=== PATIENT | female | born 1965 | race Caucasian/White ===

== ENCOUNTER 2019-06-22 21:58 | Observation (INO) | payer BC, SELFPAY ==
--- NOTE | ~2019-06-22 | CT_ITS ---
EXAMINATION: CT BRAIN W/O DATE: 06/22/2019 22:56 INDICATION: Syncope. Weakness. TECHNIQUE: Computed tomography (CT) of the head was performed without intravenous contrast. The dose- length product was 605.33 mGy-cm. The mA was adjusted according to patient size. Iterative reconstruc tion technique was employed. COMPARISON: CT dated 09/16/2010 FINDINGS: Normal brain parenchymal volume for age. Normal monroy-white differentiation. No acute intrac ranial hemorrhage, infarction, mass or mass effect. There are scattered mild periventricular and subc ortical white matter changes, most likely related to small vessel ischemic disease (microangiopathy). No ventriculomegaly or midline shift. Midline sagittal images demonstrate a normal corpus callosum, c raniovertebral junction and sella turcica. Basilar cisterns are patent. Paranasal sinuses and mastoids are pneumatized. No depressed skull fractures. IMPRESSION: 1. No acute intracranial abnormality. 2: Mild chronic age-related findings. Reviewed, dictated and finalized at location A.
--- NOTE | ~2019-06-22 | CT_ITS ---
EXAMINATION: CTA chest PE protocol DATE: 06/23/2019 09:42 CDT INDICATION: Right chest pain. Syncope. TECHNIQUE: Computed tomographic angiography (CTA) of the chest was performed with 100 mL Omnipaque-35 0 intravenous contrast. The dose-length product was 462.37 mGy-cm. Maximum intensity projection 3D-re constructions of the aorta and other arteries were constructed by the technologist on a separate work station. Automated exposure control and iterative reconstruction technique were employed. COMPARISON: CT dated 06/02/2005 FINDINGS: Study is technically adequate without evidence for pulmonary embolism. No evidence for aort ic aneurysm or dissection. Heart size is normal. No thoracic lymphadenopathy. No significant pleural or pericardial effusion. There are calcified mediastinal lymph nodes consistent with chronic granulom atous disease. There is atherosclerosis of the aorta and coronary arteries. There is dependent atelec tasis of the lung bases. No focal airspace consolidation. No pulmonary nodules or masses. IMPRESSION: 1. No evidence for pulmonary embolism. No acute cardiopulmonary disease. Reviewed, dictated and finalized at location A.
--- NOTE | ~2019-06-22 | CT_ITS ---
EXAMINATION: CT cervical spine wo con DATE: 06/22/2019 22:56 INDICATION: Neck pain TECHNIQUE: Computed tomography (CT) of the cervical spine was performed without intravenous contrast. The dose-length product was 442 mGy-cm. Automated exposure control and iterative reconstruction tech nique were employed. COMPARISON: None FINDINGS: Straightening of cervical lordosis. No acute fracture or traumatic malalignment. No signifi cant paraspinal soft tissue abnormality. Mild emphysematous changes noted in the lung apices. Straigh tening of cervical lordosis, likely positional or due to muscle spasm. There is multilevel disc narro wing with ossification posterior longitudinal ligament at the C5-6 and C6-7 levels. There is associat ed spinal stenosis and neural foraminal narrowing at these levels. IMPRESSION: 1. No acute abnormality of the cervical spine. Reviewed, dictated and finalized at location A.
--- NOTE | ~2019-06-22 | XR_ITS ---
EXAMINATION: XR chest 2V 06/22/2019 22:57 INDICATION: Right chest pain and syncope PROCEDURE: AP and lateral views of the chest COMPARISON: 09/23/2013 FINDINGS: The lungs are clear. The cardiomediastinal silhouette is within normal limits. There are no pleural effusions. There is no pneumothorax suspected. IMPRESSION: 1: NO ACUTE CARDIOPULMONARY DISEASE. Reviewed, dictated and finalized at location A.
--- NOTE | ~2019-06-22 | US_ITS ---
EXAMINATION:US venous doppler LE RT INDICATION:Right leg tenderness. Elevated d-dimer. TECHNIQUE: Multiple grayscale, color flow and Doppler images of the right lower extremity deep venous systems were obtained and reviewed. COMPARISON:No prior studies for comparison. FINDINGS: The common femoral, superficial femoral and popliteal veins demonstrate normal respiratory variation, augmentation and compressibility. Color flow is also seen within the posterior tibial, pe roneal, greater saphenous and profunda veins. There is a graft in the right mid thigh which appears to be thrombosed. No flow visualized. IMPRESSION: 1: No lower extremity deep venous thrombosis. 2: Graft in the right mid thigh appears to be occluded without visualized flow. Reviewed, dictated and finalized at location A. IMPRESSION: 1: No lower extremity deep venous thrombosis. 2: Graft in the right mid thigh appears to be occluded without visualized flow .
[2019-06-22 21:52] VITALS: BP 162/68; PULSE 84; PULSE 85; RESP 18; TEMP 36.7; O2SAT 100
--- NOTE | 2019-06-22 21:58 | ED.SYNCOPE ---
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 She states that she was sitting around her house when she stood up, became lightheaded, and had a syncopal episode, falling face first onto the floor. She reports that she had LOC for a couple seconds but denies any injuries from the fall. She notes that she had RUE weakness for a short time after the syncopal episode but that it has since resolved. She also notes that she has been having intermittent neck pain, N/V/D in the mornings, and chills at night for the past month. She states that her PCP recently started on her Bactrim for a skin infection to her thigh. She denies any cough, ABD pain, fevers, numbness, tingling, or any other medical complaints at this time. MD complaint: loss of consciousness Onset (ago): minute(s) -: second(s) Prodromal symptoms: lightheaded Witnessed: No Context: standing up Injuries sustained associated with event: none Current symptoms: other (Rt neck pressure that radiates into her rt shoulder and rt chest) Related Data Home Medications Medication Instructions Recorded Confirmed aspirin 81 mg tablet,delayed 81 mg PO DAILY 06/19/19 06/23/19 release clopidogrel 75 mg tablet 75 mg PO DAILY 06/19/19 06/23/19 ertugliflozin 15 mg tablet 15 mg PO QAM 06/19/19 06/23/19 hydrocodone 5 mg-acetaminophen 325 1 tablet PO Q8H PRN 06/19/19 06/23/19 mg tablet irbesartan 300 mg tablet 300 mg PO DAILY 06/19/19 06/23/19 lamotrigine 100 mg tablet 100 mg PO BID 06/19/19 06/23/19 metformin 1,000 mg tablet 1,000 mg PO BID 06/19/19 06/23/19 multivitamin,ap-hjjm-xhezycnp 1 tablet PO DAILY 06/19/19 06/23/19 sulfamethoxazole 400 1 tablet PO DAILY 06/19/19 06/23/19 mg-trimethoprim 80 mg tablet Allergies Allergy/AdvReac Type Severity Reaction Status Date / Time tramadol Allergy Mild Shortness Verified 06/22/19 23:50 of breath Review of Systems Review of Systems: All systems reviewed & are unremarkable except as noted in HPI and below Constitutional: Constitutional: Reports chills (at night for a month), Denies fatigue and Denies fever(s) Eyes: Eyes: Denies blurry vision ENT: Denies nasal congestion and Denies sinus pressure Cardiovascular: Cardiovascular: Denies rapid heart rate, Denies leg edema, Reports lightheadedness (resolved) and Denies dyspnea Respiratory: Respiratory: Denies hemoptysis and Denies dyspnea Gastrointestinal: Gastrointestinal: Denies abdominal pain, Denies melena, Reports diarrhea (in the mornings for a month), Reports nausea (in the mornings for a month) and Reports vomiting (in the mornings for a month) Musculoskeletal: Musculoskeletal: Reports neck pain (rt that radiates into her rt shoulder and rt chest) and Denies numbness Neurologic: Denies Abnormal speech present, Reports syncope, Reports focal weakness (RUE - resolved) and Denies numbness Endocrine: Endocrine: Denies fatigue PMFSH Past Medical History Medical History Anxiety BMI 30.0-30.9,adult Chronic anxiety Chronic depression Depression Diabetes Diabetes mellitus with peripheral artery disease HTN (hypertension) Hypersomnia Incisional hernia 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
--- NOTE | 2019-06-22 22:09 | ECG_ITS ---
Measurements Intervals [place] Rate: 84 P: 44 NV: 154 QRS: 54 QRSD: 85 T: 17 QT: 348 QTc: 412 Interpretive Statements SINUS RHYTHM BORDERLINE ST-T WAVE ABNORMALITY- INF/LAT LEADS BASELINE ARTIFACT- I, AVL, V3, V6 BORDERLINE ECG Electronically Signed On 06-23-2019 7:58:08 CDT by Yon Nelson D.O.
[2019-06-22 22:28] LABS: Basophils Absolute Auto 0.1 K/mm3 (0.0-0.1); Basophils Percent Auto 0.5 % (0.2-1.2); Eosinophils Absolute Auto 0.2 K/mm3 (0-0.3); Eosinophils Percent Auto 1.6 % (0-4.4); Hematocrit 41.4 % (37.0-47.0); Hemoglobin 12.7 g/dL (12.0-15.0); Immature Granulocyte Absolute 0.05 K/mm3 (0.00-0.031); Immature Granulocyte Percent A 0.5 % (0-0.5); Lymphocytes Absolute Auto 2.09 K/mm3 (0.9-3.2); Mean Corpuscular HGB Conc 30.7 g/dl (32-36); Mean Corpuscular Volume 91.4 fl (80-100); Mean Platelet Volume 9.3 fl (7.4-10.4); Monocytes Absolute Auto 0.9 K/mm3 (0.1-0.6); Monocytes Percent Auto 8.5 % (2.6-8.5); Neutrophils Absolute Auto 7.2 K/mm3 (1.3-6.7); Neutrophils Percent Auto 68.9 % (45.5-73.1); Platelet Count Result 207 k/mm3 (150-375); Red Blood Count 4.53 M/mm3 (4.2-5.4); Red Cell Distribution Width 17.7 % (11.5-14.5); White Blood Count 10.5 K/mm3 (4.5-10.0)
[2019-06-22 22:38] LABS: Prothrombin Time 12.7 Seconds (11.1-14.7)
[2019-06-22 22:39] LABS: Partial Thromboplastin Time 25.3 SECONDS (22.3-36.8)
[2019-06-22 22:41] LABS: D Dimer 2.02 ug/mL (<0.48)
[2019-06-22 22:51] LABS: Alveolar/Arterial O2 Gradient 23.3 mmHg; Base Excess ABG -1.7 mEq/l (+/-2.0); Carboxyhemoglobin 8.5 % THb (0-2.0); Device ROOM AIR; Fractional Inspired Oxygen 21 %; HCO3 ABG 22.7 mEq/l (22.0-26.0); Modified Allen's Test Unable to perform; Oxygen Content ABG 16.4 %vol (16.0-22.0); Oxygen Saturation ABG 96.1 % (95.0-100.0); Oxyhemoglobin 87.5 % THb (90.0-100.0); PCO2 ABG 37.5 mmHg (35.0-45.0); PO2 ABG 81.5 mmHg (80.0-100.0); PO2 FiO2 Ratio Arterial Blood 3.88 %; Site Drawn RIGHT BRACHIAL; Total Hemoglobin 13.3 g/dL (12.0-18.0)
[2019-06-22 22:52] LABS: NT Pro B Type Natriuretic Pept 37 PG/ML (5-100); Troponin I < 0.012 ng/mL (0.000-0.034)
[2019-06-22 22:59] LABS: Carbon Dioxide 27 mmol/L (22-30); Chloride 97 mmol/L (98-107); Potassium 4.2 mmol/L (3.4-5.0); Sodium 135 mmol/L (137-145)
[2019-06-22 23:00] LABS: Alanine Aminotransferase 18 U/L (4-35); Aspartate Amino Transferase 22 U/L (14-36); Bilirubin,Total 0.1 mg/dL (0.2-1.3); Blood Urea Nitrogen 15 mg/dL (7-17); Calcium 9.1 mg/dL (8.4-10.2); Estimated Glomerular Filt Rate 58; Glucose 181 mg/dL (65-105); Magnesium 1.8 mg/dL (1.6-2.3)
[2019-06-22 23:01] LABS: Albumin Level 4.2 g/dL (3.5-5.1); Alkaline Phosphatase 86 U/L (38-126); Total Protein 7.5 g/dL (6.3-8.2)
[2019-06-22 23:17] LABS: Lipase 53 U/L (23-300)
[2019-06-22 23:24] LABS: Add Urine Microscopic? YES; Appearance Urine Clear (Clear); Bilirubin Urine Negative (Negative); Blood Urine Negative (Negative); Color Urine Yellow (Yellow); Glucose Urine UA 3+ mg/dL (Negative); Ketones Urine Negative (Negative); Leukocyte Esterase Ur Negative LEU/UL (Negative); Mucus Urine Rare /lpf; Nitrate Urine Negative (Negative); Protein Urine 1+ mg/dL (Negative); RBC Urine 0-2 /hpf (0-2); Squamous Epithelial Cell Urine Many /hpf (Few); Urobilinogen Urine Negative mg/dL (<2.0); WBC Urine 0-3 /hpf
[2019-06-22 23:30] LABS: Specific Grav Ur 1.031 (1.001-1.035)
[2019-06-22 23:31] VITALS: BP 132/77; PULSE 87; RESP 18; O2SAT 97
[2019-06-22 23:36] VITALS: BP 122/71; BP 138/72; PULSE 79
[2019-06-22 23:37] VITALS: BP 135/72; PULSE 79
[2019-06-23] VITALS (8 sets, daily range): BP systolic 127–166; BP diastolic 60–90; PULSE 67–86; RESP 16–20; TEMP 36.2–37.1; O2SAT 97–98; BMI 29.5
--- NOTE | 2019-06-23 00:55 | PC.NURSE ---
This patient, Kay Gray, was admitted to IMU Room 213-01. Patient/family oriented to hospital policies and general routines including ID bracelet, bed and alarms, visiting hours, pain management, procedures, bathroom and other care routines, personal items, smoking policy, room service/diet, and visiting hours. Valuables list has been completed. Information on how to activate the Rapid Response Team has been discussed. Patient/Family are encouraged to report perceived risks to care and to ask questions if they do not understand what they are told or what they should do.
[2019-06-23 02:28] LABS: Troponin I < 0.012 ng/mL (0.000-0.034)
[2019-06-23 05:36] LABS: Troponin I < 0.012 ng/mL (0.000-0.034)
--- NOTE | 2019-06-23 08:31 | PM.IMHP ---
H&P: HPI History of Present Illness Chief complaint: Syncope, chest pain Narrative: Kay Gray is a 53 year old female with a history of peripheral vascular disease status post multiple stents to her left iliac region, right to left fem-fem bypass, bilateral aortofem bypass with revisions, who presented to the emergency department after a syncopal episode. The patient reports sitting in her chair and stood up when going to bed and suddenly felt a ?strange feeling in her head? then she woke up on the ground. She called for her who assisted her in getting up. He denies any tongue biting, urinary incontinence, or any initial trauma noted. She had fallen forward and hit her right forehead on the carpet but denies any pain. Initially after the fall she was feeling some numbness and tingling down her right arm which lasted about 15 minutes and resolved on its own when getting in ambulance. She recently saw her new primary care provider on 06/19/2019 who restarted her on her Lexapro which she had been off for years but otherwise may no medication adjustments. She also saw her Vascular Surgeon, Dr. Mendoza, last week who started her on Bactrim for a recurrent infection to her medial right thigh with some clear/yellow drainage reported. She does report having some nausea and vomiting over the last few weeks in the morning and the evening about 30 minutes after taking her medications. She reports eating and drinking without any issues and making sure she is staying hydrated. This morning she reports having headache which she gets frequently. She denies any palpitations, chest pain, shortness of breath, cough, fever, chills, leg swelling, abdominal pain, constipation, diarrhea, urinary issues, or any other symptoms at this time. She denies usually having any lightheadedness or dizziness with standing. Initial vitals showed temperature of 98.1?, blood pressure 168/62, heart rate 85, oxygen saturation 100% on room air. Initial labs showed slight leukocytosis at 10,500, otherwise normal CBC with diff. Normal coag panel. Elevated D-dimer at 2.02. ABG was normal. CMP showed slight hyponatremia at 135, glucose at 181, normal LFTs, normal lipase. BNP was 37. Troponin was negative x3. EKG showed normal sinus rhythm with a heart rate of 84, with nonspecific T-wave changes. Chest x-ray shows no acute cardiopulmonary abnormality. CT head showed No acute intracranial abnormality. Mild chronic age-related findings. CT cervical spine showed no acute changes. CTA chest showed no acute PE. The patient was admitted into the hospital for further evaluation of chest pain in syncope. 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 Riojas Vascular Surgeon: Dr. 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 Lynne 07/2014, bilateral aortofemoral bypass in 03/2017, and has required a few revisions. Primary hypertension Restless leg syndrome Seasonal allergies Sleep apnea with mood disorder Stress incontinence Suture granuloma Tobacco abuse Type 2 diabetes mellitus with vascular disease Surgical History Surgical History (Updated 06/23/19 @ 08:48 by Andree Mcintosh PA-C) H/O cardiac catheterization From 05/12/2017 on Legal Mediator note states the patient had a cardiac celina
[2019-06-23] MEDS: ESCITALOPRAM OXALATE 10 MG TABLET 20 MG PO (08:33)
[2019-06-23] MEDS: ASPIRIN 81 MG ENTERIC TABLET PO (08:33)
[2019-06-23] MEDS: THERAPEUTIC MULTIVITAMINS/MINERALS TAB (*BKC) 1 TABLET PO (08:33)
[2019-06-23] MEDS: CLOPIDOGREL BISULFATE 75 MG TABLET PO (08:33)
[2019-06-23] MEDS: IRBESARTAN 150 MG TABLET 300 MG PO (08:33)
[2019-06-23] MEDS: lamoTRIgine 100 MG TABLET PO (08:33)
[2019-06-23] MEDS: metFORMIN HCL 500 MG TABLET 1000 MG PO (08:33)
[2019-06-23 08:35] LABS: Glucose Point of Care 114 (65-105)
[2019-06-23] MEDS: ACETAMINOPHEN 325 MG TABLET 650 MG PO (10:14)
[2019-06-23] MEDS: SACCHAROMYCES BOULARDII 250 MG CAPSULE PO (10:15)
--- NOTE | 2019-06-23 10:42 | PM.CNCAR ---
Assessment and Plan Additional Plan Abrupt brief self-limited syncopal episode of unknown etiology. Since it occurred after arising from a chair getting ready for bed 1 would suspect an episode of orthostasis more than anything else. She does not have any previous cardiovascular history in his had no arrhythmias in the emergency department or appear on telemetry. I am not sure the reason she was admitted for chest pain rule out TN because I see no clinical evidence or history in a any once note that suggests an acute coronary syndrome. Believe she should be discharged for follow-up with her established physicians as an outpatient. She sees both Dr. Mendoza and Marzena Riojas and therefore does not need to be, established in the with anyone in our practice Moses Ravi MD [facility] History of Present Illness History of Present Illness Consult date/time: Date of service: 06/23/19 10:42 Reason For Visit: Syncope, chest pain Narrative: This is a 53-year-old woman I am seeing at the request of the hospitalist presumably because she experiences syncope a full episode yesterday at her home with seen in the emergency room after this and was admitted. She is not known to have any cardiac problems prior to this and she did not describe any symptoms of any sort of chest pain pressure or heaviness. Despite this the ER physician's notes said they were admitting her for chest pain/rule out TN. She states that she was in her usual state of health at home when she got up from a chair and her family room to try to get ready for bed last night. After getting up from the chair she was lightheaded for a moment and the next thing she can remember she was waking up on the floor. She states she had extreme generalized weakness and was unable to get up off the floor so she called for her who had already gone to bed. He came into the room and tried to help her to her feet but she was so weak that she fell back down again. She then states that for about 10 minutes she had some sense of paresthesias in her right arm after about 10 minutes of that all of her symptoms resolved and she felt normal again. At no time she disease describe any sense of chest pain of any kind and she was then brought to this hospital's emergency room. Her principal history a him in terms of previous medical problems include hypertension and a longstanding history of severe peripheral vascular disease for which she is seen by cardiologists of [facility] and Dr. Holliday for vascular surgery down in [place]. Apparently she developed symptoms of severe lower extremity vascular insufficiency and had aortobifem operation at [facility] about 5 or 6 years ago. Following that she states she had a variety of complications that required additional vascular surgery as well as skin and muscle flaps. Her original vascular surgeon at [facility] has left the country and he the for that reason she is now being treated in [place]. Despite all this really and very unfortunately she continues to smoke tobacco and marijuana. Upon coming into the room to see her this morning for consultation she was sleeping flat in bed in no distress of any kind and upon awakening offers no cardiovascular complaints. 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 Marzena Riojas of [facility]. Review of Systems Constitutional: Constitutional: Reports no additional constitutional complaints Eyes: Eyes: Reports no additional eye complaints ENT: Reports system reviewed and no additional complaints, except as documented Cardiovascular: Cardiovascular: Reports no additional cardiovascular complaints Respiratory: Respiratory: Reports no additional respiratory complaints Gastrointestinal: Gastrointestinal: Reports no additional gastrointestinal complaints Musculoskeletal: Musculoskeletal: Reports no additional musculoskeletal complaints Neurologic: Comments: Syncopal episode as per HPI Endocrine: Endocri
[2019-06-23 12:04] LABS: Glucose Point of Care 107 (65-105)
--- NOTE | 2019-06-23 13:26 | PM.DS ---
DS: Diagnosis Admitting Diagnosis Admitting Diagnosis: Syncope and collapse Discharge Diagnosis (1) Syncope: Code(s): R55 - Syncope and collapse Status: Acute Assessment and Plan: Patient had a syncopal episode prior to arrival after going from sitting to standing and felt dizzy. The patient's orthostatics in the emergency department were normal but she was symptomatic with position changes. Will order Pasha hose bilaterally. Patient had elevated D-dimer at 2.02 and had a CTA chest which showed no acute PE. She also had some right calf pain and Venous Doppler was negative for DVT. Patient's troponins are negative x3. Patient's EKG did show some T-wave abnormality. Upon review of patient's prior stress test from January 2017 the patient did have fixed defect in the distal anterior, distal anterior septal, and apical segments. Patient had a cardiac catheterization in 2005 which showed normal coronary arteries. Patient telemetry shows normal sinus rhythm with a heart rate of 69 b.p.m., with no acute abnormality noted. Due to the patient's extensive vascular history I will consult cardiology on to the case. Dr. Ravi evaluated the patient and recommended discharging her home, symptoms seem more like orthostatic hypotension which occurred with standing up. He does not have any concerns for ACS. Recommend following up with Dr. Riojas Cardiology and Dr. Mendoza Vascular Surgeon for further evaluation. The patient understands and agrees the plan all questions answered. (2) Chest pain: Code(s): R07.9 - Chest pain, unspecified Status: Acute Assessment and Plan: Initially that the patient's fall she had some chest discomfort to her anterior right chest which resolved. She denies any acute chest pain at this time. Her EKG did show some T-wave abnormalities. Patient's troponins were all negative x3. Cardiology does not have any concerns for ACS at this time. Will have her follow-up with her marketing data specialist and vascular surgeon. (3) Calf pain: Code(s): M79.669 - Pain in unspecified lower leg Status: Acute Assessment and Plan: Patient has right calf pain to palpation and with positive Homans sign. She reports this is a chronic pain for her but due to elevated D-dimer level and pain we will check a venous Doppler to rule out any DVT. From prior records from her marketing data specialist, it shows she was on Eliquis for a right leg DVT at one point, but the patient denies any history of DVTs in the past and states that the Eliquis was to prevent blood clots from forming. Venous Doppler was completed showing no DVT to the right lower extremity. (4) Neck pain: Code(s): M54.2 - Cervicalgia Status: Acute Assessment and Plan: Patient reports chronic neck pain for which she uses marijuana as well as narcotics if necessary. CT cervical spine preliminary report shows no traumatic injury, no fracture no soft tissue swelling, straightening of the cervical spine which could be positional or related to muscle spasm, prominent multilevel degenerative disc disease lower cervical spine. Ossification posterior longitudinal ligament C5 and C6 level. Spinal stenosis prominent bilateral neural foraminal stenosis at C5-C6 and C6-C7 levels. Will continue with patient's pain control as needed. Heating pad as needed for pain. (5) Type 2 diabetes mellitus with vascular disease: Code(s): E11.59 - Type 2 diabetes mellitus with other circulatory complications Status: Acute Assessment and Plan: Serum glucose this morning was 113. Will continue on her metformin and hold her ertugliflozin which is nonformulary. Will continue Accu-Cheks ACHS , sliding scale NovoLog, hypoglycemic protocol in place.
== END 2019-06-23 14:50 | disposition home or self-care (01) ==
LOC: ANHED 06-23 00:09 → ANHIMU 06-23 00:19
PROVIDERS: Physician Assistant; Admitting Provider Internal Medicine; Emergency Provider General Practice; PCP Physician Assistant; Visit Provider Internal Medicine
DX: R55 Syncope and collapse (principal); R07.9 Chest pain, unspecified; R79.1 Abnormal coagulation profile; M79.661 Pain in right lower leg; M54.2 Cervicalgia; I10 Essential (primary) hypertension; E11.51 Type 2 diabetes mellitus with diabetic peripheral angiopathy without gangrene; F17.210 Nicotine dependence, cigarettes, uncomplicated; L03.115 Cellulitis of right lower limb; F41.8 Other specified anxiety disorders; W18.30XA Fall on same level, unspecified, initial encounter; Z79.82 Long term (current) use of aspirin; Z79.84 Long term (current) use of oral hypoglycemic drugs; Z79.899 Other long term (current) drug therapy; Z95.828 Presence of other vascular implants and grafts; E87.1 Hypo-osmolality and hyponatremia
CPT/HCPCS: 36415; 36600; 70450; 71046; 71275; 72125; 80053; 81001; 82375; 82805; 83050; 83690; 83735; 83880; 84484; 85025; 85380; 85610; 85730; 93005; 93971; 96374; 99285; A9270; G0378; J0131; Q9967

== ENCOUNTER 2019-09-20 07:19 | Outpatient (CLI) | payer MEDICARE, SELFPAY ==
[2019-09-20 07:58] LABS: Hemoglobin A1C 6.6 % (<5.7)
[2019-09-20 08:01] LABS: Blood Urea Nitrogen 16 mg/dL (7-17); Calcium 9.8 mg/dL (8.4-10.2); Carbon Dioxide 27 mmol/L (22-30); Chloride 103 mmol/L (98-107); Cholesterol 125 mg/dL (0-200); Estimated Glomerular Filt Rate > 60; Glucose 153 mg/dL (65-105); HDL Direct 27 mg/dL; Potassium 4.3 mmol/L (3.4-5.0); Sodium 138 mmol/L (137-145); Triglycerides 189 mg/dL (<150)
[2019-09-20 08:12] LABS: LDL Cholesterol Direct 67 mg/dL
== END 2019-09-20 07:20 | disposition home or self-care (01) ==
PROVIDERS: Visit Provider Physician Assistant
DX: R07.9 Chest pain, unspecified (principal); E66.9 Obesity, unspecified; I70.219 Atherosclerosis of native arteries of extremities with intermittent claudication, unspecified extremity; I83.10 Varicose veins of unspecified lower extremity with inflammation; I10 Essential (primary) hypertension; F17.200 Nicotine dependence, unspecified, uncomplicated; E78.5 Hyperlipidemia, unspecified; F32.9 Major depressive disorder, single episode, unspecified; E11.59 Type 2 diabetes mellitus with other circulatory complications
CPT/HCPCS: 36415; 80048; 80061; 83036

== ENCOUNTER 2019-10-15 20:46 | Emergency (ER) | payer MEDICARE, SELFPAY ==
[2019-10-15 20:50] VITALS: BP 175/87; PULSE 82; RESP 18; TEMP 36.6; O2SAT 98
--- NOTE | 2019-10-15 20:57 | PC.NURSE ---
Patient requesting to leave ED and have drive her to [facility] ER where vascular surgery took place. ED charge nurse called to triage to speak to patient. This RN and charge nurse advised patient of risk of leaving with a high risk recent surgery and all complications including bleeding out and . Pt verbalized understanding and still instant to go to [place] without seeing [facility] ED doctors. Pt again verbalized understanding. ED charge nurse, Frida had patient sign a refusal of service prior to her leaving the ER. Pt signed refusal.
== END 2019-10-15 20:57 | disposition left against medical advice (07) ==
DX: Z53.21 Procedure and treatment not carried out due to patient leaving prior to being seen by health care provider (principal)
CPT/HCPCS: 99199

== ENCOUNTER 2019-10-25 09:39 | Outpatient (CLI) | payer MEDICARE, SELFPAY ==
--- NOTE | ~2019-10-25 | CT_ITS ---
EXAMINATION: CT abdomen pelvis w con DATE: 10/25/2019 10:30 INDICATION: Incisional hernia TECHNIQUE: Computed tomography (CT) of the abdomen and pelvis was performed with 100 cc Omnipaque 350 intravenous contrast. Automated exposure control and iterative reconstruction technique were employe d. Exam dose: 989.69 mGy-cm total exam DLP. COMPARISON: 08/03/2011 CT abdomen pelvis FINDINGS: The lung bases are clear. Normal heart size. No pericardial or pleural effusion. No hepatic, splenic, pancreatic, adrenal or renal space occupying mass lesion. Status post cholecystectomy. No bile duct or pancreatic duct dilatation. No urinary tract calculus or hydroureteronephrosis. The urinary bladder, uterus and adnexal areas are unremarkable. There is atherosclerotic calcification of the abdominal aorta and branches. There are stents in both common iliac arteries. There is a femoral-femoral bypass graft. There are numerous diverticula of the colon, particularly sigmoid area; no CT evidence of diverticuli tis. There is a prominent amount of fecal material within the colon. The appendix is not evident. There is a fat-containing right periumbilical hernia with up to 1.7 cm wide defect of the abdominal w all. Included skeletal structures are unremarkable other than mild degenerative changes of the thoracic an d lumbar spine, osteopenia IMPRESSION: Right periumbilical fat-containing hernia Status post cholecystectomy Diverticulosis of the colon Bilateral common iliac stents and femorofemoral bypass graft Reviewed, dictated and finalized at [facility]. Reviewed, dictated and finalized at [facility].
[2019-10-25 10:17] LABS: Estimated Glomerular Filt Rate > 60
== END 2019-10-25 09:40 ==
PROVIDERS: Visit Provider Surgery
DX: K43.2 Incisional hernia without obstruction or gangrene (principal); K42.9 Umbilical hernia without obstruction or gangrene; Z90.49 Acquired absence of other specified parts of digestive tract; K57.30 Diverticulosis of large intestine without perforation or abscess without bleeding
CPT/HCPCS: 36415; 74177; Q9967

== ENCOUNTER 2020-01-24 08:45 | Outpatient (CLI) | payer MEDICARE, SELFPAY ==
[2020-01-24 09:34] LABS: Hemoglobin A1C 5.8 % (<5.7)
[2020-01-24 09:36] LABS: Anion Gap 9 mmol/L (8-16); Blood Urea Nitrogen 19 mg/dL (7-17); Calcium 10.1 mg/dL (8.4-10.2); Carbon Dioxide 31 mmol/L (22-30); Chloride 99 mmol/L (98-107); Cholesterol 145 mg/dL (0-200); Estimated Glomerular Filt Rate > 60; Glucose 103 mg/dL (65-105); HDL Direct 36 mg/dL; Sodium 139 mmol/L (137-145); Triglycerides 225 mg/dL (<150)
[2020-01-24 09:47] LABS: LDL Cholesterol Direct 81 mg/dL
[2020-01-24 09:56] LABS: MALB Creatinine Ratio 11.3 mg/g (0-30)
== END 2020-01-24 08:46 | disposition home or self-care (01) ==
LOC: ANHLAB 08:49
PROVIDERS: PCP Physician Assistant; Visit Provider Physician Assistant
DX: E78.2 Mixed hyperlipidemia (principal); E11.51 Type 2 diabetes mellitus with diabetic peripheral angiopathy without gangrene
CPT/HCPCS: 36415; 80048; 80061; 82043; 83036

== ENCOUNTER → 2020-08-11 01:38 | Outpatient (CLI) | payer MEDICARE, SELFPAY ==
[2020-08-11 18:55] LABS: SARS-CoV-2 RNA PCR Negative
== END ==
PROVIDERS: PCP Physician Assistant; Visit Provider Internal Medicine Gastroenterology
DX: Z01.812 Encounter for preprocedural laboratory examination (principal); Z20.822 Contact with and (suspected) exposure to COVID-19
CPT/HCPCS: C9803; U0003; U0005

== ENCOUNTER 2020-08-14 05:34 | Day surgery (SDC) | payer MEDICARE, SELFPAY ==
[2020-08-04 10:51] VITALS: BMI 25.7
[2020-08-14 07:49] VITALS: BP 148/86; PULSE 84; RESP 16; TEMP 36.7; O2SAT 96; BMI 26.4
[2020-08-14] MEDS: LACTATED RINGERS 1,000 ML 150 ML IV CONT (07:54)
[2020-08-14 08:05] LABS: Glucose Point of Care 136 (65-105)
--- NOTE | 2020-08-14 08:40 | WPDANESEPPF ---
Anes - Initial Pre Proc Eval Procedure: Operation Date: 08/14/20 09:00 Proposed Procedures p Screening Colonoscopy - Usman Bull MD Date/Time: 08/14/20 08:40 Surgeon: Usman Bull MD Pre Op Diagnosis: neoplasm screening Patient Data Age: 54 Gender: F Height: 5 ft 6 in Weight: 74.2 kg Last Vital Signs Temp 98.1 F 08/14/20 07:49 Pulse 84 08/14/20 07:49 Resp 16 08/14/20 07:49 BP 148/86 H 08/14/20 07:49 Pulse Ox 96 08/14/20 07:49 Allergies Allergy/AdvReac Type Severity Reaction Status Date / Time Qdtobzn-Xdi-Ate Reductase Allergy Severe Muscle Verified 08/14/20 07:46 Inhibitor Spasms vancomycin Allergy Severe Hives Verified 08/14/20 07:46 tramadol Allergy Mild Shortness Verified 08/14/20 07:46 of breath Home Medications Medication Instructions Recorded Confirmed Type aspirin 81 mg tablet,delayed 81 mg PO DAILY 06/19/19 08/14/20 History release clopidogrel 75 mg tablet 75 mg PO DAILY 06/19/19 08/14/20 History multivitamin,ig-dipx-ektlvhzu 1 tablet PO DAILY 06/19/19 08/14/20 History metformin 1,000 mg tablet 1,000 mg PO BID #180 tablet 08/15/19 08/14/20 Rx lamotrigine 100 mg tablet 100 mg PO BID #180 tablet 09/09/19 08/14/20 Rx ezetimibe 10 mg tablet 10 mg PO DAILY 10/18/19 08/14/20 History hydrochlorothiazide 12.5 mg tablet 12.5 mg PO DAILY 10/18/19 08/14/20 History gabapentin 300 mg capsule 300 mg PO TID 01/22/20 08/14/20 History escitalopram oxalate 20 mg tablet 20 mg PO DAILY #90 tablet 03/11/20 08/14/20 Rx irbesartan 300 mg tablet 300 mg PO DAILY #90 tablet 03/11/20 08/14/20 Rx trazodone 50 mg tablet See Rx Instructions .ROUTE 03/12/20 08/14/20 Rx .COMPLEX #90 tablet ropinirole 3 mg PO HS 08/04/20 08/14/20 History semaglutide 0.5 mg SUB-Q WEEKLY #6 ml 08/13/20 08/14/20 Rx Laboratory Tests 08/14/20 08:03 POC Capillary Glucose 136 mg/dl H mg/dl (65-105) Patient hx anesthesia problems: none Family hx anesthesia problems: none PMFSH Past Medical History Medical History Anxiety BMI 30.0-30.9,adult Chronic anxiety Chronic depression Depression Diabetes mellitus with peripheral artery disease HTN (hypertension) Hypersomnia Incisional hernia Infection of vascular bypass graft senior living (current) use of 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 Lynne 07/2014, bilateral aortofemoral bypass in 03/2017, and has required a few revisions. Primary hypertension Restless leg syndrome Seasonal allergies Sleep apnea with mood disorder Stress incontinence Suture granuloma Tobacco abuse Type 2 diabetes mellitus with vascular disease Surgical History Surgical History Colonoscopy planned H/O cardiac catheterization From 05/12/2017 on Director Validation note states the patient had a cardiac catheterization in 2005 which showed normal coronary arteries. Hx of vsueb-slxrp-hqilclr bypass Hx of hernia repair Status post aortobifemoral bypass surgery Status post laparoscopic hernia repair Family History Family History Sibling Family history of diabetes mellitus in first degree relative Family history of liver disease Liver cancer Mother Liver cancer Diabetes mellitus Congestive heart failure Father Congestive heart failure Social History Social History (Updated 07/20/20 @ 15:34 by Tete Mata [facility]) Smoking packs per day: 1 Smoking cigarettes per day: 20.0 Years smoked: 25 Smoking pack-years: 25.00 Smoking status: Former smoker Tobacco type: cigarettes Smoking end date: 04/03/20 Alcohol intake: current Substance use: current Sub
--- NOTE | 2020-08-14 08:46 | PM.HPGS ---
History of Present Illness History of Present Illness Consent: Risks, benefits, and alternatives have been discussed and questions answered. Patient agrees to proceed with procedure. Chief complaint: neoplasm screening Narrative: Kay Gray is a 54 year old female here for screening colonoscopy, last one 2019 (had polyp removed) Review of Systems Constitutional: Constitutional: Denies headache(s) and Denies weakness Eyes: Eyes: Denies blurry vision ENT: Reports Normal hearing present, Denies headache(s) and Denies neck pain Cardiovascular: Cardiovascular: Denies chest pain and Denies dyspnea Respiratory: Respiratory: Denies dyspnea Gastrointestinal: Gastrointestinal: Reports no additional gastrointestinal complaints Genitourinary: Genitourinary: Denies dysuria Musculoskeletal: Musculoskeletal: Denies neck pain Integumentary/Breasts: Skin/Breast: Denies dry skin Neurologic: Reports Normal hearing present, Denies headache(s) and Denies weakness Psychiatric: Psychiatric: Denies anxiety Endocrine: Endocrine: Denies change in body appearance Hematologic/Lymphatic: Hematologic/Lymphatic: Denies easy bleeding Allergic/Immunologic: Allergic/Immunologic: Denies urticaria PMFSH Past Medical History Medical History Anxiety BMI 30.0-30.9,adult Chronic anxiety Chronic depression Depression Diabetes mellitus with peripheral artery disease HTN (hypertension) Hypersomnia Incisional hernia 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 Lynne 07/2014, bilateral aortofemoral bypass in 03/2017, and has required a few revisions. Primary hypertension Restless leg syndrome Seasonal allergies Sleep apnea with mood disorder Stress incontinence Suture granuloma Tobacco abuse Type 2 diabetes mellitus with vascular disease Surgical History Surgical History Colonoscopy planned H/O cardiac catheterization From 05/12/2017 on Peeled Potato Inspector note states the patient had a cardiac catheterization in 2005 which showed normal coronary arteries. Hx of nsaee-zcowk-jrueerm bypass Hx of hernia repair Status post aortobifemoral bypass surgery Status post laparoscopic hernia repair Family History Family History Sibling Family history of diabetes mellitus in first degree relative Family history of liver disease Liver cancer Mother Liver cancer Diabetes mellitus Congestive heart failure Father Congestive heart failure Social History Social History (Updated 07/20/20 @ 15:34 by Tete Mata [facility]) Smoking packs per day: 1 Smoking cigarettes per day: 20.0 Years smoked: 25 Smoking pack-years: 25.00 Smoking status: Former smoker Tobacco type: cigarettes Smoking end date: 04/03/20 Alcohol intake: current Substance use: current Substance use type: marijuana Other substance usage details: edible marijuana Last use: 08/02/2020 Living arrangements: with family Additional living arrangements comments: She lives with her in [place]. Additional occupation/education comments: Disabled due to PAD Gender identity (if verbalized by the patient): Female Spiritual care concerns: No Agree to blood products: Yes Meds Home Medications and Allergies Home Medications Medication Instructions Recorded Confirmed Type aspirin 81 mg tablet,delayed 81 mg PO DAILY 06/19/19 08/14/20 History release clopidogrel 75 mg tablet 75 mg PO DAILY 06/19/19 08/14/20 History multivitamin,ic-zrcg-enjtuhbm 1 tablet PO DAILY 06/19/19 08/14/20 History metformin 1,000 m
[2020-08-14 09:21] VITALS: BP 130/63; PULSE 66; RESP 14; O2SAT 14
[2020-08-14 09:31] VITALS: BP 133/66; PULSE 61; RESP 16; O2SAT 16
[2020-08-14 09:41] VITALS: BP 129/69; PULSE 59; RESP 12; O2SAT 12
== END 2020-08-14 09:57 | disposition home or self-care (01) ==
PROVIDERS: PCP Physician Assistant; Visit Provider Internal Medicine Gastroenterology
PROC: 0DJD8ZZ Inspection of Lower Intestinal Tract, Via Natural or Artificial Opening Endoscopic (ICD-10-PCS; CPT 45378; principal; 2020-08-14 09:00)
DX: Z12.11 Encounter for screening for malignant neoplasm of colon (principal); Z86.010 Personal history of colon polyps; I10 Essential (primary) hypertension; E78.2 Mixed hyperlipidemia; E11.51 Type 2 diabetes mellitus with diabetic peripheral angiopathy without gangrene; J30.2 Other seasonal allergic rhinitis; K57.30 Diverticulosis of large intestine without perforation or abscess without bleeding; K64.8 Other hemorrhoids; G47.10 Hypersomnia, unspecified; G47.30 Sleep apnea, unspecified; G25.81 Restless legs syndrome; F32.9 Major depressive disorder, single episode, unspecified; F39 Unspecified mood [affective] disorder; F41.9 Anxiety disorder, unspecified; Z79.82 Long term (current) use of aspirin
CPT/HCPCS: 45380; 82948; 88305; C9803; J2405; J2704; J7120; U0003; U0005

== ENCOUNTER 2020-12-03 16:17 | Outpatient (CLI) | payer MEDICARE, SELFPAY ==
--- NOTE | ~2020-12-03 | XR_ITS ---
EXAMINATION: XR lumbar spine 2-3V DATE: 12/03/2020 16:44 INDICATION: Low back pain. TECHNIQUE: 3 views of lumbar spine were obtained. COMPARISON: CT abdomen and pelvis 10/25/2019 FINDINGS: There is 3 mm anterolisthesis of L4 on L5. There is mild chronic anterior wedging of T11 ve rtebral body. There is mildly decreased disc height at L4-L5. There are endplate osteophytes at all l evels. There is severe facet joint osteoarthritis in lower lumbar spine. There are stents in the comm on iliac arteries. Surgical clips in the right upper quadrant are likely from cholecystectomy. IMPRESSION: 1. Mild lumbar spondylosis. Reviewed, dictated and finalized at location A. IMPRESSION: 1. Mild lumbar spondylosis.
--- NOTE | ~2020-12-03 | XR_ITS ---
EXAMINATION: XR hip RT min 2V DATE: 12/03/2020 16:45 INDICATION: Right hip pain. TECHNIQUE: 2 views of right hip were obtained. COMPARISON: None. FINDINGS: Bone alignment is normal. No fracture. There is mild right hip osteoarthritis. Surgical cli ps overlie the right inguinal region. IMPRESSION: 1. Mild right hip osteoarthritis. Reviewed, dictated and finalized at location A.
--- NOTE | ~2020-12-03 | XR_ITS ---
EXAMINATION: XR hip LT min 2V DATE: 12/03/2020 16:45 INDICATION: Hip pain. TECHNIQUE: 2 views of left hip were obtained. COMPARISON: None. FINDINGS: Bone alignment is normal. No fracture. Left hip joint space is normal. Surgical clips overl ie left inguinal region. IMPRESSION: 1. Normal left hip. Reviewed, dictated and finalized at location A. IMPRESSION: 1. Normal left hip.
== END 2020-12-03 16:18 | disposition home or self-care (01) ==
LOC: ANHIMG 16:20
PROVIDERS: PCP Family Medicine; Visit Provider Physician Assistant
DX: M54.5 Low back pain (principal); M47.816 Spondylosis without myelopathy or radiculopathy, lumbar region; M16.11 Unilateral primary osteoarthritis, right hip
CPT/HCPCS: 72100; 73502

== ENCOUNTER 2020-12-05 07:41 | Outpatient (CLI) | payer MEDICARE, SELFPAY ==
[2020-12-05 08:09] LABS: Alanine Aminotransferase 21 U/L (4-35); Albumin Level 4.1 g/dL (3.5-5.1); Alkaline Phosphatase 70 U/L (38-126); Anion Gap 6 mmol/L (8-16); Aspartate Amino Transferase 26 U/L (14-36); Bilirubin,Total 0.2 mg/dL (0.2-1.3); Blood Urea Nitrogen 18 mg/dL (7-17); Calcium 9.6 mg/dL (8.4-10.2); Carbon Dioxide 30 mmol/L (22-30); Chloride 103 mmol/L (98-107); Cholesterol 142 mg/dL (0-200); Estimated Glomerular Filt Rate > 60; Glucose 118 mg/dL (65-110); HDL Direct 42 mg/dL; Potassium 3.4 mmol/L (3.4-5.0); Sodium 139 mmol/L (137-145); Triglycerides 153 mg/dL (<150)
[2020-12-05 08:12] LABS: Hemoglobin A1C 5.7 % (<5.7)
[2020-12-05 08:22] LABS: LDL Cholesterol Direct 67 mg/dL
[2020-12-05 08:23] LABS: Creatinine Urine 71.8 mg/dL
[2020-12-05 08:28] LABS: MALB Creatinine Ratio 58.4 mg/g (0-30); Microalbumin Urine Random 41.9 mg/L (0-16.7)
== END 2020-12-05 07:42 | disposition home or self-care (01) ==
LOC: ANHLAB 07:45
PROVIDERS: PCP Family Medicine; Visit Provider Physician Assistant
DX: I10 Essential (primary) hypertension (principal); E11.9 Type 2 diabetes mellitus without complications; E78.5 Hyperlipidemia, unspecified
CPT/HCPCS: 36415; 80053; 80061; 82043; 83036

== ENCOUNTER 2021-05-23 10:21 | Emergency (ER) | payer MEDICARE, SELFPAY ==
--- NOTE | ~2021-05-23 | XR_ITS ---
XR shoulder RT min 2V 05/23/2021 10:45 INDICATION: Right shoulder pain PROCEDURE: 4 views right shoulder COMPARISON: No prior studies for comparison. FINDINGS: Fracture, dislocation or subluxation is not identified. The soft tissues appear within norm al limits. No foreign bodies are identified. IMPRESSION: 1: NO ACUTE BONE OR JOINT ABNORMALITY IDENTIFIED. Reviewed, dictated and finalized at location A. ATOR
[2021-05-23 10:33] VITALS: BP 165/73; PULSE 86; RESP 16; TEMP 36.2; O2SAT 99
--- NOTE | 2021-05-23 11:09 | ED.UPPEXIN ---
HPI - Extremity Injury (Upper) General Chief Complaint: Extremity Injury, Upper Stated Complaint: Right shoulder injury Time Seen by Provider: 05/23/21 10:52 Source: patient and RN notes reviewed Mode of arrival: ambulatory Limitations: no limitations History of Present Illness HPI narrative: Patient presents today complaining of right shoulder pain after falling over a large potted plant last night onto her shoulder. Denies numbness or tingling in the arm or hand. She currently rates her pain 8/10 and has been taking Tylenol and applying ice without relief. MD complaint: injury to: right and shoulder Related Data Home Medications Medication Instructions Recorded Confirmed aspirin 81 mg tablet,delayed 81 mg PO DAILY 06/19/19 05/23/21 release clopidogrel 75 mg tablet 75 mg PO DAILY 06/19/19 05/23/21 multivitamin,ru-htse-ncnvfakq 1 tablet PO DAILY 06/19/19 05/23/21 ezetimibe 10 mg tablet 10 mg PO DAILY 10/18/19 05/23/21 hydrochlorothiazide 12.5 mg tablet 12.5 mg PO DAILY 10/18/19 05/23/21 diclofenac sodium 2 g TOPICAL QID PRN 05/23/21 05/23/21 Allergies Allergy/AdvReac Type Severity Reaction Status Date / Time Fpohzgh-PBP-WaS Reductase Allergy Severe Muscle Verified 05/23/21 10:28 Inhibitor Spasms [Mgcebmt-Ogh-Lnx Reductase Inhibitor] vancomycin Allergy Severe Hives Verified 05/23/21 10:28 tramadol AdvReac Mild Itching Verified 05/23/21 10:28 Review of Systems Review of Systems: CONSTITUTIONAL: Denies body aches, fever, chills, or sweats. EYES: Denies visual changes, redness, or discharge. ENT: Denies rhinorrhea, congestion, sore throat, or otalgia. CARDIOVASCULAR: Denies chest pain, palpitations, or edema. RESPIRATORY: Denies cough or dyspnea. GASTROINTESTINAL: Denies abdominal pain, nausea, vomiting, or diarrhea. GENITOURINARY: Denies dysuria or hematuria. SKIN: Denies rash, itching, or wounds. MUSCULOSKELETAL: Denies back pain, or myalgia.+ Right shoulder pain. NEUROLOGIC: Denies headache, numbness, tingling, or weakness. PSYCH: Denies depression or anxiety. 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 Lynne 07/2014, bilateral aortofemoral bypass in 03/2017, and has required a few revisions. Primary hypertension Restless leg syndrome Seasonal allergies Sleep apnea with mood disorder Stress incontinence Suture granuloma Tobacco abuse Type 2 diabetes mellitus with vascular disease Surgical History Surgical History Colonoscopy planned H/O cardiac catheterization From 05/12/2017 on It Technical Support Specialist note states the patient had a cardiac catheterization in 2005 which showed normal coronary arteries. Hx of dfcnc-afags-vqezjie bypass Hx of hernia repair Status post aortobifemoral bypass surgery Status post laparoscopic hernia repair Family History Family History Sibling Family history of diabetes mellitus in first degree relative Family history of liver disease Liver cancer Mother Liver cancer Diabetes mellitus Congestive heart failure Father Congestive heart failure Social History Social History Smoking packs per day: 1 Smoking cigarettes per day: 20.0 Years smoked: 25 Smoking pack-years: 25.00 Smoking status: Former smoker Tobacco type: cigarettes Smoking
== END 2021-05-23 11:18 | disposition home or self-care (01) ==
PROVIDERS: Emergency Provider Nurse Practitioner; PCP Family Medicine
DX: S46.911A Strain of unspecified muscle, fascia and tendon at shoulder and upper arm level, right arm, initial encounter (principal); S40.011A Contusion of right shoulder, initial encounter; W18.09XA Striking against other object with subsequent fall, initial encounter; Z87.891 Personal history of nicotine dependence; F12.90 Cannabis use, unspecified, uncomplicated; E11.51 Type 2 diabetes mellitus with diabetic peripheral angiopathy without gangrene; I10 Essential (primary) hypertension; E78.2 Mixed hyperlipidemia; G25.81 Restless legs syndrome; Z79.82 Long term (current) use of aspirin; F41.9 Anxiety disorder, unspecified; F32.A Depression, unspecified
CPT/HCPCS: 73030; 99213; G0463

== ENCOUNTER 2021-08-09 09:02 | Outpatient (CLI) | payer MEDICARE, SELFPAY ==
[2021-08-09 09:52] LABS: Hemoglobin A1C 5.3 % (<5.7)
[2021-08-09 09:59] LABS: Alanine Aminotransferase 14 U/L (6-35); Albumin Level 4.2 g/dL (3.5-5.1); Alkaline Phosphatase 79 U/L (38-126); Anion Gap 10 mmol/L (8-16); Aspartate Amino Transferase 23 U/L (14-36); Bilirubin,Total 0.2 mg/dL (0.2-1.3); Blood Urea Nitrogen 17 mg/dL (7-17); Calcium 9.1 mg/dL (8.4-10.2); Carbon Dioxide 28 mmol/L (22-30); Chloride 103 mmol/L (98-107); Cholesterol 124 mg/dL (0-200); Estimated Glomerular Filt Rate 51; Glucose 140 mg/dL (65-110); HDL Direct 34 mg/dL; Potassium 4.1 mmol/L (3.4-5.0); Sodium 141 mmol/L (137-145); Triglycerides 142 mg/dL (<150)
[2021-08-09 10:13] LABS: LDL Cholesterol Direct 58 mg/dL
[2021-08-11 15:41] LABS: Lamotrigine Lamictal 5.1 mcg/mL (4.0-18.0)
== END 2021-08-09 09:03 | disposition home or self-care (01) ==
PROVIDERS: PCP Family Medicine; Visit Provider Internal Medicine
DX: E11.59 Type 2 diabetes mellitus with other circulatory complications (principal); I10 Essential (primary) hypertension; E78.5 Hyperlipidemia, unspecified; F39 Unspecified mood [affective] disorder
CPT/HCPCS: 36415; 80053; 80061; 80175; 83036

== ENCOUNTER 2021-08-11 07:53 | Outpatient (CLI) | payer MEDICARE, SELFPAY ==
--- NOTE | ~2021-08-11 | XR_ITS ---
EXAMINATION: XR barium swallow modified DATE: 08/11/2021 08:46 INDICATION: Dysphagia TECHNIQUE: Modified barium esophagram was performed by myself to administered fluoroscopy, in conjun ction with speech pathologist who administered barium in varying consistencies as per speech patholog ist documentation. This was recorded on tape. A single fluoroscopic spot image was recorded. The DAP for this procedure was 1.738 Gycm2. Fluoroscopy exposure time was 3.0 minutes. FINDINGS: Oral stage: Adequate function. Pharyngeal phase: Reduced laryngeal elevation, reduced tongue base retraction, vallecular and pirifor m sinus residue. Laryngeal penetration: Present. Aspiration: Present. Laryngeal sensitivity: Absent. IMPRESSION: Silent aspiration. Please refer to speech pathologist findings and specific feeding recom mendations. Reviewed, dictated and finalized at location A. IMPRESSION: Silent aspiration. Please refer to speech pathologist findings and specific feeding recommendations.
--- NOTE | 2021-08-11 17:09 | STOPEVAL ---
MODIFIED BARIUM SWALLOW EVALUATION: Thank you for referring Kay Gray to [facility].? Attending Provider: Farzad Joe DO Modified Barium Swallow Evaluation Recent Swallowing History Reports Dysphagia Yes: lots of choking & its hard to swallow Duration of Dysphagia 6 months History of Pneumonia No: pt denied Reported Difficult Consistencies Thin Liquids,Solids Intake Method Prior to Swallow Oral Evaluation Diet Prior to Swallow Evaluation Regular, Level 7 Liquid Consistency Prior to Swallow Thin (0) Evaluation Consistency Thin Uncontrolled 2 Other Amount with chin tuck Method of Presentation Straw Oral Preparatory Symptoms None Oral Phase Symptoms None Pharyngeal Phase Symptoms Aspiration,Laryngeal Penetration,Reduced Laryngeal Elevation Severity of Vallecular Residue None - 0% No Residue Severity of Pyriform Sinus Residue None - 0% No Residue 8 Point Laryngeal Penetration-Aspiration Material Enters Airway Below Scale Vocal Cords, No Effort Made to Eject Aspiration Timing After the Swallow Aspiration Severity Trace Pharyngeal Phase Comments Despite taking a larger amount , the laryngeal penetration and subsequent aspiration was a trace amount. Aspiration was silent. Pt required cues to cough and dry swallow in attempt to clear aspirate; however, aspirate was not completely cleared. Cervical/Esophageal Phase Comments osteophytes exhibited at C 4/5 but did not appear to have an overall negative impact on swallow Thin Uncontrolled 1 Other Amount with chin tuck Method of Presentation Cup Oral Preparatory Symptoms None Oral Phase Symptoms None Pharyngeal Phase Symptoms Aspiration,Laryngeal Penetration,Reduced Laryngeal Elevation Severity of Vallecular Residue None - 0% No Residue Severity of Pyriform Sinus Residue None - 0% No Residue 8 Point Laryngeal Penetration-Aspiration Material Enters Airway Below Scale Vocal Cords, No Effort Made to Eject Aspiration Timing After the Swallow Aspiration Severity Trace Pharyngeal Phase Comments Despite taking a larger amount , the laryngeal penetration and subsequent aspiration
== END 2021-08-11 07:54 | disposition home or self-care (01) ==
PROVIDERS: PCP Internal Medicine; Visit Provider Internal Medicine
DX: R13.10 Dysphagia, unspecified (principal)
CPT/HCPCS: 92611

== ENCOUNTER 2021-09-13 16:01 | Outpatient (CLI) | payer MEDICARE, SELFPAY ==
--- NOTE | ~2021-09-13 | CT_ITS ---
EXAMINATION: CT brain wo/w con DATE: 09/13/2021 16:35 INDICATION: Head injury. TECHNIQUE: Computed tomography (CT) of the head was performed without and with 100 mL Omnipaque 300 i ntravenous contrast. The mA was adjusted according to patient size. Iterative reconstruction techniqu e was employed. The dose-length product was 1059.33 mGy-cm. COMPARISON: Head CT 06/22/2019 FINDINGS: There is no intracranial hemorrhage, acute infarction, or abnormal intracranial mass lesion . The ventricles are normal in size. The mastoid air cells are normal. The paranasal sinuses are daljit r. IMPRESSION: 1. Normal brain. Reviewed, dictated and finalized at location B. IMPRESSION: 1. Normal brain.
[2021-09-13 16:24] LABS: Estimated Glomerular Filt Rate > 60
== END 2021-09-13 16:02 | disposition home or self-care (01) ==
LOC: ANHIMG 16:03
PROVIDERS: PCP Internal Medicine; Visit Provider Nurse Practitioner
DX: S09.90XA Unspecified injury of head, initial encounter (principal); X58.XXXA Exposure to other specified factors, initial encounter
CPT/HCPCS: 70470; Q9967

== ENCOUNTER 2022-04-23 09:48 | Outpatient (CLI) | payer MEDICARE, SELFPAY ==
[2022-04-23 10:45] LABS: Hematocrit 39.1 % (37.0-47.0); Hemoglobin 11.7 g/dL (12.0-15.0); Mean Corpuscular HGB Conc 29.9 g/dl (32-36); Mean Corpuscular Volume 93.5 fl (80-100); Mean Platelet Volume 9.5 fl (7.4-10.4); Platelet Count Result 269 k/mm3 (150-375); Red Blood Count 4.18 M/mm3 (4.2-5.4); Red Cell Distribution Width 15.1 % (11.5-14.5)
[2022-04-23 11:00] LABS: Alanine Aminotransferase 22 U/L (6-35); Alkaline Phosphatase 104 U/L (38-126); Anion Gap 7 mmol/L (8-16); Aspartate Amino Transferase 31 U/L (14-36); Bilirubin,Total 0.3 mg/dL (0.2-1.3); Blood Urea Nitrogen 14 mg/dL (7-17); Carbon Dioxide 33 mmol/L (22-30); Chloride 102 mmol/L (98-107); Cholesterol 130 mg/dL (0-200); Estimated Glomerular Filt Rate > 60; Glucose 96 mg/dL (65-110); HDL Direct 44 mg/dL; Potassium 4.2 mmol/L (3.4-5.0); Sodium 142 mmol/L (137-145); Triglycerides 92 mg/dL (<150)
[2022-04-23 11:14] LABS: LDL Cholesterol Direct 55 mg/dL
[2022-04-23 11:30] LABS: MALB Creatinine Ratio 52.6 mg/g (0-30)
[2022-04-28 20:20] LABS: Vitamin D 1,25 (OH)2 Total 27 pg/mL (18-72); Vitamin D2 1,25 (OH)2 <8 pg/mL; Vitamin D3 1,25 (OH)2 27 pg/mL
== END 2022-04-23 09:49 | disposition home or self-care (01) ==
PROVIDERS: PCP Internal Medicine; Visit Provider Internal Medicine
DX: G62.9 Polyneuropathy, unspecified (principal); T82.7XXA Infection and inflammatory reaction due to other cardiac and vascular devices, implants and grafts, initial encounter; F41.9 Anxiety disorder, unspecified; E11.59 Type 2 diabetes mellitus with other circulatory complications; I10 Essential (primary) hypertension; I73.9 Peripheral vascular disease, unspecified; I25.10 Atherosclerotic heart disease of native coronary artery without angina pectoris; E55.9 Vitamin D deficiency, unspecified
CPT/HCPCS: 36415; 80053; 80061; 82043; 82607; 82652; 83036; 84443; 85027

== ENCOUNTER 2022-06-17 10:10 | Outpatient (CLI) | payer MEDICARE, SELFPAY ==
--- NOTE | ~2022-06-17 | XR_ITS ---
AP and oblique views of the left ribs, and PA and lateral chest radiographs Clinical History: Pain Findings: There are probable fractures of the right eighth and ninth ribs laterally. No left rib frac ture seen. Osseous alignment is anatomic. Lungs are clear, without focal consolidation or pleural eff usion. Cardiomediastinal contour is within normal limits. Soft tissues are unremarkable. Impression: Probable fractures of the right eighth and ninth ribs. No left rib fracture seen. Clear lungs. Reviewed, dictated and finalized at location . Impression: Probable fractures of the right eighth and ninth ribs. No left rib fracture seen. Clear lungs.
--- NOTE | ~2022-06-17 | XR_ITS ---
AP view of the pelvis and AP and lateral views of the bilateral hips Clinical history: Pain Findings: No acute fracture or dislocation is seen. Osseous alignment is anatomic. Bilateral hip and SI joint spaces are preserved. There is an area of heterotopic ossification inferior to the right gre ater trochanter.. Surgical clips noted in the bilateral groin regions. Impression: No acute abnormality seen. Heterotopic ossification inferior to the right greater trochanter. Reviewed, dictated and finalized at location M. Impression: No acute abnormality seen. Heterotopic ossification inferior to the right greater trochanter.
== END 2022-06-17 10:11 | disposition home or self-care (01) ==
PROVIDERS: PCP Internal Medicine; Visit Provider Internal Medicine
DX: S70.02XA Contusion of left hip, initial encounter (principal); S20.20XA Contusion of thorax, unspecified, initial encounter; X58.XXXA Exposure to other specified factors, initial encounter
CPT/HCPCS: 71046; 71100; 73521

== ENCOUNTER 2022-06-28 14:32 | Outpatient (CLI) | payer MEDICARE, SELFPAY ==
--- NOTE | ~2022-06-28 | XR_ITS ---
XR shoulder LT min 2V 06/28/2022 14:56 INDICATION: Left shoulder pain PROCEDURE: 4 views left shoulder COMPARISON: No prior studies for comparison. FINDINGS: Fracture, dislocation or subluxation is not identified. The soft tissues appear within norm al limits. No foreign bodies are identified. IMPRESSION: 1: NO ACUTE BONE OR JOINT ABNORMALITY IDENTIFIED. Reviewed, dictated and finalized at location A.
== END 2022-06-28 14:33 | disposition home or self-care (01) ==
PROVIDERS: PCP Internal Medicine; Visit Provider Internal Medicine
DX: M25.512 Pain in left shoulder (principal)
CPT/HCPCS: 73030

== ENCOUNTER 2022-08-21 09:57 | Outpatient (CLI) | payer MEDICARE, SELFPAY ==
--- NOTE | ~2022-08-21 | CT_ITS ---
EXAMINATION: CT shoulder LT wo con DATE: 08/21/2022 11:04 INDICATION: Left shoulder pain. TECHNIQUE: Computed tomography (CT) of the left shoulder was performed without intravenous contrast. Automated exposure control and iterative reconstruction technique were employed. The dose-length prod uct was 158.95 mGy-cm. COMPARISON: Left shoulder CT 06/28/2022 FINDINGS: Calcified subcarinal lymph nodes are consistent with old granulomatous disease. There is mi ld emphysema. Bone alignment is normal. No fracture. There is mild osteoarthritis of glenohumeral jessica nt and acromioclavicular joint. IMPRESSION: 1. Mild polyarticular osteoarthritis. 2. Mild emphysema. Reviewed, dictated and finalized at location A.
== END 2022-08-21 09:58 | disposition home or self-care (01) ==
PROVIDERS: PCP Family Medicine; Visit Provider Nurse Practitioner Family
DX: M19.012 Primary osteoarthritis, left shoulder (principal); J43.9 Emphysema, unspecified
CPT/HCPCS: 73200

== ENCOUNTER 2022-09-23 09:46 | Outpatient (CLI) | payer MEDICARE, SELFPAY ==
--- NOTE | ~2022-09-23 | CT_ITS ---
Non-contrast Head CT History: Head injury COMPARISON: 09/13/2021 Technique: Axial non-contrast imaging of the brain was performed. Dose reduction technique was used on this scan by utilizing automated exposure control and iterative reconstruction technique. The dose -length product (DLP) was 605.33 mGy-cm. Findings: There is no evidence of intracranial hemorrhage, mass lesion, or acute infarct. Brain par enchyma appears normal. The ventricles and subarachnoid spaces are normal in size. The calvarium ap pears normal. The visualized paranasal sinuses and mastoid air cells are clear. Impression: No significant abnormality seen. Reviewed, dictated and finalized at location . Impression: No significant abnormality seen.
== END 2022-09-23 09:47 | disposition home or self-care (01) ==
PROVIDERS: PCP Family Medicine; Visit Provider Family Medicine
DX: S09.90XA Unspecified injury of head, initial encounter (principal); X58.XXXA Exposure to other specified factors, initial encounter
CPT/HCPCS: 70450

== ENCOUNTER 2022-10-12 13:50 | Outpatient (CLI) | payer MEDICARE, SELFPAY ==
--- NOTE | ~2022-10-12 | CT_ITS ---
EXAMINATION: CT shoulder LT w con DATE: 10/12/2022 14:49 INDICATION: Left shoulder pain TECHNIQUE: High resolution computed tomography (CT) arthrogram of the left shoulder was performed wit h intra-articular contrast but without intravenous contrast. Details of the contrast mixture in joint injection have been dictated separately. Additional sagittal and coronal reconstructions were perfor med. Automated exposure control and iterative reconstruction technique were employed. The dose-length product was 340.19 mGy-cm. COMPARISON: 08/21/2022 FINDINGS: Alignment is normal. No fracture. Mild acromioclavicular osteoarthritis. Additional mild glenohumeral osteoarthritis with partial thickness cartilage loss along the superior half of the glenoid and with a shallow chondral fissure along the anterior glenoid. Deep chondral ulceration involving greater th an 50% the cartilage thickness with chondral surface regularity at the posterosuperior aspect of the humeral head. SLAP tear extending from the 10:30 position of the posterosuperior glenoid labrum anter iorly to the 12:30 position where it meets the normal anterosuperior sublingual foramen. Long head bi ceps tendon appears to remain intact. There is minimal amount of contrast imbibition extending along the distal tendon fibers of the middle third of the subscapularis tendon with very small tear defect no greater than 3 mm in maximal dimension along the lateral margin of the lesser tuberosity footplate at the rim of the intertubercular groove. No other articular sided rotator cuff tear defect apprecia nydia. No asymmetric muscle atrophy of the rotator cuff or shoulder girdle. Visual is portions of the l eft lung is normal. IMPRESSION: 1. Mild left glenohumeral osteoarthritis with moderate grade chondromalacia at the posterosuperior hu meral head and SLAP tear at the superior to posterosuperior glenoid labrum. 2. Very small partial-thickness tear at the lateral margin of the lesser tuberosity footplate of the subscapularis tendon along the rim of the intertubercular groove. 3. Mild left acromioclavicular osteoarthritis. Reviewed, dictated and finalized at location A. IMPRESSION: 1. Mild left glenohumeral osteoarthritis with moderate grade chondromalacia at the posterosuperior humeral head and SLAP tear at the superior to posterosuperi or glenoid labrum. 2. Very small partial-thickness tear at the lateral margin of the lesser tubero sity footplate of the subscapularis tendon along the rim of the intertubercular groove. 3. Mild left acromioclavicular osteoarthritis.
--- NOTE | ~2022-10-12 | XR_ITS ---
EXAMINATION: XR fl inj shoulder LT - MR/CT DATE: 10/12/2022 14:43 INDICATION: Left shoulder pain TECHNIQUE: A time-out was performed to verify the patient's name, date of , and procedure to b e performed. The procedure including the risks and benefits was discussed with the patient. Risks dis cussed included bleeding and infection. The patient understood the risks and agreed to proceed. The s kin overlying the left joint was prepared and draped in usual sterile fashion. The skin and subcutane ous tissues were infiltrated with 1% lidocaine for local anesthesia. A 22 G needle was advanced under fluoroscopic guidance into the joint. Injectate consisting of 12 mL of normal saline, 1% lidocaine, and Omnipaque 350 (12 cc out of a total of 20 cc mixture containing 9 cc of normal saline, 5 cc 1% li docaine, and 6 cc of Omnipaque 350) was instilled. The needle was removed and the entry site was daljit mandeep and dressed. There were no immediate complications. Fluoroscopy exposure time was 0.4 minutes. e DAP for this procedure was 0.368 Gycm2. FINDINGS: Real-time fluoroscopy demonstrates the needle and contrast in the left glenohumeral joint. IMPRESSION: 1. Successful left glenohumeral joint injection of contrast for subsequent MR arthrography. Reviewed, dictated and finalized at location B. IMPRESSION: 1. Successful left glenohumeral joint injection of contrast for subsequent MR a rthrography.
== END 2022-10-12 13:51 ==
LOC: MICIMG 13:51
PROVIDERS: PCP Family Medicine; Visit Provider Nurse Practitioner
DX: M19.012 Primary osteoarthritis, left shoulder (principal)
CPT/HCPCS: 23350; 73201; Q9967

== ENCOUNTER 2022-10-20 14:30 | Outpatient (CLI) | payer MEDICARE, SELFPAY ==
--- NOTE | ~2022-10-20 | XR_ITS ---
EXAM: XR tibia fibula LT 2V DATE: 10/20/2022 14:52 HISTORY: M79.606 - Pain in leg, unspecified, lateral pain, mid to low . COMPARISON: None available. FINDINGS: Normal mineralization. Old fractures of the mid left fibula and distal left tibia, healed in slight deformity No new acute fracture or dislocation. No lytic or blastic lesion. Mild degenerati ve change at the left knee and left ankle. No erosion or periosteal change. Soft tissues within kojo l limits. IMPRESSION: No acute osseous finding in the left tibia/fibula. Reviewed, dictated and finalized at location K.
[2022-10-20 15:04] LABS: Alanine Aminotransferase 23 U/L (6-35); Albumin Level 4.4 g/dL (3.5-5.1); Alkaline Phosphatase 90 U/L (38-126); Anion Gap 6 mmol/L (8-16); Aspartate Amino Transferase 30 U/L (14-36); Bilirubin,Total 0.4 mg/dL (0.2-1.3); Blood Urea Nitrogen 12 mg/dL (7-17); Calcium 9.2 mg/dL (8.4-10.2); Carbon Dioxide 29 mmol/L (22-30); Chloride 103 mmol/L (98-107); Cholesterol 136 mg/dL (0-200); Estimated Glomerular Filt Rate > 60; Glucose 141 mg/dL (65-110); HDL Direct 50 mg/dL; Potassium 4.1 mmol/L (3.4-5.0); Sodium 138 mmol/L (137-145); Triglycerides 82 mg/dL (<150)
[2022-10-20 15:15] LABS: LDL Cholesterol Direct 68 mg/dL
[2022-10-20 16:27] LABS: Vitamin D 25 Hydroxy 76.1 ng/mL
[2022-10-20 23:19] LABS: Hemoglobin A1C 5.5 % (<5.7)
[2022-10-24 13:01] LABS: Lamotrigine Lamictal 4.2 mcg/mL (2.5-15.0)
== END 2022-10-20 14:31 | disposition home or self-care (01) ==
PROVIDERS: PCP Family Medicine; Visit Provider Family Medicine
DX: G47.10 Hypersomnia, unspecified (principal); F32.9 Major depressive disorder, single episode, unspecified; Z13.21 Encounter for screening for nutritional disorder; Z51.81 Encounter for therapeutic drug level monitoring; E11.59 Type 2 diabetes mellitus with other circulatory complications; E78.2 Mixed hyperlipidemia; M79.606 Pain in leg, unspecified
CPT/HCPCS: 36415; 73590; 80053; 80061; 80175; 82306; 83036; 84443

== ENCOUNTER 2022-10-25 10:15 | Outpatient (RCR) | payer MEDICARE, SELFPAY ==
--- NOTE | 2022-09-08 12:01 | OPREHPOC ---
Outpatient Therapy Plan of Care This is a Multidisciplinary Plan of Care that may contain components documented by all disciplines (PT, OT, and ST.) PT Problem 1 PT Problem #1 Knowledge Deficit PT Goal 1 Goal Independent with HEP Target Visit 6 PT Problem 2 PT Problem #2 Pain PT Goal 1 Goal decrease pain to 2/10 at its worst Target Visit 6 PT Goal 2 Goal sleep on the L side without the pain waking her up . Target Visit 6 PT Problem 3 PT Problem #3 Impaired Range of Motion PT Goal 1 Goal increase L shoulder flexion and abduction to 135 degrees active range of motion Target Visit 6 PT Problem 4 PT Problem #4 Impaired Strength PT Goal 1 Goal increase L shoulder strength to 4+/5 without pain during manual muscle testing. Target Visit 6
--- NOTE | 2022-09-08 12:01 | PTOPEVAL1 ---
Assessment and note entered by Inderjit Castañeda, PT Evaluation Information Assessment Status Evaluation Diagnosis Pain in L shoulder Onset 6 weeks ago Subjective Information Patient fell over a tote 6 weeks ago and has had more falls since where she has landed on her L shoulder. The pain radiates down towards the elbow. She is R handed. She has trouble with turning the wheel with driving, reaching into and pulling out clothing from washer and dryer, sleeping, and reach into her cupboards. Is taking pain medications. Reported Pain Level Pain Score 4: Self Report Assessment PT Clinical Summary Kay is a 56 year old female coming into the clinic with a diagnosis of L shoulder pain. She has a positive empty can, lift off, and resisted abduction test on the L shoulder along with significant strength and range of motion deficits when compared to the R shoulder. Physical therapy will work on improving those deficits while also doing manual and modalities as needed for pain. Plan of Care Interventions Electrical Stimulation,Gait Training,Hot Pack/Cold Pack,Manual Therapy,Neuro Re-education,Patient/ Caregiver Education,Therapeutic Activities, Therapeutic Exercise,Ultrasound Other Interventions taping, cupping, IASTM PT Services Indicated Yes Treatment Frequency and 1-2x/w for 4 weeks Duration These treatments will address the objective and functional deficits as defined above. The patient will be advanced safely and appropriately in order for the patient to progress towards his/her prior level of function. Additional exercises will be introduced and as well as a comprehensive home exercise program upon discharge, if needed, ?to ensure carryover of functional gains achieved in the clinic. This treatment plan has been reviewed and agreement upon by the patient.
--- NOTE | 2022-09-28 15:15 | PCPTNOTE ---
Pt. did not show up for appointment today (09/28/22). Called and left voice message for patient to call back and reschedule.
--- NOTE | 2022-10-05 15:05 | PCPTNOTE ---
Patient did not show up for scheduled appointment this date. Called patient and she states she is coming back from vacation. Has a CT with contrast scheduled for next week as she cannot do MRI secondary to stents in her heart. Would like to continue therapy and will reschedule appointment.
--- NOTE | 2022-10-18 15:58 | PTOPPROG ---
Assessment and note entered by Inderjit Castañeda, PT Evaluation Information Assessment Status Progress Diagnosis Pain in left shoulder Onset 6 weeks ago Subjective Information Patient reports the L shoulder is doing better, has had more falls since her last physical therapy session. The patient has had a CT since last visit and is seeing Dr. Horn tomorrow. Patient reports she is able to sleep on the L shoulder without it waking her up. Assessment PT Clinical Summary Kay is a 56 year old female coming into the clinic with a diagnosis of L shoulder pain and hx of frequent falls. Patient has met her initial L shoulder flexion range of motion, strength, and pain goal, but still needs to work on abduction and would like to work on improving balance to reduce falls. Patient has prior extensive surgical history on the RLE causing decreased strength and sensation along with sciatic symptoms on the LLE. Recommend continued work on her shoulder along with balance and core strengthening to see if we can centralize her symptoms going down the LLE. Plan of Care Interventions Electrical Stimulation,Gait Training,Hot Pack/Cold Pack,Manual Therapy,Neuro Re-education,Patient/ Caregiver Education,Therapeutic Activities, Therapeutic Exercise,Ultrasound Other Interventions cupping, IASTM, taping PT Services Indicated Yes Treatment Frequency and 1-2x/wk for 4 weeks Duration These treatments will address the objective and functional deficits as defined above. The patient will be advanced safely and appropriately in order for the patient to progress towards his/her prior level of function. Additional exercises will be introduced and as well as a comprehensive home exercise program upon discharge, if needed, ?to ensure carryover of functional gains achieved in the clinic. This treatment plan has been reviewed and agreement upon by the patient.
--- NOTE | 2022-10-25 13:08 | PTOPDC ---
Assessment and note entered by Inderjit Castañeda, PT Evaluation Information Assessment Status Discharge Diagnosis Pain in left shoulder and left leg. Onset 6 weeks ago Subjective Information Patent reports that since her injection the L shoulder is not hurting at all, but that she injured her L leg at the gym about 3 weeks ago ( did not mention the fall or pain when seeing this physical therapist last week). Patient states her primary doctor thinks it is an Achilles tear or significant injury of the calf muscles. Patient walks in with her cane, but not using the walker suggested by the doctor. Reported Pain Level Pain Score 0,8: Self Report Additional Pain Score Comments no pain in the shoulder, but pain in the L LE Assessment PT Clinical Summary Kay is a 56 year old female coming into the clinic with a diagnosis of L shoulder and leg pain . Shoulder appears to be on the right track with her HEP and an injection from Dr. Horn. Patient is walking and putting full weight through the LLE in stance phase, but physical therapist is unable to move the L knee or ankle without the patient reporting severe pain. Recommend having orthopedic doctor look at it and maybe in the meantime being put in a walking boot to limit ankle dorsiflexion and plantarflexion in case of achilles tear. Discharged from physical therapy while patient is unable to attempt LE therapy. Plan of Care PT Services Indicated No
== END 2022-10-25 15:02 | disposition home or self-care (01) ==
LOC: ANHPT 10:15
PROVIDERS: PCP Internal Medicine; Visit Provider Nurse Practitioner Family
DX: M25.512 Pain in left shoulder (principal)
CPT/HCPCS: 97014; 97110; 97161; 99199; G0283

== ENCOUNTER 2022-10-27 08:50 | Outpatient (CLI) | payer MEDICARE, SELFPAY ==
--- NOTE | ~2022-10-27 | US_ITS ---
Duplex Sonography of the left extremity: Indication: Pain Findings: Sagittal and transverse B-mode images as well as color-flow imaging were performed on the l eft femoral and popliteal veins. B-mode examination was done without and with compression in the tra nsverse plane. There is good visualization of the common femoral, proximal profunda femoral, superfi cial femoral, greater saphenous, and popliteal veins. Normal flow was seen on color-flow imaging. No rmal compressibility was demonstrated. Visualized calf veins are also patent. Small left-sided Olivares' s cyst present. Impression: No evidence of deep vein thrombosis involving the left lower extremity. Small left sided Olivares's cyst present. Reviewed, dictated and finalized at location . Impression: No evidence of deep vein thrombosis involving the left lower extremity. Small left sided Olivares's cyst present.
== END 2022-10-27 08:51 | disposition home or self-care (01) ==
PROVIDERS: PCP Family Medicine; Visit Provider Family Medicine
DX: M71.22 Synovial cyst of popliteal space [Baker], left knee (principal)
CPT/HCPCS: 93971

== ENCOUNTER 2022-11-14 10:01 | Outpatient (CLI) | payer MEDICARE, SELFPAY ==
--- NOTE | ~2022-11-14 | CT_ITS ---
EXAMINATION: CT LE LT wo con DATE: 11/14/2022 10:20 INDICATION: Left lower leg pain TECHNIQUE: High resolution computed tomography (CT) of the left lower leg was performed without intra venous contrast. Additional sagittal and coronal reconstructions were performed. Automated exposure c ontrol and iterative reconstruction technique were employed. The dose-length product was 414.31 mGy-c m. COMPARISON: Radiographs dated 10/20/2022 FINDINGS: Old healed fracture deformities of the left tibial and fibular diaphyses. The tibial fracture is heal ed with one-2 cortical widths lateral displacement and minimal lateral and posterior angulation. No a cute fracture. Joint spaces are relatively preserved at the left knee with tiny marginal osteophytes in the patellofemoral compartment and tiny central subchondral osteophytes along the medial trochlea and mild degenerative subarticular cystlike changes at the lateral trochlea. No knee joint effusion. Small Olivares's cyst. Additional mild osteoarthritis at the left ankle, subtalar and talonavicular join ts. No ankle joint effusion. Soft tissues throughout the left lower leg are unremarkable. IMPRESSION: 1. Old healed fractures of the left tibial and fibular diaphysis. No acute osseous abnormality. 2. Mild polyarticular osteoarthritis at the patellofemoral compartment of the left knee, left ankle a nd hindfoot. 3. Small Olivares's cyst. Reviewed, dictated and finalized at location A. IMPRESSION: 1. Old healed fractures of the left tibial and fibular diaphysis. No acute osse ous abnormality. 2. Mild polyarticular osteoarthritis at the patellofemoral compartment of the l eft knee, left ankle and hindfoot. 3. Small Olivares's cyst.
== END 2022-11-14 10:02 ==
LOC: MICIMG 10:02
PROVIDERS: PCP Family Medicine; Visit Provider Family Medicine
DX: M71.22 Synovial cyst of popliteal space [Baker], left knee (principal); M17.12 Unilateral primary osteoarthritis, left knee
CPT/HCPCS: 73700

== ENCOUNTER 2022-12-23 13:48 | Outpatient (CLI) | payer MEDICARE, SELFPAY ==
--- NOTE | ~2022-12-23 | CT_ITS ---
EXAMINATION: CT lumbar spine wo con DATE: 12/23/2022 13:58 INDICATION: Pain in leg, unspecified. TECHNIQUE: Computed tomography (CT) of the lumbar spine was performed without intravenous contrast. A utomated exposure control and iterative reconstruction technique were employed. The dose-length produ ct was 319.54 mGy-cm. COMPARISON: Lumbar spine radiographs 12/15/2022 FINDINGS: There is atherosclerosis of abdominal aorta and many of the pelvic arteries. There are sten ts in the common iliac arteries. There is 5 degrees levocurvature of lumbar spine. There is 3 mm ante rolisthesis of L4 on L5. There is mild chronic anterior wedging of T12 and L1 vertebral bodies. There is mildly decreased disc height at L1-L2 and L4-L5 and severely decreased disc height at L5-S1. The following disc levels are specifically discussed: L1-L2: The disc is bulging. There is severe right and moderate left facet joint osteoarthritis. There is mild bilateral neural foraminal stenosis. There is mild central canal stenosis. L2-L3: The disc is bulging. There is mild bilateral facet joint osteoarthritis. There is mild bilater al neural foraminal stenosis. There is mild central canal stenosis. L3-L4: The disc is bulging. There is mild bilateral facet joint osteoarthritis. There is mild bilater al neural foraminal stenosis. There is mild central canal stenosis. L4-L5: The disc is bulging. There is severe bilateral facet joint osteoarthritis. There is moderate b ilateral neural foraminal stenosis. There is moderate central canal stenosis. L5-S1: The disc is bulging with superimposed left central extrusion. There is severe bilateral facet joint osteoarthritis. There is mild right and moderate left neural foraminal stenosis. There is mild central canal stenosis. IMPRESSION: 1. Severe lumbar spondylosis. Reviewed, dictated and finalized at location A.
== END 2022-12-23 13:49 | disposition home or self-care (01) ==
PROVIDERS: PCP Family Medicine; Visit Provider Nurse Practitioner
DX: M79.606 Pain in leg, unspecified (principal); M47.896 Other spondylosis, lumbar region
CPT/HCPCS: 72131

== ENCOUNTER 2023-03-13 14:36 | Outpatient (CLI) | payer MEDICARE, SELFPAY ==
--- NOTE | ~2023-03-13 | XR_ITS ---
EXAMINATION: XR ankle LT 2V, XR foot LT 2V DATE: 03/13/2023 15:04 INDICATION: Posterior left ankle pain pain and joint effusion. TECHNIQUE: 1. Anteroposterior and lateral view of the left ankle were obtained. 2. Dorsoplantar and lateral views of the left foot were obtained. COMPARISON: None. FINDINGS: Old healed fracture deformities at the distal left tibial and fibular diaphyses.. Otherwise normal al ignment at the left foot and ankle. No acute fracture. Mild polyarticular osteoarthritis at the left ankle and multiple joints in the left foot. No evident increased density anterior to the tibiotalar j oint line to suggest an ankle joint effusion. There is mild soft tissue swelling about the ankle. IMPRESSION: 1. Mild soft tissue about the left ankle with no ankle joint effusion or acute osseous abnormality. 2. Old healed fracture deformities the distal left tibial and fibular diaphyses. 2. Mild polyarticular osteoarthritis at the left foot and ankle. Reviewed, dictated and finalized at location A. ESSION CASHIER IMPRESSION: 1. Mild soft tissue about the left ankle with no ankle joint effusion or acute osseous abnormality. 2. Old healed fracture deformities the distal left tibial and fibular diaphyses . 2. Mild polyarticular osteoarthritis at the left foot and ankle.
== END 2023-03-13 14:37 | disposition home or self-care (01) ==
PROVIDERS: PCP Family Medicine; Visit Provider Nurse Practitioner Family
DX: M25.472 Effusion, left ankle (principal); M79.89 Other specified soft tissue disorders; M21.862 Other specified acquired deformities of left lower leg; M19.072 Primary osteoarthritis, left ankle and foot
CPT/HCPCS: 73600; 73620

== ENCOUNTER 2023-05-24 14:11 | Outpatient (CLI) | payer MEDICARE, SELFPAY ==
--- NOTE | ~2023-05-24 | CT_ITS ---
EXAMINATION:CT lung screening DATE: 05/24/2023 14:44 INDICATION: Personal history of nicotine dependence. Current smoker with 25 pack year history. TECHNIQUE: Computed tomography (CT) of the chest was performed without intravenous contrast. Automate d exposure control and iterative reconstruction technique were employed. The dose-length product (DLP ) was 63.68 mGy-cm. COMPARISON: Chest CT 06/22/2019 FINDINGS: There is mild emphysema. The lungs demonstrate mild atelectasis. There is a 4 mm groundglas s opacity in right upper lobe. There is a 3 mm nodule in left upper lobe. Calcified right lung nodule s and calcified right hilar and mediastinal lymph nodes are consistent with old granulomatous disease . No pleural effusion. The heart size is normal. There are coronary artery calcifications. No pericar dial effusion. Calcifications in the spleen are consistent with old granulomatous disease. There are changes of cholecystectomy. There is severe cervical spondylosis and mild thoracic spondylosis. There is mild chronic anterior wedging of T11 and T12 vertebral bodies. IMPRESSION: 1. Lung-RADS category 2: Benign appearance or behavior. Continue annual screening with noncontrast lo w-dose chest CT in 12 months. Reviewed, dictated and finalized at location E. G[employer]IV[employer]Y IMPRESSION: 1. Lung-RADS category 2: Benign appearance or behavior. Continue annual screeni ng with noncontrast low-dose chest CT in 12 months.
== END 2023-05-24 14:12 | disposition home or self-care (01) ==
PROVIDERS: PCP Family Medicine; Visit Provider Family Medicine
DX: Z12.2 Encounter for screening for malignant neoplasm of respiratory organs (principal); Z87.891 Personal history of nicotine dependence
CPT/HCPCS: 71271

== ENCOUNTER 2023-05-29 13:51 | Outpatient (CLI) | payer MEDICARE, SELFPAY ==
--- NOTE | ~2023-05-29 | XR_ITS ---
EXAMINATION: XR ribs RT 2V Exam Date/Time: 05/29/2023 14:03 SUPERVISOR FILLING AND PACKING HISTORY: R93.7 - Abnormal findings on diagnostic imaging of other ... Comparison: 06/17/2022. RESULT: Lines, tubes, and devices: Cholecystectomy clips. Lungs and pleura: Clear. Cardiothymic silhouette: Stable. Other: No acute osseous or upper abdominal finding. Old healed angulated right lateral 10th rib frac ture. 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 One half shaft width in ferior displacement and 5 mm distraction of the eighth rib fracture. One full shaft width inferior di splacement of the ninth rib fracture and 1 cm distraction. IMPRESSION: No acute cardiopulmonary process. No acute osseous finding in the ribs. Nonunited, displaced, and dis tracted chronic right lateral eighth and ninth rib fractures. Reviewed, dictated and finalized at location K. [employer] P[employer]ING IMPRESSION: No acute cardiopulmonary process. No acute osseous finding in the ribs. Nonunit ed, displaced, and distracted chronic right lateral eighth and ninth rib fractu res.
== END 2023-05-29 13:52 | disposition home or self-care (01) ==
PROVIDERS: PCP Family Medicine; Visit Provider Family Medicine
DX: S22.41XD Multiple fractures of ribs, right side, subsequent encounter for fracture with routine healing (principal); X58.XXXD Exposure to other specified factors, subsequent encounter
CPT/HCPCS: 71100

== ENCOUNTER 2023-05-30 12:12 | Observation (INO) | payer MEDICARE, SELFPAY ==
[2023-05-30] VITALS (39 sets, daily range): BP systolic 172–214; BP diastolic 69–111; PULSE 56–83; RESP 11–26; TEMP 36.4–36.9; O2SAT 86–100; BMI 22.2
--- NOTE | ~2023-05-30 | NM_ITS ---
EXAMINATION: NM chris stress w perfusion DATE: 05/31/2023 13:38 INDICATION: Chest pain TECHNIQUE: Rest images were obtained following intravenous administration of 10.2 mCi Tc99m tetrofosm in (Myoview). The patient was infused intravenously with Lexiscan (Regadenoson). Then, 31.8 mCi Tc99m tetrofosmin (Myoview) was administered intravenously, and stress images were obtained. Data was loida nstructed into short axis and horizontal and vertical long axis SPECT images. Gated SPECT images were also obtained. COMPARISON: None. FINDINGS: There is no definite reversible or fixed perfusion abnormality to suggest ischemia or infar ction. There is normal left ventricular chamber size, wall motion and ejection fraction. Left ventr icular ejection fraction measures 68%. IMPRESSION: 1. Normal myocardial perfusion at rest and during stress. 2. Left ventricular ejection fraction measuring 68%. Reviewed, dictated and finalized at location B. RAISER LOCKSTITCH
--- NOTE | ~2023-05-30 | XR_ITS ---
EXAMINATION: XR chest 2V DATE: 05/30/2023 12:39 INDICATION: Substernal chest pain TECHNIQUE: PA and lateral views of the chest are obtained. COMPARISON: 05/29/2023 FINDINGS: The lungs are free of acute opacities. No pleural effusion or pneumothorax. The heart size is normal. Calcified subcarinal lymph nodes are consistent with old granulomatous disease. There is m oderate thoracic spondylosis. Again noted are old right eighth and ninth rib fractures with nonunion. IMPRESSION: 1. 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 No acute cardiopulmonary abnormality. Reviewed, dictated and finalized at location L. ENGINEER IMPRESSION: 1. 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 No acute cardiopulmo nary abnormality.
--- NOTE | ~2023-05-30 | CT_ITS ---
Clinical Indication: Chest pain CT Scan of the Chest with Contrast: Technique: Contiguous sections were acquired throughout the chest after intravenous administration of 100 cc of Omnipaque 350. Dose reduction technique was used on this scan by utilizing automated expos ure control and iterative reconstruction technique. The dose-length product (DLP) was 179.13 mGy-cm. COMPARISON: 05/24/2023 Findings: There is no evidence of any significant mediastinal, hilar or axillary lymphadenopathy. Large densely calcified subcarinal nodes are present. There is no filling defect in the pulmonary arterial tree to suggest pulmonary embolus. There is no evidence of aortic dissection or aneurysm. There is no evidence of pleural or pericardial effusion. The lungs are clear. No pulmonary nodules or infiltrates are noted. Images through the upper abdomen reveal no abnormalities. Impression: No evidence of pulmonary embolus, aortic dissection, or aortic aneurysm. Clear lungs. Stable large calcified subcarinal nodes. Reviewed, dictated and finalized at [facility]. GREASE MAKER Impression: No evidence of pulmonary embolus, aortic dissection, or aortic aneurysm. Clear lungs. Stable large calcified subcarinal nodes.
--- NOTE | ~2023-05-30 | CT_ITS ---
Non-contrast Head CT History: Headache COMPARISON: 09/23/2022 Technique: Axial non-contrast imaging of the brain was performed. Dose reduction technique was used on this scan by utilizing automated exposure control and iterative reconstruction technique. The dose -length product (DLP) was 605.33 mGy-cm. Findings: There is no evidence of intracranial hemorrhage, mass lesion, or acute infarct. Brain par enchyma appears normal. The ventricles and subarachnoid spaces are normal in size. The calvarium ap pears normal. The visualized paranasal sinuses and mastoid air cells are clear. Impression: No significant abnormality seen. Reviewed, dictated and finalized at [facility]. TEAM MEMBER Impression: No significant abnormality seen.
--- NOTE | 2023-05-30 12:14 | ECG_ITS ---
Measurements Intervals [place] Rate: 75 P: 71 [place]: 140 QRS: 77 QRSD: 86 T: 55 QT: 360 QTc: 404 Interpretive Statements SINUS RHYTHM POSSIBLE LEFT ATRIAL ENLARGEMENT [-0.1mV P WAVE IN V1/V2] NONSPECIFIC T-WAVE ABNORMALITY COMPARED TO ECG 06/22/2019 21:55:29 T-WAVE ABNORMALITY NOW PRESENT Electronically Signed On 05-30-2023 12:47:43 RESEARCH DEVELOPMENT DIRECTOR by Claire Haque M.D.
--- NOTE | 2023-05-30 13:17 | ED.CHESTPAIN ---
HPI - Chest Pain General Chief Complaint: Chest Pain <LOI Soler Last Filed: 05/30/23 13:25> Stated Complaint: SOB <LOI Soler Last Filed: 05/30/23 13:25> Time Seen by Provider: 05/30/23 13:10 <LOI Soler Last Filed: 05/30/23 13:25> Focused HPI: Patient is a 57 y/o female, with PMH of CAD w/ stenting (2005), who presents to the ED with c/o CP. Patient reports having intermittent left-sided chest pain, under her left breast, for the last 4 days. States pain is worse with movement and exertion, improves with rest. Denies pain currently upon my evaluation. She does also report having a headache and increased shortness breath over last couple of days. She is a smoker. Reports chronic cough related to smoking, denies worsening this recently. Denies other congestion, rhinorrhea, sore throat, fevers, abdominal pain, nausea, vomiting. Patient's subsurface augmentee operator is Dr. Riojas. Patient mentioned she has been under increased stress lately and having issues with her family. She notes she visited her daughter's grave site yesterday and states her other daughter wants ?nothing to do with her. GENERAL: Appears older than stated age, thin, and in no acute distress. HEAD: Normocephalic, atraumatic. CHEST: Clear to auscultation. ?No respiratory distress. No significant focal lung sounds. HEART: Regular rate and rhythm.? MSK: Anterior chest wall tenderness to palpation. NEURO: ?Alert and oriented x3. PSYCHIATRIC: Anxious, tearful. Patient screened in triage and initial orders placed.? ?Additional care and disposition to be based upon?diagnostic testing and treatment. <LOI Soler Last Filed: 05/30/23 13:25> Source: patient <LOI Soler Last Filed: 05/30/23 13:25> Mode of arrival: ambulatory <LOI Soler Last Filed: 05/30/23 13:25> Limitations: no limitations <LOI Soler Last Filed: 05/30/23 13:25> Related Data Home Medications: Home Medications Medication Instructions Recorded Confirmed aspirin 81 mg tablet,delayed 81 mg PO DAILY 06/19/19 05/30/23 release clopidogrel 75 mg tablet (Plavix) 75 mg PO DAILY 06/19/19 05/30/23 multivitamin,ob-blcx-watmtzsl 1 tablet PO DAILY 06/19/19 05/30/23 (Complete Multivitamin tablet) ezetimibe 10 mg tablet (Zetia) 10 mg PO DAILY 10/18/19 05/30/23 gabapentin 300 mg capsule 300 mg PO TID 05/30/23 05/30/23 lamotrigine 100 mg tablet 100 mg PO BID 05/30/23 05/30/23 lidocaine 5 % topical patch 2 patch transdermal DAILY 05/30/23 05/30/23 metformin 1,000 mg tablet 1,000 mg PO HS 05/30/23 05/30/23 trazodone 50 mg tablet 50 mg PO HS 05/30/23 05/30/23 <Ashlee Ibrahim PA-C - Last Filed: 05/30/23 13:25> Allergies/Adverse Reactions: Allergies Allergy/AdvReac Type Severity Reaction Status Date / Time Yelrdtu-QCR-GdZ Reductase Allergy Severe Muscle Verified 05/30/23 14:46 Inhibitor Spasms [Wforctw-Asy-Bab Reductase Inhibitor] vancomycin Allergy Severe Hives Verified 05/30/23 14:46 prochlorperazine AdvReac Jittery Verified 05/30/23 16:38 [From Compazine] <LOI Soler Last Filed: 05/30/23 13:25> Review of Systems Review of Systems: CONSTITUTIONAL: Denies fever, chills, or sweats. CARDIOVASCULAR: Chest pain Denies chest pain, palpitations, or edema. RESPIRATORY: Denies cough or dyspnea. GASTROINTESTINAL: Denies abdominal pain, nausea, vomiting, or diarrhea. GENITOURINARY: Denies dysuria or hematuria. SKIN: Denies rash or itching. MUSCULOSKELETAL: Denies back pain, joint pain, or myalgia. NEUROLOGIC: Headache Denies numbness, dizziness, or weakness. PSYCHIATRIC: Denies anxiety or depression. <Joseph Graham MD - Last Filed: 05/30/23 22:24> [facility], [facility] Past Medical History Medical History: Medical History Adhesive capsulitis
[2023-05-30] MEDS: ASPIRIN 81 MG CHEWABLE TABLET 324 MG PO (13:31)
[2023-05-30 13:33] LABS: Basophils Absolute Auto 0.1 K/mm3 (0.0-0.1); Basophils Percent Auto 0.6 % (0.2-1.2); Eosinophils Percent Auto 0.4 % (0-4.4); Hematocrit 47.6 % (37.0-47.0); Hemoglobin 14.7 g/dL (12.0-15.0); Immature Granulocyte Absolute 0.04 K/mm3 (0.00-0.031); Immature Granulocyte Percent A 0.4 % (0-0.5); Lymphocytes Absolute Auto 2.16 K/mm3 (0.9-3.2); Lymphocytes Percent Auto 21.6 % (18.3-44.2); Mean Corpuscular HGB Conc 30.9 g/dl (32-36); Mean Corpuscular Hemoglobin 28.8 pg (26-34); Mean Corpuscular Volume 93.2 fl (80-100); Mean Platelet Volume 9.8 fl (7.4-10.4); Monocytes Absolute Auto 0.9 K/mm3 (0.1-0.6); Monocytes Percent Auto 9.1 % (2.6-8.5); Neutrophils Absolute Auto 6.8 K/mm3 (1.3-6.7); Neutrophils Percent Auto 67.9 % (45.5-73.1); Platelet Count Result 224 k/mm3 (150-375); Red Blood Count 5.11 M/mm3 (4.2-5.4); Red Cell Distribution Width 15.6 % (11.5-14.5)
[2023-05-30] MEDS: ACETAMINOPHEN 500 MG TABLET 1000 MG PO (13:35)
[2023-05-30 13:36] LABS: Alanine Aminotransferase 21 U/L (6-35); Albumin Level 4.6 g/dL (3.5-5.1); Alkaline Phosphatase 81 U/L (38-126); Anion Gap 9 mmol/L (8-16); Aspartate Amino Transferase 28 U/L (14-36); Bilirubin,Total 0.5 mg/dL (0.2-1.3); Blood Urea Nitrogen 14 mg/dL (7-17); Calcium 10.1 mg/dL (8.4-10.2); Carbon Dioxide 26 mmol/L (22-30); Chloride 106 mmol/L (98-107); Estimated CRCL calculation 68 ml/min; Estimated Glomerular Filt Rate > 60; Glucose 88 mg/dL (65-110); Lipase 120 U/L (23-300); Potassium 3.9 mmol/L (3.4-5.0); Sodium 141 mmol/L (137-145)
[2023-05-30 13:38] LABS: Prothrombin Time 13.5 Seconds (11.1-14.7)
[2023-05-30 13:47] LABS: Troponin I < 0.012 ng/mL (0.000-0.034)
[2023-05-30 13:54] LABS: Partial Thromboplastin Time 28.2 SECONDS (22.3-36.8)
[2023-05-30 14:15] LABS: Influenza A QL RT-PCR Negative (Negative); Influenza B QL RT-PCR Negative (Negative); RSV RNA, RT-PCR Negative (Negative); SARS-CoV-2 RNA PCR Negative (Negative)
--- NOTE | 2023-05-30 14:36 | PC.NURSE ---
Pt approached desk and states she feels better and would like to leave. EDPA notified, recommended pt stay for further evaluation, pt agrees to stay at this time.
[2023-05-30] MEDS: SODIUM CHLORIDE 0.9% IV 500 ML 999 ML IV CONT (15:54)
[2023-05-30] MEDS: diphenhydrAMINE HCl INJ 50 MG/ML VIAL 25 MG IV PUSH ×2 (15:54→16:43)
[2023-05-30] MEDS: PROCHLORPERAZINE EDISYLATE 10 MG/2 ML VIAL IV PUSH (15:54)
--- NOTE | 2023-05-30 15:54 | ECG_ITS ---
Measurements Intervals [place] Rate: 56 P: 64 [place]: 148 QRS: 70 QRSD: 86 T: 52 QT: 418 QTc: 405 Interpretive Statements SINUS BRADYCARDIA COMPARED TO ECG 05/30/2023 12:19:49 SINUS BRADYCARDIA NOW PRESENT Electronically Signed On 05-31-2023 16:19:02 RESEARCH INVESTIGATOR by Chiki Ruiz M.D.
[2023-05-30] MEDS: amLODIPine BESYLATE 5 MG TABLET 10 MG PO (15:55)
--- NOTE | 2023-05-30 16:16 | PC.NURSE ---
Agree with assessment of Aby Langley nursing assistant.
[2023-05-30 16:33] LABS: Troponin I < 0.012 ng/mL (0.000-0.034)
[2023-05-30 16:33] LABS: Appearance Urine Clear (Clear); Bacteria Urine None Seen /hpf; Bilirubin Urine Negative (Negative); Blood Urine Negative (Negative); Calcium Oxalate Crystals Urine Present /hpf; Color Urine Dark Yellow (Yellow); Glucose Urine UA Negative (Negative); Ketones Urine Trace mg/dL (Negative); Leukocyte Esterase Ur Negative LEU/UL (Negative); Need Manual Microscopic Reviewed; Nitrate Urine Negative (Negative); Non Pathogenic Casts 0-2; Protein Urine 2+ mg/dL (Negative); Specific Grav Ur 1.031 (1.001-1.035); Squamous Epithelial Cell Urine None seen /hpf (Few); WBC Urine 0-5 /hpf; pH Urine 5.5 (5.0-9.0)
[2023-05-30 16:35] LABS: Add Urine Microscopic? YES
--- NOTE | 2023-05-30 16:37 | PC.NURSE ---
Pt c/o being restless and unable to keep legs still.
[2023-05-30 18:22] LABS: Glucose Point of Care 93 mg/dl (65-105)
[2023-05-30] MEDS: diazePAM (*CRX) 5 MG TABLET 2.5 MG PO (18:23)
[2023-05-30] MEDS: ACETAMINOPHEN 325 MG TABLET 650 MG PO (18:23)
--- NOTE | 2023-05-30 19:33 | PC.NURSE ---
Day shift nurse reported that pt glucose was 93 after eating first meal of the day so no dose of insulin was required.
[2023-05-30 20:04] LABS: Troponin I < 0.012 ng/mL (0.000-0.034)
[2023-05-30] MEDS: GABAPENTIN 300 MG CAPSULE PO (21:35)
[2023-05-30] MEDS: rOPINIRole HCL 1 MG TABLET 3 MG PO (21:35)
[2023-05-30] MEDS: INSULIN GLARGINE (*BKC) 100 UNITS/ML 9 UNITS SUB-Q (21:36)
[2023-05-30 21:37] LABS: Glucose Point of Care 141 mg/dl (65-105)
[2023-05-30] MEDS: MORPHINE SULFATE (*CRX) 2 MG/ML INJ IV PUSH (21:40)
--- NOTE | 2023-05-30 21:42 | ADMGEN ---
This patient, Kay Gray, was admitted to IMU Room 232-01. Patient/family oriented to hospital policies and general routines including ID bracelet, bed and alarms, visiting hours, pain management, procedures, bathroom and other care routines, personal items, smoking policy, room service/diet, and visiting hours. Information on how to activate the Rapid Response Team has been discussed. Patient/Family are encouraged to report perceived risks to care and to ask questions if they do not understand what they are told or what they should do.
--- NOTE | 2023-05-30 23:21 | PM.IMHP ---
H&P: HPI History of Present Illness Date/Time: 05/30/23 21:00 Chief Complaint: Chest pain and shortness of breath. Narrative: This is a 57-year-old female smoker with coronary artery disease and history of stents in 2005, peripheral vascular disease status post bilateral femoral popliteal bypass, type 2 diabetes mellitus with peripheral neuropathy, restless leg syndrome, hypertension, and dyslipidemia presented to the emergency department for evaluation of chest pain and shortness of breath. The patient provides the following history. The last 4 days she has been experiencing intermittent left anterior chest pain, just under the breast, which seems to be worse with movement and exertion and improved with rest. She has mild shortness of breath but that is well and she reports having a nearly constant, throbbing headache in the same amount of time. She admits to having a lot of stress recently due to family turmoil. She denies syncope, near syncope, palpitations, sensations of racing heart, nausea, vomiting, and sweats. No vertigo, visual changes, facial droop, difficulty speaking or swallowing, focal weakness, or paresthesias. In the ED: Blood pressure has been as high as 214/105. She states compliance with her home antihypertensives but admits having increasing stress as above. CMP and CBC were pretty unremarkable. Initial troponin was normal. Random glucose was 141. She tested negative for influenza, RSV, and COVID. Chest x-ray shows old 8th and 9th right rib fractures with nonunion but no acute cardiopulmonary abnormality. EKG showed sinus rhythm with possible left atrial enlargement nonspecific T-wave abnormalities. She was given sublingual nitroglycerin, aspirin 324 mg, and amlodipine 10 mg and she is being admitted in this setting for closer monitoring and treatment. Review of Systems Review of Systems: Twelve systems were reviewed and are negative except for as per HPI. 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 Lynne 07/2014, bilateral aortofemoral bypass in 03/2017, and has required a few revisions. Primary hypertension Restless leg syndrome Seasonal allergies Sleep apnea with mood disorder Stress incontinence Tobacco abuse Type 2 diabetes mellitus with vascular disease Surgical History Surgical History Colonoscopy planned H/O cardiac catheterization From 05/12/2017 on [facility] [employer] note states the patient had a cardiac catheterization in 2005 which showed normal coronary arteries. History of heart artery stent Hx of reinr-fqnmj-qqlkhen bypass Hx of hernia repair Status post aortobifemoral bypass surgery Status post laparoscopic hernia repair Family History Family History Sibling Family history of diabetes mellitus in first degree relative Family history of liver disease Liver cancer Diabetes mellitus Hypertension Heart disease Mother Liver cancer Diabetes mellitus Congestive heart failure Hypertension Father Congestive heart failure Hypertension Heart disease Social History Social History (Updated 05/30/23 @ 23:28 by Nancy Sims PA-C) Social History: Surrogate medical decision maker: Josh Gray, spouse. Code status: Full code. Years smoked: 25 Smoking status: Current every day smoker Additional smoking assessment comments: currently smokes 5-7 cigarettes per day Alcohol intake: never Substance use: never Substan
[2023-05-30] MEDS: hydrALAZINE HCL 20 MG/ML VIAL 10 MG IV PUSH (23:55)
[2023-05-31] VITALS (16 sets, daily range): BP systolic 160–195; BP diastolic 73–102; PULSE 72–108; RESP 16–20; TEMP 36.2–36.9; O2SAT 94–99
[2023-05-31 00:09] LABS: D Dimer 2.33 ug/mL (<0.48)
[2023-05-31] MEDS: hydrALAZINE HCL 20 MG/ML VIAL 10 MG IV PUSH ×3 (04:33→14:30)
[2023-05-31 05:23] LABS: Basophils Percent Auto 0.6 % (0.2-1.2); Eosinophils Absolute Auto 0.1 K/mm3 (0-0.3); Eosinophils Percent Auto 1.5 % (0-4.4); Hematocrit 47.9 % (37.0-47.0); Hemoglobin 15.2 g/dL (12.0-15.0); Immature Granulocyte Absolute 0.03 K/mm3 (0.00-0.031); Immature Granulocyte Percent A 0.4 % (0-0.5); Lymphocytes Absolute Auto 1.66 K/mm3 (0.9-3.2); Lymphocytes Percent Auto 23.2 % (18.3-44.2); Mean Corpuscular HGB Conc 31.7 g/dl (32-36); Mean Corpuscular Hemoglobin 28.9 pg (26-34); Mean Corpuscular Volume 91.1 fl (80-100); Mean Platelet Volume 9.6 fl (7.4-10.4); Monocytes Absolute Auto 0.6 K/mm3 (0.1-0.6); Monocytes Percent Auto 8.7 % (2.6-8.5); Neutrophils Absolute Auto 4.7 K/mm3 (1.3-6.7); Neutrophils Percent Auto 65.6 % (45.5-73.1); Platelet Count Result 223 k/mm3 (150-375); Red Blood Count 5.26 M/mm3 (4.2-5.4); Red Cell Distribution Width 15.7 % (11.5-14.5); White Blood Count 7.2 K/mm3 (4.5-10.0)
[2023-05-31 05:38] LABS: Anion Gap 6 mmol/L (8-16); Blood Urea Nitrogen 14 mg/dL (7-17); Calcium 9.4 mg/dL (8.4-10.2); Carbon Dioxide 26 mmol/L (22-30); Chloride 106 mmol/L (98-107); Estimated CRCL calculation 78 ml/min; Estimated Glomerular Filt Rate > 60; Glucose 116 mg/dL (65-110); Magnesium 1.7 mg/dL (1.6-2.3); Potassium 3.7 mmol/L (3.4-5.0); Sodium 138 mmol/L (137-145)
[2023-05-31] MEDS: HYDROcodone/acetaminophen (*CRX) 5-325 MG TABLET 1 TAB PO ×3 (05:41→16:08)
[2023-05-31] MEDS: GABAPENTIN 300 MG CAPSULE PO ×2 (05:41→14:30)
[2023-05-31 08:39] LABS: Glucose Point of Care 144 mg/dl (65-105)
[2023-05-31] MEDS: ASPIRIN 81 MG ENTERIC TABLET PO (09:00)
[2023-05-31] MEDS: IRBESARTAN 150 MG TABLET 300 MG PO (09:00)
[2023-05-31] MEDS: FAMOTIDINE 20 MG TABLET PO (09:01)
[2023-05-31] MEDS: THERAPEUTIC MULTIVITAMINS/MINERALS TAB (*BKC) 1 TABLET PO (09:01)
[2023-05-31] MEDS: ESCITALOPRAM OXALATE 10 MG TABLET 20 MG PO (09:01)
[2023-05-31] MEDS: CLOPIDOGREL BISULFATE 75 MG TABLET PO (09:01)
[2023-05-31] MEDS: lamoTRIgine 100 MG TABLET PO ×2 (09:01→16:06)
[2023-05-31] MEDS: hydroCHLOROthiazide 12.5 MG CAPSULE PO ×2 (09:01→10:04)
[2023-05-31] MEDS: LIDOCAINE 5% PATCH 2 PATCH TRANSDERM (09:02)
[2023-05-31] MEDS: EZETIMIBE 10 MG TABLET PO (09:02)
[2023-05-31] MEDS: MORPHINE SULFATE (*CRX) 2 MG/ML INJ IV PUSH (09:05)
--- NOTE | 2023-05-31 09:54 | EST_ITS ---
Patient Info Name: Kay Gray Age: 57 years : 1965 Gender: Female Ht: 65 in Wt: 130 lbs BSA: 1.65 m2 HR: 86 bpm BP: 176 / 81 mmHg Exam Date: 05/31/2023 12:31 PM Exam Location: Echo Lab Patient Status: Inpatient Admit Date: 05/30/2023 Staff Ordering Physician: Chiki Ruiz MD Attending Provider: Rolando Umanzor MD Exercise Technologist: Samanta Marroquin RDCS Exercise Physician: Chiki Ruiz MD Exam Type: CA stress chris w NM Study Info A regadenoson stress test was performed. Summary 1. Stress test is equivocal for ischemia. 2. Please correlate with nuclear medicine images, reported separately. Protocol: Lexiscan Stress ECG Details Stage: REST Duration (min): 1 min : 55 sec HR (bpm): 86 SBP (mmHg): 176 DBP (mmHg): 81 Stage: REST Duration (min): 28 min : 8 sec HR (bpm): 87 SBP (mmHg): 176 DBP (mmHg): 81 Stage: STAGE 1 Duration (min): 0 min : 59 sec HR (bpm): 99 SBP (mmHg): 161 DBP (mmHg): 65 Stage: RECOVERY Duration (min): 1 min : 0 sec HR (bpm): 100 SBP (mmHg): 161 DBP (mmHg): 65 Stage: RECOVERY Duration (min): 2 min : 0 sec HR (bpm): 100 SBP (mmHg): 161 DBP (mmHg): 65 Stage: RECOVERY Duration (min): 3 min : 0 sec HR (bpm): 99 SBP (mmHg): 156 DBP (mmHg): 69 Stage: RECOVERY Duration (min): 4 min : 0 sec HR (bpm): 100 SBP (mmHg): 156 DBP (mmHg): 69 Stage: RECOVERY Duration (min): 5 min : 0 sec HR (bpm): 99 SBP (mmHg): 168 DBP (mmHg): 69 Stage: RECOVERY Duration (min): 5 min : 4 sec HR (bpm): 98 SBP (mmHg): 168 DBP (mmHg): 69 Rest HR: 87 bpm Peak HR: 102 bpm Rest Sys BP: 176 mmHg Peak Sys BP: 168 mmHg Max Pred HR: 162 bpm % Max Pred HR: 63 % Target HR: 138 bpm Max RPP: 17,136 bpm*mmHg Total Time: 1 min : 0 sec Rest Watson BP: 81 mmHg Peak Watson BP: 69 mmHg Total Dose: 0.4 mg Resting ECG Sinus rhythm. Baseline nonspecific STTW abnormality. Stress ECG Exaggeration of the baseline ST abnormality. Arrhythmias None. Report Signatures
--- NOTE | 2023-05-31 09:55 | PM.CNCAR ---
Assessment and Plan Assessment and plan (1) Chest pain: Qualifiers: Chest pain type: unspecified Qualified Code(s): R07.9 - Chest pain, unspecified Code(s): R07.9 - Chest pain, unspecified Status: Acute Assessment and Plan: Troponins are negative. EKG without ischemic changes. Cardiac cath in 2005 showed normal coronaries. Given her risk factors of peripheral arterial disease, hypertension, hyperlipidemia, diabetes, ongoing tobacco use, recommend Lexiscan stress test. Will obtain today. (2) Hypertensive urgency: Code(s): I16.0 - Hypertensive urgency Status: Acute Assessment and Plan: Blood pressures are improved, but still uncontrolled. Continue Amlodipine 10mg, Irbesartan 300mg. Will increase dose of HCTZ to 25mg once daily. If additional blood pressure control is needed, then would recommend addition of Spironolactone. (3) Peripheral arterial disease: Code(s): I73.9 - Peripheral vascular disease, unspecified Status: Acute Assessment and Plan: Continue ASA and Plavix (4) Tobacco abuse: Code(s): Z72.0 - Tobacco use Status: Acute Assessment and Plan: Counseled on smoking cessation. (5) Mixed hyperlipidemia: Code(s): E78.2 - Mixed hyperlipidemia Status: Acute Assessment and Plan: Continue Zetia. Plan Recommendations and plan discussed with Hospitalist. History of Present Illness History of Present Illness Consult date/time: 05/31/23 09:55 Requesting physician: Joseph Graham MD Consult reason: chest pain Reason For Visit: chest pain Narrative: We are consulted for chest pain. This is a 57 year old female with hypertension, peripheral arterial disease s/p stents and bypass, varicose veins of lower extremities, hyperlipidemia who was seen at her PCP's office yesterday and noted to have hypertensive emergency, therefore was sent to the ED. She has been having headaches and chest pain for the past five days now. Chest pain occurs under left breast. Lasts for about 30 minutes or so and self resolves. No alleviated or exacerbating factors. Blood pressure in the ED as high as 214/105mmHg. She has been compliant with her home antihypertensive regimen but report a lot of stress at home. Smokes 1/2 PPD now. Workup shows negative troponins x 3, negative CTA Chest, negative CT Head, EKG with sinus bradycardia without ischemic changes. Review of Systems Review of Systems: All systems reviewed & are unremarkable except as noted in HPI and below (HPI) [facility] Past Medical History Medical History Anxiety Chronic anxiety Chronic depression Diabetes mellitus with peripheral artery disease Hypertension Incisional hernia penitentiary (current) use of antithrombotics/antiplatelets Mixed hyperlipidemia Mood disorder Nocturia Peripheral arterial disease History of multiple stents to her left iliac region, vascular surgery with right to left fem-fem bypass with Dr. Lynne 07/2014, bilateral aortofemoral bypass in 03/2017, and has required a few revisions. Primary hypertension Restless leg syndrome Seasonal allergies Sleep apnea with mood disorder Stress incontinence Tobacco abuse Type 2 diabetes mellitus with vascular disease Surgical History Surgical History Colonoscopy planned H/O cardiac catheterization From 05/12/2017 on Schedule Maker note states the patient had a cardiac catheterization in 2005 which showed normal coronary arteries. History of heart artery stent Hx of mjxok-gzfsc-jmzndbu bypass Hx of hernia repair Status post aortobifemoral bypass surgery Status post laparoscopic hernia repair Family History Family History Sibling Family history of diabetes mellitus in first degree relative Family history of liver disease Liver cancer Diabetes mellitus
[2023-05-31] MEDS: SPIRONOLACTONE 25 MG TABLET PO (16:06)
--- NOTE | 2023-05-31 18:36 | PM.DS ---
DS: Admitting Diagnosis Discharge Date 05/31/23 Admitting Diagnosis Chest pain DS: Discharge Diagnosis Discharge Diagnosis (1) Chest pain: Qualifiers: Chest pain type: unspecified Qualified Code(s): R07.9 - Chest pain, unspecified Code(s): R07.9 - Chest pain, unspecified Status: Acute (2) Hypertensive urgency: Code(s): I16.0 - Hypertensive urgency Status: Acute (3) Hypertension: Qualifiers: Hypertension type: unspecified Qualified Code(s): I10 - Essential (primary) hypertension Code(s): I10 - Essential (primary) hypertension Status: Acute (4) Type 2 diabetes mellitus: Code(s): E11.9 - Type 2 diabetes mellitus without complications Status: Acute (5) Peripheral arterial disease: Code(s): I73.9 - Peripheral vascular disease, unspecified Status: Acute (6) Tobacco abuse: Code(s): Z72.0 - Tobacco use Status: Acute DS: Summary Hospital Course Hospital Course: The patient presented to the emergency department for evaluation of chest pain, headache and shortness a breath. EKG showed normal sinus rhythm with possible left atrial enlargement and nonspecific T-wave changes. Repeat EKG showed no change but heart rate was slightly lower at 56. Blood pressure was elevated on admission and climbed to 214/105. CBC was normal. PT and PTT were normal but D-dimer was elevated at 2.3. Lipase was normal. CMP was normal. Troponin was negative x3. UA showed 2+ protein, trace ketones and 6-10 red cells with calcium oxalate crystals. Influenza, RSV and COVID PCR were negative. 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 CTA of the chest was performed because of her positive D-dimer but this showed no evidence of pulmonary emboli, aortic dissection or aortic aneurysm. The lung dunn were clear. She did have a head CT which showed no significant abnormalities. This was performed because of complaints of headache. It was felt that her chest pain and headache were related to uncontrolled blood pressure. We resumed her home medication. Cardiology was consulted and antihypertensive medications were advanced. She underwent a Lexiscan stress test. The EKG portion of the stress test was equivocal for ischemia. She had baseline nonspecific ST and T-wave changes that were exaggerated with the stress portion. Lexiscan nuclear medicine test showed normal myocardial perfusion at rest and during stress. The EF was 68%. Patient's headache resolved. Chest pain resolved. She felt comfortable with discharge plan. Patient overall did well was able be discharged home on 05/31/2023. Patient was educated about the benefits of smoking cessation. Status at Discharge Cognitive/behavioral status at discharge: stable Time Spent with Patient Time attestation: Total time spent providing and/or coordinating discharge services: 35 minutes Time spent: Greater than 30 minutes Exam Narrative: AF 98.5 161/73 108 18 98% ra Gen - NARD Chest - faint expiratory wheeze o/w clear. CV - RRR S1/S2. Tele showing no significant dysrhythmias Abd - Soft, NT/ND, Positive BS Ext - No pedal edema Neuro - Alert and oriented. Nonfocal exam. Psych - Nml mood and affect Skin - Warm and dry DS: Data Data Completed and Pending Labs on day of discharge: Labs from last 24 hours 05/31/23 05/31/23 05/30/23 07:55 05:09 23:42 WBC 7.2 RBC 5.26 Hgb 15.2 H Hct 47.9 H MCV 91.1 MCH 28.9 MCHC 31.7 L RDW 15.7 H Plt Count 223 MPV 9.6 Immature Gran % (Auto) 0.4 Neut % (Auto) 65.6 Lymph % (Auto) 23.2 [place] % (Auto) 8.7 H Eos % (Auto) 1.5 Baso % (Auto) 0.6 Lymph # (Auto) 1.66 [place] # (Auto) 0.6 Eos # (Auto) 0.1 Baso # (Auto) 0.0 Abs Immat Gran (auto) 0.03 Absolute Neuts (auto) 4.7 Absolute Nucleated RBC 0.0 Nucleated RBC % 0.0
== END 2023-05-31 20:35 | disposition home or self-care (01) ==
LOC: ANHED 16:21 → ANHIMU 21:01
PROVIDERS: Emergency Medicine; Physician Assistant; Admitting Provider Internal Medicine; Emergency Provider Preventive Medicine Aerospace Medicine; PCP Family Medicine; Visit Provider Internal Medicine
DX: R07.9 Chest pain, unspecified (principal); I16.0 Hypertensive urgency; R79.89 Other specified abnormal findings of blood chemistry; I25.10 Atherosclerotic heart disease of native coronary artery without angina pectoris; Z95.5 Presence of coronary angioplasty implant and graft; I73.9 Peripheral vascular disease, unspecified; Z95.820 Peripheral vascular angioplasty status with implants and grafts; F41.9 Anxiety disorder, unspecified; F32.A Depression, unspecified; Z20.822 Contact with and (suspected) exposure to COVID-19; R94.31 Abnormal electrocardiogram [ECG] [EKG]; E11.51 Type 2 diabetes mellitus with diabetic peripheral angiopathy without gangrene; E78.2 Mixed hyperlipidemia; G47.10 Hypersomnia, unspecified; G25.81 Restless legs syndrome; F17.210 Nicotine dependence, cigarettes, uncomplicated; F12.90 Cannabis use, unspecified, uncomplicated; Z79.82 Long term (current) use of aspirin; Z79.02 Long term (current) use of antithrombotics/antiplatelets; Z79.84 Long term (current) use of oral hypoglycemic drugs; Z79.891 Long term (current) use of opiate analgesic; Z79.899 Other long term (current) drug therapy; Z83.3 Family history of diabetes mellitus; Z82.49 Family history of ischemic heart disease and other diseases of the circulatory system
CPT/HCPCS: 36415; 70450; 71046; 71275; 78452; 80048; 80053; 81001; 82948; 83690; 83735; 84484; 85025; 85380; 85610; 85730; 87637; 93005; 93017; 96361; 96374; 96375; 96376; 99285; A9270; A9502; G0378; J0360; J0780; J1200; J1815; J2270; J2785; J7040; Q9967

== ENCOUNTER 2023-08-01 10:43 | Outpatient (CLI) | payer MEDICARE, SELFPAY ==
--- NOTE | ~2023-08-01 | XR_ITS ---
Left Hand Technique: PA, oblique, and lateral views were obtained. Clinical History: Pain Findings: No acute fracture or dislocation is seen. Osseous alignment is anatomic. Joint spaces are p reserved. Soft tissues are unremarkable. Impression: Unremarkable left hand. Reviewed, dictated and finalized at location M. Impression: Unremarkable left hand.
== END 2023-08-01 10:44 | disposition home or self-care (01) ==
LOC: ANHIMG 10:45
PROVIDERS: PCP Family Medicine; Visit Provider Nurse Practitioner Family
DX: S69.90XA Unspecified injury of unspecified wrist, hand and finger(s), initial encounter (principal); M79.643 Pain in unspecified hand; X58.XXXA Exposure to other specified factors, initial encounter
CPT/HCPCS: 73130

== ENCOUNTER 2023-08-31 10:51 | Outpatient (CLI) | payer MEDICARE, SELFPAY ==
--- NOTE | ~2023-08-31 | MR_ITS ---
MRI of the left hand CLINICAL HISTORY: Sprain, tendon tear of index finger TECHNIQUE: Axial T1-weighted and T2 fat-sat images, coronal T1-weighted and T2 fat-sat images, and sa gittal T1-weighted and T2 fat-sat images were acquired. FINDINGS: Bone marrow signals are unremarkable. No fracture or significant bone marrow edema seen. T1 marrow signal is preserved. There are mild degenerative changes of the PIP joints and DIP joints in the fingers. No significant joint effusion identified. Flexor and extensor tendons are intact. No distinct evidence for pulmonary mechanism injury. There is mild soft tissue edema/fluid about the flexor tendon of the index finger. There is minimal soft tiss ue edema generally in the index finger, nonspecific. No focal mass or fluid collection evident otherw ise. IMPRESSION: Findings suggestive of mild tenosynovitis extensively involving the flexor tendon of the index finger . There is mild surrounding nonspecific soft tissue edema involving the index finger. Reviewed, dictated and finalized at [facility]. IMPRESSION: Findings suggestive of mild tenosynovitis extensively involving the flexor tend on of the index finger. There is mild surrounding nonspecific soft tissue edema involving the index finger.
== END 2023-08-31 10:52 ==
LOC: MICIMG 10:53
PROVIDERS: PCP Family Medicine; Visit Provider Plastic Surgery
DX: S63.651A Sprain of metacarpophalangeal joint of left index finger, initial encounter (principal); M79.89 Other specified soft tissue disorders; X58.XXXA Exposure to other specified factors, initial encounter
CPT/HCPCS: 73218

== ENCOUNTER 2023-10-20 14:01 | Outpatient (CLI) | payer MEDICARE, SELFPAY ==
--- NOTE | ~2023-10-20 | MM_ITS ---
EXAMINATION: MM screening mal BI w narne HISTORY: Screening TECHNIQUE: Craniocaudal and mediolateral oblique 3-D tomosynthesis images were obtained and synthetic 2-D images were generated. CAD analysis was submitted and interpreted. COMPARISON: No prior mammogram is available for comparison at this institution. BREAST PARENCHYMAL COMPOSITION: There are scattered areas of fibroglandular density. FINDINGS: There is no evidence of suspicious mass, calcification, or architectural distortion to sugg est malignancy in either breast. There has been no suspicious interval change. IMPRESSION: 1. No mammographic evidence of malignancy. 2. Recommend routine screening mammography in one year. BI-RADS Category 1: Negative Reviewed, dictated and finalized at location B.
== END 2023-10-20 14:02 | disposition home or self-care (01) ==
LOC: ANHIMG 14:03
PROVIDERS: PCP Family Medicine; Visit Provider Family Medicine
DX: Z12.31 Encounter for screening mammogram for malignant neoplasm of breast (principal)
CPT/HCPCS: 77063; 77067

== ENCOUNTER 2023-10-30 11:43 | Outpatient (CLI) | payer MEDICARE, SELFPAY ==
[2023-10-30 12:04] LABS: Hematocrit 39.8 % (37.0-47.0); Hemoglobin 12.4 g/dL (12.0-15.0); Mean Corpuscular HGB Conc 31.2 g/dl (32-36); Mean Corpuscular Volume 96.1 fl (80-100); Mean Platelet Volume 9.2 fl (7.4-10.4); Platelet Count Result 239 k/mm3 (150-375); Red Blood Count 4.14 M/mm3 (4.2-5.4); Red Cell Distribution Width 13.9 % (11.5-14.5); White Blood Count 7.8 K/mm3 (4.5-10.0)
[2023-10-30 12:22] LABS: Alanine Aminotransferase 17 U/L (6-35); Albumin Level 4.2 g/dL (3.5-5.1); Alkaline Phosphatase 89 U/L (38-126); Anion Gap 6 mmol/L (4-12); Aspartate Amino Transferase 27 U/L (14-36); Bilirubin,Total 0.3 mg/dL (0.2-1.3); Blood Urea Nitrogen 13 mg/dL (7-17); Calcium 9.3 mg/dL (8.4-10.2); Carbon Dioxide 34 mmol/L (22-30); Chloride 99 mmol/L (98-107); Cholesterol 143 mg/dL (0-200); Estimated Glomerular Filt Rate > 60; Glucose 128 mg/dL (65-110); HDL Direct 42 mg/dL; Potassium 4.2 mmol/L (3.4-5.0); Sodium 139 mmol/L (137-145); Triglycerides 107 mg/dL (<150)
[2023-10-30 12:33] LABS: LDL Cholesterol Direct 70 mg/dL
[2023-10-30 12:37] LABS: Hemoglobin A1C 5.5 % (<5.7)
[2023-10-30 13:22] LABS: Microalbumin Urine Random 38.6 mg/L (0-16.7)
[2023-10-30 13:23] LABS: Creatinine Urine 121.7 mg/dL; MALB Creatinine Ratio 31.7 mg/g (0-30)
== END 2023-10-30 11:44 | disposition home or self-care (01) ==
LOC: ANHLAB 11:47
PROVIDERS: PCP Family Medicine; Visit Provider Family Medicine
DX: E11.9 Type 2 diabetes mellitus without complications (principal); I10 Essential (primary) hypertension
CPT/HCPCS: 36415; 80053; 80061; 82043; 83036; 85027

== ENCOUNTER 2024-02-09 14:25 | Emergency (ER) | payer MEDICARE, SELFPAY ==
[2024-02-09] VITALS (12 sets, daily range): BP systolic 110–135; BP diastolic 63–98; PULSE 69–113; RESP 16–22; TEMP 36.6; O2SAT 96–100
--- NOTE | ~2024-02-09 | CT_ITS ---
EXAMINATION: CTA chest PE abdomen pel DATE: 02/09/2024 21:47 [employer] INDICATION: Upper back pain with nausea and vomiting TECHNIQUE: Computed tomographic angiography (CTA) of the chest (followed by multiple contiguous axial images of the abdomen and pelvis) was performed with 100 mL Omnipaque-350 intravenous contrast. The dose-length product was 421.59 mGy-cm. Maximum intensity projection 3D-reconstructions of the aorta a nd other arteries were constructed by the technologist on a separate workstation. COMPARISON: 05/31/2023 FINDINGS: No filling defect within the main or proximal pulmonary arteries. The thoracic aorta is unremarkable without dissection or aneurysmal dilatation. The heart is of normal size, without pericardial effusion. Multiple calcified lymph nodes are identified within the mediastinum. The lungs are clear. A small hiatal hernia is present.. Mural thickening within the stomach with trace surrounding inflammatory change, which may be secondar y to underdistention versus a gastroenteritis. Liver: The liver is significantly enlarged measuring 22 cm in longitudinal dimension. Decreased attenuation is present, suggesting fatty infiltration. Gallbladder and biliary system: The gallbladder is surgically absent. Pancreas: The pancreas enhances homogeneously without ductal dilatation. Spleen: The spleen enhances homogeneously and is not enlarged measuring 8 cm in longitudinal dimension. Kidneys: The bilateral kidneys enhance symmetrically without hydronephrosis or renal calculi. Adrenal glands: Unremarkable. Gastrointestinal tract: Colonic diverticulosis without surrounding inflammatory change. Appendix: The appendix is not definitively visualized. However, no pericecal inflammatory change is identified suggest the presence of acute appendicitis. Vasculature: Densely calcified [place] abdominal aorta with mural thrombus. Findings consistent with an end-to-side distal aortic repair with bifemoral bypass (likely secondary to distal aortic stenosis). Additional findings of a vascular stent within the patient's [place] left common iliac artery. In addition, a [place] femoral to femoral bypass graft is identified, without demonstrable internal flow. Complex attenuation and enhancement within the bilateral groins with multiple surgical clips (right g reater than left), likely secondary to multiple vascular surgery procedures. Perhaps a CTA of the abd ominal aorta with bilateral runoff would provide additional information and more favorable bolus candace ng for evaluation of this area. Lymph nodes: No pathologically enlarged or morphologically suspicious lymph nodes within the retroperitoneum or at the root of the mesentery. Pelvic structures: The bladder is decompressed and otherwise unremarkable. The uterus is anteverted and anteflexed, and otherwise unremarkable. Body wall and musculoskeletal: Fat-containing periumbilical hernia is identified, to the right of midline hernia. Degenerative disease is identified within the lower thoracic and lumbosacral spines, most prominent a t the level of T12/L1 and L5/S1 with osteophyte formation, disc space narrowing, endplate changes and vacuum phenomena. Facet arthropathy is also present. IMPRESSION: No pulmonary embolus. The lungs are clear. Fatty infiltration of an enlarged liver. Findings within the stomach which may be secondary to underdistention although the appearance of mura l thickening with surrounding inflammatory change could also be be seen with gastroenteritis. Chronic, primarily vascular findings within the abdomen and pelvis, as detailed above. 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 Reviewed, dictated and finalized at location A. [employer] IMPRESSION: No pulmonary embolus. The lungs are clear. Fatty infiltration of an enlarged liver. Findings within the stomach which may be secondary to underdistention although the appearance of mural thickening with surrounding inflammatory change could a lso be be seen with gastroenteritis. Chronic, primarily vascular findings within the abdomen and pelvis, as detailed above. 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
--- NOTE | 2024-02-09 16:45 | ECG_ITS ---
Test Date: 2024-02-09 17:54:55 Measurements Intervals [place] Rate: 69 P: 66 VT: 153 QRS: 69 QRSD: 89 T: 58 QT: 392 QTc: 423 Interpretive Statements SINUS RHYTHM BASELINE ARTIFACT- I, III, AVR, AVL, AVF NORMAL ECG No previous ECG available for comparison Electronically Signed On 02-09-2024 18:10:36 HAND BANDER by Yon Nelson D.O.
--- NOTE | 2024-02-09 16:45 | ED.NAVMDI ---
HPI - Nausea/Vomiting/Diarrhea General Chief complaint: Nausea/Vomiting/Diarrhea <Eliza Tovar BIOINFORMATICS SOFTWARE ENGINEER - Last Filed: 02/09/24 16:53> Stated complaint: vomiting <Eliza Tovar BIOINFORMATICS SOFTWARE ENGINEER - Last Filed: 02/09/24 16:53> Time Seen by Provider: 02/09/24 16:35 <Eliza Tovar BIOINFORMATICS SOFTWARE ENGINEER - Last Filed: 02/09/24 16:53> Focused HPI: Patient is a 58-year-old female who presents to the ER stating I am sick. She reports she has been nauseated and had intermittent fevers for the past 2 weeks. Patient reports this morning she developed severe right upper back pain. She reports she takes narcotic pain medication home but that has not helped relieve her pain. Patient reports she has a history of fem-pop bypass. GENERAL: Well-appearing, well-nourished, and in no acute distress. HEAD: Normocephalic, atraumatic. CHEST: Clear to auscultation. ?No respiratory distress. HEART: Tachycardia, regular rhythm.? NEURO: ?Alert and oriented x3. Patient screened in triage and initial orders placed.? ?Additional care and disposition to be based upon?diagnostic testing and treatment. <Eliza Tovar BIOINFORMATICS SOFTWARE ENGINEER - Last Filed: 02/09/24 16:53> Focused HPI: Patient is a 58-year-old female who presents to the ER stating I am sick. She reports she has been nauseated and had intermittent fevers for the past 2 weeks. Patient reports this morning she developed severe right upper back pain. She reports she takes narcotic pain medication home but that has not helped relieve her pain. Patient reports she has a history of fem-pop bypass. GENERAL: Well-appearing, well-nourished, and in no acute distress. HEAD: Normocephalic, atraumatic. CHEST: Clear to auscultation. ?No respiratory distress. HEART: Tachycardia, regular rhythm.? NEURO: ?Alert and oriented x3. Patient screened in triage and initial orders placed.? ?Additional care and disposition to be based upon?diagnostic testing and treatment. <Ashlee Ibrahim PA-C - Last Filed: 02/10/24 03:16> Source: patient <Ashlee Ibrahim PA-C - Last Filed: 02/10/24 03:16> Mode of arrival: ambulatory <Ashlee Ibrahim PA-C - Last Filed: 02/10/24 03:16> Limitations: no limitations <LOI Soler Last Filed: 02/10/24 03:16> History of Present Illness HPI Narrative: Agree with above HPI. Patient reports she has been ill since around [facility]. Reported having nausea, vomiting, diarrhea, diffuse abdominal discomfort, mild cough, intermittent fevers. She then woke up this morning with pain in her R shoulder blade. Worse with taking deep breaths. Denies feeling significantly SOB. Denies CP. Hx PAD. <LOI Soler Last Filed: 02/10/24 03:16> Related Data Home medications: Home Medications Medication Instructions Recorded Confirmed aspirin 81 mg tablet,delayed 81 mg PO DAILY 06/19/19 08/16/23 release clopidogrel 75 mg tablet (Plavix) 75 mg PO DAILY 06/19/19 08/16/23 multivitamin,yk-vxku-qwsmdmem 1 tablet PO DAILY 06/19/19 08/16/23 (Complete Multivitamin tablet) ezetimibe 10 mg tablet (Zetia) 10 mg PO DAILY 10/18/19 08/16/23 lidocaine 5 % topical patch 2 patch transdermal DAILY 05/30/23 08/16/23 trazodone 50 mg tablet 50 mg PO HS 05/30/23 08/16/23 <Eliza Tovar, BIOINFORMATICS SOFTWARE ENGINEER - Last Filed: 02/09/24 16:53> Allergies/Adverse reactions: Allergies Allergy/AdvReac Type Severity Reaction Status Date / Time [id number] Reductase Allergy Severe Muscle Verified 02/09/24 17:14 Inhibitor Spasms [Qpqifsv-Yvq-Opj Reductase Inhibitor] vancomycin Allergy Severe Hives Verified 02/09/24 17:14 prochlorperazine AdvReac Jittery Verified 02/09/24 17:14 [From Compazine] <Eliza Tovar, BIOINFORMATICS SOFTWARE ENGINEER - Last Filed: 02/09/24 16:53> Review of Systems Review of Systems: All systems reviewed & are unremarkable except as noted in HPI. <Ashlee Ibrahim PA-C - Last Filed: 02/10/24 03:16> All systems reviewed & are unremarkable except as noted in HPI and below <Ashlee Ibrahim PA-C - Last Filed: 02/10/24 03:16> [facility] Past Medical History Medical History: Medical History Anxiety Chronic anxiety Chronic depression Diabetes mellitus with peripheral artery disease Hypertension Incisional hernia assisted (current) use of antithrombotics/antiplatelets Mixed hyperlipidemia Mood disorder Nocturia Peripheral arterial disease History of multiple stents to her left iliac region, vascular surgery with right to left fem-fem bypass with Dr. Lynne 07/2014, bilateral aortofemoral bypass in 03/2017, and has required a few revisions. Primary hypertension Restless leg syndrome Seasonal allergies Sleep apnea with mood disorder Stress incontinence Tobacco abuse Type 2 diabetes mellitus with vascular disease <Eliza Tovar APRN - Last Filed: 02/09/24 16:53> Surgical History Surgical History: Surgical History Colonoscopy planned H/O cardiac catheterization From 05/12/2017 on [employer] Technician note states the patient had a cardiac catheterization in 2005 which showed normal coronary arteries. History of heart artery stent Hx of qybsn-wbhcl-eonjslu bypass Hx of hernia repair Status post aortobifemoral bypass surgery Status post laparoscopic hernia repair <Eliza Tovar APRN - Last Filed: 02/09/24 16:53> Family History Family History: Family History Sibling Family history of diabetes mellitus in first degree relative Family history of liver disease Liver cancer Diabetes mellitus Hypertension Heart disease Mother Liver cancer Diabetes mellitus Congestive heart failure Hypertension Father Congestive heart failure Hypertension Heart disease <Eliza Tovar APRN - Last Filed: 02/09/24 16:53> Social History Social History: Social History Social History: Surrogate medical decision maker: Josh Gray, spouse. Code status: Full code. Caffeine-daily Smoking packs per day: 0.5 Smoking cigarettes per day: 10.0 Years smoked: 25 Smoking pack-years: 12.50 Smoking status: Current every day smoker Tobacco type: cigarettes Additional smoking assessment comments: currently smokes 5-7 cigarettes per day Alcohol intake: never Substance use: current Substance use type: marijuana Other substance usage details: edible marijuana Do You Feel Safe in your Home?: Yes Lack of Transportation: No Lack of Food: Never True Current Housing: I Have Housing Concerned About Future Housing: No Difficulty Paying Gas/Electric Bills: No Difficulty Paying for Meds: No Currently Unemployed: No Education: Associate Degree Difficulty w/ Childcare or Family Care: No Living arrangements: with family Additional living arrangements comments: She lives with her in [place]. They now have custody of their 9 and 11 yo grandsons. Occupation/Education: other Additional occupation/education comments: Disabled due to PAD Spiritual care concerns: No Agree to blood products: Yes <Eliza Tovar APRN - Last Filed: 02/09/24 16:53> Exam Narrative: GENERAL: Appears older than stated age, somewhat thin, non-toxic, in no acute distress. HEAD: Normocephalic, atraumatic. RESPIRATORY: Airway patent, respirations nonlabored. Clear to auscultation bilaterally, no rales, rhonchi, wheezing. No splinting. CARDIOVASCULAR: Regular rate and rhythm without murmurs, rubs, or gallops. ABDOMINAL: Soft, no significant tenderness, nondistended. Normoactive BS. MUSCULOSKELETAL: Moves all extremities. No gross deformities. Mild TTP in R scapular region. No midline thoracic spinal tenderness. SKIN: Warm, dry, normal color. NEURO: A&O X3. Speech clear. Cranial nerves II-XII grossly intact. No ataxic movements. PSYCHIATRIC: Appropriate mood and affect. Normal interaction. <Ashlee Ibrahim PA-C - Last Filed: 02/10/24 03:16> Course Vital Signs Vital signs: Vital Signs Temperature 98 F 02/09/24 14:27 Pulse Rate 113 H 02/09/24 14:27 Respiratory Rate 16 02/09/24 14:27 Blood Pressure 135/98 H 02/09/24 14:27 Pulse Oximetry 98 02/09/24 14:27 Oxygen Delivery Room Air 02/09/24 14:27 Temperature 98 F 02/09/24 14:27 Pulse Rate 83 02/09/24 19:31 Respiratory Rate 20 02/09/24 19:31 Blood Pressure 133/67 02/09/24 19:31 Pulse Oximetry 99 02/09/24 19:31 Oxygen Delivery Room Air 02/09/24 14:27 <Eliza Tovar APRN - Last Filed: 02/09/24 16:53> Vital Signs Temperature 98 F 02/09/24 14:27 Pulse Rate 113 H 02/09/24 14:27 Respiratory Rate 16 02/09/24 14:27 Blood Pressure 135/98 H 02/09/24 14:27 Pulse Oximetry 98 02/09/24 14:27 Oxygen Delivery Room Air 02/09/24 14:27 Temperature 98 F 02/09/24 14:27 Pulse Rate 83 02/09/24 19:31 Respiratory Rate 20 02/09/24 19:31 Blood Pressure 133/67 02/09/24 19:31 Pulse Oximetry 99 02/09/24 19:31 Oxygen Delivery Room Air 02/09/24 14:27 <Ashlee Ibrahim PA-C - Last Filed: 02/10/24 03:16> MDM - Nausea/Vomiting/Diarrhea MDM Narrative Medical decision making narrative: Patient presented to ED with multiple complaints, nausea, vomiting, diarrhea, fevers, R scapular pain. Patient was initially tachycardic upon arrival, improved by the time of my evaluation. Fluids ongoing. She is afebrile here. In no acute distress. CBC with white blood cell count of 10.3. CMP is unremarkable. No significant abnormalities. Possible mild dehydration with sodium of 131. Stable kidney function. Lactic acid within normal range. Normal LFTs and lipase. EKG without concerning ischemic changes. Baseline troponin is undetectable. Urinalysis with 6-10 white blood cell, 1+ urine bacteria. Sent for culture. Patient reports she was recently treated for urinary tract infection. Will treat for persistent infection given abnormal finding/reported continued fevers at home. CTA scan of chest/abdomen/pelvis was obtained. Prior to CT scan resulting, patient became upset with the nurse that she was in severe pain. I went in to speak with patient. She had been given Tylenol 1000 mg earlier in ED visit. She reported pain was rated a 3/10 upon my reevaluation. I offered to order something more for pain, however patient declined. I continued to speak to her about her results. I discussed her lab and imaging findings, possible persistent UTI and wanting to treat with antibiotics for this. Patient voiced understanding of these results. I emphasized that we are still waiting on her CT scan to ensure she did not have any blood clots, pulmonary findings, intra-abdominal findings. Patient reports she just wants to go home. I discussed that if she decided to leave at this time without her imaging resulting, that she would need to sign out against medical advice as I was not able to rule out a potential life-threatening abnormality. Patient stated that she would wait for the imaging results. She began wincing on the stretcher with any sort of movement. I again discussed pain medicine and offered to order something more for pain. Patient was agreeable to this. Tramadol 25 mg was ordered. Approximately 15 minutes later, I was notified by ED nurse that patient was again wanting to leave and that patient's significant other was now at bedside and very upset that no one has been in the room and that we had not treated her pain. I went in again to go speak to the patient and her significant other. Patient's significant other had not been present in the ED room during any of my other conversations with the patient. Discussed again that we had given Tylenol and that additional medications were ordered. I again informed patient that I was waiting on the CT imaging. Patient became frustrated. Significant other also became frustrated and began raising his voice. Security was called to bedside. ED nurse was at bedside with tramadol. Patient was agreeable to taking tramadol, but states she wants to sign out against medical advice. She does not want to wait for her imaging results and voiced understanding of the risks of this. States she just wants to be in her own bed. AMA paperwork was signed. Patient was advised that she can return at any time to resume evaluation. Ambulatory with a steady gait out of the facility with security. <LOI Soler Last Filed: 02/10/24 03:16> Medical Records Attestation: I reviewed the patient's medical records. <LOI Soler Filed: 02/10/24 03:16> Lab Data Attestation: I reviewed the patient's lab results. <Ashlee Ibrahim PA-C - Last Filed: 02/10/24 03:16> Result diagrams: 02/09/24 17:29 02/09/24 17:29 <Eliza Tovar APRN - Last Filed: 02/09/24 16:53> Labs: Lab Results 02/09/24 02/09/24 02/09/24 Range/Units 17:29 17:29 17:29 WBC 10.3 H (4.5-10.0) K/mm3 RBC 4.59 (4.2-5.4) M/mm3 Hgb 13.3 (12.0-15.0) g/dL Hct 40.0 (37.0-47.0) % MCV 87.1 (80-100) fl MCH 29.0 (26-34) pg MCHC 33.3 (32-36) g/dl RDW 15.2 H (11.5-14.5) % Plt Count 224 (150-375) k/mm3 MPV 9.0 (7.4-10.4) fl Immature Gran % (Auto) 0.4 (0-0.5) % Neut % (Auto) 67.8 (45.5-73.1) % Lymph % (Auto) 23.2 (18.3-44.2) % Bremer % (Auto) 7.9 (2.6-8.5) % Eos % (Auto) 0.3 (0-4.4) % Baso % (Auto) 0.4 (0.2-1.2) % Lymph # (Auto) 2.38 (0.9-3.2) K/mm3 Bremer # (Auto) 0.8 H (0.1-0.6) K/mm3 Eos # (Auto) 0.0 (0-0.3) K/mm3 Baso # (Auto) 0.0 (0.0-0.1) K/mm3 Abs Immat Gran (auto) 0.04 H (0.00-0.031) K/mm3 Absolute Neuts (auto) 7.0 H (1.3-6.7) K/mm3 Absolute Nucleated RBC 0.000 (0.0-0.012) K/mm3 Nucleated RBC % 0.0 (0.0-0.2) % Sodium 131 L (137-145) mmol/L Potassium 4.0 (3.4-5.0) mmol/L Chloride 96 L (98-107) mmol/L Carbon Dioxide 31 H (22-30) mmol/L Anion Gap 4 (4-12) mmol/L BUN 16 (7-17) mg/dL Creatinine 0.90 (0.7-1.0) mg/dL Estim Creat Clear Calc 51 ml/min Estimated GFR > 60 (59 - ) Glucose 100 (65-110) mg/dL Lactic Acid (0.7-2.0) mmol/L Calcium 9.4 (8.4-10.2) mg/dL Magnesium 1.9 Cancelled (1.6-2.3) mg/dL Total Bilirubin 0.4 (0.2-1.3) mg/dL AST 23 (14-36) U/L ALT 16 (6-35) U/L Alkaline Phosphatase 109 (38-126) U/L Troponin I < 0.012 Cancelled (0.000-0.034) ng/mL Total Protein 8.0 (6.3-8.2) g/dL Albumin 4.3 (3.5-5.1) g/dL Lipase 38 (23-300) U/L Urine Color (Yellow) Urine Appearance (Clear) Urine pH (5.0-9.0) Ur Specific Red Jacket (1.001-1.035) Urine Protein (Negative) mg/dL Urine Glucose (UA) (Negative) mg/dL Urine Ketones (Negative) mg/dL Ur Blood (Man) (Negative) Urine Nitrate (Negative) Urine Bilirubin (Negative) Urine Urobilinogen (<2.0) mg/dL Add Ur Microanalysis Leukocyte Esterase Rfl (Negative) TRISTON/UL Urine RBC (0-2) /hpf Urine WBC (0-3) /hpf Ur Squamous Epith Cells (Few) /hpf Urine Bacteria /hpf Urine Casts Influenza A (RT-PCR) (Negative) Influenza B (RT-PCR) (Negative) RSV (RT-PCR) (Negative) SARS-CoV-2 RNA (RT-PCR) (Negative) 11/08/24 11/08/24 Range/Units 17:30 18:37 WBC (4.5-10.0) K/mm3 RBC (4.2-5.4) M/mm3 Hgb (12.0-15.0) g/dL Hct (37.0-47.0) % MCV (80-100) fl MCH (26-34) pg MCHC (32-36) g/dl RDW (11.5-14.5) % Plt Count (150-375) k/mm3 MPV (7.4-10.4) fl Immature Gran % (Auto) (0-0.5) % Neut % (Auto) (45.5-73.1) % Lymph % (Auto) (18.3-44.2) % Bremer % (Auto) (2.6-8.5) % Eos % (Auto) (0-4.4) % Baso % (Auto) (0.2-1.2) % Lymph # (Auto) (0.9-3.2) K/mm3 Bremer # (Auto) (0.1-0.6) K/mm3 Eos # (Auto) (0-0.3) K/mm3 Baso # (Auto) (0.0-0.1) K/mm3 Abs Immat Gran (auto) (0.00-0.031) K/mm3 Absolute Neuts (auto) (1.3-6.7) K/mm3 Absolute Nucleated RBC (0.0-0.012) K/mm3 Nucleated RBC % (0.0-0.2) % Sodium (137-145) mmol/L Potassium (3.4-5.0) mmol/L Chloride (98-107) mmol/L Carbon Dioxide (22-30) mmol/L Anion Gap (4-12) mmol/L BUN (7-17) mg/dL Creatinine (0.7-1.0) mg/dL Estim Creat Clear Calc ml/min Estimated GFR (59 - ) Glucose (65-110) mg/dL Lactic Acid 1.3 (0.7-2.0) mmol/L Calcium (8.4-10.2) mg/dL Magnesium (1.6-2.3) mg/dL Total Bilirubin (0.2-1.3) mg/dL AST (14-36) U/L ALT (6-35) U/L Alkaline Phosphatase (38-126) U/L Troponin I (0.000-0.034) ng/mL Total Protein (6.3-8.2) g/dL Albumin (3.5-5.1) g/dL Lipase (23-300) U/L Urine Color Dark yellow (Yellow) Urine Appearance Clear (Clear) Urine pH 5.5 (5.0-9.0) Ur Specific Red Jacket 1.035 (1.001-1.035) Urine Protein Trace (Negative) mg/dL Urine Glucose (UA) Negative (Negative) mg/dL Urine Ketones Trace H (Negative) mg/dL Ur Blood (Man) Negative (Negative) Urine Nitrate Negative (Negative) Urine Bilirubin 1+ H (Negative) Urine Urobilinogen 1.0 (<2.0) mg/dL Add Ur Microanalysis Reviewed Leukocyte Esterase Rfl Negative (Negative) TRISTON/UL Urine RBC 0-2 (0-2) /hpf Urine WBC 6-10 H (0-3) /hpf Ur Squamous Epith Cells Few (Few) /hpf Urine Bacteria 1+ H /hpf Urine Casts 11-20 Influenza A (RT-PCR) Negative (Negative) Influenza B (RT-PCR) Negative (Negative) RSV (RT-PCR) Negative (Negative) SARS-CoV-2 RNA (RT-PCR) Negative (Negative) <Eliza Tovar, BIOINFORMATICS SOFTWARE ENGINEER - Last Filed: 02/09/24 16:53> Lab Results 02/09/24 02/09/24 02/09/24 Range/Units 17:29 17:29 17:29 WBC 10.3 H (4.5-10.0) K/mm3 RBC 4.59 (4.2-5.4) M/mm3 Hgb 13.3 (12.0-15.0) g/dL Hct 40.0 (37.0-47.0) % MCV 87.1 (80-100) fl MCH 29.0 (26-34) pg MCHC 33.3 (32-36) g/dl RDW 15.2 H (11.5-14.5) % Plt Count 224 (150-375) k/mm3 MPV 9.0 (7.4-10.4) fl Immature Gran % (Auto) 0.4 (0-0.5) % Neut % (Auto) 67.8 (45.5-73.1) % Lymph % (Auto) 23.2 (18.3-44.2) % Bremer % (Auto) 7.9 (2.6-8.5) % Eos % (Auto) 0.3 (0-4.4) % Baso % (Auto) 0.4 (0.2-1.2) % Lymph # (Auto) 2.38 (0.9-3.2) K/mm3 Bremer # (Auto) 0.8 H (0.1-0.6) K/mm3 Eos # (Auto) 0.0 (0-0.3) K/mm3 Baso # (Auto) 0.0 (0.0-0.1) K/mm3 Abs Immat Gran (auto) 0.04 H (0.00-0.031) K/mm3 Absolute Neuts (auto) 7.0 H (1.3-6.7) K/mm3 Absolute Nucleated RBC 0.000 (0.0-0.012) K/mm3 Nucleated RBC % 0.0 (0.0-0.2) % Sodium 131 L (137-145) mmol/L Potassium 4.0 (3.4-5.0) mmol/L Chloride 96 L (98-107) mmol/L Carbon Dioxide 31 H (22-30) mmol/L Anion Gap 4 (4-12) mmol/L BUN 16 (7-17) mg/dL Creatinine 0.90 (0.7-1.0) mg/dL Estim Creat Clear Calc 51 ml/min Estimated GFR > 60 (59 - ) Glucose 100 (65-110) mg/dL Lactic Acid (0.7-2.0) mmol/L Calcium 9.4 (8.4-10.2) mg/dL Magnesium 1.9 Cancelled (1.6-2.3) mg/dL Total Bilirubin 0.4 (0.2-1.3) mg/dL AST 23 (14-36) U/L ALT 16 (6-35) U/L Alkaline Phosphatase 109 (38-126) U/L Troponin I < 0.012 Cancelled (0.000-0.034) ng/mL Total Protein 8.0 (6.3-8.2) g/dL Albumin 4.3 (3.5-5.1) g/dL Lipase 38 (23-300) U/L Urine Color (Yellow) Urine Appearance (Clear) Urine pH (5.0-9.0) Ur Specific Red Jacket (1.001-1.035) Urine Protein (Negative) mg/dL Urine Glucose (UA) (Negative) mg/dL Urine Ketones (Negative) mg/dL Ur Blood (Man) (Negative) Urine Nitrate (Negative) Urine Bilirubin (Negative) Urine Urobilinogen (<2.0) mg/dL Add Ur Microanalysis Leukocyte Esterase Rfl (Negative) TRISTON/UL Urine RBC (0-2) /hpf Urine WBC (0-3) /hpf Ur Squamous Epith Cells (Few) /hpf Urine Bacteria /hpf Urine Casts Influenza A (RT-PCR) (Negative) Influenza B (RT-PCR) (Negative) RSV (RT-PCR) (Negative) SARS-CoV-2 RNA (RT-PCR) (Negative) 02/09/24 02/09/24 Range/Units 17:30 18:37 WBC (4.5-10.0) K/mm3 RBC (4.2-5.4) M/mm3 Hgb (12.0-15.0) g/dL Hct (37.0-47.0) % MCV (80-100) fl MCH (26-34) pg MCHC (32-36) g/dl RDW (11.5-14.5) % Plt Count (150-375) k/mm3 MPV (7.4-10.4) fl Immature Gran % (Auto) (0-0.5) % Neut % (Auto) (45.5-73.1) % Lymph % (Auto) (18.3-44.2) % Bremer % (Auto) (2.6-8.5) % Eos % (Auto) (0-4.4) % Baso % (Auto) (0.2-1.2) % Lymph # (Auto) (0.9-3.2) K/mm3 Bremer # (Auto) (0.1-0.6) K/mm3 Eos # (Auto) (0-0.3) K/mm3 Baso # (Auto) (0.0-0.1) K/mm3 Abs Immat Gran (auto) (0.00-0.031) K/mm3 Absolute Neuts (auto) (1.3-6.7) K/mm3 Absolute Nucleated RBC (0.0-0.012) K/mm3 Nucleated RBC % (0.0-0.2) % Sodium (137-145) mmol/L Potassium (3.4-5.0) mmol/L Chloride (98-107) mmol/L Carbon Dioxide (22-30) mmol/L Anion Gap (4-12) mmol/L BUN (7-17) mg/dL Creatinine (0.7-1.0) mg/dL Estim Creat Clear Calc ml/min Estimated GFR (59 - ) Glucose (65-110) mg/dL Lactic Acid 1.3 (0.7-2.0) mmol/L Calcium (8.4-10.2) mg/dL Magnesium (1.6-2.3) mg/dL Total Bilirubin (0.2-1.3) mg/dL AST (14-36) U/L ALT (6-35) U/L Alkaline Phosphatase (38-126) U/L Troponin I (0.000-0.034) ng/mL Total Protein (6.3-8.2) g/dL Albumin (3.5-5.1) g/dL Lipase (23-300) U/L Urine Color Dark yellow (Yellow) Urine Appearance Clear (Clear) Urine pH 5.5 (5.0-9.0) Ur Specific Red [place]et 1.035 (1.001-1.035) Urine Protein Trace (Negative) mg/dL Urine Glucose (UA) Negative (Negative) mg/dL Urine Ketones Trace H (Negative) mg/dL Ur Blood (Man) Negative (Negative) Urine Nitrate Negative (Negative) Urine Bilirubin 1+ H (Negative) Urine Urobilinogen 1.0 (<2.0) mg/dL Add Ur Microanalysis Reviewed Leukocyte Esterase Rfl Negative (Negative) TRISTON/UL Urine RBC 0-2 (0-2) /hpf Urine WBC 6-10 H (0-3) /hpf Ur Squamous Epith Cells Few (Few) /hpf Urine Bacteria 1+ H /hpf Urine Casts 11-20 Influenza A (RT-PCR) Negative (Negative) Influenza B (RT-PCR) Negative (Negative) RSV (RT-PCR) Negative (Negative) SARS-CoV-2 RNA (RT-PCR) Negative (Negative) <Ashlee Ibrahim PA-C - Last Filed: 02/10/24 03:16> Imaging Data Attestation: I personally reviewed and interpreted this imaging study as follows: <Ashlee Ibrahim PA-C - Last Filed: 02/10/24 03:16> ECG Data EKG #1: Attestation: I personally reviewed and interpreted this ECG as follows: <Ashlee Ibrahim PA-C - Last Filed: 02/10/24 03:16> ECG completion date: 02/09/24 <LOI Soler Last Filed: 02/10/24 03:16> ECG completion time: 17:54 <LOI Soler Last Filed: 02/10/24 03:16> EKG Interpretation: normal rate (69), sinus rhythm and non-specific ST changes <Ashlee Ibrahim PA-C - Last Filed: 02/10/24 03:16> Discharge Plan Discharge Clinical Impression: Upper back pain on right side, Abnormal finding on urinalysis <Eliza Tovar APRN - Last Filed: 02/09/24 16:53> Patient Disposition: Left Against Medical Advice <Eliza Tovar APRN - Last Filed: 02/09/24 16:53> Condition: Stable <Eliza Tovar APRN - Last Filed: 02/09/24 16:53> Additional Instructions: Your leaving the hospital against medical advice. Your imaging was not resulted. You were told about your urine looking infectious and antibiotics have been sent to the pharmacy. You may return to the ED at any time for new or worsening symptoms. <Eliza Tovar APRN - Last Filed: 02/09/24 16:53> Prescriptions: New cephalexin 500 mg capsule 500 mg PO Q6H 7 Days Qty: 28 0RF No Action Complete Multivitamin Tablet 1 tablet PO DAILY clopidogrel [Plavix] 75 mg tablet 75 mg PO DAILY aspirin 81 mg tablet,delayed release (DR/EC) 81 mg PO DAILY ezetimibe [Zetia] 10 mg tablet 10 mg PO DAILY trazodone 50 mg tablet 50 mg PO HS Rx Instructions: TAKE 1 TABLET BY MOUTH EVERY NIGHT AT BEDTIME NEEDED FOR INSOMNIA lidocaine 5 % adhesive patch,medicated 2 patch transdermal DAILY Rx Instructions: APPLY 1 PATCH TOPICALLY DAILY. LEAVE ON MOST PAINFUL AREA FOR UP TO 12 HOURS. Legs and/or Back (DME) blood-glucose meter [True Metrix Glucose Meter] Kit See Rx Instructions .Route Qty: 1 0RF Rx Instructions: As directed (DME) True Metrix Level 1 Solution See Rx Instructions .Route Qty: 1 2RF Rx Instructions: As directed escitalopram oxalate [Lexapro] 20 mg tablet 20 mg PO DAILY Qty: 90 3RF (DME) lancets [TRUEplus Lancets] 33 gauge misc See Rx Instructions .Route Qty: 100 7RF Rx Instructions: As directed to monitor glucose daily (DME) True Metrix Glucose Test Strip Strip See Rx Instructions .Route Qty: 100 7RF Rx Instructions: As directed to monitor glucose daily irbesartan 300 mg tablet 300 mg PO DAILY Qty: 90 3RF amlodipine 10 mg tablet See Rx Instructions .ROUTE .COMPLEX Qty: 90 1RF Dose Instruction: Take 1 tablet by mouth once daily Rx Instructions: Take 1 tablet by mouth once daily ropinirole 3 mg tablet See Rx Instructions .ROUTE .COMPLEX Qty: 90 3RF Dose Instruction: TAKE 1 TABLET AT BEDTIME Rx Instructions: TAKE 1 TABLET AT BEDTIME lamotrigine 100 mg tablet See Rx Instructions .ROUTE .COMPLEX Qty: 180 3RF Dose Instruction: TAKE 1 TABLET TWICE DAILY Rx Instructions: TAKE 1 TABLET TWICE DAILY albuterol sulfate 90 mcg/actuation HFA aerosol inhaler See Rx Instructions .ROUTE .COMPLEX Qty: 9 0RF Dose Instruction: INHALE 1 PUFF BY MOUTH EVERY 4 HOURS NEEDED FOR SHORTNESS OF BREATH OR WHEEZING Rx Instructions: INHALE 1 PUFF BY MOUTH EVERY 4 HOURS NEEDED FOR SHORTNESS OF BREATH OR WHEEZING gabapentin 400 mg capsule 400 mg PO TID Qty: 270 1RF spironolactone 25 mg tablet 25 mg PO QAM Qty: 90 1RF Nicotrol NS 10 mg/mL spray,non-aerosol See Rx Instructions .ROUTE .COMPLEX Qty: 40 0RF Dose Instruction: USE 1 SPRAY IN EACH NOSTRIL 1-2 DOSES PER HOUR. MAX 5 DOSES (10 SPRAYS) PER HOUR. MAX 40 DOSES (80 SPRAYS) PER DAY Rx Instructions: USE 1 SPRAY IN EACH NOSTRIL 1-2 DOSES PER HOUR. MAX 5 DOSES (10 SPRAYS) PER HOUR. MAX 40 DOSES (80 SPRAYS) PER DAY famotidine 20 mg tablet See Rx Instructions .ROUTE .COMPLEX Qty: 90 3RF Dose Instruction: TAKE 1 TABLET EVERY DAY Rx Instructions: TAKE 1 TABLET EVERY DAY metformin 1,000 mg tablet 1,000 mg PO HS Qty: 90 1RF hydrochlorothiazide 25 mg tablet 25 mg PO QAM Qty: 90 1RF diazepam [Valium] 2 mg tablet 2 mg PO DAILY PRN (Reason: anxiety) Qty: 15 0RF cyclobenzaprine 10 mg tablet See Rx Instructions .ROUTE .COMPLEX Qty: 100 0RF Dose Instruction: TAKE 1 TABLET THREE TIMES DAILY NEEDED FOR MUSCLE SPASM(S) Rx Instructions: TAKE 1 TABLET THREE TIMES DAILY NEEDED FOR MUSCLE SPASM(S) hydrocodone-acetaminophen 7.5-325 mg tablet 1 tablet PO BID PRN (Reason: pain) Qty: 60 0RF <Eliza Tovar APRN - Last Filed: 02/09/24 16:53> Follow-up/Referrals: Nain Romero MD [Primary Care Provider] - <Eliza Tovar APRN - Last Filed: 02/09/24 16:53> Time of Disposition: 20:14 <Eliza Tovar APRN - Last Filed: 02/09/24 16:53> 20:14 <Ashlee Ibrahim PA-C - Last Filed: 02/10/24 03:16>
[2024-02-09] MEDS: ACETAMINOPHEN 500 MG TABLET 1000 MG PO (17:36)
[2024-02-09] MEDS: SODIUM CHLORIDE 0.9% IV 1,000 ML 999 ML IV CONT (17:36)
[2024-02-09] MEDS: ONDANSETRON INJ 4 MG/2 ML VIAL IV PUSH (17:36)
[2024-02-09 17:41] LABS: Basophils Percent Auto 0.4 % (0.2-1.2); Eosinophils Percent Auto 0.3 % (0-4.4); Hemoglobin 13.3 g/dL (12.0-15.0); Immature Granulocyte Absolute 0.04 K/mm3 (0.00-0.031); Immature Granulocyte Percent A 0.4 % (0-0.5); Lymphocytes Absolute Auto 2.38 K/mm3 (0.9-3.2); Lymphocytes Percent Auto 23.2 % (18.3-44.2); Mean Corpuscular HGB Conc 33.3 g/dl (32-36); Mean Corpuscular Volume 87.1 fl (80-100); Monocytes Absolute Auto 0.8 K/mm3 (0.1-0.6); Monocytes Percent Auto 7.9 % (2.6-8.5); Neutrophils Percent Auto 67.8 % (45.5-73.1); Platelet Count Result 224 k/mm3 (150-375); Red Blood Count 4.59 M/mm3 (4.2-5.4); Red Cell Distribution Width 15.2 % (11.5-14.5); White Blood Count 10.3 K/mm3 (4.5-10.0)
[2024-02-09 17:57] LABS: Alanine Aminotransferase 16 U/L (6-35); Albumin Level 4.3 g/dL (3.5-5.1); Alkaline Phosphatase 109 U/L (38-126); Anion Gap 4 mmol/L (4-12); Aspartate Amino Transferase 23 U/L (14-36); Bilirubin,Total 0.4 mg/dL (0.2-1.3); Blood Urea Nitrogen 16 mg/dL (7-17); Calcium 9.4 mg/dL (8.4-10.2); Carbon Dioxide 31 mmol/L (22-30); Chloride 96 mmol/L (98-107); Estimated CRCL calculation 51 ml/min; Estimated Glomerular Filt Rate > 60; Glucose 100 mg/dL (65-110); Lipase 38 U/L (23-300); Magnesium 1.9 mg/dL (1.6-2.3); Sodium 131 mmol/L (137-145)
[2024-02-09 17:57] LABS: Lactic Acid Reflex 1.3 mmol/L (0.7-2.0)
[2024-02-09 18:09] LABS: Troponin I < 0.012 ng/mL (0.000-0.034)
--- NOTE | 2024-02-09 19:05 | PC.NURSE ---
Report given to WICHO Jerome
[2024-02-09 19:12] LABS: Add Urine Microscopic? YES; Appearance Urine Clear (Clear); Bacteria Urine 1+ /hpf; Bilirubin Urine 1+ (Negative); Blood Urine Negative (Negative); Color Urine Dark Yellow (Yellow); Glucose Urine UA Negative (Negative); Ketones Urine Trace mg/dL (Negative); Leukocyte Esterase Ur Negative LEU/UL (Negative); Need Manual Microscopic Reviewed; Nitrate Urine Negative (Negative); Protein Urine Trace mg/dL (Negative); RBC Urine 0-2 /hpf (0-2); Specific Grav Ur 1.035 (1.001-1.035); Squamous Epithelial Cell Urine Few /hpf (Few); pH Urine 5.5 (5.0-9.0)
[2024-02-09 19:22] LABS: Influenza A QL RT-PCR Negative (Negative); Influenza B QL RT-PCR Negative (Negative); RSV RNA, RT-PCR Negative (Negative); SARS-CoV-2 RNA PCR Negative (Negative)
[2024-02-09] MEDS: traMADol HCL (*CRX) 25 MG TABLET PO (20:09)
--- NOTE | 2024-02-09 20:16 | PC.NURSE ---
pt visitor repeatedly coming into conjoining patient room to ask this rn about patient status. this rn notified patient visitor she would be right there. pt visitor approached nurses station asking for assistance. pt visitor was told physician would be in shortly. pt visitor started to speak in an elevated tone at this rn no one has been in here the forty-five and no one has been in here to address her pain . this rn explained to patient visitor I would be in shortly with pain medication once I was finished with patient in conjoined room. pt visitor stated, I want to speak to that doctor now . this rn finished with patient next door and retrieved patient pain medication. LOI cummings was at bedside explaining to patient that her ct scan still has not resulted at this time. this rn explained to patient the medication ordered. pt stated, no one has given me anything for pain and no one has been in this room the entire time . this rn explained to patient her and another nurse were just in here, and explained the medications given. pt stated, You are not going to be talking to me like a child I am wanting to leave ama I do not care . Loi cummings verbalized risks of leaving against medical advice. pt verbalized understanding. pt visitor started to yell at this rn and loi cummings. ed security arrived. pt visitor stated, I don't need security I am not going to hurt anyone, I am just going to file a complaint. I have been coming to [place] for years and have never had a problem until now and will never come back
== END 2024-02-09 20:15 | disposition left against medical advice (07) ==
PROVIDERS: Registered Nurse; Emergency Provider Physician Assistant; PCP Family Medicine
DX: M54.9 Dorsalgia, unspecified (principal); R82.90 Unspecified abnormal findings in urine; F41.8 Other specified anxiety disorders; E11.51 Type 2 diabetes mellitus with diabetic peripheral angiopathy without gangrene; I10 Essential (primary) hypertension; E78.2 Mixed hyperlipidemia; F17.210 Nicotine dependence, cigarettes, uncomplicated; Z20.822 Contact with and (suspected) exposure to COVID-19
CPT/HCPCS: 36415; 71275; 74177; 80053; 81001; 83605; 83690; 83735; 84484; 85025; 87086; 87637; 93005; 96361; 96374; 99284; A9270; J2405; J7030; Q9967

== ENCOUNTER 2024-04-23 09:08 | Outpatient (CLI) | payer MEDICARE, SELFPAY ==
--- NOTE | 2024-04-23 11:10 | NEURO_ITS ---
Impression: # Non diabetic Complains of numbness of hands. ? # Mild Carpal Tunnel Syndrome, right more than left, sensory more than motor. ? # No ulnar neuropathy. ? # Normal needle/EMG exam. Nerve Conduction Studies Anti Sensory Summary Table ?Stim Site NR Peak (ms) P-T Amp (?V) Site1 Site2 Delta-P (ms) Dist (cm) Deshaun (m/s) Left Median Anti Sensory (2-3nd Digit) Wrist ? 3.9 39.3 Wrist 2-3nd Digit 3.9 14.0 36 Wrist ? 3.9 67.4 Wrist 2-3nd Digit 3.9 14.0 36 Right Median Anti Sensory (2-3nd Digit) Wrist ? 3.5 48.1 Wrist 2-3nd Digit 3.5 14.0 40 Wrist ? 3.5 43.3 Wrist 2-3nd Digit 3.5 14.0 40 Left Radial Anti Sensory (Base 1st Digit) Wrist ? 2.2 50.0 Wrist Base 1st Digit 2.2 0.0 Right Radial Anti Sensory (Base 1st Digit) Wrist ? 2.6 40.5 Wrist Base 1st Digit 2.6 0.0 Left Ulnar Anti Sensory (5th Digit) Wrist ? 3.1 48.3 Wrist 5th Digit 3.1 14.0 45 Right Ulnar Anti Sensory (5th Digit) Wrist ? 2.7 40.2 Wrist 5th Digit 2.7 14.0 52 Motor Summary Table ?Stim Site NR Onset (ms) O-P Amp (mV) Site1 Site2 Delta-0 (ms) Dist (cm) Deshaun (m/s) Left Median Motor (Abd Poll Brev) Wrist ? 4.0 4.8 Elbow Wrist 4.9 28.0 57 Elbow ? 8.9 5.9 Right Median Motor (Abd Poll Brev) Wrist ? 4.3 3.5 Elbow Wrist 4.5 25.0 56 Elbow ? 8.8 2.5 Left Ulnar Motor (Abd Dig Minimi) Wrist ? 3.2 8.3 A Elbow Wrist 5.1 29.0 57 A Elbow ? 8.3 7.6 Right Ulnar Motor (Abd Dig Minimi) Wrist ? 2.9 4.6 A Elbow Wrist 4.9 27.0 55 A Elbow ? 7.8 3.5 F Wave Studies ?NR F-Lat (ms) L-R F-Lat (ms) Left Median (Mrkrs) (Abd Poll Brev) ? 28.95 0.07 Right Median (Mrkrs) (Abd Poll Brev) ? 29.03 0.07 Left Ulnar (Mrkrs) (Abd Dig Min) ? 28.67 0.00 Right Ulnar (Mrkrs) (Abd Dig Min) ? 28.67 0.00 EMG ?Side Muscle Nerve Root Ins Act Fibs Amp Dur Recrt Comment Right 1stDorInt Ulnar C8-T1 Nml Nml Nml Nml Nml Right Ext Indicis Radial (Post Int) C7-8 Nml Nml Nml Nml Nml Right Ext Digitorum Radial (Post Int) C7-8 Nml Nml Nml Nml Nml Right BrachioRad Radial C5-6 Nml Nml Nml Nml Nml Right PronatorTeres Median C6-7 Nml Nml Nml Nml Nml Right Abd Poll Brev Median C8-T1 Nml Nml Nml Nml Nml Right ABD Dig Min Ulnar C8-T1 Nml Nml Nml Nml Nml Left 1stDorInt Ulnar C8-T1 Nml Nml Nml Nml Nml Left Ext Indicis Radial (Post Int) C7-8 Nml Nml Nml Nml Nml Left Ext Digitorum Radial (Post Int) C7-8 Nml Nml Nml Nml Nml Left BrachioRad Radial C5-6 Nml Nml Nml Nml Nml Left PronatorTeres Median C6-7 Nml Nml Nml Nml Nml Left Abd Poll Brev Median C8-T1 Nml Nml Nml Nml Nml Left ABD Dig Min Ulnar C8-T1 Nml Nml Nml Nml Nml MTDD
--- OUTSIDE RECORDS SUMMARY | 2024-04-25 16:37 | XMS_ITS | Referral Summary ---
Author Organization [facility] Address [address] [place] [address] Care Team Providers Care [place] Expert Name Role Phone Jm Mendoza MD Unavailable [phone] Henna Jacobo MD Unavailable Henna Jacobo MD Unavailable Kade Riojas MD Unavailable Nain Romero MD Primary Care Provider [phone] Encounters Date Type Department Care Team Description 04/22/2024 2:54 PM BOTTOM SAW OPERATOR - 04/22/2024 11:59 PM BOTTOM SAW OPERATOR Hospital Encounter [facility] [address] [place] [address] Atherosclerosis of [place] arteries of extremities with intermittent claudication, bilateral legs (HCC); Encounter for surgical aftercare following surgery on the circulatory system Discharge Disposition: Discharge to home or self care from Last 3 Months Allergies Active Allergy Reactions Criticality Noted Date Comments Morphine Other (See comments) Low 02/04/2022 Makes me angry Oxycodone Itching,Rash Medium 10/15/2019 Can take Hydrocodone Tsypicm-Uvm-Tlc Reductase Inhibitors Muscle pain Medium 02/10/2022 Tramadol Itching,Rash Medium 02/22/2019 Vancomycin Hives Medium 10/08/2019 Medications clopidogrel (PLAVIX) 75 mg tabletIndicatio ns:myocardial infarction prevention Take 1 tablet (75 mg total) by mouth daily Active lamoTRIgine (LaMICtal) 200 mg tabletIndicatio ns:Diabetic Peripheral Neuropathy Take 0.5 tablets (100 mg total) by mouth 2 (two) times a day 7 Active aspirin 81 mg chewable tablet Take 1 tablet (81 mg total) by mouth daily. 90 tablet 1 8 Active traZODone (DESYREL) 50 mg tabletIndicatio ns:insomnia associated with depression Take 1 tablet (50 mg total) by mouth nightly 0 Active metFORMIN (GLUCOPHAGE) 1,000 mg tabletIndicatio ns:Prevention of Type 2 Diabetes Mellitus Take 1 tablet (1,000 mg total) by mouth daily with breakfast 0 Active hydroCHLOROthia zide (HYDRODIURIL) 25 mg tabletIndicatio ns:hypertension Take 0.5 tablets (12.5 mg total) by mouth daily 0 Active ezetimibe (ZETIA) 10 mg tabletIndicatio ns:hyperlipidem ia Take 1 tablet (10 mg total) by mouth daily 0 Active escitalopram (LEXAPRO) 20 mg tabletIndicatio ns:Anxiety with Depression Take 1 tablet (20 mg total) by mouth daily 0 Active magnesium oxide 400 mg magnesium capsuleIndicati ons:hypomagnese gabino Take 400 mg of elemental magnesium by mouth daily. Indications: low amount of magnesium in the blood 0 Active gabapentin (NEURONTIN) 300 mg capsuleIndicati ons:Diabetic Peripheral Neuropathy Take 1 capsule (300 mg total) by mouth 3 (three) times a day as needed 0 Active rOPINIRole (REQUIP) 3 mg tabletIndicatio ns:Restless Legs Syndrome Take 1 tablet (3 mg total) by mouth nightly 0 Active irbesartan (AVAPRO) 300 mg tabletIndicatio ns:hypertension Take 1 tablet (300 mg total) by mouth daily 0 Active buPROPion SR (WELLBUTRIN SR) 150 mg 12 hr tablet Take 1 tablet (150 mg total) by mouth daily Active famotidine (PEPCID) 20 mg tabletIndicatio ns:gastroesopha geal reflux disease Take 1 tablet (20 mg total) by mouth daily Active TRUEplus Lancets 33 gauge misc 2 Active multivit kiqvzsux-fuql-J A-calcium (THERA-M) 9 mg iron-400 mcg tabletIndicatio ns:Vitamin Deficiency Take 1 tablet by mouth daily 60 tablet 3 2 Active acetaminophen (TYLENOL) 325 mg tabletIndicatio ns:Fever,Pain Take 2 tablets (650 mg total) by mouth every 4 (four) hours as needed for pain, headaches or fever 30 tablet 1 2 Active HYDROcodone-shannan taminophen (NORCO) 7.5-325 mg per tabletIndicatio ns:Pain Take 1 tablet by mouth every 6 (six) hours as needed for pain 10 tablet 3 Active diazePAM (VALIUM) 2 mg tablet TAKE 1 TABLET BY MOUTH ONCE DAILY NEEDED FOR ANXIETY 3 Active lidocaine (LIDODERM) 5 % APPLY ONE PATCH TOPICALLY DAILY LEAVE ON MOST PAINFUL AREA FOR UP TO 12 HOURS. 3 Active True Metrix Glucose Test Strip strip 3 Active Active Problems Problem Noted Date Diagnosed Date Injury of right Achilles tendon 04/25/2023 Assessment & Plan (04/25/2023 12:48 PM BOTTOM SAW OPERATOR): Impression: Patient reports a right achilles tendon injury. She had noninvasive studies performed at an outside facility. She has an orthopedic surgeon however does not treat foot and ankle conditions. Plan; Will refer to Dr Mcnair for further evaluation. Postoperative seroma involvi ng circulatory system after other circulatory system procedure 03/04/2022 Assessment & Plan (04/29/2022 10:25 AM BOTTOM SAW OPERATOR): Patient is returning for wound check to the right groin. The groin is healed. No complaints or issues from the patient. Seen with Dr. Mendoza. Plan: Return in 6 months for routine surveillance of her arterial disease with a bilateral lower extremity arterial Doppler. Assessment & Plan (04/08/2022 1:11 PM BOTTOM SAW OPERATOR): Patient is following up postoperatively after undergoing incision and drainage of the right groin seroma with an intraoperative wound VAC placement on 03/06/2022. The wound VAC was taken off the beginning of this week. The wound is healing well, and is now superficial. She is not having any drainage from the site. There is no signs or symptoms of infection. Two sutures are intact which were removed in the office today. Seen with Dr. Mendoza. Plan: Continue daily dressing changes with gauze and wound gel. 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 Plan: Discussed with the patient, greater than 3 minutes the ill effects of smoking on the cardiovascular health. Smoking cessation was encouraged. At this time patient is not wanting to quit. Cellulitis of multiple sites of lower extremity 04/09/2019 Coronary artery disease 04/09/2019 Neurogenic claudication 04/09/2019 Assessment & Plan (10/11/2022 10:28 AM CDT): Impression: Patient complains of pain to her left lower extremity with positional changes. Patient reports constant cramping to her left leg as well as shooting pain behind her left thigh regardless of activity. She reports improvement to her discomfort when leaning forward. She does report a history of stenosis and disc disease. Plan: recommend patient to follow-up with primary care provider for further evaluation of spinal stenosis for neurogenic claudication. Persistent mood disorder 04/09/2019 Recurrent vomiting 04/09/2019 Encounter for administrative examinations, unspe cified 04/09/2019 Acute occlusion of aortoiliac artery (CMS/HCC) 1 Vascular graft infection (CMS/HCC) 09/21/2018 Internal device, implant, or graft infection or inflammation 08/21/2018 Arthritis 07/13/2018 Chronic pain 07/13/2018 Congestive heart failure (CMS/HCC) 07/13/2018 Dyslipidemia 07/13/2018 Assessment & Plan (04/25/2023 12:29 PM BOTTOM SAW OPERATOR): Impression: Chronic and stable. Plan: Continue Zetia Hypothyroidism 07/13/2018 Anxiety and depression 07/13/2018 Neuropathy 07/13/2018 Vitamin D deficiency 07/13/2018 Atherosclerosis of [place] ar [place]ha of both lower extremities with intermittent claudication 11/08/2017 Assessment & Plan (04/25/2023 11:44 AM BOTTOM SAW OPERATOR): Impression: Patient has a significant history of vascular surgical interventions to include aortobifemoral bypass graft, right femoral pseudoaneurysms repairs, bilateral groins sartorius muscle flaps due to seromas. Patient has stable non disabling claudication to bilateral lower extremities. Biphasic waveforms are noted to the right lower extremity and triphasic waveforms are noted to the left lower extremity. Plan: Continue ongoing risk factor modifications. -patient to follow-up in 1 year for re-evaluation with repeat lower extremity arterial Doppler. Assessment & Plan (10/11/2022 10:25 AM CDT): Impression: Patient has had multiple interventions to include any aortobifemoral bypass graft in February 2017, right femoral popliteal bypass graft in March 2017, excision of infected right femoral popliteal bypass graft with a femoral popliteal bypass graft with cryovein in 2018, as well as multiple incisions and drainage of seroma to the right groin. Patient has stable claudication symptoms to bilateral lower extremities, and denies ischemic rest pain or ulcerations to her lower extremity. Patient is scheduled for a lower extremity arterial duplex on 10/27/2022. Plan: Continue ongoing risk factor modifications. - recommend patient to continue with her appointment to undergo an arterial duplex of her lower extremities. We will call patient with results. Instructed patient if there is anything concerning, we will have patient make a follow-up visit to discuss options. Patient voices understanding. -patient to follow-up in 6 months for re-evaluation with lower extremity arterial duplex. Assessment & Plan (11/27/2020 1:21 PM CDT): Impression: Patient has stable non disabling claudication to bilateral lower extremities. She continues to complain of right lower extremity pain that has worsened in the last month which is likely secondary to ischemic neuropathy. Arterial Doppler reveals moderate distal ischemia with no progression. Plan: No surgical interventions needed at this time. Recommend ongoing risk factor modifications. Patient to follow-up in 6 months for re-evaluation and repeat lower extremity arterial duplex. Assessment & Plan (03/25/2020 3:52 PM BOTTOM SAW OPERATOR): Impression: Stable nondisabling claudication right lower extremity status post resection of an infected right fem-pop bypass. No progressive stenosis noted on arterial Doppler surveillance. Plan: Recommend ongoing risk factor modifications. Pain control. Patient follow- up in 6 months for re-evaluation and repeat lower extremity arterial duplex surveillance. Assessment & Plan (01/31/2020 1:19 PM CDT): Impression: Patient recovering well status post excision of an infected right fem-pop bypass. She has stable nondisabling claudication of her right lower extremity. Plan: Recommend ongoing risk factor modifications and follow-up in 3 months for re-evaluation and repeat arterial duplex surveillance. Chronic pain syndrome 09/18/2017 care home prescription opiate use 09/18/2017 Complex regional pain syndro me type 2 of right lower extremity 07/26/2017 Assessment & Plan (11/27/2020 1:24 PM CDT): Impression: Patient is status post explant of infected right distal bypass graft. She continues to complain of right lower extremity pain that is worsening in the last month. Arterial Doppler reveals moderate distal ischemia with no progression of stenosis. Plan: Ongoing pain is likely due to ischemic neuropathy. Recommend patient to continue current management for pain control. No surgical interventions needed at this time. Patient to follow-up in 6 months for re-evaluation. Assessment & Plan (04/21/2020 9:51 AM BOTTOM SAW OPERATOR): Impression: Chronic pain right lower extremity with history of explanted infected right distal bypass. She has evidence of moderate distal ischemia on arterial Doppler studies. Plan: Patient has ongoing pain which is likely secondary to an ischemic neuropathy. It is controlled with p.r.n. narcotics however I discussed with the patient that she will need to be further evaluated by pain management for ongoing pain control. I recommended capsaicin cream in the interim to try to alleviate her pain symptoms. Swelling of right lower extremity 07/24/2017 Scar pain 05/30/2017 Adjustment reaction with anxiety and depression 03/04/2017 Essential (primary) hypertension 03/04/2017 Assessment & Plan (04/25/2023 12:30 PM BOTTOM SAW OPERATOR): Impression: Chronic an elevated. Patient denies any chest pain, palpitations, lightheadedness shortness of breath, headaches nausea or vomiting. Patient had a stressful event occur prior to her visit. Plan: Recommend patient to monitor blood pressures at home and notify primary care provider for elevated blood pressure for further management. Assessment & Plan (10/11/2022 10:21 AM CDT): Impression: Chronic stable Plan: Continue hydrochlorothiazide and irbesartan Assessment & Plan (11/27/2020 1:26 PM CDT): Impression: Chronic stable hypertension, controlled with medications. Blood pressure stable this office visit. Plan: Medications reviewed. Continue blood pressure management as per primary care provider. Assessment & Plan (03/25/2020 3:53 PM BOTTOM SAW OPERATOR): Impression: Stable hypertension. Plan: Continue current antihypertensive regimen as directed by PCP. Assessment & Plan (01/31/2020 1:20 PM CDT): Impression: Stable hypertension. Plan: Continue current antihypertensive regimen as directed by PCP. PVD (peripheral vascular disease) 03/04/2017 DM type 2 (diabetes mellitus, type 2) 03/04/2017 Thrombosis of aortic bifurcation bypass graft Anxiety 12/23/2013 Diabetes mellitus 12/23/2013 Assessment & Plan (04/25/2023 12:28 PM BOTTOM SAW OPERATOR): Impression: Chronic with good glucose control. Plan: Continue metformin Herniation of intervertebral disc of cervical re gion 12/19/2013 Varicose veins of unspecifie d lower extremity with inflammation 04/25/2012 Enterococcus faecalis infection Mixed hyperlipidemia Assessment & Plan (10/11/2022 10:21 AM CDT): Impression: Chronic and stable. Plan: Continue Zetia Gastroesophageal reflux disease without esophagi tis Normocytic hypochromic anemia Restless leg syndrome Chronic narcotic dependence (CMS/HCC) Insomnia Resolved Problems Problem Noted Date Diagnosed Date Resolved Date Pain at surgical site 04/09/20192023 Peripheral arterial occlusiv e disease (CMS/HCC) 07/13/2018 04/25/2023 Assessment & Plan (04/21/2020 9:52 AM BOTTOM SAW OPERATOR): Impression: Stable nondisabling claudication both lower extremities. Patient has new onset pain of her right lower extremity which is likely secondary to an ischemic neuropathy. She has evidence of moderate distal ischemia on lower extremity arterial Doppler studies. Plan: No surgical intervention currently needed. Recommended referral for pain management for ongoing pain control. Patient follow-up in 6 months for re- evaluation and repeat lower extremity arterial Doppler surveillance. Urinary tract infectious disease 07/13/2018 02/19/2022 Abdominal aortic atherosclerosis 11/08/2017 01/17/2019 Hypertension 12/23/2013 11/27/2020 Peripheral vascular disease 12/23/2013 04/25/2023 Immunizations Name Administration Dates Next Due Influenza, Quadrivalent, Corine l Culture-based MDCK, Preservative Free, Antibiotic Free, Intramuscular 07/04/2018 Influenza, Quadrivalent, Spl it, Intramuscular 12/11/2014 Influenza, Quadrivalent, Spl it, Preservative Free, Intramuscular 02/13/2022,03/20/2019,02/18/2017 Influenza, Trivalent, Cell C ulture-based MDCK, Preservative Free, Antibiotic Free, Intramuscular 07/04/2018 Influenza, Unspecified 07/04/2018 Pfizer SARS-CoV-2 Monovalent Vaccination (12+ Yrs) PURPLE 08/07/2020,07/10/2020 Social History Tobacco Use Types Packs/Day Years Used Date Smoking Tobacco: Former Cigarettes 1.5 30 1 04/09/1991 - 02/07/2022 Passive Smoke Exposure: Past Smokeless Tobacco: Never Tobacco Cessation:Counseling Given: Not Answered Alcohol Use Standard Drinks/Week Comments Yes 0 (1 standard drink = 0.6 oz pur e alcohol) OCC Social Connection and Isolat ion Panel [NHANES] Answer Date Recorded In a typical week, how many times do you talk on the phone with family, friends, or neighbors? More than three times a week 03/07/2022 How often do you get togethe r with friends or relatives? More than three times a week 03/07/2022 How often do you attend chur ch or presybeterian services? 1 to 4 times per year 03/07/2022 Do you belong to any clubs o r organizations such as hinduism groups, unions, fraternal or athletic groups, or school groups? Yes 03/07/2022 How often do you attend meet ings of the clubs or organizations you belong to? More than 4 times per year 03/07/2022 Are you , , di vorced, , never , or living with a partner? 03/07/2022 AUDIT-C Answer Date Recorded Q1: How often do you have a drink containing alcohol? Never 02/19/2022 Q2: How many drinks containi ng alcohol do you have on a typical day when you are drinking? Patient does not drink Q3: How often do you have si x or more drinks on one occasion? Never 02/19/2022 Overall Financial Resource Strain (CARDIA) Answe r Date Recorded How hard is it for you to pa y for the very basics like food, housing, medical care, and heating? Not hard at all 03/07/2022 Hunger Vital Sign Answer Date Recorded Within the past 12 months, y ou worried that your food would run out before you got the money to buy more. Never true 03/07/20 22 Within the past 12 months, t he food you bought just didn't last and you didn't have money to get more. Never true 03/07/2022 PRAPARE - Transportation Answer Date Re corded In the past 12 months, has l ack of transportation kept you from medical appointments or from getting medications? No 08/2021 In the past 12 months, has l ack of transportation kept you from meetings, work, or from getting things needed for daily living? No 03/07/2022 Housing Stability Vital Sign Answer Gareth e Recorded In the last 12 months, was t here a time when you were not able to pay the mortgage or rent on time? No 03/07/2022 In the last 12 months, how many places have you lived? 1 03/07/2022 In the last 12 months, was t here a time when you did not have a steady place to sleep or slept in a senior living (including now)? No 03/07/2022 Comments No Sex and Gender Information Value Date Recorded Sex Assigned at Not on file Legal Sex Female 12:29 AM BOTTOM SAW OPERATOR Gender Identity Female 04/25/2024 11:50 AM BOTTOM SAW OPERATOR Sexual Orientation Not on file Last Filed Vital Signs Vital Sign Reading Time Taken Comments Blood Pressure 205/89 04/25/2023 9:52 AM BOTTOM SAW OPERATOR Pulse 57 04/25/2023 9:52 AM BOTTOM SAW OPERATOR Temperature 36.6 ??C (97.8 ??F) 04/08/2022 11:[address] Respiratory Rate 18 04/08/2022 11:10 AM BOTTOM SAW OPERATOR Oxygen Saturation 98% 04/08/2022 11:10 AM BOTTOM SAW OPERATOR Inhaled Oxygen Concentration - - Weight 62.1 kg (137 lb) 04/25/2023 9:52 AM BOTTOM SAW OPERATOR Height 165.1 cm (5' 5 ) 04/25/2023 9:52 AM BOTTOM SAW OPERATOR Body Mass Index 22.8 04/25/2023 9:52 AM BOTTOM SAW OPERATOR Plan of Treatment Not on file Medical Devices Implanted Type Area Asthma Educator Device Identifier Shelf Expiration Date Model / Serial / Lot iMusician [id number] Hemashield Gold 8mm 60cm 2 Velour Straight Tube Knit Soft Graft - [id number] - [id number] Implanted:Qty: 1 on 02/09/2022 by Jm Mendoza MD at [facility] Right: Femur [employer] [id number] 05/03/2025 [id number] / [id number] / [id number] Procedures Procedure Name Priority Date/Time Associated Diagnosis Comments US ARTERIAL DOPPLER LOWER EXTREMITY BILATERAL Schedule Routine, Read Routine (OP Routine) 04/22/2024 4:09 PM BOTTOM SAW OPERATOR Atherosclerosis of [place] arteries of extremities with intermittent claudication, bilateral legs (HCC) Encounter for surgical aftercare following surgery on the circulatory system EGFR Routine 03/10/2022 7:07 AM BOTTOM SAW OPERATOR HEMOGLOBIN A1C Routine 03/05/2022 7:08 AM BOTTOM SAW OPERATOR LIPID PANEL Routine 01/09/2017 4:53 PM CDT from Last 3 Months or Most Recently Relevant to Health Maintenance Results * US Arterial Doppler Lower Extremity Bilateral (04/22/2024 4:09 PM BOTTOM SAW OPERATOR) Anatomical Region Laterality Modality Vascular Bilateral Ultrasound 04/22/2024 Narrative 04/25/2024 1:01 PM BOTTOM SAW OPERATOR Fotofeedback Job ID: [id number] Fotofeedback Document ID: [id number] Dictated date/time: [id number] LOWER EXTREMITY ARTERIAL DOPPLER STUDY REASON FOR EXAM Claudication. COMMENTS ON THE RIGHT Brachial pressure 120. ??PT DP pressure of 78, 61, NETO 0.65. ??Digital pressure 61. ??Waveform triphasic at the common femoral, biphasic at the popliteal and tibial level. COMMENTS ON THE LEFT PT DP pressure 102 and 99. ??NETO 0.85. ??Digital pressure 40. ??Waveform triphasic at the common femoral and popliteal level, biphasic at the tibial level. OVERALL IMPRESSION ABIs bilaterally consistent with claudication. ??SFA and infrapopliteal disease likely. ??Wound healing potential may be marginal left lower extremity. Job ID/Internal Job ID: ??[id number] us Kimberly Jiménez NP IMG US PROCEDURES Final R esult * eGFR (03/10/2022 7:07 AM BOTTOM SAW OPERATOR) eGFR 75 mL/min/1. 73 m2 AIBDA GRIFFITH Comment: Interpretive Data Reference Interval Normal ?>/= 90 mL/min/1.73m2 Mildly decreased* ? 60 - 89 mL/min/1.73m2 Mildly to moderately decreased ?45 - 59 mL/min/1.73m2 Moderately to severely decreased ??30 - 44 mL/min/1.73m2 Severely decreased ?15 - 29 mL/min/1.73m2 Kidney Failure ?< 15 ??mL/min/1.73m2 *Relative to young adult level Estimated glomerular filtration rate is determined by the 2020 CKD-EPI equation recommended by the National Kidney Foundation (A Unifying Approach to GFR Estimation: Recommendations of the NKF-ASK Task Force on Reassessing the Inclusion of Race in Diagnosing Kidney Disease, JASN 2020). The CKD-EPI equation should not be used for patients with unstable renal function and has not been validated in children and those over 70. Current interpretive data was last reviewed 2021. Blood 03/10/2022 7:07 AM BOTTOM SAW OPERATOR 03/10/2022 7:38 AM BOTTOM SAW OPERATOR Zhou Trejo MD LAB BLOOD ORDERABLES Final Result Performing Organization Address [facility] de Phone Number [facility] [address] [place] [address] * Hemoglobin A1c (03/05/2022 7:08 AM BOTTOM SAW OPERATOR) [facility] Hgb A1C 5.0 4.0 - 5.6 % [facility] Estimated Average Glucose 97 mg/dL ABIDA Comment: The ADA recommends reporting an estimated Average Glucose (eAG) with all Hemoglobin A1c results using the equation derived from a study of 507 normal and diabetic adults. ??Minority populations were underrepresented and children were not included. ?? (Diabetes Care 31:6934-4542, 2008). ??The eAG is not equivalent to a fasting glucose. Blood 03/05/2022 7:08 AM BOTTOM SAW OPERATOR 03/05/2022 7:27 AM BOTTOM SAW OPERATOR Alba Lindsey MD LAB BLOOD ORDERABLES Final Result Performing Organization Address [facility] de Phone Number [facility] [address] [place] [address] * (ABNORMAL) Lipid panel (01/09/2017 4:53 PM CDT) Cholesterol 146 100 - 200 mg/dL ABIDA Comment: Interpretive Data Desirable: ?<200 mg/dL Borderline high: ??200-239 mg/dL High: ? >240 mg/dL Current interpretive data was last revised on 2015. Triglycerides 123 10 - 150 mg/dL ABIDA Comment: Interpretive Data Desirable: ? < 150 ? mg/dL Borderline High: ? 150 - 199 mg/dL High: ?200 - 499 mg/dL Very High: ? > or = 499 ??mg/dL Current interpretive data was last revised on 2015. HDL 38(L) 40 - 59 mg/dL ABIDA Comment: Interpretive Data Less than 40 mg/dL - Low; A major risk factor for heart disease. Greater than or equal to 60 mg/dL - High; ??Considered protective of heart disease. Current interpretive data was last revised on 2015. LDL, calculated 83 60 - 129 mg/dL ABIDA Comment: Interpretive Data Optimal: ? < 100 mg/dL Near Optimal: ?100 - 129 mg/dL Borderline High: ?? 130 - 159 mg/dL High: ?> 160 mg/dL Current interpretive data was last revised on 2015. Non-HDL Cholesterol 108 mg/dL ABIDA Comment: Interpretive Data When triglycerides are >200 mg/dL, non-HDL C is a secondary target of therapy, with a goal 30 mg/dL higher than the identified LDL-C goal. Current interpretive data was last revised 2015. Blood specimen (specimen) 01/09/2017 4:53 PM CDT 01/09/2017 4:54 PM CDT Navjot Holt MD LAB BLOOD ORDERABLES Final Resul t Performing Organization Address City/State/[facility] [place] [address] [place] Department of Laboratories [place], [place] [id number] from Last 3 Months or Most Recently Relevant to Health Maintenance Insurance HUMANA CHOICE MEDICARE PPO HUMANA MEDICARE HMO HUMANA CHOICE MEDICARE PPO [facility] MEDICARE HMO Advance Directives For more information, please contact: [phone] * Full Code (Latest Code Status on File) Date Activated Date Inactivated Comments 03/04/2022 12:20 PM 03/10/2022 9:24 PM * Full Code Date Activated Date Inactivated Comments 02/19/2022 1:32 AM 02/21/2022 6:56 PM * Full Code Date Activated Date Inactivated Comments 02/09/2022 1:04 PM 02/13/2022 6:58 PM * Full Code Date Activated Date Inactivated Comments 04/08/2017 12:09 AM 04/12/2017 7:34 PM * Full Code Date Activated Date Inactivated Comments 03/04/2017 5:18 PM 03/06/2017 5:12 PM Care Teams [place] Expert Relationship Specialty Start Date End Date Nain Romero MD [address] [place] [address] PCP - General Family Practice 04/22/24 Jm Mendoza MD Referring Physician Vascular Surgery 07/26/17 Henna Jacobo MD [address] [facility] [place] [address] Consulting Physician Pain Management 08/17/21 Henna Jacobo MD [address] [place] [address] Consulting Physician Pain Management 08/17/21 [place] [id number] [address] Consulting Physician Cardiology 01/28/22
--- OUTSIDE RECORDS SUMMARY | 2024-04-25 16:37 | XMS_ITS | Encounter Summary ---
Author Organization [facility] Healthcare Address [address] [place] [address] Care Team Providers Care Supervisor [employer] Name Role Phone Jm Mendoza MD Unavailable [phone] Henna Jacobo MD Unavailable Henna Jacobo MD Unavailable Kade Riojas MD Unavailable [place] MD Primary Care Provider [phone] Reason for Referral * Diagnostic Imaging (Routine) - Closed Specialty Diagnoses / Procedures Referred By Contac t Referred To Contact Diagnoses Atherosclerosis of [place] arteries of extremities with intermittent claudication, bilateral legs (HCC) Encounter for surgical aftercare following surgery on the circulatory system Procedures US Arterial Doppler Lower Extremity Bilateral US Arterial Duplex Lower Extremity Bilateral Kimberly Jiménez NP [address] [place] [address] Phone: tel: fax: [facility] [address] [place] [phone] Referral ID Status Reason Start Date Expiration Date Visits Re quested Visits Authorized [id number] Closed 04/25/2023 05/24/2024 1 1 GER OF PRODUCT Reason for Visit * Diagnostic Imaging (Routine) - Closed Specialty Diagnoses / Procedures Referred By Contadam t Referred To Contact Diagnoses Atherosclerosis of [place] arteries of extremities with intermittent claudication, bilateral legs (HCC) Encounter for surgical aftercare following surgery on the circulatory system Procedures US Arterial Doppler Lower Extremity Bilateral US Arterial Duplex Lower Extremity Bilateral Kimberly Jiménez DIRECTOR CHEMISTRY [address] [facility] [address] [place] [address] Phone: tel: fax: [facility] [address] [place] [phone] Referral ID Status Reason Start Date Expiration Date Visits Re quested Visits Authorized [id number] Closed 04/25/2023 05/24/2024 1 1 Encounter Details Date Type Department Care Team (Latest Contact Info) Description 04/22/2024 2:54 PM MANAGER OF PRODUCT - 04/22/2024 11:59 PM MANAGER OF PRODUCT Hospital Encounter [facility] [address] [place], [place] [id number] Atherosclerosis of [place] arteries of extremities with intermittent claudication, bilateral legs (HCC); Encounter for surgical aftercare following surgery on the circulatory system Discharge Disposition: Discharge to home or self care Social History Tobacco Use Types Packs/Day Years Used Date Smoking Tobacco: Former Cigarettes 1.5 30 1 04/09/1991 - 02/07/2022 Passive Smoke Exposure: Past Smokeless Tobacco: Never Alcohol Use Standard Drinks/Week Comments Yes 0 [...] often do you attend chur ch or alevism services? 1 to 4 times per year 03/07/2022 Do you belong to any clubs o r organizations such as catholic groups, unions, fraternal or athletic groups, or [...] place to sleep or slept in a fdc (including now)? No 03/07/2022 Comments No Sex and Gender Information Value Date Recorded Sex Assigned at Not on file Legal Sex Female 12:29 AM MANAGER OF PRODUCT Gender Identity Female 04/25/2024 11:50 AM MANAGER OF PRODUCT Sexual Orientation Not on file documented as of this encounter Medications at Time of Discharge acetaminophen (TYLENOL) 325 mg tabletIndication s:Fever,Pain Take 2 tablets (650 mg total) by mouth every 4 (four) hours as needed for pain, headaches or fever 30 tablet 1 02/21/2022 aspirin 81 mg chewable tablet Take 1 tablet (81 mg total) by mouth daily. 90 tablet 1 04/13/2017 buPROPion SR (WELLBUTRIN SR) 150 mg 12 hr tablet Take 1 tablet (150 mg total) by mouth daily clopidogrel (PLAVIX) 75 mg tabletIndication s:myocardial infarction prevention Take 1 tablet (75 mg total) by mouth daily diazePAM (VALIUM) 2 mg tablet TAKE 1 TABLET BY MOUTH ONCE DAILY NEEDED FOR ANXIETY 04/21/2022 escitalopram (LEXAPRO) 20 mg tabletIndication s:Anxiety with Depression Take 1 tablet (20 mg total) by mouth daily 08/09/2019 ezetimibe (ZETIA) 10 mg tabletIndication s:hyperlipidemia Take 1 tablet (10 mg total) by mouth daily 08/23/2019 famotidine (PEPCID) 20 mg tabletIndication s:gastroesophage al reflux disease Take 1 tablet (20 mg total) by mouth daily gabapentin (NEURONTIN) 300 mg capsuleIndicatio ns:Diabetic Peripheral Neuropathy Take 1 capsule (300 mg total) by mouth 3 (three) times a day as needed 11/01/2019 hydroCHLOROthiaz vicky (HYDRODIURIL) 25 mg tabletIndication s:hypertension Take 0.5 tablets (12.5 mg total) by mouth daily 08/23/2019 HYDROcodone-acet aminophen (NORCO) 7.5-325 mg per tabletIndication s:Pain Take 1 tablet by mouth every 6 (six) hours as needed for pain 10 tablet 04/07/2022 irbesartan (AVAPRO) 300 mg tabletIndication s:hypertension Take 1 tablet (300 mg total) by mouth daily 12/23/2019 lamoTRIgine (LaMICtal) 200 mg tabletIndication s:Diabetic Peripheral Neuropathy Take 0.5 tablets (100 mg total) by mouth 2 (two) times a day 03/01/2017 lidocaine (LIDODERM) 5 % APPLY ONE PATCH TOPICALLY DAILY LEAVE ON MOST PAINFUL AREA FOR UP TO 12 HOURS. 04/12/2022 magnesium oxide 400 mg magnesium capsuleIndicatio ns:hypomagnesemi a Take 400 mg of elemental magnesium by mouth daily. Indications: low amount of magnesium in the blood 06/06/2019 metFORMIN (GLUCOPHAGE) 1,000 mg tabletIndication s:Prevention of Type 2 Diabetes Mellitus Take 1 tablet (1,000 mg total) by mouth daily with breakfast 08/16/2019 multivit rxdwfked-wbdw-JV -calcium (THERA-M) 9 mg iron-400 mcg tabletIndication s:Vitamin Deficiency Take 1 tablet by mouth daily 60 tablet 3 02/13/2022 rOPINIRole (REQUIP) 3 mg tabletIndication s:Restless Legs Syndrome Take 1 tablet (3 mg total) by mouth nightly 12/23/2019 traZODone (DESYREL) 50 mg tabletIndication s:insomnia associated with depression Take 1 tablet (50 mg total) by mouth nightly 08/16/2019 True Metrix Glucose Test Strip strip 07/27/2022 TRUEplus Lancets 33 gauge misc 12/20/2021 documented as of this encounter Discharge Disposition Disposition Code Departure Means Destination Discharge to home or self care documented in this encounter Plan of Treatment Not on file documented as of this encounter Procedures Procedure Name Priority Date/Time Associated Diagnosis Comments US ARTERIAL DOPPLER LOWER EXTREMITY BILATERAL Schedule Routine, Read Routine (OP Routine) 04/22/2024 4:09 PM MANAGER OF PRODUCT Atherosclerosis of [place] arteries of extremities with intermittent claudication, bilateral legs (HCC) Encounter for surgical aftercare following surgery on the circulatory system documented in this encounter Results * US Arterial Doppler Lower Extremity Bilateral (04/22/2024 4:09 PM MANAGER OF PRODUCT) Anatomical Region Laterality Modality Vascular Bilateral Ultrasound 04/22/2024 Narrative 04/25/2024 1:01 PM MANAGER OF PRODUCT [employer] Job ID: [id number] [employer] Document ID: [id number] Dictated date/time: [id number] LOWER EXTREMITY ARTERIAL DOPPLER STUDY REASON FOR [...] left lower extremity. Job ID/Internal Job ID: [id number] us Kimberly Jiménez DIRECTOR CHEMISTRY IMG US PROCEDURES Final R esult documented in this encounter Visit Diagnoses Diagnosis Atherosclerosis of [place] arteries of extremities with intermittent claudication, bilateral legs (HCC) Encounter for surgical aftercare following surgery on the circulatory system documented in this encounter Care Teams Supervisor [employer] Relationship Specialty Start Date End Date Nain Romero MD [address] [place] [address] PCP - General Family Practice 04/22/24 Jm Mendoza MD Referring Physician Vascular Surgery 07/26/17 Henna Jacobo MD [address] [address] [place] [address] Consulting Physician Pain Management 08/17/21 Henna Jacobo MD [address] [address] [place] [address] Consulting Physician Pain Management 08/17/21 [place] [address] [address] Consulting Physician Cardiology 01/28/22 documented as of this encounter
--- OUTSIDE RECORDS SUMMARY | 2024-04-25 16:37 | XMS_ITS | Encounter Summary ---
Author Organization [facility] Facility Care Team Providers Care Director [facility] Name Role Phone Mayco Buckner MD Primary Care Provider [phone] Jm Mendoza MD Unavailable [phone] Danelle Park NP Primary Care Provider [phone] No, Physician Primary Care Provider [phone] Ramy Barone MD Primary Care Provider [phone] Juan Miguel Willis MD Primary Care Provider [phone] Deny Macedo MD Primary Care Provider [phone] Deny Macedo MD Primary Care Provider + [phone] Lindsay Harrington MD Primary Care Provider [phone] Farzad Joe DO Primary Care Provider [phone] Henna Jacobo MD Unavailable Henna Jacobo MD Unavailable Kade Riojas MD Unavailable Nain Romero MD Primary Care Provider [phone] Encounter Details Date Type Department Care Team (Latest Contact Info) Description 07/26/2017 Orders Only [facility] ProviderLyndsey MD [address] [place] [address] Social History Tobacco Use Types Packs/Day Years Used Date Smoking Tobacco: Former Cigarettes 1 30 0 09/02/1986 - 09/02/2016 Smokeless Tobacco: Never Alcohol Use Standard Drinks/Week Comments Yes 0 (1 standard drink = 0.6 oz pur e alcohol) OCC Comments No Sex and Gender Information Value Date Recorded Sex Assigned at Not on file Legal Sex Female 12:29 AM PHLEBOTOMY SERVICES TECHNICIAN Gender Identity Female 04/25/2024 11:50 AM PHLEBOTOMY SERVICES TECHNICIAN Sexual Orientation Not on file documented as of this encounter Plan of Treatment Not on file documented as of this encounter Procedures Procedure Name Priority Date/Time Associated Diagnosis Comments PROCEDURE - RESULT 07/27/2017 12 :00 AM CDT documented in this encounter Results * PROCEDURE - RESULT (07/27/2017 12:00 AM CDT) Narrative 07/27/2017 12:00 AM CDT Ordered by an unspecified provider. Historical Provider Final Res ult documented in this encounter Visit Diagnoses Not on filedocumented in this encounter Additional Health Concerns Infection Onset Date Last Indicated Resolved Time MRSA Comment:Guillermo justin 04/07/17 04/07/2017 04/07/2017 11/18/2020 5:00 A M CDT documented as of this encounter Care Teams Director [facility] Relationship Specialty Start Date End Date Mayco Buckner MD PCP - General 02/09/17 08/14/18 Danelle Park NP PCP - General 08/15/18 02/20/19 No, Physician PCP - General 02/21/19 03/19/19 Ramy Barone MD PCP - General 03/20/19 04/11/19 Juan Miguel Willis MD [address] [place] [address] PCP - General Family Medicine 04/12/19 10/31/19 Deny Macedo MD [address] [facility] [place] [address] PCP - General Family Medicine 01/16/20 06/17/21 Deny Macedo MD [address] [facility] [place] [address] PCP - General 11/01/19 01/15/20 Lindsay Harrington MD [address] [facility] [place] [id number] PCP - General Family Medicine 06/18/21 08/11/21 Farzad Joe DO [address] [facility] [place] [address] PCP - General Internal Medicine 08/12/21 04/21/24 Nain Romero MD [address] [place] [address] PCP - General Family Practice 04/22/24 Jm Mendoza MD Referring Physician Vascular Surgery 07/26/17 Henna Jacobo MD [address] [facility] [address] [place] [place] [address] Consulting Physician Pain Management 08/17/21 Henna Jacobo MD [address] [facility] [address] [place] [address] Consulting Physician Pain Management 08/17/21 [place] [address] [place] [address] [place] [address] Consulting Physician Cardiology 01/28/22 documented as of this encounter
--- OUTSIDE RECORDS SUMMARY | 2024-04-25 16:37 | XMS_ITS | Clinical Summary ---
Author Organization [facility] Address [address] [place] [address] Care Team Providers Care Director Digital Advertising Name Role Phone Jm Mendoza MD Unavailable [phone] Henna Jacobo MD Unavailable Henna Jacobo MD Unavailable Kade Riojas MD Unavailable Nain Romero MD Primary Care Provider [phone] Allergies Active Allergy Reactions Criticality Noted Date Comments Morphine Other (See comments) Low 02/04/2022 Makes me angry Oxycodone Itching,Rash Medium 10/15/2019 Can take Hydrocodone Ggztvjs-Mqn-Sie Reductase Inhibitors Muscle pain Medium 02/10/2022 Tramadol [...] Lancets 33 gauge misc 2 Active multivit mlzhzsgh-uobx-T A-calcium (THERA-M) 9 mg iron-400 mcg tabletIndicatio [...] 04/25/2023 Assessment & Plan (04/25/2023 12:48 PM TOWBOAT PILOT): Impression: Patient reports a right achilles tendon injury. She had noninvasive studies performed at an outside facility. She has an orthopedic surgeon however does not treat foot and ankle conditions. Plan; Will refer to Dr Mcnair for further evaluation. Postoperative seroma involvi ng circulatory system after other circulatory system procedure 03/04/2022 Assessment & Plan (04/29/2022 10:25 AM TOWBOAT PILOT): Patient is returning for wound check to the right groin. The groin is healed. No complaints or issues from the patient. Seen with Dr. Mendoza. Plan: Return in 6 months for routine surveillance of her arterial disease with a bilateral lower extremity arterial Doppler. 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 Plan: Continue Zetia Hypothyroidism 07/13/2018 Anxiety and depression 07/13/2018 Neuropathy 07/13/2018 Vitamin D deficiency 07/13/2018 Atherosclerosis of [place] ar radha of both lower extremities with intermittent claudication 11/08/2017 Assessment & Plan (04/25/2023 11:44 AM TOWBOAT PILOT): Impression: Patient has a significant history of [...] duplex. Assessment & Plan (03/25/2020 3:52 PM TOWBOAT PILOT): Impression: Stable nondisabling claudication right lower extremity [...] arterial duplex surveillance. Chronic pain syndrome 09/18/2017 [employer] prescription opiate use 09/18/2017 Complex regional pain [...] re-evaluation. Assessment & Plan (04/21/2020 9:51 AM TOWBOAT PILOT): Impression: Chronic pain right lower extremity with [...] 03/04/2017 Assessment & Plan (04/25/2023 12:30 PM TOWBOAT PILOT): Impression: Chronic an elevated. Patient denies any [...] provider. Assessment & Plan (03/25/2020 3:53 PM TOWBOAT PILOT): Impression: Stable hypertension. Plan: Continue current antihypertensive regimen as directed by PCP. Assessment & Plan (01/31/2020 1:20 PM CDT): Impression: Stable hypertension. Plan: Continue current antihypertensive regimen as directed by PCP. PVD (peripheral vascular disease) 03/04/2017 DM type 2 (diabetes mellitus, type 2) 03/04/2017 Thrombosis of aortic bifurcation bypass graft Anxiety 12/23/2013 Diabetes mellitus 12/23/2013 Assessment & Plan (04/25/2023 12:28 PM TOWBOAT PILOT): Impression: Chronic with good glucose control. Plan: Continue metformin Herniation of intervertebral disc of cervical re gion 12/19/2013 Varicose veins of unspecifie d lower extremity with inflammation 04/25/2012 Enterococcus faecalis infection Mixed hyperlipidemia Assessment & Plan (10/11/2022 10:21 AM CDT): Impression: Chronic and stable. Plan: Continue Zetia Gastroesophageal reflux disease without esophagi tis Normocytic hypochromic anemia Restless leg syndrome Chronic narcotic dependence ([facility]) Insomnia Resolved Problems Problem Noted Date Diagnosed Date Resolved Date Pain at surgical site 04/09/20192023 Peripheral arterial occlusiv e disease (CMS/HCC) 07/13/2018 04/25/2023 Assessment & Plan (04/21/2020 9:52 AM TOWBOAT PILOT): Impression: Stable nondisabling claudication both lower extremities. [...] 12/23/2013 11/27/2020 Peripheral vascular disease 12/23/2013 04/25/2023 Encounters Date Type Department Care Team Description 04/22/2024 2:54 PM TOWBOAT PILOT - 04/22/2024 11:59 PM TOWBOAT PILOT Hospital Encounter [facility] Cardiac Testing [address] [place] [address] Atherosclerosis of p[place] arteries of extremities with intermittent claudication, bilateral legs ([facility]); Encounter for surgical aftercare following surgery on the circulatory system Discharge Disposition: Discharge to home or self care from Last 3 Months Immunizations Name Administration Dates Next Due Influenza, Quadrivalent, Corine l Culture-based MDCK, Preservative Free, Antibiotic Free, Intramuscular 07/04/2018 Influenza, Quadrivalent, Spl it, Intramuscular 12/11/2014 Influenza, Quadrivalent, Spl it, Preservative Free, Intramuscular 02/13/2022,03/20/2019,02/18/2017 Influenza, Trivalent, Cell C ulture-based MDCK, Preservative Free, Antibiotic Free, Intramuscular 07/04/2018 Influenza, Unspecified 07/04/2018 Pfizer SARS-CoV-2 Monovalent Vaccination (12+ Yrs) PURPLE 08/07/2020,07/10/2020 Surgical History Surgery Date Site/Laterality Comments CHOLECYSTECTOMY TUBAL LIGATION 04/03/1991 - 04/02/1992 AORTA - FEMORAL ARTERY BYPAS S GRAFT 02/15/2017 Left MUSCLE FLAP Bilateral Groin from infection after bypass IR PICC LINE PLACEMENT > 5 YEARS 04/12/2017 N/A EXCHANGE PICC LINE 05/02/2017 Left FEMORAL ARTERY - POPLITEAL ARTERY BYPASS GRAFT 03/03/2017 Right AORTIC ILIAC FEMORIAL ANGIOGRAM INTERVENTION 03/20/2019 VASCULAR SURGERY 10/11/2019 Right Excision of Fem-pop BPG with Cadaver Vein AORTA - BILATERAL FEMORAL ARTERY BYPASS GRAFT 04/03/2016 - 04/02/2017 Medical History Medical History Date Comments Type 2 diabetes mellitus (HCC) 2000 N IDDM Hypertension Peripheral vascular disease (HCC) Depression Anxiety Hyperlipidemia Arthritis GERD (gastroesophageal reflux disease) controlled Neuropathy (CMS/HCC) Bilateral L egs RLS (restless legs syndrome) Bipolar disorder (HCC) Anxiety PTSD (post-traumatic stress disorder) From finding daughter after heroin overdose. Wears glasses Right foot drop Frequent Falls; Full dentures Family History Medical History Relation Name Comments Diabetes Brother Heart disease Father Hypertension Father Diabetes Mother Heart disease Mother Hypertension Mother Cirrhosis Sister Diabetes Sister Relation Name Status Comments Brother Alive Father Mother Sister 1 alive 2 decea sed Social History Tobacco Use Types Packs/Day Years [...] week 03/07/2022 How often do you attend [facility] or judaism services? 1 to 4 times per year 03/07/2022 Do you belong to any clubs o r organizations such as confucianism groups, unions, fraternal or athletic groups, or [...] you are drinking? Patient does not drink 2 Q3: How often do you have si [...] place to sleep or slept in a detention (including now)? No 03/07/2022 Comments No Sex and Gender Information Value Date Recorded Sex Assigned at Not on file Legal Sex Female 12:29 AM TOWBOAT PILOT Gender Identity Female 04/25/2024 11:50 AM TOWBOAT PILOT Sexual Orientation Not on file Obstetrics History Last Filed Vital Signs Vital Sign Reading Time Taken Comments Blood Pressure 205/89 04/25/2023 9:52 AM TOWBOAT PILOT Pulse 57 04/25/2023 9:52 AM TOWBOAT PILOT Temperature 36.6 ??C (97.8 ??F) 04/08/2022 11:[address] Respiratory Rate 18 04/08/2022 11:10 AM TOWBOAT PILOT Oxygen Saturation 98% 04/08/2022 11:10 AM TOWBOAT PILOT Inhaled Oxygen Concentration - - Weight 62.1 kg (137 lb) 04/25/2023 9:52 AM TOWBOAT PILOT Height 165.1 cm (5' 5 ) 04/25/2023 9:52 AM TOWBOAT PILOT Body Mass Index 22.8 04/25/2023 9:52 AM TOWBOAT PILOT Plan of Treatment Health Maintenance Due Date Last Done Comments Albumin Creatinine Ratio, Urine 1964 Breast Cancer Screening-Mammogram 1964 Cervical Cancer Screening 1964 Colon Cancer Screening-Colonoscopy 1964 Hepatitis C Screening 1964 Dilated Eye Exam 1964 Foot Exam 1964 Pneumococcal vaccine <65 (1 of 2 - PCV) 1970 DTaP/Tdap/Td Vaccine (1 - Tdap) 11/12/1975 Hepatitis B Screening 1982 Regular Well Visit/Exam 18-64 1982 Lung Cancer Screening 2014 Zoster Vaccine (1 of 2) 2014 Lipid Panel 01/09/2018 01/09/2017 Depression Screening 07/26/2018 07/26/2017, 07/26/2017, 05/30/2017, Additional history exists Hemoglobin A1C 09/03/2022 03/05/2022, 110 12/2021, 10/31/2019, Additional history exists eGFR 03/10/2023 03/10/2022, 10/2021, 03/08/2022, Additional history exists Covid-19 Vaccine (3 - 2023-2 5 season) 2023 08/07/2020, 07/10/2020 Influenza Vaccine (#1) 2023 , 03/20/2019, 07/04/2018, Additional history exists Medical Devices Implanted Type Area [employer] Device Identifier Shelf Expiration Date Model / Serial / Lot [employer] Cardiovascular [id number] Hemashield Gold 8mm 60cm 2 Velour Straight Tube Knit Soft Graft - [id number] - [id number] Implanted:Qty: 1 on 02/09/2022 by Jm Mendoza MD at [facility] Right: Femur [employer] [id number] 05/03/2025 [id number] / [id number] / [id number] Procedures Procedure Name Priority Date/Time Associated Diagnosis Comments US ARTERIAL DOPPLER LOWER EXTREMITY BILATERAL Schedule Routine, Read Routine (OP Routine) 04/22/2024 4:09 PM TOWBOAT PILOT Atherosclerosis of [place] arteries of extremities with intermittent claudication, bilateral legs (HCC) Encounter for surgical aftercare following surgery on the circulatory system EGFR Routine 03/10/2022 7:07 AM TOWBOAT PILOT HEMOGLOBIN A1C Routine 03/05/2022 7:08 AM TOWBOAT PILOT LIPID PANEL Routine 01/09/2017 4:53 PM CDT from Last 3 Months or Most Recently Relevant to Health Maintenance Results * US Arterial Doppler Lower Extremity Bilateral (04/22/2024 4:09 PM TOWBOAT PILOT) Anatomical Region Laterality Modality Vascular Bilateral Ultrasound 04/22/2024 Narrative 04/25/2024 1:01 PM TOWBOAT PILOT [employer] Job ID: [id number] [employer] Document ID: [id number] Dictated date/time: [id number] LOWER EXTREMITY ARTERIAL DOPPLER STUDY REASON FOR [...] left lower extremity. Job ID/Internal Job ID: ??[id number] us Kimberly Jiménez NP IMG US PROCEDURES Final R esult * eGFR (03/10/2022 7:07 AM TOWBOAT PILOT) eGFR 75 mL/min/1. 73 m2 [facility] GRIFFITH Comment: Interpretive Data Reference Interval Normal [...] last reviewed 2021. Blood 03/10/2022 7:07 AM TOWBOAT PILOT 03/10/2022 7:38 AM TOWBOAT PILOT us Zhou Trejo MD LAB BLOOD ORDERABLES Final Result [facility] [address] [facility] Department [place] [address] * Hemoglobin A1c (03/05/2022 7:08 AM TOWBOAT PILOT) Pathologist [facility] Hgb A1C 5.0 4.0 - 5.6 % [facility] Estimated Average Glucose 97 mg/dL [facility] Comment: The ADA recommends reporting an estimated Average Glucose (eAG) with all Hemoglobin A1c results using the equation derived from a study of 507 normal and diabetic adults. ??Minority populations were underrepresented and children were not included. ?? (Diabetes Care 31:9221-5644, 2008). ??The eAG is not equivalent to a fasting glucose. Blood 03/05/2022 7:08 AM TOWBOAT PILOT 03/05/2022 7:27 AM TOWBOAT PILOT us Alba Lindsey MD LAB BLOOD ORDERABLES Final Result [facility] [address] [facility] Department [place] [address] * (ABNORMAL) Lipid panel (01/09/2017 4:53 PM [...] MD LAB BLOOD ORDERABLES Final Resul t ABIDA [id number] Department [place] [address] from Last 3 Months or Most Recently Relevant to Health Maintenance Insurance H[employer]AN CHOICE MEDICARE O [employer] MEDICARE HMO [facility] HU[employer] MEDICARE HMO Advance Directives For more information, please contact: [phone] * Full Code (Latest Code Status on [...] 5:18 PM 03/06/2017 5:12 PM Care Teams Director Digital Advertising Relationship Specialty Start Date End Date Nani Romero MD [address] [place] [address] PCP - General Family Practice 04/22/24 Jm Mendoza MD Referring Physician Vascular Surgery 07/26/17 Henna Jacobo MD [address] [facility] [place] [address] Consulting Physician Pain Management 08/17/21 Henna Jacobo MD [address] [facility] [place] [address] Consulting Physician Pain Management 08/17/21 [place] [address] [address] Consulting Physician Cardiology 01/28/22
--- OUTSIDE RECORDS SUMMARY | 2024-04-25 16:37 | XMS_ITS | Continuity of Care Document ---
Author Organization [facility] Address [address] [facility] [address] [place] [address] Phone Care Team Providers Care Blocker [employer]ated [employer] Forms Name Role Phone Arellano OD, Aldo Unavailable Unavailable Procedures Procedure Date Eye Exam & Treatment Eye Exam Established Pt Advance Directives Directive Yes / No Effective Date File Name No Information Encounters Encounter Description Practice Location Reason(s) For Visit Diagnoses Date Provider Providers Copied on Encounter Formerly [facility], [address] [place] [address] [address], [place], [place], [id number], tel:[phone] No Information 0-200 8 Arellano OD Aldo. [address] [facility] , [address], [place], [address], [place]. tel:[phone] Formerly [facility], [address] [place] [address] [address], [place], [place], [id number], tel:[phone] [facility] [place] No Information 0-200 8 Arellano OD Aldo. [address] [facility] , [address], [place], [address], [place]. tel:[phone] Family History Family Member Type Diagnosis Age At Onset No Information Payers Payer name Insurance type Covered green party ID Authorleelee serrato(s) Medicaid [facility] [id number] Social History Type Description Quantity Date Captured [...]
--- OUTSIDE RECORDS SUMMARY | 2024-04-25 16:37 | XMS_ITS | CONTINUITY OF CARE DOCUMENT ---
Author Name chelojemima chelojemima Address Unknown Organization [facility] Address [address] [address] [facility] [address] [place] [address] Phone [phone] Care Team Providers Care Buggy Ladle Tender Name Role Phone Kade Riojas MD Unavailable Tamara PAC, Yair Unavailable Diamantemann PAC, Yair Unavailable PROBLEMS Condition Status Date Provider Notes DYSLIPIDEMIA active Madie Sellers DEPRESSION active Madie Sellers AIF-05/13 [facility] STENT completed - Kade Riojas MD HTN ESSENTIAL active Kade Riojas MD VARICOSE VEINS LOWER EXTREMITIES W/INFLAMMATION active Umesh Colon MD LEG PAIN completed - Kade Riojas MD Other symptoms involving cardiovascular system completed - Kevin Rasheed MD Diabetes mellitus active Kade Riojas MD PVD b/l Illiac stents in 2009,then L illiac in 08/13 cISR 08/14 and repeat stenting active Kade Riojas MD PVD-05/13 DEN SEV DIS LLE S/P ISTR AND ILLIAC STENT IN 05/13 completed - Kade Riojas MD PVD-03/09 STENT RCI KAYLEE completed - Kade ndiaye MD CHEST PAIN- NORMAL CORONARIE S ON CATH IN 2005 active ? Kade Riojas MD Tobacco abuse active Kade Riojas MD HTN-07/13 ECHO EF 60-2 ECH O EF 60-03/09 ECHO LVH EF 70 completed - Kade Riojas MD PVD-07/09 DEN MILD KAYLEE DIS completed - Kade phelan MD CHEST DISCOMFORT-06/06 CATH NL completed - Vitor Riojas MD ENCOUNTERS Date Type Provider Location Encounter Diag nosis - In-person encounter Office Visit Kade Riojas MD [facility] - In-person encounter Office Visit Kade Riojas MD [facility] Tobacco abuse - In-person encounter Office Visit Kade Riojas MD [facility] Diabetes mellitus - In-person encounter Office Visit Kade Riojas MD [facility] - In-person encounter Office Visit Kade Riojas MD [facility] - In-person encounter Office Visit Kade Riojas MD [facility] In-person encounter Office Visit Kade Riojas MD [facility] - In-person encounter Office Visit Kevin Rasheed MD [facility] Other symptoms involving cardiovascular system - In-person encounter Office Visit Kade Riojas MD [facility] - In-person encounter Office Visit Kade Riojas MD [facility] HTN-07/13 ECHO EF 60-10 ECHO EF 60-03/09 ECHO LVH EF 70PVD-03/09 STENT RCI BILPVD-05/13 DEN SEV DIS LLE S/P ISTR AND ILLIAC STENT IN IF-05/13 [facility] STENTLEG PAINPVD b/l Illiac stents in 2009,then L illiac in 08/13 cISR 08/14 and repeat stenting - In-person encounter Office Visit Navjot Holt MD [facility] - In-person encounter Office Visit Navjot Holt MD [facility] - In-person encounter Office Visit Kade Riojas MD [facility] - In-person encounter Office Visit Kade Riojas MD [facility] - In-person encounter Office Visit Umesh Colon MD [facility] - In-person encounter Office Visit Kade Riojas MD [facility] - In-person encounter Office Visit Umesh Colon MD [facility] Tobacco abuse - In-person encounter Office Visit Umesh Colon MD [facility] - In-person encounter Office Visit Umesh Colon MD [facility] - In-person encounter Office Visit Umesh Colon MD [facility] - In-person encounter Office Visit Umesh Colon MD [facility] - In-person encounter Office Visit Umesh Colon MD [facility] VARICOSE VEINS LOWER EXTREMITIES W/INFLAMMATION - In-person encounter Office Visit Kade Riojas MD [facility] - In-person encounter Office Visit Kade Riojas MD [facility] - In-person encounter Office Visit Kade Riojas MD [facility] HTN ESSENTIAL - In-person encounter Office Visit Kade Riojas MD [facility] CHEST DISCOMFORT-06/06 CATH NLPVD-07/09 DEN MILD KAYLEE DISCHEST PAIN- NORMAL CORONARIES ON CATH IN 2005 - In-person encounter Office Visit Kade Riojas MD [facility] - In-person encounter Office Visit Kade Riojas MD [facility] - In-person encounter Office Visit Kade Riojas MD [facility] VITAL SIGNS Date Observation Value Provider Body Mass Index (Ratio) 26.14 kg/m2 Vitor Riojas MD blood pressure, cuff size large Gladis Colesn blood pressure, diastolic 78 mm[Hg] Gladis priya [place] blood pressure, systolic 128 mm[Hg] Hannah seay [place] oxygen saturation, oximetry 96 % Judy [place] respiratory rate E&M 14 /min Judy Joshua pulse rate 82 /min Judy [place] weight E&M 162 [lb_av] Judy [place] height E&M 66 [in_i] Judy [place] Body Mass Index (Ratio) 26.63 kg/m2 Vitor Riojas MD weight E&M 165 [lb_av] Kade Riojas MD height E&M 66 [in_i] Kade Riojas MD Body Mass Index (Ratio) 30.18 kg/m2 Rossy Steve blood pressure, cuff size regular Kr isty Kaci blood pressure, diastolic 90 mm[Hg] Kr isty [place] blood pressure, systolic 160 mm[Hg] Kri sty [place] pulse rate 82 /min Makeda [place] oxygen saturation, oximetry 95 % Makeda [place] respiratory rate E&M 18 /min Makeda Kaci weight E&M 187 [lb_av] Makeda Kaci height E&M 66 [in_i] Makeda [place] Body Mass Index (Ratio) 32.44 kg/m2 Vitor Riojas MD blood pressure, diastolic 90 mm[Hg] Kr isty [place] blood pressure, systolic 150 mm[Hg] Kri sty Kaci oxygen saturation, oximetry 98 % Makeda Kaci pulse rate 95 /min Makeda Kaci respiratory rate E&M 18 /min Makeda Kaci blood pressure, cuff size regular Saturnino Clemons weight E&M 201 [lb_av] Makeda Clemons height E&M 66 [in_i] Makeda Clemons Body Mass Index (Ratio) 27.76 kg/m2 Luke Napierjudy blood pressure, diastolic 70 mm[Hg] astpete Goldue blood pressure, systolic 122 mm[Hg] Snehal stity Rose pulse rate 72 /min Chastity Rose respiratory rate E&M 16 /min Reit jean paul Rose oxygen saturation, oximetry 98 % [facility] weight E&M 172 [lb_av] Snehality Rose height E&M 66 [in_i] [facility] (Ratio) 26.63 kg/m2 Vitor Riojas MD blood pressure, diastolic 70 mm[Hg] Debbie Anaya blood pressure, systolic 140 mm[Hg] Diane Anaya blood pressure, resting Yes Anibal Anaya oxygen saturation, oximetry 98 % Antonia Anaya pulse rate 82 /min Antonia Anaya respiratory rate E&M 17 /min Antonia Anaya weight E&M 165 [lb_av] Antonia Anaya height E&M 66 [in_i] Antonia Anaya blood pressure, diastolic 66 mm[Hg] Yevgeniy Edward blood pressure, systolic 120 mm[Hg] Julio César Edward pulse rate 94 /min Cisco Edward oxygen saturation, oximetry 97 % Cisco Edward respiratory rate E&M 20 /min Cisco Edward Body Mass Index (Ratio) 33.96 kg/m2 Suukmar Edward weight E&M 210.4 [lb_av] Cisco Edward oxygen saturation, oximetry 97 % Anyi Yepez Body Mass Index (Ratio) 37.44 kg/m2 Jazmyn ssa Yepez blood pressure, diastolic 71 mm[Hg] shy blood pressure, systolic 137 mm[Hg] Maty sp Yepez pulse rate 64 /min Anyi Yepez respiratory rate E&M 14 /min Anyi Yepez weight E&M 232 [lb_av] Anyi Yepez Body Mass Index (Ratio) 36.44 kg/m2 Sukumar jena [place] blood pressure, diastolic, left arm 80 mm [Hg] Yevgeniyannia Edward blood pressure, systolic, left arm 120 mm [Hg] Yevgeniyannia Edward blood pressure, diastolic, right arm 76 m m[Hg] Yevgeniyannia Edward blood pressure, systolic, right arm 120 m m[Hg] Yevgeniyannia Edward blood pressure, diastolic 80 mm[Hg] Yevgeniy annia Edward blood pressure, systolic 120 mm[Hg] Yevgeniy annia Edward pulse rate 91 /min Yevgeniyannia Edward oxygen saturation, oximetry 97 % Yevgeniyannia Edward respiratory rate E&M 20 /min Yevgeniyannia Edward weight E&M 225.8 [lb_av] Cisco Edward blood pressure, diastolic 80 mm[Hg] Me begum Yepez blood pressure, systolic 146 mm[Hg] Maty sp Yepez Body Mass Index (Ratio) 36.80 kg/m2 Jazmyn ssa Yepez pulse rate 82 /min Anyi Yepez oxygen saturation, oximetry 98 % Anyi Yepez respiratory rate E&M 15 /min Anyi Yepez weight E&M 228 [lb_av] Anyi Yepez Body Mass Index (Ratio) 35.99 kg/m2 Jazmyn rutherford Yepez blood pressure, diastolic 89 mm[Hg] Me begum Yepez blood pressure, systolic 136 mm[Hg] Maty snowden Yepez pulse rate 70 /min Anyi Yepez oxygen saturation, oximetry 97 % Anyi Yepez respiratory rate E&M 14 /min Anyi Yepez weight E&M 223 [lb_av] Anyi Yepez Body Mass Index (Ratio) 35.67 kg/m2 Jazmyn rutherford Yepez blood pressure, diastolic 76 mm[Hg] Me begum Yepez blood pressure, systolic 122 mm[Hg] Maty snowden Yepez pulse rate 68 /min Anyi Yepez oxygen saturation, oximetry 96 % Anyi Yepez respiratory rate E&M 14 /min Anyi Yepez weight E&M 221 [lb_av] Anyi Yepez Body Mass Index (Ratio) 36.77 kg/m2 Jazmyn rutherford Yepez blood pressure, diastolic 77 mm[Hg] Me begum blood pressure, systolic 123 mm[Hg] Maty snowden Yepez pulse rate 88 /min Anyi Yepez oxygen saturation, oximetry 99 % Anyi Yepez respiratory rate E&M 14 /min Anyi Yepez weight E&M 227 [lb_av] Anyi Yepez Body Mass Index (Ratio) 36.12 kg/m2 Anea dara Julian blood pressure, diastolic 70 mm[Hg] An eatris Brown blood pressure, systolic 122 mm[Hg] Ane atris Brown pulse rate 84 /min Aneatris Brown oxygen saturation, oximetry 99 % Aneatris Brown respiratory rate E&M 18 /min Aneatri s Julian weight E&M 223 [lb_av] Aneatris Brown Body Mass Index (Ratio) 36.29 kg/m2 Saniya Cervantes blood pressure, martinez tolic, second observation 81 mm[Hg] Tracey Andrewsoney blood pressure, syst olic, second observation 125 mm[Hg] Tracey Cervantes blood pressure, diastolic 81 mm[Hg] Na mikaela Cervantes blood pressure, systolic 125 mm[Hg] Maeve Cervantes pulse rate 68 /min Tracey Andrewsoney oxygen saturation, oximetry 97 % Tracey Cervantes respiratory rate E&M 18 /min Tracey Andrewsoney weight E&M 224 [lb_av] Tracey Cervantes blood pressure, diastolic, left arm 82 mm [Hg] Ilene [place] blood pressure, systolic, left arm 142 mm [Hg] Ilene [place] blood pressure, diastolic, right arm 80 m m[Hg] Ilene [place] blood pressure, systolic, right arm 130 m m[Hg] Ilene [place] Body Mass Index (Ratio) 36.65 kg/m2 Elías hollingsworth [place] blood pressure, diastolic 82 mm[Hg] Debbie darrick [place] blood pressure, systolic 142 mm[Hg] [facility] [place] pulse rate 93 /min Ilene [place] oxygen saturation, oximetry 97 % Ilene [place] respiratory rate E&M 18 /min Ilene [place] weight E&M 226.25 [lb_av] Ilene [place] Body Mass Index (Ratio) 36.29 kg/m2 Isa nelli Kyle blood pressure, diastolic 84 mm[Hg] Ch erese Wright blood pressure, systolic 120 mm[Hg] Marielos reszaira Wright pulse rate 62 /min Sharla Wright oxygen saturation, oximetry 96 % Sharla Wright respiratory rate E&M 16 /min Sharla Wright weight E&M 224 [lb_av] Sharla Wright blood pressure, diastolic, left arm 78 mm [Hg] Summer Quinn RN blood pressure, systolic, left arm 108 mm [Hg] Summer Quinn RN blood pressure, diastolic, right arm 72 m m[Hg] Summer Quinn RN blood pressure, systolic, right arm 118 m m[Hg] Summer Quinn RN pulse rate 66 /min Summer almanzar RN oxygen saturation, oximetry 97 % Summer Quinn RN respiratory rate E&M 20 /min Summer Quinn RN weight E&M 230.0 [lb_av] Summer sarkar RN blood pressure, diastolic, left arm 80 mm [Hg] Ilene [place] blood pressure, systolic, left arm 142 mm [Hg] Ilene [place] blood pressure, diastolic, right arm 80 m m[Hg] Ilene [place] blood pressure, systolic, right arm 138 m m[Hg] Ilene [place] Body Mass Index (Ratio) 37.01 kg/m2 [facility] [place] blood pressure, diastolic 80 mm[Hg] [facility] [place] blood pressure, systolic 142 mm[Hg] Daine syed [place] pulse rate 77 /min Ilene [place] oxygen saturation, oximetry 98 % Ilene [place] respiratory rate E&M 18 /min Ilene [place] weight E&M 228.50 [lb_av] Ilene [place] Body Mass Index (Ratio) 38.07 kg/m2 Micha Burger blood pressure, diastolic, left arm 80 mm [Hg] Amy Burger blood pressure, systolic, left arm 126 mm [Hg] Terraylrashid Tao blood pressure, diastolic, right arm 82 m m[Hg] Zylisha Tao blood pressure, systolic, right arm 118 m m[Hg] Zylisha Tao blood pressure, diastolic 80 mm[Hg] Zy aura Tao blood pressure, systolic 126 mm[Hg] Zyl rashid Tao pulse rate 83 /min Zylisha Tao oxygen saturation, oximetry 97 % Zylisha Tao respiratory rate E&M 18 /min Zylisha Tao weight E&M 235 [lb_av] Zylisha Tao Body Mass Index (Ratio) 38.39 kg/m2 Zpoonam syed Tao blood pressure, diastolic, left arm 76 mm [Hg] Zylisha Tao blood pressure, systolic, left arm 124 mm [Hg] Zylisha Tao blood pressure, diastolic, right arm 78 m m[Hg] Zylisha Tao blood pressure, systolic, right arm 120 m m[Hg] Zylisha Tao blood pressure, diastolic 76 mm[Hg] Zy aura Tao blood pressure, systolic 124 mm[Hg] Zyl rashid Tao pulse rate 72 /min Zylishsherlyn Tao oxygen saturation, oximetry 96 % Zylishsherlyn Tao respiratory rate E&M 18 /min Zylisha Tao weight E&M 237 [lb_av] Zylisha Tao blood pressure, diastolic 80 mm[Hg] Greyson Johnston blood pressure, systolic 124 mm[Hg] Victor M Johnston Body Mass Index (Ratio) 36.93 kg/m2 Dayan Johnston pulse rate 72 /min Christina Johnston oxygen saturation, oximetry 99 % Christina Johnston respiratory rate E&M 17 /min Christina Johnston weight E&M 228 [lb_av] Christina Johnston blood pressure, diastolic 80 mm[Hg] Greyson Johnston blood pressure, systolic 126 mm[Hg] Victor M Johnston Body Mass Index (Ratio) 36.61 kg/m2 Dayan Johnston pulse rate 72 /min Christina Johnston oxygen saturation, oximetry 96 % Christina Johnston respiratory rate E&M 17 /min Christina Johnston weight E&M 226 [lb_av] Christina Johnston height E&M 66 [in_i] Christina Johnston blood pressure, diastolic 94 mm[Hg] Sukhjinder Hendricks RN blood pressure, systolic 158 mm[Hg] Victoriano Hendricks RN pulse rate 72 /min Victoriano Hendricks RN oxygen saturation, oximetry 100 % Victoriano Hendricks RN respiratory rate E&M 16 /min Victoriano rooney RN weight E&M 218 [lb_av] Victoriano Hendricks RN orthostatic blood pr essure, sitting, left arm, diastolic 72 Maira Rojas orthostatic blood pr essure, sitting, left arm, systolic 110 Maira Rojas orthostatic blood pr essure, sitting, right arm, diastolic 68 Maira Rojas orthostatic blood pr essure, sitting, right arm, systolic 110 Maira Rojas oxygen saturation, oximetry 97 % Maira Rojas pulse rate 72 /min Maira Rojas height in centimeters E&M 0 cm Leo Rojas blood pressure, diastolic 85 mm[Hg] Sukhjinder Hendricks RN blood pressure, systolic 155 mm[Hg] Victoriano Hendricks RN pulse rate 64 /min Victoriano Hendricks RN oxygen saturation, oximetry 97 % Victoriano Hendricks RN respiratory rate E&M 16 /min Victoriano rooney RN weight E&M 219 [lb_av] Victoriano Hendricks RN blood pressure, diastolic 63 mm[Hg] Toth Bhavani blood pressure, systolic 94 mm[Hg] Be garcia Bhavani pulse rate 58 /min Raymond Bhavani oxygen saturation, oximetry 98 % Raymond Bhavani respiratory rate E&M 16 /min Rayomnd Beckham weight E&M 207 [lb_av] Raymond Beckham blood pressure, diastolic 77 mm[Hg] Debbie pearl [place] blood pressure, systolic 133 mm[Hg] [facility] [place] pulse rate 72 /min Ilene [place] oxygen saturation, oximetry 97 % Ilene [place] respiratory rate E&M 18 /min Ilene [place] weight E&M 200 [lb_av] [facility] [place] blood pressure, diastolic 85 mm[Hg] Luis Burgos blood pressure, systolic 127 mm[Hg] Jose F Burgos pulse rate 90 /min Belia Burgos oxygen saturation, oximetry 97 % Belia Burgos respiratory rate E&M 16 /min Suraj Burgos weight E&M 193 [lb_av] Belia Burgos blood pressure, diastolic 74 mm[Hg] Sukhjinder Hendricks RN blood pressure, systolic 122 mm[Hg] Victoriano Hendricks RN pulse rate 78 /min Victoriano Hendricks RN oxygen saturation, oximetry 97 % Victoriano Hendricks RN respiratory rate E&M 16 /min Victoriano rooney RN weight E&M 195 [lb_av] Victoriano Hendricks RN blood pressure, diastolic 75 mm[Hg] Sukhjinder Hendricks RN blood pressure, systolic 145 mm[Hg] Victoriano Hendricks RN pulse rate 58 /min Victoriano Hendricks RN oxygen saturation, oximetry 98 % Victoriano Hendricks RN respiratory rate E&M 16 /min Victoriano rooney RN weight E&M 194 [lb_av] Victoriano Hendricks RN ALLERGIES No Known Drug Allergies RESULTS Date Observation Value Provider Reference Range Interpretation Location coagulation managed by Victoriano Hendricks RN international normalized ratio (INR) 1.1 Victoriano Hendricks RN Normal prothrombin time (patient) 12.6 s Victoriano Hendricks RN platelet count 182 10*3/mm3 Roger Escobar hematocrit, blood 42.5 % [facility] Shawn blood glucose, random 160 mg/dL [facility] Shawn creatinine, serum 0.85 mg/dL [facility] Shawn urea nitrogen, blood 12 mg/dL [facility] Shawn potassium, serum 4.4 mmol/L [facility] sodium, serum 142 mmol/L [facility] Shawn blood glucose, random 220 mg/dL [facility] Shawn urea nitrogen, blood 9 mg/dL [facility] platelet count 194 10*3/mm3 [facility] hematocrit, blood 43.0 % [facility] international normalized ratio (INR[facility] creatinine, serum 0.93 mg/dL [facility] potassium, serum 4.5 mmol/L [facility] Shawn sodium, serum 143 mmol/L [facility] alanine aminotransferase (SGPT), serum 35 1/L [facility] aspartate aminotransferase (SGOT), serum 31 1/L [facility] creatinine, serum 0.89 mg/dL [facility] potassium, serum 4.7 mmol/L [facility] sodium, serum 138 mmol/L [facility] platelet count 174 10*3/mm3 [facility] hematocrit, blood 41.8 % [facility] Shawn triglyceride, serum, fasting 130 mg/dL [facility] HDL cholesterol, serum 36 mg/dL Roger Escobar lipoprotein, beta, serum, point, quantitative, calculated 50 mg/dL oRger Escobar cholesterol, serum 112 mg/dL Roger Escobar international normalized ratio (INR) 1.0 Roger Escobar HISTORY OF MEDICATION USE Medication Status Instructions Dates Provider Indications Com ments clopidogrel 75 mg tablet active TAKE 1 TABLET EVERY DAY (LAST REFILL UNTIL SEEN) 04/26 Blanca J Carlos ezetimibe 10 mg tablet active TAKE 1 TABLET EVERY DAY. LAST REFILL TILL SEEN. 11/08 Bakari Ahmedzai ezetimibe 10 mg tablet completed Take 1 tablet by mouth once a day 10/22 - 11/08 Bakari Ahmedzai ezetimibe 10 mg tablet completed TAKE 1 TABLET EVERY DAY. LAST REFILL TILL SEEN. 07/21 - 10/22 Consuelo Barahona Trulicity 0.75 mg/0.5 mL pen injector active Bakari Ahmedzai ezetimibe 10 mg tablet completed Take 1 tablet by mouth once a day 06/12 - 07/21 Consuelo Barahona clopidogrel 75 mg tablet completed Take 1 tablet by mouth once a day 06/12 - 04/26 Carolina Dickerson clopidogrel 75 mg tablet completed TAKE 1 TABLET EVERY DAY - 06/12 Mindy Rose gabapentin 300 mg capsule active 1 three times a day 04/14 Kade Riojas MD nicotine 14 mg/24 hr patch 24 hour active Apply 1 patch once a day 04/14 Kade Riojas MD ezetimibe 10 mg tablet completed TAKE 1 TABLET EVERY DAY 05/27 - 06/12 Mindy Rose Ozempic 0.25 mg or 0.5 mg(2 mg/1.5 mL) pen injector active 0.5 mg once a week 08/21 Kade Riojas MD ropinirole 2 mg tablet extended release 24 hr active 3 mg by mouth once a day 08/21 Makeda Clemons irbesartan 300 mg tablet active Take 1 tablet by mouth once a day 08/21 [facility] 50 MG TABS active as needed 08/21 [facility] magnesium oxide 250 mg magnesium tablet active Take 1 tablet by mouth once a day 08/21 [facility] Daily Multivitamin 200-100-500 mcg capsule active Take 1 tablet by mouth once a day 08/21 [facility] CALCIUM + D completed Vitamin D 50,000 international units once weekly 07/26 - 08/21 [facility] metformin 1,000 mg tablet active 1 tablet by mouth twice a day 07/26 Kade Riojas MD ZETIA 10 MG ORAL TABLET completed take one tablet by mouth once daily 07/26 - 08/21 [facility] hydrochlorothiazide 25 mg tablet active Take 1 tablet once a day 05/27 Bakari Cobos LOSARTAN POTASSIUM 100 MG ORAL TABLET completed Take one tablet daily 07/26 - 08/21 [facility] HEPARIN LOCK FLUSH INTRAVENOUS SOLUTION (HEPARIN LOCK FLUSH) completed 3 liters through 10 ml saline as needed 05/12 - 07/26 Makeda [place] VANCOMYCIN HCL INTRAVENOUS SOLUTION RECONSTITUTED (VANCOMYCIN HCL) completed 1250mg IV over 67 min every 12 hrs 05/12 - 07/26 Makeda Keithby aspirin 81 mg tablet,delayed release (DR/EC) active 1 tablet by mouth once a day 05/12 Chastity Rose ABILIFY 10 MG ORAL TABLET completed once daily 05/12 - 07/26 Makeda Clemons JANUMET 50-1000 MG ORAL TABLET completed bid 12/16 - 07/26 Makeda Clemons ALPRAZOLAM 1 MG ORAL TABLET completed tid 12/16 - 07/26 Makeda Keithby LOSARTAN POTASSIUM-HCTZ 50-12.5 MG ORAL TABLET completed 1x daily 12/16 - 07/26 Makeda Clemons TRULICITY 0.75 MG/0.5ML SUBCUTANEOUS SOLUTION PEN-INJECTOR completed weekly 12/16 - 07/26 Makeda Clemons TRULICITY 1.5 MG/0.5ML SUBCUTANEOUS SOLUTION PEN-INJECTOR completed TAKE DIRECTED - 12/16 Antonia Anaya LASIX 20 MG ORAL TABLET completed po daily 07/21 - 12/16 Antonia Anaya GABAPENTIN 600 MG ORAL CAPSULE (GABAPENTIN) completed take one tablet by mouth three times daily 05/13 - 08/21 Makeda Clemons HYDROCODONE-ACETAMIN OPHEN 7.5-650 MG ORAL TABLET completed one tab 3x daily - 11/09 Anyi Yepez NORCO 10-325 MG ORAL TABLET completed 1 tab prn 3x daily 04/13 - 07/26 Makeda Keithby PERCOCET 10-650 MG ORAL TABLET completed 2 pills twice a day 05/03 - 11/09 Aneatrangelic Jordan Lexapro 5 mg tablet active 20 mg once a day 05/13 Anyi Yepez ABILIFY 10 MG TABS (ARIPIPRAZOLE) completed once daily 08/15 - 12/16 Antonia Anaya JANUVIA 100 MG ORAL TABLET completed 1 daily - 10/25 Anyi Yepez AMARYL 2 MG ORAL TABLET completed 1 daily - 12/16 Antonia Anaya Lamictal 100 mg tablet active once a day Ilene Galicia'Hernan XANAX 2 MG ORAL TABLET completed FOUR TIMES DAILY 10/25 - 07/26 Makeda Clemons PERCOCET 7.5-325 MG ORAL TABLET completed 1 tab every 6 hours prn pain 09/05 - 11/09 Sharla Wright KEFLEX 500 MG ORAL CAPSULE completed ONE TABLET EVERY 6 HOURS FOR 7 DAYS 08/10 - 08/17 Veronica Michel PERCOCET 7.5-325 MG ORAL TABLET completed one tablet q 6 hours as needed 07/24 - 11/09 Ilene O'[place] HYDROCODONE-ACETAMIN OPHEN 10-325 MG ORAL TABLET completed po bid 12/14 - 05/03 Kade Riojas MD METFORMIN HCL 500 MG ORAL TABLET completed 2 TABS WITH EVENING MEALS - 11/09 Christina Johnston DICYCLOMINE HCL 10 MG ORAL CAPSULE completed twice daily - 11/09 Christinaaureliano Johnston CELEXA 40 MG ORAL TABLET completed once a day - 11/09 Sharlanelli Wright CHANTIX CONTINUING MONTH YUSRA 1 MG ORAL TABLET completed One pack. Take as directed 10/20 - 11/09 Christina Johnston CHANTIX STARTING MONTH YUSRA 0.5 MG X 11 & 1 MG X 42 ORAL TABLET completed as directed - 11/09 Christina Johnston PROAIR HFA AEROSOL SOLUTION completed DIRECTED 2 puffs upto 3 times a day 05/10 - 11/14 Victoriano Hendricks RN ABILIFY TABS completed 2mg tab daily 10/09 - 11/09 Sharlanelli Wright TRENTAL CR-TABS completed 400 mg bid 05/10 - 05/12 Victoriano Hendricks RN LORCET PLUS 7.5-650 MG ORAL TABLET completed take one every 12 hours - 11/09 Raymond Beckham CIPROFLOXACIN HCL TABLET completed 500 bid 05/04 - 05/10 Victoriano Hendricks RN CHANTIX TABLET completed 1 am 1 pm - 09/30 Victoriano Hendricks RN ASPIRIN EC LO-DOSE TABLET DELAYED RELEASE completed 81 mg daily - 11/09 Anyi Yepez LISINOPRIL-HYDROCHLO ROTHIAZIDE 20-12.5 MG ORAL TABLET completed ONE TAB. DAILY 09/30 - 11/09 Cisco Edward SIMVASTATIN 40 MG ORAL TABLET completed TAKE ONE TABLET BY MOUTH EVERY DAY 04/22 - 12/16 Antonia Anaya LEXAPRO 20 MG ORAL TABLET completed take one daily - 05/10 Victoriano Hendricks RN clopidogrel 75 mg tablet completed Take 1 tab daily 09/20 - Mindy Rose SOCIAL HISTORY Date Observation Value Provider social history E&M Marital Statu s: Single L michael with family/friends E thnicity: P atjennifer is a former smoker. Smoking History: P lilia currently smokes every day. Bakari Cobos smoking history, tot al pack/day 1pac Judy Colesn cigarette use yes Judy Colesn physical exercise, f requency, days per week yes Judy Colesn caffeine use, averag e drinks per day yes Judy Colesn smoking status Current every day smoker Lona Colesn social history reviewed E&M revi ewed - no changes required Bakari Cobos smoking/tobacco cess ation, patient education and counseling yes Kade Riojas MD physical exercise, f requency, days per week yes Kade Riojas MD caffeine use, averag e drinks per day yes Kade Riojas MD smoking status Former smoker Kade Riojas MD social history E&M Marital Statu s: Single L michael with family/friends E thnicity: P atjennifer is a former smoker. Smoking History: P atient is a former smoker. Kade Riojas MD social history reviewed E&M revi ewed - no changes required Kade Riojas MD number of grandchildren Kade Riojas MD T shubham Riojas MD smoking status Former smoker Kade Riojas MD social history E&M Marital Statu s: Single L michael with family/friends E thnicity: P atjennifer is a former smoker. Smoking History: P atient is a former smoker. Kade Riojas MD social history reviewed E&M revi ewed - no changes required Kade Riojas MD physical exercise, f requency, days per week yes Makeda Clemons alcohol use, average drinks per day none Makeda Clemons caffeine use, averag e drinks per day yes Makeda Clemons drug use none Makeda Clemons social history reviewed E&M revi ewed - no changes required Kade Riojas MD physical exercise, f requency, days per week yes Mindy Rose alcohol use, average drinks per day none Reity Rose caffeine use, averag e drinks per day yes Mindy Goldue drug use none Snehalstity Rose smoking status Former smoker Mindy littlejohne social history reviewed E&M revi ewed - no changes required Kade Riojas MD smoking status Former smoker Antonia Anaya social history reviewed E&M revi ewed - no changes required Kade Riojas MD social history reviewed E&M revi ewed - no changes required Kade Riojas MD physical exercise, f requency, days per week yes Anyi Yepez alcohol use, average drinks per day none Anyi Yepez caffeine use, averag e drinks per day yes Anyi Yepez drug use none Anyi Yepez smoking/tobacco cess ation, patient education and counseling No Anyi Yepez smoking status Former smoker Anyi Montague carlie physical exercise, f requency, days per week yes Kevin Rasheed MD alcohol use, average drinks per day none Kevin Rasheed MD caffeine use, averag e drinks per day yes Kevin Rasheed MD drug use none Kevin Rasheed MD smoking/tobacco cess ation, patient education and counseling No Kevin Rasheed MD smoking status Former smoker Kevin morales MD social history reviewed E&M revi ewed - no changes required Kevin Rasheed MD social history reviewed E&M revi ewed - no changes required Kade Riojas MD physical exercise, f requency, days per week yes Anyi Yepez alcohol use, average drinks per day none Anyi Yepez caffeine use, averag e drinks per day yes Anyi Yepez drug use none Anyi Yepez smoking/tobacco cess ation, patient education and counseling yes Anyi Yepez smoking status Former smoker Anyi Montague nn physical exercise, f requency, days per week yes Anyi Yepez alcohol use, average drinks per day none Anyi Yepez caffeine use, averag e drinks per day yes Anyi Yepez drug use none Anyi Yepez smoking/tobacco cess ation, patient education and counseling yes Anyi Yepez smoking status Former smoker Anyi sexton social history E&M Marital Statu s: Single L michael with family/friends E thnicity: Katie rodrigues is a former smoker. Smoking History: Katie rodrigues is a former smoker. Navjot Holt MD social history reviewed E&M revi maria eed - no changes required Navjot Holt MD physical exercise, f requency, days per week yes Anyi Marleni alcohol use, average drinks per day none Anyisp Elann caffeine use, averag e drinks per day yes Anyi Elann drug use none Anyi Elann smoking/tobacco cess ation, patient education and counseling yes Anyi Elann smoking status Former smoker Navjot Holt MD social history reviewed E&M reviewed Navjot Holt MD social history reviewed E&M reviewed Kade Riojas MD social history reviewed E&M reviewed Kade Riojas MD social history reviewed E&M reviewed Summer Quinn RN social history reviewed E&M reviewed Kade Riojas MD social history reviewed E&M reviewed Summer Quinn RN social history reviewed E&M reviewed Umesh Colon MD social history reviewed E&M reviewed Umesh Colon MD social history reviewed E&M reviewed Umesh Colon MD smoking history, tot al pack/year 31 Amy Burger social history reviewed E&M reviewed Umesh Colon MD social history reviewed E&M reviewed Umesh Colon MD smoking, year quit 2011 Christina cole smoking status former smoker Christina gaspar social history reviewed E&M reviewed Kade Riojas MD smoking status Non-Smoker Kade Riojas MD smoking/tobacco cess ation, patient education and counseling yes aKde Riojas MD social history reviewed E&M reviewed Victoriano Hendricks RN social history reviewed E&M reviewed Kade Riojas MD smoking/tobacco cess ation, patient education and counseling yes Kade Riojas MD drug use none Kade Riojas MD social history reviewed E&M reviewed Victoriano Hendricks RN smoking/tobacco cess ation, patient education and counseling yes Kade Riojas MD smoking/tobacco cess ation, patient education and counseling yes Victoriano Hendricks RN social history reviewed E&M reviewed Victoriano Hendricks RN social history E&M Marital Statu s: Single L michael with family/friends E thnicity: Victoriano Hendricks RN caffeine use, averag e drinks per day yes Victoriano Hendricks RN alcohol use, average drinks per day no Victoriano Hendricks RN smoking status Smoker Victoriano Hendricks RN social history reviewed E&M reviewed Victoriano Hendricks RN physical exercise, f requency, days per week yes LinkLog caffeine use, averag e drinks per day yes LinkLog alcohol use, average drinks per day none LinkLog number of years as a smoker 10 years or m ore [facility] smoking status Smoker [facility] MENTAL STATUS Date Observation Value Provider assessment of judgme nt and insight E&M Alert and oriented to time, place and person. Mood and affect are normal. Navjot Holt MD assessment of judgme nt and insight E&M Alert and oriented to time, place and person. Mood and affect are normal. Kade Riojas MD assessment of judgme nt and insight E&M Alert and oriented to time, place and person. Mood and affect are normal. Kade Riojas MD assessment of judgme nt and insight E&M Alert and oriented to time, place and person. Mood and affect are normal. Summer Quinn RN assessment of judgme nt and insight E&M Alert and oriented to time, place and person. Mood and affect are normal. Kade Riojas MD assessment of judgme nt and insight E&M Alert and oriented to time, place and person. Mood and affect are normal. Summer Quinn RN assessment of judgme nt and insight E&M Alert and oriented to time, place and person. Mood and affect are normal. Umesh Colon MD assessment of judgme nt and insight E&M Alert and oriented to time, place and person. Mood and affect are normal. Umesh Colon MD assessment of judgme nt and insight E&M Alert and oriented to time, place and person. Mood and affect are normal. Umesh Colon MD assessment of judgme nt and insight E&M Alert and oriented to time, place and person. Mood and affect are normal. Umesh Colon MD assessment of judgme nt and insight E&M Alert and oriented to time, place and person. Mood and affect are normal. Umesh Colon MD assessment of judgme nt and insight E&M Alert and oriented to time, place and person. Mood and affect are normal. Victoriano Hendricks RN assessment of judgme nt and insight E&M Alert and oriented to time, place and person. Mood and affect are normal. Victoriano Hendricks RN assessment of judgme nt and insight E&M Alert and oriented to time, place and person. Mood and affect are normal. Kade Riojas MD assessment of judgme nt and insight E&M Alert and oriented to time, place and person. Mood and affect are normal. Victoriano Hendricks RN assessment of judgme nt and insight E&M Alert and oriented to time, place and person. Mood and affect are normal. Victoriano Hendricks RN assessment of judgme nt and insight E&M Alert and oriented to time, place and person. Mood and affect are normal. Victoriano Hendricks RN FAMILY HISTORY Family Member Condition Full Sister Family History of Co ronary Artery Disease: Mother Family History of Co ronary Artery Disease: Father Family History of Co ronary Artery Disease: INSURANCE PROVIDERS Payer name Policy type / Coverage type [employer] ID CYNTHIA BERMUDEZ PLUS O HMO [id number] ADVANCE DIRECTIVES Name Date DISCUSSED - NO DECISION MADE TREATMENT PLAN Date Name Performer [id number],B, Bakari Ahmedza i [id number],S, Bakari Ahmedza i [id number],S, Bakari Ahmedza i [id number],S, Bakari Ahmedza i [id number],S, Bakari Ahmedza i [id number],S, Bakari Ahmedza i Cardiology[RxRsp] Bakari Ahmedzai Cardiology[RxRsp] Bakari Ahmedzai Cardiology[RxRsp] Bakari Ahmedzai Cardiology[RxRsp] Bakari Ahmedzai Cardiology[RxRsp] Bakari Ahmedzai Cardiology[RxRsp] Bakari Ahmedzai Telehealth, echo soon, 6 month f /u. Kade Riojas MD Telehealth, echo soon, 6 month f /u. Kade Riojas MD Telehealth, echo soon, 6 month f /uIvania Riojas MD Telehealth, echo soon, 6 month f /uIvania Riojas MD Telehealth, echo soon, 6 month f /uIvania Riojas MD Telehealth, echo soon, 6 month f /uIvania Riojas MD Cardiology Kade Riojas MD Cardiology:Will check lipid pane lIvania Riojas MD Cardiology Kade Riojas MD Cardiology Kade Riojas MD Cardiology:Follows with Dr. Jorge Riojas MD Cardiology:Restart HCTZ 25 mg on ce daily. Kade Riojas MD Cardiology Kade Riojas MD Cardiology Kade Riojas MD Cardiology Kade Riojas MD Cardiology Kaed Riojas MD Cardiology Kade Riojas MD Cardiology Kade Riojas MD Cardiology Kade Riojas MD Cardiology Kade Riojas MD Cardiology Kade Riojas MD Cardiology Kade Riojas MD Cardiology Kade Riojas MD Cardiology Kade Riojas MD Cardiology Kade Riojas MD Cardiology Kade Riojas MD Cardiology Kade Riojas MD Cardiology Kade Riojas MD Cardiology Kade Riojas MD Cardiology Kade Riojas MD Cardiology Kade Riojas MD Cardiology Kade Riojas MD F/U Kevin Charles F/U Kevin Charles F/U Kevin Charles F/U: H er updated medication list for this problem includes: Lisinopril-hydrochlorothiazide 20-12.5 Mg Tabs (Lisinopril-hydrochlorothiazide) ..... One tab. daily Kevin Rasheed MD follow up: H er updated medication list for this problem includes: Lisinopril-hydrochlorothiazide 20-12.5 Mg Tabs (Lisinopril-hydrochlorothiazide) ..... One tab. daily BP today: 146/80 P rior BP: 136/89 (02/11/2014) Labs Reviewed: C reat: 0.85 (08/29/2013) C hol: 112 (10/24/2012) HDL: 36 (10/24/2012) LDL: 50 (10/24/2012) T (10/24/2012) Kade Riojas MD Follow Up:123/77 T he following medications were removed from the medication list: Aspirin Ec Lo-dose Tbec (Aspirin tbec) ..... 81 mg daily Her updated medication list for this problem includes: Lisinopril-hydrochlorothiazide 20-12.5 Mg Tabs (Lisinopril-hydrochlorothiazide) ..... One tab. daily Navjot Holt MD Follow Up Navjot Holt MD Follow Up: O rders: A rterial Duplex Bi-Lower EX ([id number]) Navjot Holt MD follow up: H er updated medication list for this problem includes: Lisinopril-hydrochlorothiazide 20-12.5 Mg Tabs (Lisinopril-hydrochlorothiazide) ..... One tab. daily Aspirin Ec Lo-dose Tbec (Aspirin tbec) ..... 81 mg daily Kade Riojas MD follow up Kade Riojas MD follow up : H er updated medication list for this problem includes: Lisinopril-hydrochlorothiazide 20-12.5 Mg Tabs (Lisinopril-hydrochlorothiazide) ..... One tab. daily Aspirin Ec Lo-dose Tbec (Aspirin tbec) ..... 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 States pain occurs at rest and with exertion. Reports left thigh pain and swelling is worse towards the end of the day. States if she has been sitting at chair for awhile and stands up, the left thigh pain is initially severe and then lessens as she walks a little. However, she states she can only walk about 1 block before left thigh pain is severe and she has to stop and rest. She states her left thigh pain was unchanged after her left iliac stent 10/2012. possibly r/t left anterolateral venous insufficiency Summer Quinn RN follow up : left thi gh pain, described as stabbing or throbbing pain. States pain occurs at rest and with exertion. Reports left thigh pain and swelling is worse towards the end of the day. States if she has been sitting at chair for awhile and stands up, the left thigh pain is initially severe and then lessens as she walks a little. However, she states she can only walk about 1 block before left thigh pain is severe and she has to stop and rest. She states her left thigh pain was unchanged after her left iliac stent 10/2012. 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 One tab. daily Aspirin Ec Lo-dose Tbec (Aspirin tbec) ..... 81 mg daily Kade Riojas MD follow up : B P today: 120/84 P rior BP: 142/80 (09/04/2012) Labs Reviewed: C reat: 0.89 (10/24/2012) C hol: 112 (10/24/2012) HDL: 36 (10/24/2012) LDL: 50 (10/24/2012) T (10/24/2012) Her updated medication list for this problem includes: Lisinopril-hydrochlorothiazide 20-12.5 Mg Tabs (Lisinopril-hydrochlorothiazide) ..... One tab. daily Aspirin Ec Lo-dose Tbec (Aspirin tbec) ..... 81 mg daily Kade Riojas MD follow-up leg pain=l tr fxd, note done:no CPs at this time but is having some SOB S OB however does not sound like anginal equivalent and pt states she is seeing psychiatrist soon for her stress/anxiety Summer Quinn RN follow-up leg pain=l tr fxd, note done:needs FLP Her updated medication list for this problem includes: Simvastatin 40 Mg Tabs (Simvastatin) ..... Take one tablet by mouth every day BP today: / Prior BP: 142/80 (09/04/2012) Summer Quinn RN follow-up leg pain=l tr fxd, note done:Her updated medication list for this problem includes: Lisinopril-hydrochlorothiazide 20-12.5 Mg Tabs (Lisinopril-hydrochlorothiazide) ..... One tab. daily Aspirin Ec Lo-dose Tbec (Aspirin tbec) ..... 81 mg daily Prior BP: 142/80 (09/04/2012) Her updated medication list for this problem includes: Lisinopril-hydrochlorothiazide 20-12.5 Mg Tabs (Lisinopril-hydrochlorothiazide) ..... One tab. daily Aspirin Ec Lo-dose Tbec (Aspirin tbec) ..... 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 Take one tablet by mouth every day BP today: 142/80 Prior BP: 126/80 (08/14/2012) Umesh Colon MD follow up : H er updated medication list for this problem includes: Lisinopril-hydrochlorothiazide 20-12.5 Mg Tabs (Lisinopril-hydrochlorothiazide) ..... One tab. daily Aspirin Ec Lo-dose Tbec (Aspirin tbec) ..... 81 mg daily Umesh Colon MD follow up :Patient c omes in for f/u of leg pains. SHe has a hx of pad and venous insufficiency and a hx of elvt adn remote peripheral intervention. She c/o stabbing, sharp pain in her entire with walking for about 1/2 hour. Resolves with rest and keeeping her leg straight. chekc den and veins n ot sure what is caoudng her problem i f these are negative, moses do ct back Umeshjessie Colon MD follow up Umeshjessie Colon MD follow up: She devel oped a lump above her knee anteriorly which was tender and has now almost resolved. I did a doppler of this area myself and did not see any abnormalities and her gsv is closed off. Her thigh pain is much bradley and her calf is resolved. continue to watch- nospeicifc rx needed Umesh Colon MD Follow up: H er updated medication list for this problem includes: Lisinopril-hydrochlorothiazide 20-12.5 Mg Tabs (Lisinopril-hydrochlorothiazide) ..... One tab. daily Aspirin Ec Lo-dose Tbec (Aspirin tbec) ..... 81 mg daily Umesh Colon MD Follow up:I sont see any evidence of cellulitis and her dvt study was negative I think she has had a marked inflammatory response to the evlt and having sympptoms from that w ill rx with Umesh Colon MD follow up: H er updated medication list for this problem includes: Lisinopril-hydrochlorothiazide 20-12.5 Mg Tabs (Lisinopril-hydrochlorothiazide) ..... One tab. daily Aspirin Ec Lo-dose Tbec (Aspirin tbec) ..... 81 mg daily Umesh Colon MD follow up Umesh Colon MD follow up:will sched ule evlt - Left gsv and left anterolateral vein Umesh Colon MD follow up Umesh Colon MD follow up:b/l phill st ents - her symptoms now are not due to pad Umesh Colon MD follow up:try elasti c stockings and see how she does f /u 1 month Umesh Colon MD routine: H er updated medication list for this problem includes: Plavix 75 Mg Tabs (Clopidogrel bisulfate) ..... Take one tablet by mouth every day Lisinopril-hydrochlorothiazide 20-12.5 Mg Tabs (Lisinopril-hydrochlorothiazide) ..... One tab. daily Aspirin Ec Lo-dose Tbec (Aspirin tbec) ..... 81 mg daily BP today: 158/94 Prior BP: 155/85 (05/10/2011) N uclear Stress Findings: 1. Regadenoson mediated myocardial perfusion study 2 . Normal left ventricular systolic function with a calculated ejection fraction of 59%. 3 . No obvious significant scintigraphic evidence of myocardial ischemia or scar. GC (05/06/2009) C ardiac Cath: Normal coronary arteries with normal LV systolic function. Continue aggressive risk factor modification. The patient probably has microvascular disease and will start her on ECP. (08/09/2005) C arotid Doppler/Duplex: Minimal disease right iliac, common femoral artery, resulting in decreased flow right SFA, popliteal, PT and DP arteries. Normal left lower extremity arterial Doppler. (06/30/2005) E chocardiogram: Normal left ventricular systolic function. Normal left ventricular size. Normal left ventricular wall thickness. Normal left ventricular diastolic function. Left ventricular ejection fraction is estimated at 60%. Aortic valve leaflets appear structurally normal. Velocities, as well as gradients across the aortic valve are normal. No evidence of aortic insufficiency. The tricuspid valve is normal in appearance and function. No evidence of tricuspid regurgitation. IVC is normal in size with normal respiratory response. Pulmonic valve leaflets appear structurally normal. Normal pulmonic valve velocities by Melvin siegel. No evidence of pulmonic regurgitation. The mitral valve is normal in appearance and function. No mitral valve regurgitation is s een. Normal aortic root size. The left atrium is normal in size. - GCO (07/29/2011) Kade Riojas MD routine: H er updated medication list for this problem includes: Lisinopril-hydrochlorothiazide 20-12.5 Mg Tabs (Lisinopril-hydrochlorothiazide) ..... One tab. daily Aspirin Ec Lo-dose Tbec (Aspirin tbec) ..... 81 mg daily BP today: 158/94 P rior BP: 155/85 (05/10/2011) Kade Riojas MD routine : H er updated medication list for this problem includes: Lisinopril-hydrochlorothiazide 20-12.5 Mg Tabs (Lisinopril-hydrochlorothiazide) ..... One tab. daily Aspirin Ec Lo-dose Tbec (Aspirin tbec) ..... 81 mg daily BP today: 155/85 P rior BP: 94/63 (11/02/2010) Kade Riojas MD routine : H er updated medication list for this problem includes: Simvastatin 40 Mg Tabs (Simvastatin) ..... Take one tablet by mouth every day BP today: 155/85 Prior BP: 94/63 (11/02/2010) Kade Riojas MD routine : H er updated medication list for this problem includes: Plavix 75 Mg Tabs (Clopidogrel bisulfate) ..... Take one tablet by mouth every day Lisinopril-hydrochlorothiazide 20-12.5 Mg Tabs (Lisinopril-hydrochlorothiazide) ..... One tab. daily Aspirin Ec Lo-dose Tbec (Aspirin tbec) ..... 81 mg daily BP today: 155/85 Prior BP: 94/63 (11/02/2010) N uclear Stress Findings: 1. Regadenoson mediated myocardial perfusion study 2 . Normal left ventricular systolic function with a calculated ejection fraction of 59%. 3 . No obvious significant scintigraphic evidence of myocardial ischemia or scar. (05/06/2009) C ardiac Cath: Normal coronary arteries with normal LV systolic function. Continue aggressive risk factor modification. The patient probably has microvascular disease and will start her on ECP. (08/09/2005) C arotid Doppler/Duplex: Minimal disease right iliac, common femoral artery, resulting in decreased flow right SFA, popliteal, PT and DP arteries. Normal left lower extremity arterial Doppler. (06/30/2005) E chocardiogram: TDS. Normal left ventricular systolic function. Normal left ventricular size. Normal left ventricular wall thickness. Left ventricular ejection fraction is estimated at 60%. There is trace physiologic mitral valve regurgitation. There is non-specific thickening of the mitral valve leaflets. There is trace physiologic tricuspid valve regurgitation. There is non-specific thickening of the tricuspid valve. IVC is normal in size. Unable to adequately assess the RVSP. (05/06/2009) Kade Riojas MD routine Kade Riojas MD routine Kade Riojas MD routine Kade Riojas MD routine : H er updated medication list for this problem includes: Lisinopril-hydrochlorothiazide 20-12.5 Mg Tabs (Lisinopril-hydrochlorothiazide) ..... One tab. daily Aspirin Ec Lo-dose Tbec (Aspirin tbec) ..... 81 mg daily BP today: 155/85 P rior BP: 94/63 (11/02/2010) Kade Riojas MD follow up: H er updated medication list for this problem includes: Simvastatin 40 Mg Tabs (Simvastatin) ..... Take one tablet by mouth every day BP today: 94/63 Prior BP: 133/77 (03/09/2010) Kade Riojas MD follow up: H er updated medication list for this problem includes: Plavix 75 Mg Tabs (Clopidogrel bisulfate) ..... Take one tablet by mouth every day Lisinopril-hydrochlorothiazide 20-12.5 Mg Tabs (Lisinopril-hydrochlorothiazide) ..... One tab. daily Aspirin Ec Lo-dose Tbec (Aspirin tbec) ..... 81 mg daily BP today: 94/63 Prior BP: 133/77 (03/09/2010) N uclear Stress Findings: 1. Regadenoson mediated myocardial perfusion study 2 . Normal left ventricular systolic function with a calculated ejection fraction of 59%. 3 . No obvious significant scintigraphic evidence of myocardial ischemia or scar. (05/06/2009) C ardiac Cath: Normal coronary arteries with normal LV systolic function. Continue aggressive risk factor modification. The patient probably has microvascular disease and will start her on ECP. (08/09/2005) C arotid Doppler/Duplex: Minimal disease right iliac, common femoral artery, resulting in decreased flow right SFA, popliteal, PT and DP arteries. Normal left lower extremity arterial Doppler. (06/30/2005) E chocardiogram: TDS. Normal left ventricular systolic function. Normal left ventricular size. Normal left ventricular wall thickness. Left ventricular ejection fraction is estimated at 60%. There is trace physiologic mitral valve regurgitation. There is non-specific thickening of the mitral valve leaflets. There is trace physiologic tricuspid valve regurgitation. There is non-specific thickening of the tricuspid valve. IVC is normal in size. Unable to adequately assess the RVSP. (05/06/2009) Kade Riojas MD follow up: H er updated medication list for this problem includes: Lisinopril-hydrochlorothiazide 20-12.5 Mg Tabs (Lisinopril-hydrochlorothiazide) ..... One tab. daily Aspirin Ec Lo-dose Tbec (Aspirin tbec) ..... 81 mg daily Orders: Zaira KG ([id number]) BP today: 94/63 P rior BP: 133/77 (03/09/2010) Kade Riojas MD follow up: B P today: 133/77 Prior BP: 127/85 (08/24/2009) N uclear Stress Findings: 1. Regadenoson mediated myocardial perfusion study 2 . Normal left ventricular systolic function with a calculated ejection fraction of 59%. 3 . No obvious significant scintigraphic evidence of myocardial ischemia or scar. (05/06/2009) C ardiac Cath: Normal coronary arteries with normal LV systolic function. Continue aggressive risk factor modification. The patient probably has microvascular disease and will start her on ECP. (08/09/2005) C arotid Doppler/Duplex: Minimal disease right iliac, common femoral artery, resulting in decreased flow right SFA, popliteal, PT and DP arteries. Normal left lower extremity arterial Doppler. (06/30/2005) E chocardiogram: TDS. Normal left ventricular systolic function. Normal left ventricular size. Normal left ventricular wall thickness. Left ventricular ejection fraction is estimated at 60%. There is trace physiologic mitral valve regurgitation. There is non-specific thickening of the mitral valve leaflets. There is trace physiologic tricuspid valve regurgitation. There is non-specific thickening of the tricuspid valve. IVC is normal in size. Unable to adequately assess the RVSP. (05/06/2009) Her updated medication list for this problem includes: Plavix 75 Mg Tabs (Clopidogrel bisulfate) ..... Take one tablet by mouth every day Lisinopril-hydrochlorothiazide 20-12.5 Mg Tabs (Lisinopril-hydrochlorothiazide) ..... One tab. daily Aspirin Ec Lo-dose Tbec (Aspirin tbec) ..... 81 mg daily Kade Riojas MD follow up: H er updated medication list for this problem includes: Metoprolol Tartrate 25 Mg Tabs (Metoprolol tartrate) ..... One half tab. twice daily Amiloride-hydrochlorothiazide 5-50 Mg Tabs (Amiloride-hydrochlorothiazide) ..... Take as needed for swelling to legs Kade Riojas MD follow up: B P today: 133/77 P rior BP: 127/85 (08/24/2009) Her updated medication list for this problem includes: Metoprolol Tartrate 25 Mg Tabs (Metoprolol tartrate) ..... One half tab. twice daily Amiloride-hydrochlorothiazide 5-50 Mg Tabs (Amiloride-hydrochlorothiazide) ..... Take as needed for swelling to legs Kade Riojas MD follow up: B P today: 133/77 Prior BP: 127/85 (08/24/2009) N uclear Stress Findings: 1. Regadenoson mediated myocardial perfusion study 2 . Normal left ventricular systolic function with a calculated ejection fraction of 59%. 3 . No obvious significant scintigraphic evidence of myocardial ischemia or scar. (05/06/2009) C ardiac Cath: Normal coronary arteries with normal LV systolic function. Continue aggressive risk factor modification. The patient probably has microvascular disease and will start her on ECP. (08/09/2005) C arotid Doppler/Duplex: Minimal disease right iliac, common femoral artery, resulting in decreased flow right SFA, popliteal, PT and DP arteries. Normal left lower extremity arterial Doppler. (06/30/2005) E chocardiogram: TDS. Normal left ventricular systolic function. Normal left ventricular size. Normal left ventricular wall thickness. Left ventricular ejection fraction is estimated at 60%. There is trace physiologic mitral valve regurgitation. There is non-specific thickening of the mitral valve leaflets. There is trace physiologic tricuspid valve regurgitation. There is non-specific thickening of the tricuspid valve. IVC is normal in size. Unable to adequately assess the RVSP. (05/06/2009) Her updated medication list for this problem includes: Plavix 75 Mg Tabs (Clopidogrel bisulfate) ..... Take one tablet by mouth every day Lisinopril-hydrochlorothiazide 20-12.5 Mg Tabs (Lisinopril-hydrochlorothiazide) ..... One tab. daily Aspirin Ec Lo-dose Tbec (Aspirin tbec) ..... 81 mg daily Kade Riojas MD follow up Kade Riojas MD follow up Kade Riojas MD follow up: H er updated medication list for this problem includes: Aspirin 325 Mg Tabs (Aspirin) ..... One tab daily Metoprolol Tartrate 25 Mg Tabs (Metoprolol tartrate) ..... One half tab. twice daily Amiloride-hydrochlorothiazide 5-50 Mg Tabs (Amiloride-hydrochlorothiazide) ..... Take as needed for swelling to legs Kade Riojas MD leg pain: H er updated medication list for this problem includes: Plavix 75 Mg Tabs (Clopidogrel bisulfate) ..... Take one tablet by mouth every day Lisinopril-hydrochlorothiazide 20-12.5 Mg Tabs (Lisinopril-hydrochlorothiazide) ..... One tab. daily Aspirin Ec Lo-dose Tbec (Aspirin tbec) ..... 81 mg daily BP today: 122/74 Prior BP: 145/75 (09/30/2008) N uclear Stress Findings: Upsloping ST-segment depression of 0.7-0.8mm in the inferior leads and upsloping ST-segment deprsesin of 0.5-0.6mm in the lateral leads, not considered to be diagnostic for ischemia. (06/29/2005) C ardiac Cath: Normal coronary arteries with normal LV systolic function. Continue aggressive risk factor modification. The patient probably has microvascular disease and will start her on ECP. (08/09/2005) C arotid Doppler/Duplex: Minimal disease right iliac, common femoral artery, resulting in decreased flow right SFA, popliteal, PT and DP arteries. Normal left lower extremity arterial Doppler. (06/30/2005) E chocardiogram: EF 50%. LVH. Trace MR & TR. (03/07/2007) Kade Riojas MD leg pain: H er updated medication list for this problem includes: Plavix 75 Mg Tabs (Clopidogrel bisulfate) ..... Take one tablet by mouth every day Aspirin Ec Lo-dose Tbec (Aspirin tbec) ..... 81 mg daily Kade Riojas MD leg pain: H er updated medication list for this problem includes: Lisinopril-hydrochlorothiazide 20-12.5 Mg Tabs (Lisinopril-hydrochlorothiazide) ..... One tab. daily Aspirin Ec Lo-dose Tbec (Aspirin tbec) ..... 81 mg daily BP today: 122/74 P rior BP: 145/75 (09/30/2008) Kade Riojas MD leg pain: H er updated medication list for this problem includes: Simvastatin 40 Mg Tabs (Simvastatin) ..... Take one tablet by mouth every day BP today: 122/74 Prior BP: 145/75 (09/30/2008) Kade Riojas MD leg pain: H er updated medication list for this problem includes: Plavix 75 Mg Tabs (Clopidogrel bisulfate) ..... Take one tablet by mouth every day Lisinopril-hydrochlorothiazide 20-12.5 Mg Tabs (Lisinopril-hydrochlorothiazide) ..... One tab. daily Aspirin Ec Lo-dose Tbec (Aspirin tbec) ..... 81 mg daily BP today: 122/74 Prior BP: 145/75 (09/30/2008) N uclear Stress Findings: Upsloping ST-segment depression of 0.7-0.8mm in the inferior leads and upsloping ST-segment deprsesin of 0.5-0.6mm in the lateral leads, not considered to be diagnostic for ischemia. (06/29/2005) C ardiac Cath: Normal coronary arteries with normal LV systolic function. Continue aggressive risk factor modification. The patient probably has microvascular disease and will start her on ECP. (08/09/2005) C arotid Doppler/Duplex: Minimal disease right iliac, common femoral artery, resulting in decreased flow right SFA, popliteal, PT and DP arteries. Normal left lower extremity arterial Doppler. (06/30/2005) E chocardiogram: EF 50%. LVH. Trace MR & TR. (03/07/2007) Kade Riojas MD leg pain Kade Riojas MD Date Name Complete Echo LIPID PANEL Complete Echo CT Angio, abdomen an d pelvis Arterial Duplex Bi-L ower EX Arterial Duplex Bi-L ower EX LIPID PANEL BASIC METABOLIC PANE L W/EGFR CBC (INCLUDES DIFF/P LT) PROTHROMBIN TIME WIT H INR HISTORY OF PROCEDURES Procedure Date Procedure Name Provider Procedure Notes S tatus EKG Kade Riojas MD completed EKG Kade Riojas MD completed SNOMED-CT: [id number] Current Medications Documented Kade Riojas MD completed Stress EKG Mason Banuelos MD completed Regadenoson, 4 units Mason Banuelos MD completed Cardiolite, 2 units Mason Banuelos MD completed SPECT Images Mason Banuelos MD completed EKG Kade Riojas MD completed SNOMED-CT: [id number] Current Medications Documented Kade Riojas MD completed SNOMED-CT: [id number] Physical Exam, Performed: Pulse Exam of Foot Kade Riojas MD completed SNOMED-CT: [id number] Current Medications Documented Kade Riojas MD completed EKG Kevin Rasheed MD complet ed EKG Kade Riojas MD completed EKG Umesh Colon MD completed ePrescribe - Check t his box if eRx is used Kade Riojas MD completed EKG Umesh Colon MD completed EKG Kade Riojas MD completed EKG Kade Riojas MD completed
--- OUTSIDE RECORDS SUMMARY | 2024-04-25 16:37 | XMS_ITS | Continuity of Care Document ---
Author Organization [facility] Address [address] [place] [address] [place] [address] Phone Care Team Providers Care Nail Sticker Name Role Phone Juan Miguel Willis MD [...] 1 capsule by oral route every day 60 MG - Active Lamictal 100 mg tablet [...] Diagnoses Date Provider Providers Copied on Encounter [facility], [address], [place], [place], [id number], [place] tel:[phone] [facility] No Information 0 Lazaro Bullard. [address], [place], [place], [address] , [place]. tel:[phone] Referring Provider: Delio Escalona [facility] [address], [place], [place], [id number]. tel:[phone] OFFICE/OUTPA TIENT VISIT, [facility], [address], [place], [place], [address], [place] tel:[phone] [facility] insomnia1 (chief complaint) anxiety1 (chief complaint) weight gain1 (chief complaint) Generalized Anxiety DisorderInsomniaAbn ormal weight gain 0 Lazaro Colby [address], [place], [place], [address] , [place]. tel:[phone] Referring Provider: Delio Escalona A, [place], [place], [id number]. tel:[phone] OFFICE/OUTPA TIENT VISIT, [facility], [address] [place] [place], [address], [place] tel:[phone] [facility] DM (chief complaint) hypothyroi dism1 (chief complaint) HLP (chief complaint) b12 (chief complaint) HTN (chief complaint) insomnia1 (chief complaint) Type 2 diabetes mellitus with diabetic nephropathyHyperlip idemiaHypothyroidis mOther specified abnormal findings of blood chemistryEssential (primary) hypertensionInsomni aGeneralized Anxiety Disorder 0 0 Lazaro Colby [address], [place], [place], [address] , [place]. tel:[phone] Referring Provider: Delio Escalona [address], [place], [place], [address]. tel:[phone] OFFICE/OUTPA TIENT VISIT, EST [facility], [address], [place], [place], [address], tel:[phone] [facility] HTN (chief complaint) neuropathy (chief complaint) infection1 (chief complaint) insomnia1 (chief complaint) Cellulitis of right lower limbEssential (primary) hypertensionType 2 diabetes w/ diabetic neuropathyInsomnia 0 Lazaro Bullard. [address] [facility], [place], [place], [address] , [place]. tel:[phone] Referring Provider: [facility], [place], [place], [id number]. tel:[phone] PREV VISIT, NEW, AGE 40-64 [facility], [address] [place] [address] [address] [place], [address], [place] tel:[phone] [facility] PHysical (chief complaint) Peripheral vascular diseaseType [address] for general adult medical exam w abnormal findingsEssential (primary) hypertensionGeneral ized Anxiety Disorder 0 Lazaro Bullard. [address], [place], [place], [address] , [place]. tel:[phone] Referring Provider: Delio Escalona [facility], [place], [place], [id number]. tel:[phone] Family History Family Member Type Diagnosis Age At Onset Brother Problem (finding) of CHF 64 Mother Problem (finding) of 71 CHF, PAD, li artur [place] Father Problem (finding) of CHF 76 Sister Problem (finding) Diabetes mellitus Payers Payer name Insurance type Covered green party ID Authoriza tion(s) No Information Social History [...] with breathing at night neuropathy Additional infor renuka: Pt has PAD and neuropathy Pt just [...]
--- OUTSIDE RECORDS SUMMARY | 2024-04-25 16:37 | XMS_ITS | Encounter Summary ---
Author Organization [facility] Address [address] [place] [address] Care Team Providers Care Cap Jewel Plate Assembler Name Role Phone Mayco Buckner MD Primary Care Provider [phone] Jm Mendoza MD Unavailable [phone] Danelle Park NP Primary Care Provider [phone] No, Physician Primary Care Provider [phone] Ramy Barone MD Primary Care Provider [phone] Juan Miguel Willis MD Primary Care Provider [phone] Deny Macedo MD Primary Care Provider + [phone] Deny Macedo MD Primary Care Provider + [phone] Lindsay Harrington MD Primary Care Provider [phone] Farzad Joe DO Primary Care Provider [phone] Henna Jacobo MD Unavailable Henna Jacobo MD Unavailable Kade Riojas MD Unavailable Nain Romero MD Primary Care Provider [phone] Encounter Details Date Type Department Care Team (Late st Contact Info) Description 03/03/2017 Telephone [facility] Pre Anesthesia Testing [address] [place] [address] [place] [address] [address] [address] Social History Tobacco Use Types Packs/Day Years Used Date Smoking Tobacco: Former Smokeless Tobacco: Never Alcohol Use Standard Drinks/Week Comments No 0 (1 standard drink = 0.6 oz pur e alcohol) Comments Unknown Sex and Gender Information Value Date Recorded Sex Assigned at Not on file 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 Gender Identity Female 04/25/2024 11:50 AM LABORATORY ASSISTANT Sexual Orientation Not on file documented as of this encounter Plan of Treatment Not on file documented as of this encounter Visit Diagnoses Not on filedocumented in this encounter Additional Health Concerns Infection Onset Date Last Indicated Resolved Time MRSA Comment:R groin 04/07/17 04/07/2017 04/07/2017 11/18/2020 5:00 A M CDT documented as of this encounter Care Teams Cap Jewel Plate Assembler Relationship Specialty Start Date End Date Mayco Buckner MD PCP - General 02/09/17 08/14/18 Danelle Park NP PCP - General 08/15/18 02/20/19 No, Physician PCP - General 02/21/19 03/19/19 Ramy Barone MD PCP - General 03/20/19 04/11/19 Juan Miguel Willis MD [address] [facility] [place] [address] PCP - General Family Medicine 04/12/19 10/31/19 Deny Macedo MD [address] [place] [address] PCP - General Family Medicine 01/16/20 06/17/21 Deny Macedo MD [address] [place] [address] PCP - General 11/01/19 01/15/20 Lindsay Harrington MD [address] [place] [address] PCP - General Family Medicine 06/18/21 08/11/21 Farzad Joe DO [address] [place] [place] [address] PCP - General Internal Medicine 08/12/21 04/21/24 Nain Romero MD [address] [place] [address] PCP - General Family Practice 04/22/24 Jm Mendoza MD Referring Physician Vascular Surgery 07/26/17 Henna Jacobo MD [address] [facility] [address] [place] [address] Consulting Physician Pain Management 08/17/21 Henna Jacobo MD [address] [facility] [address] [facility] [place] [address] Consulting Physician Pain Management 08/17/21 [place] [address] [address] Consulting Physician Cardiology 01/28/22 documented as of this encounter
== END 2024-04-23 09:09 | disposition home or self-care (01) ==
PROVIDERS: PCP Family Medicine; Visit Provider Physician Assistant Surgical
DX: G56.03 Carpal tunnel syndrome, bilateral upper limbs (principal)
CPT/HCPCS: 95886; 95911

== ENCOUNTER 2024-06-04 11:00 | Outpatient (CLI) | payer MEDICARE, SELFPAY ==
[2024-06-04 11:40] LABS: Alanine Aminotransferase 16 U/L (6-35); Albumin Level 4.3 g/dL (3.5-5.1); Alkaline Phosphatase 101 U/L (38-126); Anion Gap 8 mmol/L (4-12); Aspartate Amino Transferase 21 U/L (14-36); Bilirubin,Total 0.3 mg/dL (0.2-1.3); Blood Urea Nitrogen 14 mg/dL (7-17); Calcium 9.8 mg/dL (8.4-10.2); Carbon Dioxide 32 mmol/L (22-30); Chloride 96 mmol/L (98-107); Estimated Glomerular Filt Rate 60; Glucose 96 mg/dL (65-110); Potassium 4.3 mmol/L (3.4-5.0); Sodium 136 mmol/L (137-145)
[2024-06-04 12:58] LABS: Hemoglobin A1C 5.8 % (<5.7)
== END 2024-06-04 11:01 | disposition home or self-care (01) ==
PROVIDERS: PCP Family Medicine; Visit Provider Family Medicine
DX: E11.59 Type 2 diabetes mellitus with other circulatory complications (principal); I25.10 Atherosclerotic heart disease of native coronary artery without angina pectoris; I10 Essential (primary) hypertension; E78.2 Mixed hyperlipidemia; Z79.02 Long term (current) use of antithrombotics/antiplatelets
CPT/HCPCS: 36415; 80053; 83036

== ENCOUNTER 2024-07-02 02:42 | Day surgery (SDC) | payer MEDICARE, SELFPAY ==
[2024-06-25 13:28] VITALS: BMI 23.8
--- NOTE | 2024-06-25 13:29 | PC.NURSE ---
Report to the Outpatient Waiting Room, entrance under the green pavilion located off [facility], at time _0630_ on date _02-19-8039_. Planned Procedure Time: _0830_.? Time changes happen often and if your time is changed the preop area will call you the afternoon before. - You and your visitor will be asked to self-screen and do not enter if you have any COVID symptoms. Please call surgeon if you need to reschedule. - A mask is optional within the hospital at this time. - No food or drink from midnight until time of surgery and no smoking, or chewing tobacco (or any form of nicotine). No chewing gum, candy or mints. Take only the following medications with a SIP of water on the morning of surgery: ___Amlodipine, Gabapentin and if needed Hydrocodone and or Diazepam.____ DO NOT STOP ANY OF YOUR OTHER PRESCRIPTION MEDICATIONS PRIOR TO SURGERY EXCEPT THE FOLLOWING Hold all vitamins and supplements for 3 days per anesthesiologist. Medications to discontinue per physician ___Patient says is stopping Plavix and Aspirin 5 days before surgery.____ Date to take last [id number]__[id number]____ Please no make-up, nail syrian, hairspray, perfume, deodorant, or body powder the day of surgery.? No jewelry (including any body piercings) or valuables the day of surgery, leave them at home.? Please take a shower or bath the night before, or the morning of, surgery with an antibacterial soap.? Wear comfortable, loose fitting clothing.? - Jewelry must be removed prior to entering the operating room.? Rings and piercings that are not removed may be cut off. - The hospital will not accept responsibility for valuables.? - Please leave all valuables, including medications, at home the day of surgery. If you are going home after surgery, a licensed screw driver operator must drive you home.? - NO public transportation without another adult if you receive anesthesia. - We recommend that an adult stay with you for 24 hours following discharge. - We also recommend that you do not drive, make important decision, drink alcoholic beverages, or take any drugs that were not prescribed by your health care provider for at least 24 hours after your discharge time. Follow any additional instructions given to you from your surgeon. Telephone instructions given to __Lori__and asked if any additional questions and then verbalized understanding. Patient advised to call surgeon office or pre surgery nurse liaison [phone] if any additional questions.
--- OUTSIDE RECORDS SUMMARY | 2024-07-02 02:46 | XMS_ITS | Encounter Summary ---
Author Organization [facility] Facility Care Team Providers Care Print Production Coordinator Name Role Phone Mayco Buckner MD Primary Care Provider [phone] Jm Mendoza MD Unavailable [phone] Danelle Park NP Primary Care Provider [phone] No, Physician Primary Care Provider [phone] Ramy Barone MD Primary Care Provider [phone] Juan Miguel Willis MD Primary Care Provider [phone] Deny Macedo MD Primary Care Provider + [phone] Deny Macedo MD Primary Care Provider + [phone] Lindsay Harrington MD Primary Care Provider [phone] Farzad Joe DO Primary Care Provider [phone] Henna Jacobo MD Unavailable Henna Jacobo MD Unavailable Kade Riojas MD Unavailable Nain Romero MD Primary Care Provider [phone] Encounter Details Date Type Department Care Team (Latest Contact Info) Description 07/26/2017 Orders Only [facility] ProviderLyndsey MD [address] [place] [address] Social History Tobacco Use Types Packs/Day Years Used Date Smoking Tobacco: Former Cigarettes 1 30 0 09/02/1986 - 09/02/2016 Smokeless Tobacco: Never Alcohol Use Standard Drinks/Week Comments Yes 0 (1 standard drink = 0.6 oz pur e alcohol) OCC Comments No Sex and Gender Information Value Date Recorded Sex Assigned at Not on file 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 Gender Identity Female 04/25/2024 11:50 AM GENERATION ENGINEERING TECHNOLOGIST Sexual Orientation Not on file documented as [...] documented as of this encounter Care Teams Print Production Coordinator Relationship Specialty Start Date End Date Mayco Buckner MD PCP - General 02/09/17 08/14/18 Danelle Park NP PCP - General 08/15/18 02/20/19 No, Physician PCP - General 02/21/19 03/19/19 Ramy Barone MD PCP - General 03/20/19 04/11/19 Juan Miguel Willis MD [address] [facility] [place] [id number] PCP - General Family Medicine 04/12/19 10/31/19 Deny Macedo MD [address] [facility] [place] [address] PCP - General Family Medicine 01/16/20 06/17/21 Deny Macedo MD [address] [facility] [place] [address] PCP - General 11/01/19 01/15/20 Lindsay Harrington MD [address] [facility] [place] [address] PCP - General Family Medicine 06/18/21 08/11/21 Farzad Joe DO [address] [facility] [place] [address] PCP - General Internal Medicine 08/12/21 04/21/24 Nain Romero MD [address] [place] [address] PCP - General Family Practice 04/22/24 Jm Mendoza MD Referring Physician Vascular Surgery 07/26/17 Henna Jacobo MD [address] [facility], [address] [address] Consulting Physician Pain Management 08/17/21 Henna Jacobo MD [address] [facility], [address] [address] Consulting Physician Pain Management 08/17/21 [place] [address] [address] Consulting Physician Cardiology 01/28/22 documented as of this encounter
--- OUTSIDE RECORDS SUMMARY | 2024-07-02 02:46 | XMS_ITS | Referral Summary ---
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 (Primary Dx) 05/02/2024 2:45 PM LYE BATH OPERATOR Office Visit [facility] Vascular and Vein Surgery [address] [place] [address] Julianne Krishnamurthy PA Atherosclerosis of tulalip artery of both lower extremities with intermittent claudication (Primary Dx); Dyslipidemia; Essential (primary) hypertension; Tobacco abuse 04/22/2024 2:54 PM LYE BATH OPERATOR - 04/22/2024 11:59 PM LYE BATH OPERATOR Hospital Encounter [facility] [address] [place] [address] Atherosclerosis of tulalip arteries of extremities with intermittent claudication, bilateral legs; Encounter for surgical aftercare following surgery on the circulatory system Discharge Disposition: Discharge to home or self care from Last 3 Months Allergies Active Allergy Reactions Criticality Noted Date Comments Morphine Other (See comments) Low 02/04/2022 Makes me angry Oxycodone Itching,Rash Medium 10/15/2019 Can take Hydrocodone Fpddelc-Zog-Chv Reductase Inhibitors Muscle pain Medium 02/10/2022 Tramadol [...] Lancets 33 gauge misc 2 Active multivit bgqhwhxl-ljyg-V A-calcium (THERA-M) 9 mg iron-400 mcg tabletIndicatio [...] 04/25/2023 Assessment & Plan (04/25/2023 12:48 PM LYE BATH OPERATOR): Impression: Patient reports a right achilles tendon injury. She had noninvasive studies performed at an outside facility. She has an orthopedic surgeon however does not treat foot and ankle conditions. Plan; Will refer to Dr Weichert for further evaluation. Postoperative seroma involvi ng circulatory system after other circulatory system procedure 03/04/2022 Assessment & Plan (04/29/2022 10:25 AM LYE BATH OPERATOR): Patient is returning for wound check to the right groin. The groin is healed. No complaints or issues from the patient. Seen with Dr. Mendoza. Plan: Return in 6 months for routine surveillance of her arterial disease with a bilateral lower extremity arterial Doppler. 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 Plan: Continue Zetia Hypothyroidism 07/13/2018 Anxiety and depression 07/13/2018 Neuropathy 07/13/2018 Vitamin D deficiency 07/13/2018 Atherosclerosis of tulalip ar radha of both lower extremities with intermittent claudication 11/08/2017 Assessment & Plan (04/25/2023 11:44 AM LYE BATH OPERATOR): Impression: Patient has a significant history [...] duplex. Assessment & Plan (03/25/2020 3:52 PM LYE BATH OPERATOR): Impression: Stable nondisabling claudication right lower [...] arterial duplex surveillance. 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 Assessment & Plan (04/21/2020 9:51 AM LYE BATH OPERATOR): Impression: Chronic pain right lower extremity [...] 03/04/2017 Assessment & Plan (04/25/2023 12:30 PM LYE BATH OPERATOR): Impression: Chronic an elevated. Patient denies [...] provider. Assessment & Plan (03/25/2020 3:53 PM LYE BATH OPERATOR): Impression: Stable hypertension. Plan: Continue current antihypertensive regimen as directed by PCP. Assessment & Plan (01/31/2020 1:20 PM CDT): Impression: Stable hypertension. Plan: Continue current antihypertensive regimen as directed by PCP. PVD (peripheral vascular disease) 03/04/2017 DM type 2 (diabetes mellitus, type 2) 03/04/2017 Thrombosis of aortic bifurcation bypass graft Anxiety 12/23/2013 Diabetes mellitus 12/23/2013 Assessment & Plan (04/25/2023 12:28 PM LYE BATH OPERATOR): Impression: Chronic with good glucose control. Plan: Continue metformin Herniation of intervertebral disc of cervical re gion 12/19/2013 Varicose veins of unspecifie d lower extremity with inflammation 04/25/2012 Enterococcus faecalis infection Mixed hyperlipidemia Assessment & Plan (10/11/2022 10:21 AM CDT): Impression: Chronic and stable. Plan: Continue Zetia Gastroesophageal reflux disease without esophagi tis Normocytic hypochromic anemia Restless leg syndrome Chronic narcotic dependence Insomnia Resolved Problems Problem Noted Date Diagnosed Date Resolved Date Pain at surgical site 04/09/20192023 Peripheral arterial occlusive disease 07/13/2018 04/25/2023 Assessment & Plan (04/21/2020 9:52 AM LYE BATH OPERATOR): Impression: Stable nondisabling claudication both lower [...] 11/27/2020 Peripheral vascular disease 12/23/2013 04/25/2023 Immunizations Immunization Administration Dates Next Due Influenza, Quadrivalent, Corine [...] often do you attend chur ch or tenriism services? 1 to 4 times per year 03/07/2022 Do you belong to any clubs o r organizations such as buddhist groups, unions, fraternal or athletic groups, or [...] place to sleep or slept in a snf (including now)? No 03/07/2022 Comments No Sex and Gender Information Value Date Recorded Sex Assigned at Not on file Legal Sex Female 12:29 AM LYE BATH OPERATOR Gender Identity Female 04/25/2024 11:50 AM LYE BATH OPERATOR Sexual Orientation Not on file Last Filed Vital Signs Vital Sign Reading Time Taken Comments Blood Pressure 133/68 05/02/2024 2:59 PM LYE BATH OPERATOR Pulse 84 05/02/2024 2:59 PM LYE BATH OPERATOR Temperature 36.6 C (97.8 F) 04/08/2022 11:10 AM LYE BATH OPERATOR Respiratory Rate 18 04/08/2022 11:10 AM LYE BATH OPERATOR Oxygen Saturation 98% 04/08/2022 11:10 AM LYE BATH OPERATOR Inhaled Oxygen Concentration - - Weight 62.1 kg (137 lb) 05/02/2024 2:59 PM LYE BATH OPERATOR Height 165.1 cm (5' 5 ) 05/02/2024 2:59 PM LYE BATH OPERATOR Body Mass Index 22.8 05/02/2024 2:59 PM LYE BATH OPERATOR Plan of Treatment Not on file Medical Devices Implanted Type Area Building Pressure Washer Device Identifier Shelf Expiration Date Model / Serial / Lot Ambassador [employer] [id number] Hemashield Gold 8mm 60cm 2 Velour Straight Tube Knit Soft Graft - [id number] - [id number] Implanted:Qty: 1 on 02/09/2022 by Jm Mendoza MD at [facility] Right: Femur [employer] [id number] 05/03/2025 [id number] / [id number] / [id number] Procedures Procedure Name Priority Date/Time Associated Diagnosis Comments US ARTERIAL DOPPLER LOWER EXTREMITY BILATERAL Schedule Routine, Read Routine (OP Routine) 04/22/2024 4:09 PM LYE BATH OPERATOR Atherosclerosis of tulalip arteries of extremities with intermittent claudication, bilateral legs Encounter for surgical aftercare following surgery on the circulatory system EGFR Routine 03/10/2022 7:07 AM LYE BATH OPERATOR HEMOGLOBIN A1C Routine 03/05/2022 7:08 AM LYE BATH OPERATOR LIPID PANEL Routine 01/09/2017 4:53 PM CDT from Last 3 Months or Most Recently Relevant to Health Maintenance Results * US Arterial Doppler Lower Extremity Bilateral (04/22/2024 4:09 PM LYE BATH OPERATOR) Anatomical Region Laterality Modality Vascular Bilateral Ultrasound 04/22/2024 Narrative 04/25/2024 1:01 PM LYE BATH OPERATOR Penana Job ID: [id number] Penana Document ID: [id number] Dictated date/time: [id number] LOWER EXTREMITY ARTERIAL DOPPLER STUDY REASON FOR EXAM Claudication. COMMENTS ON THE RIGHT Brachial pressure 120. PT DP pressure of 78, 61, NETO 0.65. Digital pressure 61. Waveform triphasic at the common femoral, biphasic at the popliteal and tibial level. COMMENTS ON THE LEFT PT DP pressure 102 and 99. NETO 0.85. Digital pressure 40. Waveform triphasic at the common femoral and popliteal level, biphasic at the tibial level. OVERALL IMPRESSION ABIs bilaterally consistent with claudication. SFA and infrapopliteal disease likely. Wound healing potential may be marginal left lower extremity. Job ID/Internal Job ID: [id number] us Kimberly Jiménez INTERIOR DESIGN COORDINATOR IMG US PROCEDURES Final R esult * eGFR (03/10/2022 7:07 AM LYE BATH OPERATOR) eGFR 75 mL/min/1. 73 m2 ABIDA GRIFFITH Comment: Interpretive Data Reference Interval Normal >/= 90 mL/min/1.73m2 Mildly decreased* 60 - 89 mL/min/1.73m2 Mildly to moderately decreased 45 - 59 mL/min/1.73m2 Moderately to severely decreased 30 - 44 mL/min/1.73m2 Severely decreased 15 - 29 mL/min/1.73m2 Kidney Failure < 15 mL/min/1.73m2 *Relative to young adult level Estimated glomerular filtration rate is determined by the 2020 CKD-EPI equation recommended by the National Kidney Foundation (A Unifying Approach to GFR Estimation: Recommendations of the NKF-ASK Task Force on Reassessing the Inclusion of Race in Diagnosing Kidney Disease, JASN 202). The CKD-EPI equation should not be used for patients with unstable renal function and has not been validated in children and those over 70. Current interpretive data was last reviewed 2021. Blood 03/10/2022 7:07 AM LYE BATH OPERATOR 03/10/2022 7:38 AM LYE BATH OPERATOR Zhou Trejo MD LAB BLOOD ORDERABLES Final Result Performing Organization Address City/[facility] Co de Phone Number [address] [place] [address] * Hemoglobin A1c (03/05/2022 7:08 AM LYE BATH OPERATOR) Pathologist [facility] Hgb A1C 5.0 4.0 - 5.6 % ABIDA GRIFFITH Estimated Average Glucose 97 mg/dL ABIDA GRIFFITH Comment: The ADA recommends reporting an estimated Average Glucose (eAG) with all Hemoglobin A1c results using the equation derived from a study of 507 normal and diabetic adults. Minority populations were underrepresented and children were not included. (Diabetes Care 31:0852-4786, 2008). The eAG is not equivalent to a fasting glucose. Blood 03/05/2022 7:08 AM LYE BATH OPERATOR 03/05/2022 7:27 AM LYE BATH OPERATOR Alba Lindsey MD LAB BLOOD ORDERABLES Final Result Performing Organization Address City/[facility] Co de Phone Number [address] [place] [address] * (ABNORMAL) Lipid panel (01/09/2017 4:53 PM CDT) Cholesterol 146 100 - 200 mg/dL ABIDA Comment: Interpretive Data Desirable: <200 mg/dL Borderline high: 200-239 mg/dL High: >240 mg/dL Current interpretive data was last revised on 2015. Triglycerides 123 10 - 150 mg/dL ABIDA Comment: Interpretive Data Desirable: < 150 mg/dL Borderline High: 150 - 199 mg/dL High: 200 - 499 mg/dL Very High: > or = 499 mg/dL Current interpretive data was last revised on 2015. HDL 38(L) 40 - 59 mg/dL ABIDA Comment: Interpretive Data Less than 40 mg/dL - Low; A major risk factor for heart disease. Greater than or equal to 60 mg/dL - High; Considered protective of heart disease. Current interpretive data was last revised on 2015. LDL, calculated 83 60 - 129 mg/dL ABIDA CALVO Comment: Interpretive Data Optimal: < 100 mg/dL Near Optimal: 100 - 129 mg/dL Borderline High: 130 - 159 mg/dL High: > 160 mg/dL Current interpretive data was last [...] MD LAB BLOOD ORDERABLES Final Resul t [facility] [address] Department [place] [address] from Last 3 Months or Most Recently Relevant to Health Maintenance Insurance [employer] CHOICE MEDICARE PPO HUMANA MEDICARE HMO [facility] MEDICARE O HUMANA MEDICARE HMO Advance Directives For more information, please contact: [phone] * Full Code (Latest Code Status on [...] 5:18 PM 03/06/2017 5:12 PM Care Teams Java Sybase Developer Relationship Specialty Start Date End Date Nain Romero MD [address] [place] [address] PCP - General Family Practice 04/22/24 Jm Mendoza MD Referring Physician Vascular Surgery 07/26/17 Henna Jacobo MD [address] [facility]IN [facility], [address] [address] Consulting Physician Pain Management 08/17/21 Henna Jacobo MD [address] [facility], [address] [address] Consulting Physician Pain Management 08/17/21 [place] [address] [address] Consulting Physician Cardiology 01/28/22
--- OUTSIDE RECORDS SUMMARY | 2024-07-02 02:46 | XMS_ITS | Encounter Summary ---
Author Organization [facility] Address [address] [place] [address] Care Team Providers Care Candlemaking Laborer Name Role Phone Mayco Buckner MD Primary Care Provider [phone] Jm Mendoza MD Unavailable [phone] Danelle Park NP Primary Care Provider [phone] No, Physician Primary Care Provider [phone] Ramy Barone MD Primary Care Provider [phone] Juan Miguel Willis MD Primary Care Provider [phone] Deny Macedo MD Primary Care Provider [phone] Deny Macedo MD Primary Care Provider [phone] Lindsay Harrington MD Primary Care Provider [phone] Farzad Joe DO Primary Care Provider [phone] Henna Jacobo MD Unavailable Henna Jacobo MD Unavailable Kade Riojas MD Unavailable Nain Romero MD Primary Care Provider [phone] Encounter Details Date Type Department Care Team (Late st Contact Info) Description 03/03/2017 Telephone [facility] Pre Anesthesia Testing [address] [place] [address] [place] [address] [address] Social History Tobacco Use Types Packs/Day Years Used Date Smoking Tobacco: Former Smokeless Tobacco: Never Alcohol Use Standard Drinks/Week Comments No 0 (1 standard drink = 0.6 oz pur e alcohol) Comments Unknown Sex and Gender Information Value Date Recorded Sex Assigned at Not on file Legal Sex Female 12:29 AM DEPUTY CHIEF COUNSEL Gender Identity Female 04/25/2024 11:50 AM DEPUTY CHIEF COUNSEL Sexual Orientation Not on file documented as of this encounter Plan of Treatment Not on file documented as of this encounter Visit Diagnoses Not on filedocumented in this encounter Additional Health Concerns Infection Onset Date Last Indicated Resolved Time MRSA Comment:R groin 04/07/17 04/07/2017 04/07/2017 11/18/2020 5:00 A M CDT documented as of this encounter Care Teams Candlemaking Laborer Relationship Specialty Start Date End Date Mayco Buckner MD PCP - General 02/09/17 08/14/18 Danelle Park NP PCP - General 08/15/18 02/20/19 No, Physician PCP - General 02/21/19 03/19/19 Ramy Barone MD PCP - General 03/20/19 04/11/19 Juan Miguel Willis MD [address] [place] [address] PCP - General Family Medicine 04/12/19 10/31/19 Deny Macedo MD [address] [place] [address] PCP - General Family Medicine 01/16/20 06/17/21 Deny Macedo MD [address] [facility] [address] PCP - General 11/01/19 01/15/20 Lindsay Harrington MD [address] [facility] [address] PCP - General Family Medicine 06/18/21 08/11/21 Farzad Joe DO [address] [facility] [address] PCP - General Internal Medicine 08/12/21 04/21/24 Nain Romero MD [address] [place] [address] PCP - General Family Practice 04/22/24 Jm Mendoza MD Referring Physician Vascular Surgery 07/26/17 Henna Jacobo MD [address] [facility]IN [facility]ENTER, [address] [address] Consulting Physician Pain Management 08/17/21 Henna Jacobo MD [address] [facility]IN [facility], [address] [address] Consulting Physician Pain Management 08/17/21 [place] [address] [address] Consulting Physician Cardiology 01/28/22 documented as of this encounter
--- OUTSIDE RECORDS SUMMARY | 2024-07-02 02:46 | XMS_ITS | Clinical Summary ---
Author Organization [facility] Address [address] [place] [address] Care Team Providers Care Fuel Cell Test Engineer Name Role Phone Jm Mendoza MD Unavailable [phone] Henna Jacobo MD Unavailable Henna Jacobo MD Unavailable Kade Riojas MD Unavailable Nain Romero MD Primary Care Provider [phone] Allergies Active Allergy Reactions Criticality Noted Date Comments Morphine Other (See comments) Low 02/04/2022 Makes me angry Oxycodone Itching,Rash Medium 10/15/2019 Can take Hydrocodone Tjfggml-Maw-Irf Reductase Inhibitors Muscle pain Medium 02/10/2022 Tramadol [...] Lancets 33 gauge misc 2 Active multivit guenukay-qhoy-D A-calcium (THERA-M) 9 mg iron-400 mcg tabletIndicatio [...] 04/25/2023 Assessment & Plan (04/25/2023 12:48 PM REGIONAL ACCOUNT DIRECTOR): Impression: Patient reports a right achilles tendon injury. She had noninvasive studies performed at an outside facility. She has an orthopedic surgeon however does not treat foot and ankle conditions. Plan; Will refer to Dr Mcnair for further evaluation. Postoperative seroma involvi ng circulatory system after other circulatory system procedure 03/04/2022 Assessment & Plan (04/29/2022 10:25 AM REGIONAL ACCOUNT DIRECTOR): Patient is returning for wound check to the right groin. The groin is healed. No complaints or issues from the patient. Seen with Dr. Mendoza. Plan: Return in 6 months for routine surveillance of her arterial disease with a bilateral lower extremity arterial Doppler. Assessment & Plan (04/08/2022 1:11 PM REGIONAL ACCOUNT DIRECTOR): Patient is following up postoperatively after undergoing [...] 07/13/2018 Assessment & Plan (04/25/2023 12:29 PM REGIONAL ACCOUNT DIRECTOR): Impression: Chronic and stable. Plan: Continue Zetia Hypothyroidism 07/13/2018 Anxiety and depression 07/13/2018 Neuropathy 07/13/2018 Vitamin D deficiency 07/13/2018 Atherosclerosis of kiowa tribe ar radha of both lower extremities with intermittent claudication 11/08/2017 Assessment & Plan (04/25/2023 11:44 AM REGIONAL ACCOUNT DIRECTOR): Impression: Patient has a significant history of [...] duplex. Assessment & Plan (03/25/2020 3:52 PM REGIONAL ACCOUNT DIRECTOR): Impression: Stable nondisabling claudication right lower extremity [...] arterial duplex surveillance. Chronic pain syndrome 09/18/2017 [facility] prescription opiate use 09/18/2017 Complex regional pain [...] re-evaluation. Assessment & Plan (04/21/2020 9:51 AM REGIONAL ACCOUNT DIRECTOR): Impression: Chronic pain right lower extremity with [...] 03/04/2017 Assessment & Plan (04/25/2023 12:30 PM REGIONAL ACCOUNT DIRECTOR): Impression: Chronic an elevated. Patient denies any [...] provider. Assessment & Plan (03/25/2020 3:53 PM REGIONAL ACCOUNT DIRECTOR): Impression: Stable hypertension. Plan: Continue current antihypertensive regimen as directed by PCP. Assessment & Plan (01/31/2020 1:20 PM CDT): Impression: Stable hypertension. Plan: Continue current antihypertensive regimen as directed by PCP. PVD (peripheral vascular disease) 03/04/2017 DM type 2 (diabetes mellitus, type 2) 03/04/2017 Thrombosis of aortic bifurcation bypass graft Anxiety 12/23/2013 Diabetes mellitus 12/23/2013 Assessment & Plan (04/25/2023 12:28 PM REGIONAL ACCOUNT DIRECTOR): Impression: Chronic with good glucose control. Plan: [...] 04/25/2023 Assessment & Plan (04/21/2020 9:52 AM REGIONAL ACCOUNT DIRECTOR): Impression: Stable nondisabling claudication both lower extremities. [...] Date Type Department Care Team Description 05/02/2024 2:45 PM REGIONAL ACCOUNT DIRECTOR Office Visit [facility] Medical [facility] Vascular and Vein Surgery [address] [place] [phone] Julianne Krishnamurthy PA Atherosclerosis of kiowa tribe artery of both lower extremities with intermittent claudication (Primary Dx); Dyslipidemia; Essential (primary) hypertension; Tobacco abuse 05/02/2024 Orders Only [facility] Vascular and Vein Surgery [address] [place] [phone] Zhou Trejo MD Atherosclerosis of kiowa tribe artery of both lower extremities with intermittent claudication (Primary Dx) 04/22/2024 2:54 PM REGIONAL ACCOUNT DIRECTOR - 04/22/2024 11:59 PM REGIONAL ACCOUNT DIRECTOR Hospital Encounter [facility] Cardiac Testing [address] [place] [id number] Atherosclerosis of kiowa tribe arteries of extremities with intermittent claudication, bilateral legs; Encounter for surgical aftercare following surgery on the circulatory system Discharge Disposition: Discharge to home or self care from Last 3 Months Immunizations Immunization Administration Dates Next Due Influenza, [...] 2000 N IDDM Hypertension Peripheral vascular disease Depression Anxiety Hyperlipidemia Arthritis GERD (gastroesophageal reflux disease) controlled Neuropathy Bilateral Legs RLS (restless legs syndrome) Bipolar disorder (HCC) [...] often do you attend chur ch or pentecostalism services? 1 to 4 times per year 03/07/2022 Do you belong to any clubs o r organizations such as hindu groups, unions, fraternal or athletic groups, or [...] to sleep or slept in a senior care (including now)? No 03/07/2022 Comments No Sex and Gender Information Value Date Recorded Sex Assigned at Not on file Legal Sex Female 12:29 AM REGIONAL ACCOUNT DIRECTOR Gender Identity Female 04/25/2024 11:50 AM REGIONAL ACCOUNT DIRECTOR Sexual Orientation Not on file Obstetrics History Last Filed Vital Signs Vital Sign Reading Time Taken Comments Blood Pressure 133/68 05/02/2024 2:59 PM REGIONAL ACCOUNT DIRECTOR Pulse 84 05/02/2024 2:59 PM REGIONAL ACCOUNT DIRECTOR Temperature 36.6 C (97.8 F) 04/08/2022 11:10 AM REGIONAL ACCOUNT DIRECTOR Respiratory Rate 18 04/08/2022 11:10 AM REGIONAL ACCOUNT DIRECTOR Oxygen Saturation 98% 04/08/2022 11:10 AM REGIONAL ACCOUNT DIRECTOR Inhaled Oxygen Concentration - - Weight 62.1 kg (137 lb) 05/02/2024 2:59 PM REGIONAL ACCOUNT DIRECTOR Height 165.1 cm (5' 5 ) 05/02/2024 2:59 PM REGIONAL ACCOUNT DIRECTOR Body Mass Index 22.8 05/02/2024 2:59 PM REGIONAL ACCOUNT DIRECTOR Plan of Treatment Health Maintenance Due Date Last Done Comments Albumin Creatinine Ratio, Urine 1964 Breast Cancer Screening-Mammogram 1964 Cervical Cancer Screening 1964 Colon Cancer Screening-Colonoscopy 1964 Hepatitis C Screening 1964 Dilated Eye Exam 1964 Foot Exam 1964 DTaP/Tdap/Td Vaccine (1 - Tdap) 11/12/1975 Hepatitis B Screening 1982 Regular Well Visit/Exam 18-64 1982 Pneumococcal vaccine <65 (1 of 2 - PCV) 11/12/1983 Lung Cancer Screening 2014 Zoster Vaccine (1 of 2) 2014 Lipid Panel 01/09/2018 01/09/2017 Depression Screening 07/26/2018 07/26/2017, 07/26/2017, 05/30/2017, Additional history exists Hemoglobin A1C 09/03/2022 03/05/2022, 11/0 12/2021, 10/31/2019, Additional history exists eGFR 03/10/2023 03/10/2022, 12/0 10/2021, 03/08/2022, Additional history exists Covid-19 Vaccine (3 - 2023-2 5 season) 2023 08/07/2020, 07/10/2020 Influenza Vaccine (#1) 2023 2, 03/20/2019, 07/04/2018, Additional history exists Medical Devices Implanted Type Area Plastics Heat Welder Device Identifier Shelf Expiration Date Model / Serial / Lot IroFit Cardiovascular [facility] [id number] Hemashield Gold 8mm 60cm 2 Velour Straight Tube Knit Soft Graft - [id number] - [id number] Implanted:Qty: 1 on 02/09/2022 by Jm Mendoza MD at [facility] Right: Femur [employer] [id number] 05/03/2025 [id number] / [id number] / [id number] Procedures Procedure Name Priority Date/Time Associated Diagnosis Comments US ARTERIAL DOPPLER LOWER EXTREMITY BILATERAL Schedule Routine, Read Routine (OP Routine) 04/22/2024 4:09 PM REGIONAL ACCOUNT DIRECTOR Atherosclerosis of kiowa tribe arteries of extremities with intermittent claudication, bilateral legs Encounter for surgical aftercare following surgery on the circulatory system EGFR Routine 03/10/2022 7:07 AM REGIONAL ACCOUNT DIRECTOR HEMOGLOBIN A1C Routine 03/05/2022 7:08 AM REGIONAL ACCOUNT DIRECTOR LIPID PANEL Routine 01/09/2017 4:53 PM CDT from Last 3 Months or Most Recently Relevant to Health Maintenance Results * US Arterial Doppler Lower Extremity Bilateral (04/22/2024 4:09 PM REGIONAL ACCOUNT DIRECTOR) Anatomical Region Laterality Modality Vascular Bilateral Ultrasound 04/22/2024 Narrative 04/25/2024 1:01 PM REGIONAL ACCOUNT DIRECTOR [employer] Job ID: [id number] [employer] Document ID: [id number] Dictated date/time: [id number] LOWER EXTREMITY ARTERIAL DOPPLER STUDY REASON FOR [...] left lower extremity. Job ID/Internal Job ID: [id number] us Kimberly Jiménez NP IMG US PROCEDURES Final R esult * eGFR (03/10/2022 7:07 AM REGIONAL ACCOUNT DIRECTOR) eGFR 75 mL/min/1. 73 m2 [facility] Comment: Interpretive Data Reference Interval Normal >/= [...] last reviewed 2021. Blood 03/10/2022 7:07 AM REGIONAL ACCOUNT DIRECTOR 03/10/2022 7:38 AM REGIONAL ACCOUNT DIRECTOR us Zhou Trejo MD LAB BLOOD ORDERABLES Final Result [facility] [address] [facility] Department [place] [address] * Hemoglobin A1c (03/05/2022 7:08 AM REGIONAL ACCOUNT DIRECTOR) Hgb A1C 5.0 4.0 - 5.6 % [facility] Estimated Average Glucose 97 mg/dL [facility] Comment: The ADA recommends reporting an estimated Average Glucose (eAG) with all Hemoglobin A1c results using the equation derived from a study of 507 normal and diabetic adults. Minority populations were underrepresented and children were not included. (Diabetes Care 31:3434-9237, 2008). The eAG is not equivalent to a fasting glucose. Blood 03/05/2022 7:08 AM REGIONAL ACCOUNT DIRECTOR 03/05/2022 7:27 AM REGIONAL ACCOUNT DIRECTOR us Alba Lindsey MD LAB BLOOD ORDERABLES Final Result [facility] [address] [facility] Department [place] [address] * (ABNORMAL) Lipid panel (01/09/2017 4:53 PM CDT) Cholesterol 146 100 - 200 mg/dL [facility] Comment: Interpretive Data Desirable: <200 mg/dL Borderline high: 200-239 mg/dL High: >240 mg/dL Current interpretive data was last revised on 2015. Triglycerides 123 10 - 150 mg/dL [facility] Comment: Interpretive Data Desirable: < 150 mg/dL Borderline High: 150 - 199 mg/dL High: 200 - 499 mg/dL Very High: > or = 499 mg/dL Current interpretive data was last revised on 2015. HDL 38(L) 40 - 59 mg/dL [facility] CALVO Comment: Interpretive Data Less than 40 mg/dL [...] on 2015. Non-HDL Cholesterol 108 mg/dL [facility] Comment: Interpretive Data When triglycerides are >200 mg/dL, non-HDL C is a secondary target of therapy, with a goal 30 mg/dL higher than the identified LDL-C goal. Current interpretive data was last revised 2015. Blood specimen (specimen) 01/09/2017 4:53 PM CDT 01/09/2017 4:54 PM CDT Navjot Holt MD LAB BLOOD ORDERABLES Final Resul t [facility] [id number] Department [place] [address] from Last 3 Months or Most Recently Relevant to Health Maintenance Insurance [employer] CHOICE MEDICARE PPO HUMANA MEDICARE HMO HU[employer]NA CHOICE MEDICARE PPO HUMANA MEDICARE HMO Advance Directives For more information, please contact: [phone] * Full Code (Latest Code Status on [...] 5:18 PM 03/06/2017 5:12 PM Care Teams Fuel Cell Test Engineer Relationship Specialty Start Date End Date Nain Romero MD [address] [place] [address] PCP - General Family Practice 04/22/24 Jm Mendoza MD Referring Physician Vascular Surgery 07/26/17 Henna Jacobo MD [address] [facility] [address] [facility], [address] [address] Consulting Physician Pain Management 08/17/21 Henna Jacobo MD [address] [facility], [address] [address] Consulting Physician Pain Management 08/17/21 [place] [id number] [address] Consulting Physician Cardiology 01/28/22
--- OUTSIDE RECORDS SUMMARY | 2024-07-02 02:47 | XMS_ITS | CONTINUITY OF CARE DOCUMENT ---
Author Name snoya chelojemima Address Unknown Organization [facility] Address [address] [facility] [address] [place] [address] Phone [phone] Care Team Providers Care Substation Electrician Name Role Phone Kade Riojas MD Unavailable [phone] Tamara PAC, Yair Unavailable Tamara PAC, Yair Unavailable PROBLEMS Condition Status Date Provider Notes DYSLIPIDEMIA active Madie Sellers DEPRESSION active Madie Sellers CHEST DISCOMFORT-06/06 CATH NL completed - Vitor Riojas MD PVD-07/09 DEN MILD KAYLEE DIS completed - Kade phelan MD HTN-07/13 ECHO EF 60-05/13 ECH O EF 60-03/09 ECHO LVH EF 70 completed - Kade Riojas MD Tobacco abuse active Kade Riojas MD CHEST PAIN- NORMAL CORONARIE S ON CATH IN 2005 active ? Kade Riojas MD PVD-03/09 STENT RCI KAYLEE completed - Kade ndiaye MD PVD-05/13 DEN SEV DIS LLE S/P ISTR AND ILLIAC STENT IN 05/13 completed - Kade Riojas MD AIF-05/13 [facility] EXPRESS STENT completed - Kade Riojas MD HTN ESSENTIAL active Kade Riojas MD VARICOSE VEINS LOWER EXTREMITIES W/INFLAMMATION active Umesh Colon MD LEG PAIN completed - Kade Riojas MD PVD b/l Illiac stents in 2009,then L illiac in 08/13 cISR 08/14 and repeat stenting active Kade Riojas MD Other symptoms involving cardiovascular system completed - Kevin Rasheed MD Diabetes mellitus active Kade Riojas MD ENCOUNTERS Date Type Provider Location Encounter Diag nosis - In-person encounter Office Visit Kade Riojas MD [facility] - In-person encounter Office Visit Kade Riojas MD [facility] Tobacco abuse - In-person encounter Office Visit Kade Riojas MD [facility] Diabetes mellitus - In-person encounter Office Visit Kade Riojas MD [facility] - In-person encounter Office Visit Kade Riojas MD [facility] - In-person encounter Office Visit Kade Riojas MD [facility] - In-person encounter Office Visit Kade Riojas MD [facility] - In-person encounter Office Visit Kevin Rasheed MD [facility] Other symptoms involving cardiovascular system - In-person encounter Office Visit Kade Riojas MD [facility] - In-person encounter Office Visit Kade Riojas MD [facility] HTN-07/13 ECHO EF 60-05/13 ECHO EF 60-03/09 ECHO LVH EF 70PVD-03/09 STENT RCI BILPVD-05/13 DEN SEV DIS LLE S/P ISTR AND ILLIAC STENT IN IF-05/13 [facility] EXPRESS STENTLEG PAINPVD b/l Illiac stents in 2009,then L illiac in 08/13 cISR 08/14 and repeat stenting - In-person encounter Office Visit Navjot Holt MD [facility] - In-person encounter Office Visit Navjot Holt MD [facility] - In-person encounter Office Visit Kade Riojas MD [facility] - In-person encounter Office Visit Kade Riojas MD [facility] - In-person encounter Office Visit Umesh Colon MD [facility] Office - In-person encounter Office Visit Kade Riojas MD [facility] - In-person encounter Office Visit Umesh Colon MD [facility] Office Tobacco abuse - In-person encounter Office Visit Umesh Colon MD [facility] Office - In-person encounter Office Visit Umesh Colon MD [facility] Office - In-person encounter Office Visit Umesh Colon MD [facility] - In-person encounter Office Visit Umesh Colon MD [facility] - In-person encounter Office Visit Umesh Colon MD [facility] VARICOSE VEINS LOWER EXTREMITIES W/INFLAMMATION - In-person encounter Office Visit Kade Riojas MD [facility] - In-person encounter Office Visit Kade Riojas MD [facility] - In-person encounter Office Visit Kade Riojas MD [facility] HTN ESSENTIAL - In-person encounter Office Visit Kade Riojas MD [facility] CHEST DISCOMFORT-06/06 CATH NLPVD-07/09 DEN MILD KAYLEE DISCHEST PAIN- NORMAL CORONARIES ON CATH IN 2005 - In-person encounter Office Visit Kade Riojas MD [facility] - In-person encounter Office Visit Kade Riojas MD [facility] - In-person encounter Office Visit Kade Riojas MD [facility] VITAL SIGNS Date Observation Value Provider Body Mass Index (Ratio) 26.14 kg/m2 Vitor Riojas MD blood pressure, cuff size large Gladis Colesn blood pressure, diastolic 78 mm[Hg] Gladis priya Joshua blood pressure, systolic 128 mm[Hg] Hannah seay Joshua oxygen saturation, oximetry 96 % Judy [place] respiratory rate E&M 14 /min Judy Joshua pulse rate 82 /min Judy Joshua weight E&M 162 [lb_av] Judy Joshua height E&M 66 [in_i] Judy Joshua Body Mass Index (Ratio) 26.63 kg/m2 Vitor Riojas MD weight E&M 165 [lb_av] Kade Riojas MD height E&M 66 [in_i] Kade Riojas MD Body Mass Index (Ratio) 30.18 kg/m2 Rossy Steve blood pressure, cuff size regular Kr isty Kaci blood pressure, diastolic 90 mm[Hg] Kr isty [place] blood pressure, systolic 160 mm[Hg] Kri sty [place] pulse rate 82 /min Makeda Kaci oxygen saturation, oximetry 95 % Makeda [place] respiratory rate E&M 18 /min Makeda [place] weight E&M 187 [lb_av] Makeda [place] height E&M 66 [in_i] Makeda Kaci Body Mass Index (Ratio) 32.44 kg/m2 Vitor Riojas MD blood pressure, diastolic 90 mm[Hg] Kr isty Kaci blood pressure, systolic 150 mm[Hg] Kri sty Kaci oxygen saturation, oximetry 98 % Makeda [place] pulse rate 95 /min Makeda Kaci respiratory [...] paul Rose oxygen saturation, oximetry 98 % [facility] weight E&M 172 [lb_av] Snehality Rose height E&M 66 [in_i] [facility] Body Mass Index (Ratio) 26.63 kg/m2 Vitor [...] Edward Body Mass Index (Ratio) 33.96 kg/m2 Sukumar Edward weight E&M 210.4 [lb_av] Cisco Edward [...] /min Anyi Yepez weight E&M 221 [lb_av] Aniy Yepez Body Mass Index (Ratio) 36.77 kg/m2 [...] [place] blood pressure, systolic 142 mm[Hg] Diane [facility] [place] pulse rate 93 /min Ilene [place] [...] [place] Body Mass Index (Ratio) 37.01 kg/m2 [facility] [place] blood pressure, diastolic 80 mm[Hg] [facility] [place] blood pressure, systolic 142 mm[Hg] Diane syed [place] pulse rate 77 /min Ilene [...] % Maira Rojas pulse rate 72 /min Maiar Rojas height in centimeters E&M 0 cm [...] Raymond Bhavani respiratory rate E&M 16 /min Raymond Beckham weight E&M 207 [lb_av] Raymond Beckham blood pressure, diastolic 77 mm[Hg] Debbie pearl [place] blood pressure, systolic 133 mm[Hg] Diane [facility] [place] pulse rate 72 /min Ilene [place] oxygen saturation, oximetry 97 % Ilene [place] respiratory rate E&M 18 /min Ilene [place] weight E&M 200 [lb_av] [facility] [place] blood pressure, diastolic 85 mm[Hg] Luis [...] Roger Escobar hematocrit, blood 42.5 % [facility] [place] Shwan blood glucose, random 160 mg/dL [facility] [place] Shawn creatinine, serum 0.85 mg/dL [facility] [place] Shawn urea nitrogen, blood 12 mg/dL [facility] [place] Shawn potassium, serum 4.4 mmol/L [facility] sodium, serum 142 mmol/L [facility] [place] Shawn blood glucose, random 220 mg/dL [facility] [place] Shawn urea nitrogen, blood 9 mg/dL [facility] platelet count 194 10*3/mm3 [facility] hematocrit, blood 43.0 % [facility] international normalized ratio (INR) 1.0 [facility] creatinine, serum 0.93 mg/dL [facility] potassium, serum 4.5 mmol/L [facility] [place] Shawn sodium, serum 143 mmol/L [facility] alanine aminotransferase (SGPT), serum 35 1/L [facility] aspartate aminotransferase (SGOT), serum 31 1/L [facility] creatinine, serum 0.89 mg/dL [facility] potassium, serum 4.7 mmol/L [facility] sodium, serum 138 mmol/L [facility] platelet count 174 10*3/mm3 [facility] hematocrit, blood 41.8 % [facility] [place] Shawn triglyceride, serum, fasting 130 mg/dL [facility] HDL cholesterol, serum 36 mg/dL Roger Escobar lipoprotein, beta, serum, point, quantitative, calculated 50 mg/dL Roger Escobar cholesterol, serum 112 mg/dL Roger Escobar [...] tablet by mouth once a day 08/21 [facility] TRAZODONE HCL 50 MG TABS active as needed 08/21 [facility] magnesium oxide 250 mg magnesium tablet active Take 1 tablet by mouth once a day 08/21 [facility] Daily Multivitamin 200-100-500 mcg capsule active Take 1 tablet by mouth once a day 08/21 [facility] CALCIUM + D completed Vitamin D 50,000 international units once weekly 07/26 - 08/21 [facility] metformin 1,000 mg tablet active 1 tablet by mouth twice a day 07/26 Kade Riojas MD ZETIA 10 MG ORAL TABLET completed take one tablet by mouth once daily 07/26 - 08/21 [facility] hydrochlorothiazide 25 mg tablet active Take 1 tablet once a day 05/27 Bakari Cobos LOSARTAN POTASSIUM 100 MG ORAL TABLET completed Take one tablet daily 07/26 - 08/21 [facility] HEPARIN LOCK FLUSH INTRAVENOUS SOLUTION (HEPARIN LOCK FLUSH) completed 3 liters through 10 ml saline as needed 05/12 - 07/26 Makeda [place] VANCOMYCIN HCL INTRAVENOUS SOLUTION RECONSTITUTED (VANCOMYCIN HCL) [...] completed 2mg tab daily 10/09 - 11/09 Hsarlan[facility] Wright TRENTAL CR-TABS completed 400 mg bid [...] Cobos smoking history, tot al pack/day 1pac Juyd Colesn cigarette use yes Judy Colesn physical [...] alcohol use, average drinks per day none Maekda Clemons caffeine use, averag e drinks per [...] use, average drinks per day none Anyi Ypeez caffeine use, averag e drinks per day yes Anyi Yepez drug use none Anyi Yepez smoking/tobacco cess ation, patient education and counseling No Aniy Yepez smoking status Former smoker Anyi [place] carlie physical exercise, f requency, days per week yes Kevin Rasheed MD alcohol use, average drinks per day none Kevin Rasheed MD caffeine use, averag e drinks per day yes Kevin Rashede MD drug use none Kevin Rasheed MD [...] education and counseling yes Kade Riojas MD social history reviewed E&M [...] and person. Mood and affect are normal. Kaed Riojas MD assessment of judgme nt and [...] party ID CYNTHIA BERMUDEZ PLUS O HMO [id number] ADVANCE DIRECTIVES Name Date DISCUSSED - NO DECISION MADE TREATMENT PLAN Date Name Performer [id number],B, Bakari Ahmedza i [id number],S, Bakari Ahmedza i [id number],S, Bakari Ahmedza i [id number],S, Bakari Ahmedza i [id number],S, Bakari Ahmedza i [id number],S, Bakari Ahmedza i Cardiology[RxRsp] Bakari Ahmedzai Cardiology[RxRsp] [...] O rders: A rterial Duplex Bi-Lower EX ([id number]) Navjot Holt MD follow up: H er [...] ..... 81 mg daily Orders: Zaira KG ([id number]) BP today: 94/63 P rior BP: 133/77 [...] completed EKG Kade Riojas MD completed SNOMED-CT: [id number] Current Medications Documented Kade Riojas MD completed Stress EKG Mason Banuelos MD completed Regadenoson, 4 units Mason Banuelos MD completed Cardiolite, 2 units Mason Banuelos MD completed SPECT Images Mason Banuelos MD completed EKG Kade Riojas MD completed SNOMED-CT: [id number] Current Medications Documented Kade Riojas MD completed SNOMED-CT: [id number] Physical Exam, Performed: Pulse Exam of Foot Kade Riojas MD completed SNOMED-CT: [id number] Current Medications Documented Kade Riojas MD completed EKG Kevin Rasheed MD complet ed EKG Kade Riojas MD completed EKG Umesh Colon MD completed ePrescribe - Check t his box if eRx is used Kade Riojas MD completed EKG Umesh Colon MD completed EKG Kade Riojas MD completed EKG Kade Riojas MD completed
[2024-07-02 06:30] VITALS: BP 139/69; PULSE 85; RESP 18; TEMP 36.5; O2SAT 100
[2024-07-02] MEDS: LACTATED RINGERS 1,000 ML 30 ML IV CONT (06:50)
--- NOTE | 2024-07-02 07:00 | WPDHPUPDATE1 ---
History and Physical Update Update Date/Time: 07/02/24 07:00 Patient seen and examined in pre-operative holding area. No interval change in medical history or symptoms. Patient recalls previous discussion of benefits and alternatives to procedure. Continues to desire to proceed with right endoscopic possible open carpal tunnel release and right index and middle finger a1 puley release. Reviewed procedure, post-op expectations and risks including but not limited to bleeding, infection, injury to tendon/nerve/vessel, decreased hand function, stiffness, RSD, no change or worsening of symptoms. I discussed the possible use of assistants and their participation in the case. Patient stated understanding and signed the consent form wishing to proceed.
--- NOTE | 2024-07-02 07:01 | P.OP_ITS ---
Procedure Note - Detailed Date of Procedure 07/02/24 Pre-op Diagnosis right carpal tunnel, right index and middle trigger finger Post-op Diagnosis Same Procedure Performed right ectr and right index and middle finger a1 miriam release Surgeon Christy Lowry MD Sustain Engineer izzy vasquez pa-c Anesthesia MAC Description of Procedure INFORMED CONSENT: The patient was seen and examined and marked in the pre-op area.? The patient signed the consent form. PROCEDURE IN DETAIL:The patient taken back to OR on the stretcher in supine position. Time out performed with anesthesia, surgeon and staff agreeing on patient's name site and surgery to be performed SCDs were placed on the lower extremities and inflated. A tourniquet was placed on {right} upper extremity and antibiotics given IV After anesthesia administered sedation I injected {5}cc 1%lido with epi and 0.5% marcaine plain at the operative sites The?{right upper extremity}?was prepped and draped in sterile fashion the??{right upper extremity} was? exsanguinated with Esmarch bandage and tourniquet inflated to 250mmHg I made a transverse incision in the {right} volar distal wrist crease through skin and dermis with 15 blade scalpel.? Littler scissors spread down to antebrachial fascia. A small incision was made in antebrachial fascia allowing access to Carpal tunnel. I proceeded with sequential dilation staying in line with the ring finger and hugging the hook of the hamate.? I then used the synovial elevator to free any adhesions from the underside of the transverse carpal ligament. Next I was able to insert the Microaire endoscopic carpal tunnel device with direct visualization of the transverse fibers on the monitor and proceeded with complete segmental retrograde release of the ligament in its entirety.? I irrigated with normal saline and closed with 4-0 monocryl for dermis and subcuticular closure. Next, I made a longitudinal incision over right index finger a1 miriam through skin and dermis with 15 blade scalpel. Littler scissors were used to spread down to A1 miriam. The miriam was initially incised with 15 blade then Littler scissors were used to spread above it and below it proximally and distally and transection completed entirely. I used ragnell retractor to withdraw the FDS and FDP tendons for inspection which were free of masses and synovitis and gliding smoothly in the sheath without triggering or crepitus. I irrigated with normal saline and closed with 4-0 chromic. Next, I made a longitudinal incision over right middle finger a1 miriam through skin and dermis with 15 blade scalpel. Littler scissors were used to spread down to A1 miriam. The miriam was initially incised with 15 blade then Littler scissors were used to spread above it and below it proximally and distally and transection completed entirely. I used ragnell retractor to withdraw the FDS and FDP tendons for inspection which were free of masses and synovitis and gliding smoothly in the sheath without triggering or crepitus. I irrigated with normal saline and closed with 4-0 chromic. A dressing of xeroform in the palm and Dermabond for wrist, 4x4, hugo, and a volar splint was applied for patient safety, security, and comfort and secured with an shannan bandage after the tourniquet was let down noting the hand was warm and well perfused. The patient was then awaken from anesthesia and transferred to the recovery room in stable condition.? Complications - none EBL- 0cc Disposition - home in stable conditions Izzy Vasquez PA-C was essential for positioining, retraction, closure and dressing placement G Billing Surgery - Charge Forward: Surgery Billing ([id number], same for izzy adding modifier )
--- NOTE | 2024-07-02 07:58 | P.PNAN_ITS ---
Anes - Initial Pre Proc Eval Procedure: Operation Date: 07/02/24 08:30 Proposed Procedures p Right Endoscopic Carpal Tunnel Release, Possible Open - Christy Lowry MD s Release Right Index and Middle Trigger Finger - Christy Lowry MD Date/Time: 07/02/24 07:58 Surgeon: Christy Lowry MD Pre Op Diagnosis: right carpal tunnel, middle trigger finger Patient Data Age: 58 Gender: F Height: 1.65 m Weight: 65.5 kg Last Vital Signs Temp 97.7 F 07/02/24 06:30 Pulse 85 07/02/24 06:30 Resp 18 07/02/24 06:30 BP 139/69 07/02/24 06:30 Pulse Ox 100 07/02/24 06:30 O2 Del Method Room Air 07/02/24 06:30 Allergies Allergy/AdvReac Type Severity Reaction Status Date / Time Wrnnndy-HEQ-JqX Reductase Allergy Severe Muscle Verified 07/02/24 07:05 Inhibitor (Xdkxeqg-Gwd-Zlo Spasms Reductase Inhibitor) vancomycin Allergy Severe Hives Verified 07/02/24 07:05 prochlorperazine (From AdvReac Jittery Verified 07/02/24 07:05 Compazine) Home Medications ?Medication ?Instructions ?Recorded ?Confirmed ?Type aspirin 81 mg tablet,delayed 81 mg PO DAILY 06/19/19 06/25/24 History release clopidogrel 75 mg tablet (Plavix) 75 mg PO DAILY 06/19/19 06/25/24 History multivitamin,et-vjdu-pvfwojuv 1 tablet PO DAILY 06/19/19 06/25/24 History (Complete Multivitamin tablet) ezetimibe 10 mg tablet (Zetia) 10 mg PO DAILY 10/18/19 06/25/24 History blood-glucose meter (True Metrix #1 ea 07/19/21 06/25/24 Rx Glucose Meter kit) blood glucose control, low (True #1 ea 07/26/21 06/25/24 Rx Metrix Level 1 solution) blood sugar diagnostic (True #100 ea 07/20/22 06/25/24 Rx Metrix Glucose Test Strip) lancets 33 gauge (TRUEplus Lancets) #100 ea 07/20/22 06/25/24 Rx irbesartan 300 mg tablet 300 mg PO DAILY #90 tabs 10/22/23 03/25/25 Rx lidocaine 5 % topical patch 2 patch transdermal DAILY 05/30/23 06/25/24 History ropinirole 3 mg tablet See Rx Instructions .Route 10/02/23 06/25/24 Rx .COMPLEX #90 tabs famotidine 20 mg tablet See Rx Instructions .Route 12/27/23 06/25/24 Rx .COMPLEX #90 tabs hydrochlorothiazide 25 mg tablet 25 mg PO QAM #90 tabs 01/01/24 06/25/24 Rx amlodipine 10 mg tablet See Rx Instructions .Route 03/25/24 06/25/24 Rx .COMPLEX #90 tabs cyclobenzaprine 10 mg tablet See Rx Instructions .Route 04/09/24 06/25/24 Rx .COMPLEX #100 tabs spironolactone 25 mg tablet See Rx Instructions .Route 05/02/24 06/25/24 Rx .COMPLEX #90 tabs gabapentin 400 mg capsule 400 mg PO TID #270 caps 05/21/24 06/25/24 Rx diazepam 2 mg tablet (Valium) 2 mg PO DAILY PRN anxiety #15 tabs 05/30/24 06/25/24 Rx hydrocodone 7.5 mg-acetaminophen 1 tablet PO BID PRN pain #60 tabs 06/03/24 06/25/24 Rx 325 mg tablet albuterol sulfate 90 mcg/actuation See Rx Instructions .Route 06/17/24 06/25/24 Rx aerosol inhaler .COMPLEX #9 grams trazodone 50 mg tablet 50 mg PO HS #90 tabs 06/24/24 06/25/24 Rx Patient hx anesthesia problems: none Family hx anesthesia problems: none Results Review: All pre-operative results and documents have been reviewed as part of the pre- operative evaluation. [facility] Past Medical History Medical History Peripheral arterial disease History of multiple stents to her left iliac region, vascular surgery with right to left fem-fem bypass with Dr. Lynne 07/2014, bilateral aortofemoral bypass in 03/2017, and has required a few revisions. Hypertension Nocturia Stress incontinence Sleep apnea with mood disorder Seasonal allergies Tobacco abuse Mixed hyperlipidemia Incisional hernia emt intermediate (current) use of antithrombotics/antiplatelets Diabetes mellitus with peripheral artery disease Restless leg syndrome Mood disorder Primary hypertension Chronic depression Chronic anxiety Type 2 diabetes mellitus with vascular disease Anxiety Surgical History Surgical History History of heart artery stent Colonoscopy planned H/O cardiac catheterization From 05/12/2017 on Teacher Physically Impaired note states the patient had a cardiac catheterization in 2005 which showed normal coronary arteries. Status post laparoscopic hernia repair Status post aortobifemoral bypass surgery Hx of hernia repair Hx of qnmrz-gsjqm-tqueesd bypass Family History Family History Sibling Family history of diabetes mellitus in first degree relative Family history of liver disease Liver cancer Diabetes mellitus Hypertension Heart disease Mother Liver cancer Diabetes mellitus Congestive heart failure Hypertension Father Congestive heart failure Hypertension Heart disease Social History Social History Social History: Surrogate medical decision maker: Josh Gray, spouse. Code status: Full code. Caffeine-daily Smoking packs per day: 0.5 Smoking cigarettes per day: 10.0 Years smoked: 30 Smoking pack-years: 15.00 Smoking status: Current every day smoker Tobacco type: cigarettes Additional smoking assessment comments: currently smokes 5-7 cigarettes per day Alcohol intake: never Substance use: current Substance use type: marijuana Other substance usage details: edibles daily for pain. Do You Feel Safe in your Home?: Yes Lack of Transportation: No Lack of Food: Never True Current Housing: I Have Housing Concerned About Future Housing: No Difficulty Paying Gas/Electric Bills: No Difficulty Paying for Meds: No Currently Unemployed: No Education: Associate Degree Difficulty w/ Childcare or Family Care: No Living arrangements: with family Additional living arrangements comments: She lives with her in [place]. They now have custody of their 9 and 11 yo grandsons. Occupation/Education: other Additional occupation/education comments: Disabled due to PAD Spiritual care concerns: No Agree to blood products: Yes Anes - Eval Final PreProcedure Day of Procedure 07/02/24 07:58 Patient weight: normal Lungs: normal air movement Airway: Mallampati scale class II and special considerations (Edentulous. ) Neurological: alert and oriented Last oral intake: >/= 8 hours ASA classification: IV Emergent: no Anesthetic plan: proceed Anesthesia type and monitoring: general GIVS and standard monitoring Results Review: All pre-operative results and documents have been reviewed as part of the pre- operative evaluation. HTN, hyperlipidemia, PVD, CAD s/p PTCA approx 2005, pt continues to smoked and did smoke this am prior to surgery. AC on hold for 5 days currently. Informed Consent: The patient's anesthetic plan and its attendant risks and benefits were discussed with the patient/family/POA. Questions were solicited and answers provided to the satisfaction of the patient/family/POA.
[2024-07-02] MEDS: ceFAZolin 2 GM/D5W 50 ML 2 GM/50 ML BAG IVPB (08:03)
[2024-07-02] MEDS: LIDO 1%/EPINEPHRINE 1:100,000 20 ML VIAL 5 ML INFILTRATE (08:18)
[2024-07-02] MEDS: BUPivacaine HCL 0.5% 10 ML AMP 5 ML INFILTRATE (08:18)
[2024-07-02 08:27] VITALS: BP 87/60; PULSE 64; RESP 14; O2SAT 100
[2024-07-02 08:55] VITALS: BP 115/63; PULSE 62
[2024-07-02 09:25] VITALS: BP 109/78; PULSE 63
== END 2024-07-02 09:34 | disposition home or self-care (01) ==
PROVIDERS: PCP Family Medicine; Visit Provider Plastic Surgery
PROC: 01N54ZZ Release Median Nerve, Percutaneous Endoscopic Approach (ICD-10-PCS; CPT 29848; principal; 2024-07-02 08:30)
PROC: (CPT 26055; 2024-07-02 08:30)
DX: G56.01 Carpal tunnel syndrome, right upper limb (principal); M65.331 Trigger finger, right middle finger; M65.321 Trigger finger, right index finger; I10 Essential (primary) hypertension; E78.2 Mixed hyperlipidemia; E11.51 Type 2 diabetes mellitus with diabetic peripheral angiopathy without gangrene; N39.3 Stress incontinence (female) (male); N32.81 Overactive bladder; G47.30 Sleep apnea, unspecified; G25.81 Restless legs syndrome; F39 Unspecified mood [affective] disorder; I25.10 Atherosclerotic heart disease of native coronary artery without angina pectoris; I73.9 Peripheral vascular disease, unspecified; F32.A Depression, unspecified; F41.9 Anxiety disorder, unspecified; F17.210 Nicotine dependence, cigarettes, uncomplicated; F12.90 Cannabis use, unspecified, uncomplicated; Z79.02 Long term (current) use of antithrombotics/antiplatelets; Z79.82 Long term (current) use of aspirin; Z79.891 Long term (current) use of opiate analgesic; Z79.51 Long term (current) use of inhaled steroids; Z98.890 Other specified postprocedural states; Z95.5 Presence of coronary angioplasty implant and graft; Z86.79 Personal history of other diseases of the circulatory system; Z80.0 Family history of malignant neoplasm of digestive organs; Z82.49 Family history of ischemic heart disease and other diseases of the circulatory system
CPT/HCPCS: 29848; 26055 ×2; A9270; J0690; J2004; J2250; J2405; J2704; J3010; J7120

== ENCOUNTER 2024-12-12 15:19 | Outpatient (CLI) | payer MEDICARE, SELFPAY ==
--- OUTSIDE RECORDS SUMMARY | 2007-05-23 04:21 | XMS_ITS | Continuity of Care Document ---
Author Organization [facility] Address [address] [place] [address] Phone Care Team Providers Care End User Consultant Name Role Phone Arellano OD, Aldo Unavailable Unavailable Procedures Procedure Date Eye Exam & Treatment Eye Exam Established Pt Advance Directives Directive Yes / No Effective Date File Name No Information Encounters Encounter Description Practice Location Reason(s) For Visit Diagnoses Date Provider Providers Copied on Encounter [facility], [address] [place] [address] [address], [place], [place], [id number], tel:[phone] [facility] [place] No Information 0-200 8 Arellano OD Aldo. [address] , [address], [place], [address], [place]. tel:[phone] [facility], [address] [place] [address] [address], [place], [place], [id number], tel:[phone] [facility] [place] No Information 0-200 8 Arellano OD Aldo. [address] , [address], [place], [address], [place]. tel:[phone] Family History Family Member Type Diagnosis Age At Onset No Information Payers Payer name Insurance type Covered democrat ID Authorleelee serrato(s) Medicaid [facility] [id number] Social History Type Description Quantity Date Captured Comments Sex Female Smoking Status No Information Chief Complaint And Reason For Visit No Information Reason For Referral Reason For Referral No Information History Of Present Illness Encounter Date Complaint History Of Prese nt Illness No Information Functional Status Date Functional Assessmen t No Information Instructions Date Instruction Additional Infor mation No Information Assessments Type Assessment Date No Information Patient Care Teams Name Effective Dates (start - stop) Status Members No Information
--- OUTSIDE RECORDS SUMMARY | 2007-05-23 04:21 | XMS_ITS | Continuity of Care Document ---
Author Organization [facility] Address [address] [address] [place] [address] Phone Care Team Providers Care Setter Up Name Role Phone Arellano OD, Aldo Unavailable Unavailable Procedures Procedure Date Eye Exam & Treatment Eye Exam Established Pt Advance Directives Directive Yes / No Effective Date File Name No Information Encounters Encounter Description Practice Location Reason(s) For Visit Diagnoses Date Provider Providers Copied on Encounter [facility], [address] [place] [address] [address], [place], [place], [id number], tel:[phone] [facility] [place] No Information 0-200 8 Arellano OD Aldo. [address] [facility] , [address], [place], [address], [place]. tel:[phone] [facility], [address] [place] [address] [address], [place], [place], [id number], tel:[phone] [facility] [place] No Information 0-200 8 Arellano OD Aldo. [address] [facility] , [address], [place], [address], [place]. tel:[phone] Family History Family Member Type Diagnosis Age At Onset No Information Payers Payer name Insurance type Covered republican ID Authorleelee serrato(s) Medicaid [facility] [id number] Social History Type Description Quantity Date Captured [...]
--- OUTSIDE RECORDS SUMMARY | 2019-07-16 05:59 | XMS_ITS | Continuity of Care Document ---
Author Organization [facility] Address [address] [place] [address] [place] [address] Phone Care Team Providers Care Rebar Fabricator Name Role Phone Juan Miguel Willis MD Unavailable Unavailable Allergies, Adverse Reactions, Alerts Substance Reaction Status Criticality OXYCODONE HCL Active No Information acetaminophen Active No Information tramadol Active No Information Medications Medication Instructions Dosage Effective Dates (start - stop) Status Comments Cymbalta 60 mg capsule,delayed release take 1 capsule by oral route every day - Active Ativan 1 mg tablet take 1 tablet by oral route 2 times every day as needed as needed 1 MG - Active PRn for anxiety, avoid driving or operate machines Steglatro 15 mg tablet take 1 tablet by oral route every day in the morning 15 MG - Active irbesartan 300 mg tablet take 1 tablet by oral route every day 300 MG - Active Lamictal 100 mg tablet take 1 tablet by oral route 2 times every day 100 MG - Active metformin 1,000 mg tablet take 1 tablet by oral route 2 times every day with morning and evening meals 1000 MG - Active ropinirole 1 mg tablet take 1 tablet by oral route every bedtime 1 MG - Active Aspir-81 mg tablet,delayed release take 1 tablet by oral route every day - Active Plavix 75 mg tablet take 1 tablet by oral route every day 75 MG - Active Problems Condition Type Effective Dates (start - stop) Clini susy Status Comments No Known Problems Procedures Procedure Date OFFICE/OUTPATIENT VISIT, EST OFFICE/OUTPATIENT VISIT, EST OFFICE/OUTPATIENT VISIT, EST PREV VISIT, NEW, AGE 40-64 OFFICE/OUTPATIENT VISIT, NEW Advance Directives Directive Yes / No Effective Date File Name No Information Encounters Encounter Description Practice Location Reason(s) For Visit Diagnoses Date Provider Providers Copied on Encounter [facility], [address], [place], [place], [address], [place] tel:[phone] [facility] No Information 0 Lazaro Bullard. [address], [place], [place], [address] , [place]. tel:[phone] Referring Provider: Delio Escalona [facility] [address], [place], [place], [id number]. tel:[phone] OFFICE/OUTPA TIENT VISIT, [facility], [place], [address], [place], [place], [address], [place] tel:[phone] [facility] insomnia1 (chief complaint) anxiety1 (chief complaint) weight gain1 (chief complaint) Generalized Anxiety DisorderInsomniaAbn ormal weight gain 0 Lazaro Bullard. [address], [place], [place], [address] , [place]. tel:[phone] Referring Provider: Delio Escalona [address], [place], [place], [address]. tel:[phone] OFFICE/OUTPA TIENT VISIT, [facility], [place], [address], [address], [place] tel:[phone] [facility] DM (chief complaint) hypothyroi dism1 (chief complaint) HLP (chief complaint) b12 (chief complaint) HTN (chief complaint) insomnia1 (chief complaint) Type 2 diabetes mellitus with diabetic nephropathyHyperlip idemiaHypothyroidis mOther specified abnormal findings of blood chemistryEssential (primary) hypertensionInsomni aGeneralized Anxiety Disorder 0 Lazaro Bullard. [address], [place], [place], [address] , [place]. tel:[phone] Referring Provider: Delio Escalona [address], [place], [place], [address]. tel:[phone] OFFICE/OUTPA TIENT VISIT, EST [facility], [address], [place], [place], [address], [place] tel:[phone] [facility] HTN (chief complaint) neuropathy (chief complaint) infection1 (chief complaint) insomnia1 (chief complaint) Cellulitis of right lower limbEssential (primary) hypertensionType 2 diabetes w/ diabetic neuropathyInsomnia 0 Lazaro Bullard. [address] [facility], [place], [place], [address] , [place]. [phone] Referring Provider: [facility], [place], [place], [address]. tel:[phone] PREV VISIT, NEW, AGE 40-64 [facility], [facility] [address] [place], [address], [place] tel:[phone] [facility] PHysical (chief complaint) Peripheral vascular diseaseType [address] for general adult medical exam w abnormal findingsEssential (primary) hypertensionGeneral ized Anxiety Disorder 0 Lazaro Bullard. [address], [place], [place], [address] , [place]. tel:[phone] Referring Provider: Delio Escalona [facility], [place], [place], [address]. tel:[phone] Family History Family Member Type Diagnosis Age At Onset Brother Problem (finding) of CHF 64 Mother Problem (finding) of 71 CHF, PAD, li artur [place] Father Problem (finding) of CHF 76 Sister Problem (finding) Diabetes mellitus Payers Payer name Insurance type Covered libertarian ID Authoriza tion(s) No Information Social History Type Description Quantity Date Captured Comments Sex Female Smoking Status No Information Chief Complaint And Reason For Visit No Information Plan Of Treatment Date Type Action Status Goal Tobacco cessation counseling completed Goal Tobacco cessation counseling completed Goal Tobacco cessation counseling completed History Of Present Illness Encounter Date Complaint History Of Prese nt Illness anxiety1 Pt has anxiety a nd depression. Pt has PTSD. Pt takes cymbalta and lamictal and she is not doing any better Pt denies any suicidal or homicidal thought. Pt has been having crying spells. pt has insomnia Pt been to multiple psychiatrist in the past. Pt states that she tried multiple anxiety medication and none worked. Pt is frustrated about her poorly controlled anxiety. Pt states that she is not seeing her psychiatrist anymore at this point weight gain1 Pt gained 7-8 po unds since her last visit 3 weeks ago. Pt states that she has been very physically inactive Pt is not on any diet insomnia1 Pt has insomnia. Pt states that sreedhar does not work anymore Pt is off trazodone DM Pt takes metform in and steglatro. her glucose is 157 and her A1c is 7.4 Pt denies any polyuria, polydipsia Pt denies any numbness or neuropathy. Pt has proteinuria insomnia1 Pt is doing ok w ith ambien Pt is off clonidine. Pt wants to wean off trazodone. HLP Pt has mildly hi gh tG Pt just recently started to work on her low fat and low carb diet b12 Pt has high B12 Pt takes b12 supplement . HTN Pt has HTN pt ta kes irbesartan and her BP is ok today Pt denies any chest pain or headache hypothyroidism1 Pt has low thyro id. Pt denies any history of thyroid problem. Pt denies any fatigue or weight gain infection1 Pt c/o inner thi gh abscess since last Pt denies any bite kellen Pt notices redness and induration with pus drainage Pt denies any fever Pt c/o pain insomnia1 P takes clonidin e and trazodone but she still can not sleep Pt denies any snoring or any trouble with breathing at night neuropathy Additional infor mation: Pt has PAD and neuropathy Pt just seen vascular surgeon .pt was told she has neuropathy Pt was given opioid by vascular but she does not want it. Pt does have claudication. HTN Pt has HTn Pt ta kes irbesartan 150 mg Her BP is still high Pt denies any chest pain. pt has mild headache lately Pt denie any head injury or waking up at night with headache PHysical Pt needs annual physical Pt has borderline DM Pt takes metformin and steglatro and her BG is around 120s pt denies any polyuria, polydipsia. pt has peripheral neuropathy Pt is on requip which works ok. Pt has HTN Pt takes losartan but not working pt has anxiety and depression Pt in on lexapro and lamictal pt has anxiety but her psychiatrist nurse does not want to try her on benzo.. Pt denies any suicidal or homicidal thought. Pt has PAD s/p bypass surgery Pt sees vascular surgeon. Pt denies any claudication. Pt denies any other complaints Instructions Date Instruction Additional Infor mation No Information Assessments Type Assessment Date No Information
--- OUTSIDE RECORDS SUMMARY | 2019-07-16 05:59 | XMS_ITS | Continuity of Care Document ---
Author Organization [facility] Address [address] [place] [address] [place] [address] Phone Care Team Providers Care Customs Compliance Manager Name Role Phone Juan Miguel Willis MD Unavailable Unavailable Allergies, Adverse Reactions, Alerts Substance Reaction Status Criticality OXYCODONE HCL Active No Information acetaminophen Active No Information tramadol Active No Information Medications Medication Instructions Dosage Effective Dates (start - stop) Status Comments Ativan 1 mg tablet take 1 tablet by oral route 2 times every day as needed as needed 1 MG - Active PRn for anxiety, avoid driving or operate machines Cymbalta 60 mg capsule,delayed release take 1 capsule by oral route every day - Active Lamictal 100 mg tablet take 1 tablet by oral route 2 times every day 100 MG - Active irbesartan 300 mg tablet take 1 tablet by oral route every day 300 MG - Active Steglatro 15 mg tablet take 1 tablet by oral route every day in the morning 15 MG - Active ropinirole 1 mg tablet take 1 tablet by oral route every bedtime 1 MG - Active metformin 1,000 mg tablet take 1 tablet by oral route 2 times every day with morning and evening meals 1000 MG - Active Plavix 75 mg tablet take 1 tablet by oral route every day 75 MG - Active Aspir-81 mg tablet,delayed release take 1 tablet by oral route every day - Active Problems Condition Type Effective Dates [...] Diagnoses Date Provider Providers Copied on Encounter [facility], [address], [place], [place], [address], [place] tel:[phone] [facility] No Information 0 Lazaro Bullard. [address], [place], [place], [address] , [place]. tel:[phone] Referring Provider: Delio Escalona [facility] A, [place], [place], [id number]. tel:[phone] OFFICE/OUTPA TIENT VISIT, [facility], [address], [place], [place], [address], [place] tel:[phone] [facility] insomnia1 (chief complaint) anxiety1 (chief complaint) weight gain1 (chief complaint) Generalized Anxiety DisorderInsomniaAbn ormal weight gain 0 Lazaro Bullard. [address], [place], [place], [address] , [place]. tel:[phone] Referring Provider: Delio Escalona [address], [place], [place], [address]. tel:[phone] OFFICE/OUTPA TIENT VISIT, [facility], [address] [place], [address], [place] tel:[phone] [facility] DM (chief complaint) hypothyroi dism1 (chief complaint) HLP (chief complaint) b12 (chief complaint) HTN (chief complaint) insomnia1 (chief complaint) Type 2 diabetes mellitus with diabetic nephropathyHyperlip idemiaHypothyroidis mOther specified abnormal findings of blood chemistryEssential (primary) hypertensionInsomni aGeneralized Anxiety Disorder 0 Lazaro Bullard. [address], [place], [place], [address] , [place]. tel:[phone] Referring Provider: Delio Escalona [address], [place], [place], [address]. tel:[phone] OFFICE/OUTPA TIENT VISIT, EST [facility], [address], [place], [place], [address], [place] tel:[phone] [facility] HTN (chief complaint) neuropathy (chief complaint) infection1 (chief complaint) insomnia1 (chief complaint) Cellulitis of right lower limbEssential (primary) hypertensionType 2 diabetes w/ diabetic neuropathyInsomnia 0 Lazaro Bullard. [address] [facility] [address], [place], [place], [address] , [place]. tel:[phone] Referring Provider: [facility], [place], [place], [address]. tel:[phone] PREV VISIT, NEW, AGE 40-64 [facility], [facility] [address] [place], [address], [place] tel:[phone] [facility] PHysical (chief complaint) Peripheral vascular diseaseType [address] for general adult medical exam w abnormal findingsEssential (primary) hypertensionGeneral ized Anxiety Disorder 0 Lazaro Bullard. [address], [place], [place], [address] , [place]. tel:[phone] Referring Provider: Delio Escalona [facility], [place], [place], [address]. tel:[phone] Family History Family Member Type Diagnosis Age At Onset Brother Problem (finding) of CHF 64 Mother Problem (finding) of 71 CHF, PAD, li artur [place] Father Problem (finding) of CHF 76 Sister Problem (finding) Diabetes mellitus Payers Payer name Insurance type Covered democrat ID Authoriza tion(s) No Information Social History Type Description Quantity Date Captured Comments Sex Female Smoking Status No Information Chief Complaint And Reason For Visit No Information Plan Of Treatment Date Type Action Status Goal Tobacco cessation counseling completed Goal Tobacco cessation counseling completed Goal Tobacco cessation counseling completed History Of Present Illness Encounter Date Complaint History Of Prese nt Illness insomnia1 Pt has insomnia. Pt states that sreedhar does not work anymore Pt is off trazodone weight gain1 Pt gained 7-8 po unds since her last visit 3 weeks ago. Pt states that she has been very physically inactive Pt is not on any diet anxiety1 Pt has anxiety a nd depression. [...] seeing her psychiatrist anymore at this point hypothyroidism1 Pt has low thyro id. Pt denies any history of thyroid problem. Pt denies any fatigue or weight gain HTN Pt has HTN pt ta kes irbesartan and her BP is ok today Pt denies any chest pain or headache b12 Pt has high B12 Pt takes b12 supplement . HLP Pt has mildly hi gh tG Pt just recently started to work on her low fat and low carb diet insomnia1 Pt is doing ok w ith ambien Pt is off clonidine. Pt wants to wean off trazodone. DM Pt takes metform in and steglatro. her glucose is 157 and her A1c is 7.4 Pt denies any polyuria, polydipsia Pt denies any numbness or neuropathy. Pt has proteinuria HTN Pt has HTn Pt ta kes irbesartan 150 mg Her BP is still high Pt denies any chest pain. pt has mild headache lately Pt denie any head injury or waking up at night with headache neuropathy Additional infor mation: Pt has PAD and neuropathy Pt just seen vascular surgeon .pt was told she has neuropathy Pt was given opioid by vascular but she does not want it. Pt does have claudication. insomnia1 P takes clonidin e and trazodone but she still can not sleep Pt denies any snoring or any trouble with breathing at night infection1 Pt c/o inner thi gh abscess since last Pt denies any bite kellen Pt notices redness and induration with pus drainage Pt denies any fever Pt c/o pain PHysical Pt needs annual physical Pt has [...] other complaints Instructions Date Instruction Additional Infor renuka No Information Assessments Type Assessment Date No Information
--- NOTE | ~2024-12-12 | XR_ITS ---
EXAMINATION: XR knee LT 3V, 12/12/2024 15:30 CDT HISTORY: M25.569 - Pain in unspecified knee, NKI COMPARISON: No comparisons available. Findings: There is a remote corticated fracture of the superior patella, no acute fracture identified. No significant degenerative changes. Soft tissues unremarkable. Impression: No acute fracture or malalignment. Reviewed, dictated and finalized at location A. Impression: No acute fracture or malalignment.
[2024-12-12 15:54] LABS: Hematocrit 35.3 % (37.0-47.0); Hemoglobin 11.1 g/dL (12.0-15.0); Immature Granulocyte Percent A 0.5 % (0-0.5); Lymphocytes Absolute Auto 2.04 K/mm3 (0.9-3.2); Mean Corpuscular HGB Conc 31.4 g/dl (32-36); Mean Corpuscular Hemoglobin 30.0 pg (26-34); Mean Corpuscular Volume 95.4 fl (80-100); Nucleated Red Blood Cells Absolute Auto 0.000 K/mm3 (0.0-0.012); Nucleated Red Blood Cells Perc 0.0 % (0.0-0.2); Platelet Count Result 219 k/mm3 (150-375); Red Blood Count 3.70 M/mm3 (4.2-5.4); White Blood Count 9.7 K/mm3 (4.5-10.0)
--- OUTSIDE RECORDS SUMMARY | 2024-12-12 16:36 | XMS_ITS | Clinical Summary ---
Author Organization [facility] Address [address] [place] [address] Care Team Providers Care Powertrain Control Systems Engineer Name Role Phone Jm Mendoza MD Unavailable [phone] Henna Jacobo MD Unavailable Henna Jacobo MD Unavailable Kade Riojas MD Unavailable Nain Romero MD Primary Care Provider [phone] Allergies Active Allergy Reactions Criticality Noted Date Comments Morphine Other (See comments) Low 02/04/2022 Makes me angry Oxycodone Itching,Rash Medium 10/15/2019 Can take Hydrocodone Ahhwcrf-Lkd-Svc Reductase Inhibitors Muscle pain Medium 02/10/2022 Tramadol [...] Lancets 33 gauge misc 2 Active multivit axbmbzja-cjvd-H A-calcium (THERA-M) 9 mg iron-400 mcg tabletIndicatio [...] 04/25/2023 Assessment & Plan (04/25/2023 12:48 PM UTILITIES OPERATOR): Impression: Patient reports a right achilles tendon injury. She had noninvasive studies performed at an outside facility. She has an orthopedic surgeon however does not treat foot and ankle conditions. Plan; Will refer to Dr Mcnair for further evaluation. Postoperative seroma involvi ng circulatory system after other circulatory system procedure 03/04/2022 Assessment & Plan (04/29/2022 10:25 AM UTILITIES OPERATOR): Patient is returning for wound check to the right groin. The groin is healed. No complaints or issues from the patient. Seen with Dr. Mendoza. Plan: Return in 6 months for routine surveillance of her arterial disease with a bilateral lower extremity arterial Doppler. Assessment & Plan (04/08/2022 1:11 PM UTILITIES OPERATOR): Patient is following up postoperatively after [...] 07/13/2018 Assessment & Plan (04/25/2023 12:29 PM UTILITIES OPERATOR): Impression: Chronic and stable. Plan: Continue Zetia Hypothyroidism 07/13/2018 Anxiety and depression 07/13/2018 Neuropathy 07/13/2018 Vitamin D deficiency 07/13/2018 Atherosclerosis of sun'aq ar radha of both lower extremities with intermittent claudication 11/08/2017 Assessment & Plan (04/25/2023 11:44 AM UTILITIES OPERATOR): Impression: Patient has a significant history [...] duplex. Assessment & Plan (03/25/2020 3:52 PM UTILITIES OPERATOR): Impression: Stable nondisabling claudication right lower [...] arterial duplex surveillance. Chronic pain syndrome 09/18/2017 terminal worker prescription opiate use 09/18/2017 Complex regional pain [...] re-evaluation. Assessment & Plan (04/21/2020 9:51 AM UTILITIES OPERATOR): Impression: Chronic pain right lower extremity [...] 03/04/2017 Assessment & Plan (04/25/2023 12:30 PM UTILITIES OPERATOR): Impression: Chronic an elevated. Patient denies [...] provider. Assessment & Plan (03/25/2020 3:53 PM UTILITIES OPERATOR): Impression: Stable hypertension. Plan: Continue current antihypertensive regimen as directed by PCP. Assessment & Plan (01/31/2020 1:20 PM CDT): Impression: Stable hypertension. Plan: Continue current antihypertensive regimen as directed by PCP. PVD (peripheral vascular disease) 03/04/2017 DM type 2 (diabetes mellitus, type 2) 03/04/2017 Thrombosis of aortic bifurcation bypass graft Anxiety 12/23/2013 Diabetes mellitus 12/23/2013 Assessment & Plan (04/25/2023 12:28 PM UTILITIES OPERATOR): Impression: Chronic with good glucose control. [...] 04/25/2023 Assessment & Plan (04/21/2020 9:52 AM UTILITIES OPERATOR): Impression: Stable nondisabling claudication both lower [...] Encounters Date Type Department Care Team Description 10/15/2024 Telephone [facility] Vascular [facility] Vein Surgery [address] [place] [id number] Zhou Trejo MD from Last 3 Months Immunizations Immunization Administration [...] History Date Comments Type 2 diabetes mellitus 1999 NIDDM Hypertension Peripheral vascular disease Depression Anxiety Hyperlipidemia Arthritis GERD (gastroesophageal reflux disease) controlled Neuropathy Bilateral Legs RLS (restless legs syndrome) Bipolar disorder Anxiety PTSD (post-traumatic stress disorder) From finding [...] pur e alcohol) OCC Social Connection and Isolation Panel Answer Date Recorded In a typical week, how many times do you talk on the phone with family, friends, or neighbors? More than three times a week 03/07/2022 How often do you get togethe r with friends or relatives? More than three times a week 03/07/2022 How often do you attend chur or zoroastrian services? 1 to 4 times per year 03/07/2022 Do you belong to any clubs o r organizations such as holiness groups, unions, fraternal or athletic groups, or [...] place to sleep or slept in a long term (including now)? No 03/07/2022 Comments No Sex and Gender Information Value Date Recorded Sex Assigned at Not on file Legal Sex Female 12:29 AM UTILITIES OPERATOR Gender Identity Female 04/25/2024 11:50 AM UTILITIES OPERATOR Sexual Orientation Not on file Obstetrics History Last Filed Vital Signs Vital Sign Reading Time Taken Comments Blood Pressure 133/68 05/02/2024 2:59 PM UTILITIES OPERATOR Pulse 84 05/02/2024 2:59 PM UTILITIES OPERATOR Temperature 36.6 C (97.8 F) 04/08/2022 11:10 AM UTILITIES OPERATOR Respiratory Rate 18 04/08/2022 11:10 AM UTILITIES OPERATOR Oxygen Saturation 98% 04/08/2022 11:10 AM UTILITIES OPERATOR Inhaled Oxygen Concentration - - Weight 62.1 kg (137 lb) 05/02/2024 2:59 PM UTILITIES OPERATOR Height 165.1 cm (5' 5) 05/02/2024 2:59 PM UTILITIES OPERATOR Body Mass Index 22.8 05/02/2024 2:59 PM UTILITIES OPERATOR Plan of Treatment Health Maintenance Due Date [...] Additional history exists Hemoglobin A1C 09/03/2022 03/05/2022, 12/2021, 10/31/2019, Additional history exists eGFR 03/10/2023 03/10/2022, 10/2021, 03/08/2022, Additional history exists Covid-19 Vaccine (3 - 2024-2 6 season) 2024 08/07/2020, 07/10/2020 Influenza Vaccine (#1) 2024 , 03/20/2019, 07/04/2018, Additional history exists Medical Devices Implanted Type Area Optical Goods Worker Device Identifier Shelf Expiration Date Model / Serial / Lot [id number] Hemashield Gold 8mm 60cm 2 Velour Straight Tube Knit Soft Graft - [id number] - [id number] Implanted:Qty: 1 on 02/09/2022 by Jm Mendoza MD at [facility] Right: Femur [employer] [id number] 05/03/2025 [id number] / [id number] / [id number] Procedures Procedure Name Priority Date/Time Associated Diagnosis Comments EGFR Routine 03/10/2022 7:07 AM UTILITIES OPERATOR HEMOGLOBIN A1C Routine 03/05/2022 7:08 AM UTILITIES OPERATOR LIPID PANEL Routine 01/09/2017 4:53 PM CDT from Last 3 Months or Most Recently Relevant to Health Maintenance Results * eGFR (03/10/2022 7:07 AM UTILITIES OPERATOR) eGFR 75 mL/min/1. 73 m2 [facility] Comment: [...] last reviewed 2021. Blood 03/10/2022 7:07 AM UTILITIES OPERATOR 03/10/2022 7:38 AM UTILITIES OPERATOR Zhou Trejo MD LAB BLOOD ORDERABLES Final Result Performing Organization Address [facility] de Phone Number [facility] [address] Department [place] [address] * Hemoglobin A1c (03/05/2022 7:08 AM UTILITIES OPERATOR) Hgb A1C 5.0 4.0 - 5.6 % [facility] Estimated Average Glucose 97 mg/dL [facility] Comment: The ADA recommends reporting an estimated Average Glucose (eAG) with all Hemoglobin A1c results using the equation derived from a study of 507 normal and diabetic adults. Minority populations were underrepresented and children were not included. (Diabetes Care 31:2119-4102, 2008). The eAG is not equivalent to a fasting glucose. Blood 03/05/2022 7:08 AM UTILITIES OPERATOR 03/05/2022 7:27 AM UTILITIES OPERATOR Alba Lindsey MD LAB BLOOD ORDERABLES Final Result Performing Organization Address City/[facility]/ZIP Co de Phone Number [facility] [address] Department [place] [address] * (ABNORMAL) Lipid panel (01/09/2017 4:53 PM [...] 129 mg/dL [facility] Comment: Interpretive Data Optimal: < 100 mg/dL [...] LAB BLOOD ORDERABLES Final Resul t [facility] [id number] Department [place] [address] from Last 3 Months or Most Recently Relevant to Health Maintenance Insurance [facility] CHOICE MEDICARE PPO [employer] MEDICARE HMO [employer] CHOICE MEDICARE PPO [facility] MEDICARE HMO Advance Directives For more information, please contact: [phone] * Full Code (Latest Code Status on [...] 5:18 PM 03/06/2017 5:12 PM Care Teams Powertrain Control Systems Engineer Relationship Specialty Start Date End Date Nain Romero MD [address] [facility] [place] [address] PCP - General Family Practice 04/22/24 Jm Mendoza MD Referring Physician Vascular Surgery 07/26/[address] [facility] [facility] [address] [facility], [address] [address] Consulting Physician Pain Management 08/17/21 Henna Jacobo MD [address] [facility], [facility] [address] [place] [address] Consulting Physician Pain Management 08/17/21 [place] [id number] [address] Consulting Physician Cardiology 01/28/22
--- OUTSIDE RECORDS SUMMARY | 2024-12-12 16:36 | XMS_ITS | Encounter Summary ---
Author Organization [facility] Address [address] [place] [address] Care Team Providers Care Factory Expert Name Role Phone Mayco Buckner MD Primary Care Provider [phone] Jm Mendoza MD Unavailable [phone] Danelle Park NP Primary Care Provider [phone] No, Physician Primary Care Provider [phone] Ramy Barone MD Primary Care Provider [phone] Juan Miguel Willis MD Primary Care Provider [phone] Deny Macedo MD Primary Care Provider + [phone] Deny Macedo MD Primary Care Provider + [phone] Lindsay Harrington MD Primary Care Provider [phone] Farzad Joe DO Primary Care Provider [phone] Henna Jacobo MD Unavailable Henna Jacobo MD Unavailable Kade Riojas MD Unavailable Nain Romero MD Primary Care Provider [phone] Encounter Details Date Type Department Care Team (Late st Contact Info) Description 03/03/2017 Telephone [facility] Pre Anesthesia Testing [address] [place] [address] [place] [address] [address] Social History Tobacco Use Types Packs/Day Years Used Date Smoking Tobacco: Former Smokeless Tobacco: Never Alcohol Use Standard Drinks/Week Comments No 0 (1 standard drink = 0.6 oz pur e alcohol) Comments Unknown Sex and Gender Information Value Date Recorded Sex Assigned at Not on file Legal Sex Female 12:29 AM PAINTER SUPERVISOR Gender Identity Female 04/25/2024 11:50 AM PAINTER SUPERVISOR Sexual Orientation Not on file documented as of this encounter Plan of Treatment Not on file documented as of this encounter Visit Diagnoses Not on filedocumented in this encounter Additional Health Concerns Infection Onset Date Last Indicated Resolved Time MRSA Comment:R groin 04/07/17 04/07/2017 04/07/2017 11/18/2020 5:00 A M CDT documented as of this encounter Care Teams Factory Expert Relationship Specialty Start Date End Date Mayco Buckner MD PCP - General 02/09/17 08/14/18 Danelle Park NP PCP - General 08/15/18 02/20/19 No, Physician PCP - General 02/21/19 03/19/19 Ramy Barone MD PCP - General 03/20/19 04/11/19 Juan Miguel Willis MD [address] [facility] [place] [address] PCP - General Family Medicine 04/12/19 10/31/19 Deny Macedo MD [address] [place] [address] PCP - General Family Medicine 01/16/20 06/17/21 Deny Macedo MD [address] [place] [address] PCP - General 11/01/19 01/15/20 Lindsay Harrintgon MD [address] [place] [address] PCP - General Family Medicine 06/18/21 08/11/21 Farzad Joe DO [address] [place] [address] PCP - General Internal Medicine 08/12/21 04/21/24 Nain Romero MD [address] [place] [address] PCP - General Family Practice 04/22/24 Jm Mendoza MD Referring Physician Vascular Surgery 07/26/17 Henna Jacobo MD [address] [facility], [address] [address] Consulting Physician Pain Management 08/17/21 Henna Jacobo MD [address] [facility], [address] [address] Consulting Physician Pain Management 08/17/21 [place] [address] [address] Consulting Physician Cardiology 01/28/22 documented as of this encounter
--- OUTSIDE RECORDS SUMMARY | 2024-12-12 16:36 | XMS_ITS | Encounter Summary ---
Author Organization [facility] Facility Care Team Providers Care Solutions Developer Name Role Phone Mayco Buckner MD Primary Care Provider [phone] Jm Mendoza MD Unavailable [phone] Danelle Park NP Primary Care Provider [phone] No, Physician Primary Care Provider [phone] Ramy Barone MD Primary Care Provider [phone] Juan Miguel Willis MD Primary Care Provider + [phone] Deny Macedo MD Primary Care Provider + [phone] Deny Macedo MD Primary Care Provider + [phone] Lindsay Harrington MD Primary Care Provider [phone] Farzad Joe DO Primary Care Provider [phone] Henna Jacobo MD Unavailable Henna Jacobo MD Unavailable Kade Riojas MD Unavailable Nain Romero MD Primary Care Provider [phone] Encounter Details Date Type Department Care Team (Latest Contact Info) Description 07/26/2017 Orders Only [facility] CLINCONV ProviderLyndsey MD [address] [place] [id number] Social History Tobacco Use Types Packs/Day Years Used Date Smoking Tobacco: Former Cigarettes 1 30 0 09/02/1986 - 09/02/2016 Smokeless Tobacco: Never Alcohol Use Standard Drinks/Week Comments Yes 0 (1 standard drink = 0.6 oz pur e alcohol) OCC Comments No Sex and Gender Information Value Date Recorded Sex Assigned at Not on file Legal Sex Female 12:29 AM MODERN AND CONTEMPORARY ART CURATOR Gender Identity Female 04/25/2024 11:50 AM MODERN AND CONTEMPORARY ART CURATOR Sexual Orientation Not on file documented as [...] documented as of this encounter Care Teams Solutions Developer Relationship Specialty Start Date End Date Mayco Buckner MD PCP - General 02/09/17 08/14/18 Danelle Park NP PCP - General 08/15/18 02/20/19 No, Physician PCP - General 02/21/19 03/19/19 Ramy Barone MD PCP - General 03/20/19 04/11/19 Juan Miguel Willis MD [address] [place] [address] PCP - General Family Medicine 04/12/19 10/31/19 Deny Macedo MD [address] [facility] [place] [address] PCP - General Family Medicine 01/16/20 06/17/21 Deny Macedo MD [address] [place] [address] PCP - General 11/01/19 01/15/20 Lindsay Harrington MD [address] [facility] [place] [address] PCP - General Family Medicine 06/18/21 08/11/21 Farzad Joe DO [address] [facility] [address] PCP - General Internal Medicine 08/12/21 04/21/24 Nain Romero MD [address] [place] [address] PCP - General Family Practice 04/22/24 Jm Mendoza MD Referring Physician Vascular Surgery 07/26/17 Henna Jacobo MD [address] [facility] [address] [address] Consulting Physician Pain Management 08/17/21 Henna Jacobo MD [address] [facility], [address] [address] Consulting Physician Pain Management 08/17/21 [place] [address] [address] Consulting Physician Cardiology 01/28/22 documented as of this encounter
[2024-12-12 17:20] LABS: Alanine Aminotransferase 14 U/L (6-35); Albumin Level 4.0 g/dL (3.5-5.1); Alkaline Phosphatase 96 U/L (38-126); Anion Gap 4 mmol/L (4-12); Aspartate Amino Transferase 26 U/L (14-36); Bilirubin,Total 0.2 mg/dL (0.2-1.3); Blood Urea Nitrogen 20 mg/dL (7-17); Calcium 9.1 mg/dL (8.4-10.2); Carbon Dioxide 32 mmol/L (22-30); Chloride 99 mmol/L (98-107); Cholesterol 166 mg/dL (0-200); Estimated Glomerular Filt Rate 39; Glucose 93 mg/dL (65-110); HDL Direct 34 mg/dL; Potassium 4.6 mmol/L (3.4-5.0); Sodium 135 mmol/L (137-145); Total Protein 7.5 g/dL (6.3-8.2); Triglycerides 143 mg/dL (<150)
[2024-12-12 18:00] LABS: Hemoglobin A1C 5.6 % (<5.7)
[2024-12-12 18:09] LABS: Vitamin B12 676.0 pg/mL (239-931)
== END 2024-12-12 15:20 | disposition home or self-care (01) ==
LOC: ANHLAB 15:19
PROVIDERS: PCP Family Medicine; Visit Provider Family Medicine
DX: M25.562 Pain in left knee (principal); I10 Essential (primary) hypertension; E11.59 Type 2 diabetes mellitus with other circulatory complications; K21.9 Gastro-esophageal reflux disease without esophagitis; E55.9 Vitamin D deficiency, unspecified; I25.10 Atherosclerotic heart disease of native coronary artery without angina pectoris; I73.9 Peripheral vascular disease, unspecified
CPT/HCPCS: 36415; 73562; 80053; 80061; 82306; 82607; 83036; 85025

== ENCOUNTER 2025-01-15 10:56 | Outpatient (CLI) | payer MEDICARE, SELFPAY ==
--- NOTE | ~2025-01-15 | XR_ITS ---
EXAMINATION: XR shoulder RT min 2V, 01/15/2025 11:00 CDT HISTORY: M25.519 - Pain in unspecified shoulder COMPARISON: No comparisons available. Findings: No acute fracture or malalignment. No significant degenerative changes. Soft tissues unremarkable. Impression: No acute fracture or malalignment. Reviewed, dictated and finalized at location P. Impression: No acute fracture or malalignment.
--- OUTSIDE RECORDS SUMMARY | 2025-01-15 12:59 | XMS_ITS | Encounter Summary ---
Author Organization [facility] Facility Care Team Providers Care Robotics Testing Technician Name Role Phone Mayco Buckner MD Primary Care Provider Jm Mendoza MD Unavailable [phone] Danelle Park NP Primary Care Provider [phone] No, Physician Primary Care Provider [phone] Ramy Barone MD Primary Care Provider [phone] Juan Miguel Willis MD Primary Care Provider + [phone] Deny Macedo MD Primary Care Provider + [phone] Deny Macedo MD Primary Care Provider [phone] Lindsay Harrington MD Primary Care Provider [phone] Farzad Joe DO Primary Care Provider [phone] Henna Jacobo MD Unavailable Henna Jacobo MD Unavailable Kade Riojas MD Unavailable Nain Romero MD Primary Care Provider [phone] Encounter Details Date Type Department Care Team (Latest Contact Info) Description 07/26/2017 Orders Only [facility] CLINCONV ProviderLyndsey MD [address] [place] [id number] Social History Tobacco Use Types Packs/Day Years Used Date Smoking Tobacco: Former Cigarettes 1 30 0 09/02/1986 - 09/02/2016 Smokeless Tobacco: Never Alcohol Use Standard Drinks/Week Comments Yes 0 (1 standard drink = 0.6 oz pur e alcohol) OCC Comments No Sex and Gender Information Value Date Recorded Sex Assigned at Not on file Legal Sex Female 12:29 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 Gender Identity Female 04/25/2024 11:50 AM TOOL 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 Sexual Orientation Not on file documented as [...] documented as of this encounter Care Teams Robotics Testing Technician Relationship Specialty Start Date End Date Macyo Buckner MD PCP - General 02/09/17 08/14/18 Danelle Park NP PCP - General 08/15/18 02/20/19 No, Physician PCP - General 02/21/19 03/19/19 Ramy Barone MD PCP - General 03/20/19 04/11/19 Juan Miguel Willis MD [address] [place] [address] PCP - General Family Medicine 04/12/19 10/31/19 Deny Macedo MD [address] [facility] [address] PCP - General Family Medicine 01/16/20 06/17/21 Deny Macedo MD [address] [place] [address] PCP - General 11/01/19 01/15/20 Lindsay Harrington MD [address] [facility] [address] PCP - General Family Medicine 06/18/21 08/11/21 Farzad Joe DO [address] [facility] [address] PCP - General Internal Medicine 08/12/21 04/21/24 Nain Romero MD [address] [place] [address] PCP - General Family Practice 04/22/24 Jm Mendoza MD Referring Physician Vascular Surgery 07/26/17 Henna Jacobo MD [address] [facility] [address] [address] Consulting Physician Pain Management 08/17/21 Henna Jacobo MD 4700 [facility], [address] [address] Consulting Physician Pain Management 08/17/21 [place] [address] [address] Consulting Physician Cardiology 01/28/22 documented as of this encounter
--- OUTSIDE RECORDS SUMMARY | 2025-01-15 12:59 | XMS_ITS | Encounter Summary ---
Author Organization [facility] Address [address] [place] [address] Care Team Providers Care Family Engagement Specialist Name Role Phone Mayco Buckner MD Primary Care Provider [phone] Jm Mendoza MD Unavailable [phone] Danelle Park NP Primary Care Provider [phone] No, Physician Primary Care Provider [phone] Ramy Barone MD Primary Care Provider [phone] Juan Miguel Willis MD Primary Care Provider + [phone] Deny Macedo MD Primary Care Provider + [phone] Deny Macedo MD Primary Care Provider + [phone] Lindsay Harrington MD Primary Care Provider [phone] Farzad Joe DO Primary Care Provider [phone] Henna Jacobo MD Unavailable Henna Jacobo MD Unavailable Kade Riojas MD Unavailable Nain Romero MD Primary Care Provider [phone] Encounter Details Date Type Department Care Team (Late st Contact Info) Description 03/03/2017 Telephone [facility] Pre Anesthesia Testing [address] [place] [address] [place] [address] [address] [address] Social History Tobacco Use Types Packs/Day Years Used Date Smoking Tobacco: Former Smokeless Tobacco: Never Alcohol Use Standard Drinks/Week Comments No 0 (1 standard drink = 0.6 oz pur e alcohol) Comments Unknown Sex and Gender Information Value Date Recorded Sex Assigned at Not on file Legal Sex Female 12:29 AM 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 Gender Identity Female 04/25/2024 11:50 AM 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 Sexual Orientation Not on file documented as of this encounter Plan of Treatment Not on file documented as of this encounter Visit Diagnoses Not on filedocumented in this encounter Additional Health Concerns Infection Onset Date Last Indicated Resolved Time MRSA Comment:R groin 04/07/17 04/07/2017 04/07/2017 11/18/2020 5:00 A M CDT documented as of this encounter Care Teams Family Engagement Specialist Relationship Specialty Start Date End Date Mayco Buckner MD PCP - General 02/09/17 08/14/18 Danelle Park NP PCP - General 08/15/18 02/20/19 No, Physician PCP - General 02/21/19 03/19/19 Ramy Barone MD PCP - General 03/20/19 04/11/19 Juan Miguel Willis MD [address] [facility] [place] [address] PCP - General Family Medicine 04/12/19 10/31/19 Deny Macedo MD [address] [place] [address] PCP - General Family Medicine 01/16/20 06/17/21 Deny Macedo MD [address] [place] [address] PCP - General 11/01/19 01/15/20 Lindsay Harrington MD [address] [place] [address] PCP - General Family Medicine 06/18/21 08/11/21 Farzad Joe DO [address] [place] [address] PCP - General Internal Medicine 08/12/21 04/21/24 Nain Romero MD [address] [place] [address] PCP - General Family Practice 04/22/24 Jm Mendoza MD Referring Physician Vascular Surgery 07/26/17 Henna Jacobo MD 4700 [facility], [address] [address] Consulting Physician Pain Management 08/17/21 Henna Jacobo MD [address] [facility], [address] [address] Consulting Physician Pain Management 08/17/21 [place] [address] [address] Consulting Physician Cardiology 01/28/22 documented as of this encounter
--- OUTSIDE RECORDS SUMMARY | 2025-01-15 12:59 | XMS_ITS | Clinical Summary ---
Author Organization [facility] Address [address] [place] [address] Care Team Providers Care Waterproofing Mixer Name Role Phone Jm Mendoza MD Unavailable [phone] Henna Jacobo MD Unavailable Henna Jacobo MD Unavailable Kade Riojas MD Unavailable Nain Romero MD Primary Care Provider [phone] Allergies Active Allergy Reactions Criticality Noted Date Comments Morphine Other (See comments) Low 02/04/2022 Makes me angry Oxycodone Itching,Rash Medium 10/15/2019 Can take Hydrocodone Rdrxkwq-Eju-Cfg Reductase Inhibitors Muscle pain Medium 02/10/2022 Tramadol [...] Lancets 33 gauge misc 2 Active multivit azrzeovz-gbpj-E A-calcium (THERA-M) 9 mg iron-400 mcg tabletIndicatio [...] 04/25/2023 Assessment & Plan (04/25/2023 12:48 PM SENIOR BUSINESS OBJECTS DEVELOPER): Impression: Patient reports a right achilles tendon injury. She had noninvasive studies performed at an outside facility. She has an orthopedic surgeon however does not treat foot and ankle conditions. Plan; Will refer to Dr Mcnair for further evaluation. Postoperative seroma involvi ng circulatory system after other circulatory system procedure 03/04/2022 Assessment & Plan (04/29/2022 10:25 AM SENIOR BUSINESS OBJECTS DEVELOPER): Patient is returning for wound check to the right groin. The groin is healed. No complaints or issues from the patient. Seen with Dr. Mendoza. Plan: Return in 6 months for routine surveillance of her arterial disease with a bilateral lower extremity arterial Doppler. Assessment & Plan (04/08/2022 1:11 PM SENIOR BUSINESS OBJECTS DEVELOPER): Patient is following up postoperatively after undergoing [...] 07/13/2018 Assessment & Plan (04/25/2023 12:29 PM SENIOR BUSINESS OBJECTS DEVELOPER): Impression: Chronic and stable. Plan: Continue Zetia Hypothyroidism 07/13/2018 Anxiety and depression 07/13/2018 Neuropathy 07/13/2018 Vitamin D deficiency 07/13/2018 Atherosclerosis of [place] ar radha of both lower extremities with intermittent claudication 11/08/2017 Assessment & Plan (04/25/2023 11:44 AM SENIOR BUSINESS OBJECTS DEVELOPER): Impression: Patient has a significant history of [...] duplex. Assessment & Plan (03/25/2020 3:52 PM SENIOR BUSINESS OBJECTS DEVELOPER): Impression: Stable nondisabling claudication right lower extremity [...] surveillance. 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 Assessment & Plan (04/21/2020 9:51 AM SENIOR BUSINESS OBJECTS DEVELOPER): Impression: Chronic pain right lower extremity with [...] 03/04/2017 Assessment & Plan (04/25/2023 12:30 PM SENIOR BUSINESS OBJECTS DEVELOPER): Impression: Chronic an elevated. Patient denies any [...] provider. Assessment & Plan (03/25/2020 3:53 PM SENIOR BUSINESS OBJECTS DEVELOPER): Impression: Stable hypertension. Plan: Continue current antihypertensive regimen as directed by PCP. Assessment & Plan (01/31/2020 1:20 PM CDT): Impression: Stable hypertension. Plan: Continue current antihypertensive regimen as directed by PCP. PVD (peripheral vascular disease) 03/04/2017 DM type 2 (diabetes mellitus, type 2) 03/04/2017 Thrombosis of aortic bifurcation bypass graft Anxiety 12/23/2013 Diabetes mellitus 12/23/2013 Assessment & Plan (04/25/2023 12:28 PM SENIOR BUSINESS OBJECTS DEVELOPER): Impression: Chronic with good glucose control. Plan: [...] 04/25/2023 Assessment & Plan (04/21/2020 9:52 AM SENIOR BUSINESS OBJECTS DEVELOPER): Impression: Stable nondisabling claudication both lower extremities. [...] Type Department Care Team Description 10/15/2024 Telephone [facility] Vascular and Vein Surgery [address] [facility] [address] [place] [phone] Zhou Trejo MD from Last 3 [...] How often do you attend chur or episcopal services? 1 to 4 times per year [...] on file Legal Sex Female 12:29 AM SENIOR BUSINESS OBJECTS DEVELOPER Gender Identity Female 04/25/2024 11:50 AM SENIOR BUSINESS OBJECTS DEVELOPER Sexual Orientation Not on file Obstetrics History Last Filed Vital Signs Vital Sign Reading Time Taken Comments Blood Pressure 133/68 05/02/2024 2:59 PM SENIOR BUSINESS OBJECTS DEVELOPER Pulse 84 05/02/2024 2:59 PM SENIOR BUSINESS OBJECTS DEVELOPER Temperature 36.6 C (97.8 F) 04/08/2022 11:10 AM SENIOR BUSINESS OBJECTS DEVELOPER Respiratory Rate 18 04/08/2022 11:10 AM SENIOR BUSINESS OBJECTS DEVELOPER Oxygen Saturation 98% 04/08/2022 11:10 AM SENIOR BUSINESS OBJECTS DEVELOPER Inhaled Oxygen Concentration - - Weight 62.1 kg (137 lb) 05/02/2024 2:59 PM SENIOR BUSINESS OBJECTS DEVELOPER Height 165.1 cm (5' 5) 05/02/2024 2:59 PM SENIOR BUSINESS OBJECTS DEVELOPER Body Mass Index 22.8 05/02/2024 2:59 PM SENIOR BUSINESS OBJECTS DEVELOPER Plan of Treatment Health Maintenance Due Date [...] history exists Medical Devices Implanted Type Area Soap Drier Operator Device Identifier Shelf Expiration Date Model / Serial / Lot Liquid Robotics [id number] Hemashield Gold 8mm 60cm 2 Velour Straight Tube Knit Soft Graft - [id number] - [id number] Implanted:Qty: 1 on 02/09/2022 by Jm Mendoza MD at [facility] Right: Femur [employer] [id number] 05/03/2025 [id number] / [id number] / [id number] Procedures Procedure Name Priority Date/Time Associated Diagnosis Comments EGFR Routine 03/10/2022 7:07 AM SENIOR BUSINESS OBJECTS DEVELOPER HEMOGLOBIN A1C Routine 03/05/2022 7:08 AM SENIOR BUSINESS OBJECTS DEVELOPER LIPID PANEL Routine 01/09/2017 4:53 PM CDT from Last 3 Months or Most Recently Relevant to Health Maintenance Results * eGFR (03/10/2022 7:07 AM SENIOR BUSINESS OBJECTS DEVELOPER) eGFR 75 mL/min/1. 73 m2 [facility] Comment: [...] last reviewed 2021. Blood 03/10/2022 7:07 AM SENIOR BUSINESS OBJECTS DEVELOPER 03/10/2022 7:38 AM SENIOR BUSINESS OBJECTS DEVELOPER Zhou Trejo MD LAB BLOOD ORDERABLES Final Result Performing Organization Address [facility] de Phone Number [facility] [address] [facility] Department [place] [address] * Hemoglobin A1c (03/05/2022 7:08 AM SENIOR BUSINESS OBJECTS DEVELOPER) Hgb A1C 5.0 4.0 - 5.6 % [facility] Estimated Average Glucose 97 mg/dL [facility] Comment: The ADA recommends reporting an estimated Average Glucose (eAG) with all Hemoglobin A1c results using the equation derived from a study of 507 normal and diabetic adults. Minority populations were underrepresented and children were not included. (Diabetes Care 31:3451-3397, 2008). The eAG is not equivalent to a fasting glucose. Blood 03/05/2022 7:08 AM SENIOR BUSINESS OBJECTS DEVELOPER 03/05/2022 7:27 AM SENIOR BUSINESS OBJECTS DEVELOPER Alba Lindsey MD LAB BLOOD ORDERABLES Final Result Performing Organization Address City/[facility]/ZIP Co de Phone Number [facility] [address] [facility] Department [place] [address] * (ABNORMAL) Lipid panel (01/09/2017 4:53 PM [...] LAB BLOOD ORDERABLES Final Resul t [facility] [address] [address] Department [place] [address] from Last 3 Months or Most Recently Relevant to Health Maintenance Insurance [facility] CHOICE MEDICARE PPO [employer] MEDICARE HMO [employer] CHOICE MEDICARE PPO [facility] MEDICARE HMO Advance Directives For more information, please contact: [phone] * Full Code (Latest Code Status on [...] 5:18 PM 03/06/2017 5:12 PM Care Teams Waterproofing Mixer Relationship Specialty Start Date End Date Nain Romero MD [address] [facility] [place] [address] PCP - General Family Practice 04/22/24 Jm Mendoza MD Referring Physician Vascular Surgery 07/26/[address] [facility] [facility] [address] [facility], [address] [address] Consulting Physician Pain Management 08/17/21 Henna Jacobo MD [address] [facility], [facility] [address] [place] [address] Consulting Physician Pain Management 08/17/21 [place] [address] [address] Consulting Physician Cardiology 01/28/22
== END 2025-01-15 10:57 | disposition home or self-care (01) ==
PROVIDERS: PCP Family Medicine; Visit Provider Family Medicine
DX: M25.511 Pain in right shoulder (principal)
CPT/HCPCS: 73030

== ENCOUNTER 2025-01-17 15:33 | Outpatient (CLI) | payer MEDICARE, SELFPAY ==
--- NOTE | ~2025-01-17 | CT_ITS ---
EXAMINATION:CT lung screening DATE: 01/17/2025 15:46 INDICATION: Personal history of nicotine dependence. TECHNIQUE: Computed tomography (CT) of the chest was performed without intravenous contrast. Automated exposure control and iterative reconstruction technique were employed. The dose-length product (DLP) was 88.60 mGy-cm. COMPARISON: Chest CT 02/09/2024 FINDINGS: There is mild emphysema. There is mild atelectasis bilaterally. A calcified right lung nodule and calcified right hilar and mediastinal lymph nodes are consistent with old granulomatous disease. No pleural effusion. The heart size is normal. There are coronary artery calcifications. No pericardial effusion. There are changes of cholecystectomy. Calcifications in the spleen are consistent with old granulomatous disease. There is severe cervical spondylosis and moderate thoracic spondylosis. There is a chronic compression fracture of L1. There is mild chronic anterior wedging of multiple vertebral bodies. IMPRESSION: 1. Lung-RADS category 1: Negative. Continue annual screening with noncontrast low-dose chest CT in 12 months. Reviewed, dictated and finalized at location E. IMPRESSION: 1. Lung-RADS category 1: Negative. Continue annual screening with noncontrast l ow-dose chest CT in 12 months.
[2025-01-17 16:45] LABS: Hematocrit 38.8 % (37.0-47.0); Hemoglobin 12.3 g/dL (12.0-15.0); Immature Granulocyte Percent A 0.4 % (0-0.5); Lymphocytes Absolute Auto 1.97 K/mm3 (0.9-3.2); Mean Corpuscular HGB Conc 31.7 g/dl (32-36); Mean Corpuscular Hemoglobin 30.0 pg (26-34); Mean Corpuscular Volume 94.6 fl (80-100); Nucleated Red Blood Cells Absolute Auto 0.000 K/mm3 (0.0-0.012); Nucleated Red Blood Cells Perc 0.0 % (0.0-0.2); Platelet Count Result 266 k/mm3 (150-375); Red Blood Count 4.10 M/mm3 (4.2-5.4); White Blood Count 9.7 K/mm3 (4.5-10.0)
[2025-01-17 17:04] LABS: Iron 120 ug/dL (37-170)
[2025-01-17 17:06] LABS: Anion Gap 7 mmol/L (4-12); Blood Urea Nitrogen 20 mg/dL (7-17); Calcium 10.0 mg/dL (8.4-10.2); Carbon Dioxide 31 mmol/L (22-30); Chloride 95 mmol/L (98-107); Estimated Glomerular Filt Rate 45; Glucose 133 mg/dL (65-110); Potassium 3.9 mmol/L (3.4-5.0); Sodium 133 mmol/L (137-145)
[2025-01-17 17:13] LABS: Percent Iron Saturation 33 % (20-50)
[2025-01-17 17:45] LABS: Ferritin 72.30 ng/mL (11.1-264)
== END 2025-01-17 15:34 | disposition home or self-care (01) ==
PROVIDERS: PCP Family Medicine; Visit Provider Family Medicine
DX: D64.9 Anemia, unspecified (principal); Z12.2 Encounter for screening for malignant neoplasm of respiratory organs; Z87.891 Personal history of nicotine dependence; R94.4 Abnormal results of kidney function studies; I10 Essential (primary) hypertension; Z95.828 Presence of other vascular implants and grafts
CPT/HCPCS: 36415; 71271; 80048; 82728; 83540; 83550; 85025